=== PATIENT | male | born 1960 | race Asian ===

== ENCOUNTER 2018-11-04 16:46 | Emergency (ER) | payer MEDICAID ==
[~2018-11-04] VITALS: Ht 182.9 cm; Wt 90.7 kg
[2018-11-04 17:00] VITALS: BP 175/88
[2018-11-04 17:28] LABS: HEMATOCRIT 38.6 % (42.0-52.0); HEMOGLOBIN 12.8 G/DL (14.2-18.0); MEAN CORPUSCULAR VOLUME 96 FL (80-99); PLATELET COUNT 274 K/UL (150-450); RED BLOOD COUNT 4.01 M/UL (4.70-6.10); RED CELL DISTRIBUTION WIDTH 11.3 % (11.6-14.8); WHITE BLOOD COUNT 21.4 K/UL (4.8-10.8)
[2018-11-04 17:36] LABS: ANION GAP 11 mmol/L (5-15); BLOOD UREA NITROGEN 10 mg/dL (7-18); CARBON DIOXIDE 27 MMOL/L (21-32); CHLORIDE 93 MMOL/L (98-107); POTASSIUM 3.6 MMOL/L (3.5-5.1); SODIUM 131 MMOL/L (136-145)
[2018-11-04 17:40] LABS: ALANINE AMINOTRANSFERASE 20 U/L (12-78); ALBUMIN 2.6 G/DL (3.4-5.0); ALBUMIN/GLOBULIN RATIO 0.5 (1.0-2.7); ALKALINE PHOSPHATASE 98 U/L (46-116); ASPARTATE AMINO TRANSFERASE 12 U/L (15-37); BILIRUBIN,TOTAL 0.5 MG/DL (0.2-1.0)
--- NOTE | 2018-11-04 17:47 | Diagnostic Imaging Report ---
EXAM: XR Chest, 1 View CLINICAL HISTORY: COUGH TECHNIQUE: Frontal view of the chest. COMPARISON: No relevant prior studies available. FINDINGS: Lungs: Right lower lung and perihilar infiltrates/consolidation. Cannot exclude underlying pulmonary lesion, consider followup to ensure resolution. Pleural space: Unremarkable. No pneumothorax. Heart: Cardiomegaly. Mediastinum: Unremarkable. Bones/joints: Unremarkable. IMPRESSION: Right lower lung and perihilar infiltrates/consolidation. Cannot exclude underlying pulmonary lesion, consider followup to ensure resolution.
[2018-11-04] MEDS ORDERED: Azithromycin 500 MG in NS 275 ML IV SCH (18:00)
[2018-11-04] MEDS ORDERED: cefTRIAXone 1 GM in NS 55 ML IV SCH (18:00)
[2018-11-04 18:13] LABS: APPEARANCE,URINE CLEAR; BILIRUBIN, URINE NEGATIVE (NEGATIVE); GLUCOSE, URINE (UA) 4+ (NEGATIVE); KETONES,URINE NEGATIVE (NEGATIVE); LEUKOCYTE ESTERASE ,URINE NEGATIVE (NEGATIVE); NITRITE,URINE NEGATIVE (NEGATIVE); PH,URINE 7 (4.5-8.0); PROTEIN,URINE 3+ (NEGATIVE); UROBILINOGEN,URINE 1 MG/DL (0.0-1.0)
[2018-11-04 18:14] LABS: COLOR,URINE YELLOW
[2018-11-04] MEDS ORDERED: Acetaminophen 500mg (ES) tab ORAL ONE (18:30)
--- NOTE | 2018-11-04 18:38 | Emergency Room Report ---
History of Present Illness General Chief Complaint: General Complaint Source: Patient Present Illness HPI 58-year-old male presents ED for evaluation. Brought in by EMS from rehabilitation facility. patient complaining of headache, cough, fever for the last 4 days. Patient afebrile in triage. Complaining of sore throat and cough. Denies nausea or vomiting. Denies neck stiffness. Denies photophobia or blurry vision. Denies dysuria or hematuria. Did not receive flu shot this year. No other aggravating relieving factors. Denies any other associated symptoms Allergies: Coded Allergies: No Known Allergies (Unverified , 11/04/18) Patient History Past Medical History: none Past Surgical History: none Pertinent Family History: none Social History: Reports: alcohol use; Denies: smoking, drug use Immunizations: UTD Reviewed Nursing Documentation: PMH: Agreed; PSxH: Agreed Nursing Documentation-PMH Past Medical History: No Stated History Review of Systems All Other Systems: negative except mentioned in HPI Physical Exam Vital Signs Date Time Temp Pulse Resp B/P (MAP) Pulse Ox O2 Delivery O2 Flow Rate FiO2 11/04/18 16:39 102.9 104 18 175/100 98 Room Air 11/04/18 17:00 2.0 Sp02 EP Interpretation: reviewed, normal General Appearance: no apparent distress, alert, GCS 15, non-toxic Head: normocephalic, atraumatic Eyes: bilateral eye normal inspection, bilateral eye PERRL ENT: hearing grossly normal, no angioedema, normal voice, TMs + canals normal, pharyngeal erythema, tonsillar exudate Neck: full range of motion, supple, no meningismus, supple/symm/no masses Respiratory: chest non-tender, crackles, speaking full sentences Cardiovascular #1: regular rate, rhythm, no edema Cardiovascular #2: 2+ carotid (R), 2+ carotid (L), 2+ radial (R), 2+ radial (L) , 2+ dorsalis pedis (R), 2+ dorsalis pedis (L) Gastrointestinal: normal bowel sounds, non tender, soft, non-distended, no guarding, no rebound Rectal: deferred Genitourinary: normal inspection, no CVA tenderness Musculoskeletal: back normal, gait/station normal, normal range of motion, non- tender Neurologic: alert, oriented x3, responsive, motor strength/tone normal, sensory intact, speech normal Psychiatric: judgement/insight normal, memory normal, mood/affect normal, no suicidal/homicidal ideation Reflexes: 3+ bicep (R), 3+ bicep (L), 3+ tricep (R), 3+ tricep (L), 3+ knee (R) , 3+ knee (L) Skin: normal color, no rash, warm/dry, well hydrated Lymphatic: no adenopathy Medical Decision Making Diagnostic Impression: Primary Impression: Pneumonia Qualified Codes: J18.1 - Lobar pneumonia, unspecified organism Additional Impression: Pharyngitis Qualified Codes: J02.9 - Acute pharyngitis, unspecified ER Course Hospital Course 58 yo M presents to ED c/o fever, weakness, cough Differential diagnoses include: Pneumonia, flu, pharyngiis Clinical course Patient placed on stretcher. On radiation monitor. After initial history, physical exam reveals an elderly male in no acute distress. Bilateral TM unremarkable. There is significant pharyngeal erythema with exudate. No nuchal rigidity. Crackles on exam. I ordered labs, IV fluids, EKG, chest x-ray, blood cultures, UA. I ordered Motrin for fever Labs - marked leukocytosis noted, hemoglobin/hematocrit stable, electrolytes ok , lactate ok, flu swab negative CXR - R lobe infiltrate given IVFS, given tylenol, given antibiotics Case discussed with Dr. Acosta and he agreed to the patient to his service for further care and support I feel this is a highly complex case requiring extensive working including EKG/ Rhythm strip, Xray/CT/US, Blood/urine lab work, repeat exams while in ED, and administration of strong opiates/narcotics for pain control, admission to hospital or close patient follow up. Diagnosis - pneumonia, pharyngitis Patient admitted to floor in serious condition Labs Test 11/04/18 17:14 11/04/18 17:45 11/04/18 17:50 White Blood Count 21.4 K/UL (4.8-10.8) Red Blood Count 4.01 M/UL (4.70-6.10) Hemoglobin 12.8 G/DL (14.2-18.0) Hematocrit 38.6 % (42.0-52.0) Mean Corpuscular Volume 96 FL (80-99) Mean Corpuscular Hemoglobin 32.0 PG (27.0-31.0) Mean Corpuscular Hemoglobin Concent 33.2 G/DL (32.0-36.0) Red Cell Distribution Width 11.3 % (11.6-14.8) Platelet Count 274 K/UL (150-450) Mean Platelet Volume 6.9 FL (6.5-10.1) Neutrophils (%) (Auto) % (45.0-75.0) Lymphocytes (%) (Auto) % (20.0-45.0) Monocytes (%) (Auto) % (1.0-10.0) Eosinophils (%) (Auto) % (0.0-3.0) Basophils (%) (Auto) % (0.0-2.0) Differential Total Cells Counted 100 Neutrophils % (Manual) 86 % (45-75) Lymphocytes % (Manual) 8 % (20-45) Monocytes % (Manual) 2 % (1-10) Eosinophils % (Manual) 0 % (0-3) Basophils % (Manual) 0 % (0-2) Band Neutrophils 4 % (0-8) Platelet Estimate Adequate Platelet Morphology Normal Red Blood Cell Morphology Polychromasia 1+ Macrocytosis 1+ Sodium Level 131 MMOL/L (136-145) Potassium Level 3.6 MMOL/L (3.5-5.1) Chloride Level 93 MMOL/L (98-107) Carbon Dioxide Level 27 MMOL/L (21-32) Anion Gap 11 mmol/L (5-15) Blood Urea Nitrogen 10 mg/dL (7-18) Creatinine 1.0 MG/DL (0.55-1.30) Estimat Glomerular Filtration Rate > 60 mL/min (>60) Glucose Level 258 MG/DL (74-106) Calcium Level 9.0 MG/DL (8.5-10.1) Total Bilirubin 0.5 MG/DL (0.2-1.0) Aspartate Amino Transf (AST/SGOT) 12 U/L (15-37) Alanine Aminotransferase (ALT/SGPT) 20 U/L (12-78) Alkaline Phosphatase 98 U/L (46-116) Total Protein 7.6 G/DL (6.4-8.2) Albumin 2.6 G/DL (3.4-5.0) Globulin 5.0 g/dL Albumin/Globulin Ratio 0.5 (1.0-2.7) Serum Alcohol < 3 mg/dL Urine Color Yellow Urine Appearance Clear Urine pH 7 (4.5-8.0) Urine Specific [place] 1.010 (1.005-1.035) Urine Protein 3+ (NEGATIVE) Urine Glucose (UA) 4+ (NEGATIVE) Urine Ketones Negative (NEGATIVE) Urine Blood 2+ (NEGATIVE) Urine Nitrite Negative (NEGATIVE) Urine Bilirubin Negative (NEGATIVE) Urine Urobilinogen 1 MG/DL (0.0-1.0) Urine Leukocyte Esterase Negative (NEGATIVE) Urine RBC 0-2 /HPF (0 - 0) Urine WBC 0-2 /HPF (0 - 0) Urine Squamous Epithelial Cells None /LPF (NONE/OCC) Urine Bacteria None /HPF (NONE) Chest X-Ray Diagnostic Results Chest X-Ray Diagnostic Results : Chest X-Ray Ordered: Yes # of Views/Limited/Complete: 1 View Indication: Shortness of Breath EP Interpretation: Yes Interpretation: no effusion, no pneumothorax, other - R sided infiltrate Impression: Other - pneumonia Electronically Signed by: Electronically signed by Stanislaw Pulido MD Last Vital Signs Date Time Temp Pulse Resp B/P (MAP) Pulse Ox O2 Delivery O2 Flow Rate FiO2 11/04/18 17:25 103.0 11/04/18 17:00 98 37 Nasal Cannula 2.0 11/04/18 17:00 175/88 96 Status: improved Disposition: ADMITTED INPATIENT Condition: Serious Scripts No Active Prescriptions or Reported Meds Referrals: NOT APPLICABLE THIS PATIENT,RE (PCP) Stanislaw Pulido MD Nov 04, 2018 18:38
[2018-11-04 19:00] VITALS: BP 124/74
[2018-11-04] MEDS ORDERED: AMOXICILLIN500 MG ORAL (20:32)
[2018-11-04] MEDS ORDERED: IBUPROFEN600 MG ORAL (20:32)
[2018-11-04 20:44] VITALS: BP 127/72
== END 2018-11-04 20:44 | disposition left against medical advice (07) ==
LOC: EDBD 16:46 → EMR 17:33
DX: J18.9 Pneumonia, unspecified organism (principal); J02.9 Acute pharyngitis, unspecified
CPT/HCPCS: 36415; 71045; 80053; 80329; 81003; 83605; 85007; 85025; 86710; 87040; 96361; 96365; 96368; 99285; J0456; J0696; J7050

== ENCOUNTER 2018-11-07 20:01 | Inpatient (IN) | payer MEDICAID ==
[~2018-11-07] VITALS: Ht 167.6 cm; Wt 84.8 kg
[~2018-11-07 20:01] MED LIST: AMOXICILLIN500 MG ORAL; IBUPROFEN600 MG ORAL
[2018-11-07] MEDS ORDERED: Nitroglycerin Subl 0.4mg tab SL PRN (20:15)
[2018-11-07] MEDS ORDERED: Aspirin Baby 81mg ORAL ONE (20:15)
[2018-11-07] MEDS ORDERED: Nitroglycerin 2% oint pkt TOPIC ONE (20:15)
--- NOTE | 2018-11-07 20:55 | Emergency Room Report ---
History of Present Illness General Chief Complaint: Multiple Trauma/Fall Source: Patient Present Illness HPI This patient states that he feels short of breath. He has been feeling short of breath the past few days. He now feels like a pressure is on his chest. He also tripped and fell today and hit his head. He has a headache. He denies recent illness. He denies cough or congestion. He denies fever or chills. He does have chest pain. He denies any history of any medical problems. He has no other complaints. Allergies: Coded Allergies: No Known Allergies (Unverified , 11/04/18) Patient History Past Medical History: none Social History: Denies: smoking, alcohol use, drug use Reviewed Nursing Documentation: PMH: Agreed; PSxH: Agreed Nursing Documentation-PMH Past Medical History: No Stated History Review of Systems All Other Systems: negative except mentioned in HPI Physical Exam Vital Signs Date Time Temp Pulse Resp B/P (MAP) Pulse Ox O2 Delivery O2 Flow Rate FiO2 11/07/18 20:20 99.0 22 36 170/97 91 Nasal Cannula 4.0 11/07/18 20:39 50 Sp02 EP Interpretation: reviewed, abnormal General Appearance: no apparent distress, alert, GCS 15, moderate distress Head: normocephalic, atraumatic Eyes: bilateral eye normal inspection, bilateral eye PERRL ENT: hearing grossly normal, normal pharynx, no angioedema, normal voice Neck: full range of motion, supple/symm/no masses Respiratory: chest non-tender, no retraction, no accessory muscle use, rales, other - Tachypnea Cardiovascular #1: regular rate, rhythm, no edema Gastrointestinal: normal bowel sounds, non tender, soft, non-distended, no guarding, no rebound Rectal: deferred Musculoskeletal: back normal, gait/station normal, normal range of motion, non- tender Neurologic: alert, oriented x3, responsive, motor strength/tone normal, sensory intact, speech normal Psychiatric: judgement/insight normal, memory normal, mood/affect normal, no suicidal/homicidal ideation Skin: normal color, no rash, warm/dry, well hydrated Medical Decision Making Diagnostic Impression: Primary Impression: Pneumonia Additional Impressions: Sepsis Respiratory failure Diabetes Hyperglycemia ER Course This patient presents with multilobar pneumonia and sepsis. He also has a new diagnosis of diabetes with hyperglycemia. On arrival, he was dyspneic and tachypneic. He was placed on BiPAP and had significant improvement in his work of breathing. ABG is consistent with respiratory failure. Repeat ABG showed significant improvement with BiPAP. The patient also is very comfortable and without respiratory distress on BiPAP. I did not feel that, at this time, the patient needs to be intubated. He was given broad-spectrum antibiotics and IV fluids. He is also given insulin subcutaneous. He is admitted to the ICU step down for further evaluation and treatment. This patient is critically ill. This patient required complex medical decision- making, aggressive intervention, extensive laboratory workup and monitoring. Critical care time: 40 minutes. Laboratory Tests Test 11/07/18 20:16 11/07/18 20:45 11/07/18 21:00 11/07/18 21:25 Arterial Blood pH 7.481 (7.350-7.450) 7.482 (7.350-7.450) Arterial Blood Partial Pressure CO2 33.7 mmHg (35.0-45.0) L 32.9 mmHg (35.0-45.0) L Arterial Blood Partial Pressure O2 66.3 mmHg (75.0-100.0) L 97.5 mmHg (75.0-100.0) Arterial Blood HCO3 24.6 mmol/L (22.0-26.0) 24.1 mmol/L (22.0-26.0) Arterial Blood Oxygen Saturation 93.0 % (95-100) L 97.2 % (95-100) Arterial Blood Base Excess 1.6 (-2-2) 1.2 (-2-2) Rhett Test Positive Positive White Blood Count 18.9 K/UL (4.8-10.8) H Red Blood Count 4.00 M/UL (4.70-6.10) L Hemoglobin 12.7 G/DL (14.2-18.0) L Hematocrit 37.6 % (42.0-52.0) L Mean Corpuscular Volume 94 FL (80-99) Mean Corpuscular Hemoglobin 31.9 PG (27.0-31.0) H Mean Corpuscular Hemoglobin Concent 33.9 G/DL (32.0-36.0) Red Cell Distribution Width 11.8 % (11.6-14.8) Platelet Count 457 K/UL (150-450) H Mean Platelet Volume 5.9 FL (6.5-10.1) L Neutrophils (%) (Auto) % (45.0-75.0) Lymphocytes (%) (Auto) % (20.0-45.0) Monocytes (%) (Auto) % (1.0-10.0) Eosinophils (%) (Auto) % (0.0-3.0) Basophils (%) (Auto) % (0.0-2.0) Differential Total Cells Counted 100 Neutrophils % (Manual) 72 % (45-75) Lymphocytes % (Manual) 17 % (20-45) L Monocytes % (Manual) 8 % (1-10) Eosinophils % (Manual) 2 % (0-3) Basophils % (Manual) 1 % (0-2) Band Neutrophils 0 % (0-8) Platelet Estimate Increased H Platelet Morphology Normal Red Blood Cell Morphology Normal Prothrombin Time 10.6 SEC (9.30-11.50) Prothrombin Time INR 1.0 (0.9-1.1) PTT 31 SEC (23-33) Sodium Level 132 MMOL/L (136-145) L Potassium Level 3.8 MMOL/L (3.5-5.1) Chloride Level 96 MMOL/L (98-107) L Carbon Dioxide Level 26 MMOL/L (21-32) Anion Gap 10 mmol/L (5-15) Blood Urea Nitrogen 11 mg/dL (7-18) Creatinine 0.9 MG/DL (0.55-1.30) Estimate Glomerular Filtration Rate > 60 mL/min (>60) Glucose Level 357 MG/DL (74-106) H Calcium Level 8.5 MG/DL (8.5-10.1) Total Bilirubin 0.7 MG/DL (0.2-1.0) Aspartate Amino Transferase (AST) 47 U/L (15-37) H Alanine Aminotransferase (ALT) 64 U/L (12-78) Alkaline Phosphatase 146 U/L (46-116) H Total Creatine Kinase 44 U/L (26-308) Creatine Kinase MB 0.6 NG/ML (0.0-3.6) Creatine Kinase MB Relative Index 1.3 Troponin I 0.017 ng/mL (0.000-0.056) Pro-B-Type Natriuretic Peptide 190 pg/mL (0-125) H Total Protein 7.6 G/DL (6.4-8.2) Albumin 2.1 G/DL (3.4-5.0) L Globulin 5.5 g/dL Albumin/Globulin Ratio 0.4 (1.0-2.7) L Urine Color Pale yellow Urine Appearance Clear Urine pH 7 (4.5-8.0) Urine Specific [place] 1.005 (1.005-1.035) Urine Protein 2+ (NEGATIVE) H Urine Glucose (UA) 4+ (NEGATIVE) H Urine Ketones Negative (NEGATIVE) Urine Blood 1+ (NEGATIVE) H Urine Nitrite Negative (NEGATIVE) Urine Bilirubin Negative (NEGATIVE) Urine Urobilinogen 1 MG/DL (0.0-1.0) H Urine Leukocyte Esterase Negative (NEGATIVE) Urine RBC 0-2 /HPF (0 - 0) H Urine WBC 0-2 /HPF (0 - 0) Urine Squamous Epithelial Cells None /LPF (NONE/OCC) Urine Bacteria Few /HPF (NONE) EKG Diagnostic Results Rate: normal Rhythm: NSR ST Segments: no acute changes Rhythm Strip Diag. Results EP Interpretation: yes Rate: 70's Rhythm: NSR, no PVC's, no ectopy Chest X-Ray Diagnostic Results Chest X-Ray Diagnostic Results : Chest X-Ray Ordered: Yes # of Views/Limited/Complete: 1 View Indication: Shortness of Breath Interpretation: no pneumothorax, other - RML and RLL opacities Impression: Other - See above CT/MRI/US Diagnostic Results CT/MRI/US Diagnostic Results : Imaging Test Ordered: CT head Impression No acute findings. Specifically no intracranial bleed, mass effect or edema. See official report. Last Vital Signs Date Time Temp Pulse Resp B/P (MAP) Pulse Ox O2 Delivery O2 Flow Rate FiO2 11/07/18 20:51 149/88 11/07/18 20:41 88 38 Bi-pap 50 11/07/18 20:39 98 11/07/18 20:20 99.0 4.0 Disposition: ADMITTED INPATIENT Condition: Critical Maribeth Marc DO Nov 07, 2018 20:55
[2018-11-07 21:00] LABS: HEMATOCRIT 37.6 % (42.0-52.0); HEMOGLOBIN 12.7 G/DL (14.2-18.0); MEAN CORPUSCULAR VOLUME 94 FL (80-99); PLATELET COUNT 457 K/UL (150-450); RED CELL DISTRIBUTION WIDTH 11.8 % (11.6-14.8); WHITE BLOOD COUNT 18.9 K/UL (4.8-10.8)
[2018-11-07 21:11] LABS: ANION GAP 10 mmol/L (5-15); BLOOD UREA NITROGEN 11 mg/dL (7-18); CALCIUM 8.5 MG/DL (8.5-10.1); CARBON DIOXIDE 26 MMOL/L (21-32); CHLORIDE 96 MMOL/L (98-107); CREATININE 0.9 MG/DL (0.55-1.30); POTASSIUM 3.8 MMOL/L (3.5-5.1); SODIUM 132 MMOL/L (136-145)
[2018-11-07 21:24] LABS: ALANINE AMINOTRANSFERASE 64 U/L (12-78); ALBUMIN 2.1 G/DL (3.4-5.0); ALBUMIN/GLOBULIN RATIO 0.4 (1.0-2.7); ALKALINE PHOSPHATASE 146 U/L (46-116); ASPARTATE AMINO TRANSFERASE 47 U/L (15-37); BILIRUBIN,TOTAL 0.7 MG/DL (0.2-1.0); CKMB 0.6 NG/ML (0.0-3.6); CREATINE KINASE 44 U/L (26-308)
--- NOTE | 2018-11-07 21:25 | NUR ---
ED Nurse Note: PATIENT AMBULATED TO ED WITH C/O FALL TODAY AT 1400. PATIENTS STATES HE DOESNT REMEMBER WHAT HAPPENED. PATIENT PRESENTS PALE AND SOB; SPO2 85% ROOM AIR; 91% NC 4L. REPORTS CHEST PAIN 10/10. PT WAS SEEN BY FLORY, RESPIRATORY THERAPIST ON BEDSIDE. PT WAS PUT ON BIPAP, PT MEDICATED AND TOLERATED WELL. PT STATED THAT THE CHEST PAIN LESSEN AFTER THE NITROGLYCERIN SUBLINGUAL, ASA WAS GIVEN. PAIN WENT DOWN TO 2/10 FROM 10/10 VERBALIZED BY THE PT. BLOOD AND URINE WAS SENT TO THE LAB. WILL CONTINUE TO MONITOR.
[2018-11-07] MEDS ORDERED: cefTRIAXone 1 GM in NS 55 ML IVPB ONE (21:30)
[2018-11-07 21:34] VITALS: BP 149/88
[2018-11-07 21:44] LABS: APPEARANCE,URINE CLEAR; BILIRUBIN, URINE NEGATIVE (NEGATIVE); COLOR,URINE PALE YELLOW; GLUCOSE, URINE (UA) 4+ (NEGATIVE); KETONES,URINE NEGATIVE (NEGATIVE); LEUKOCYTE ESTERASE ,URINE NEGATIVE (NEGATIVE); NITRITE,URINE NEGATIVE (NEGATIVE); PH,URINE 7 (4.5-8.0); PROTEIN,URINE 2+ (NEGATIVE); UROBILINOGEN,URINE 1 MG/DL (0.0-1.0)
[2018-11-07] MEDS ORDERED: Insulin Human Regular 100units/ml 3ml SUBQ ONE (22:00)
--- NOTE | 2018-11-07 22:10 | NUR ---
ED Nurse Note: pt went to ct with tech
[2018-11-07] MEDS ORDERED: LORazepam Inj 2mg/ml 1ml IV PRN (22:15)
[2018-11-07] MEDS ORDERED: Albuterol/Ipratropium 3ml neb HHN PRN (22:15)
[2018-11-07] MEDS ORDERED: Morphine Sulfate 4mg/ml Inj (IV USE ONLY) IVP PRN (22:15)
[2018-11-07] MEDS ORDERED: Miralax 17gm pkt ORAL PRN (22:15)
[2018-11-07] MEDS ORDERED: Promethazine/Codeine 5ml UD ORAL PRN (22:15)
--- NOTE | 2018-11-07 23:00 | NUR ---
ED Nurse Note: pt was admitted to hospital, report givevn to neymar schrader
--- NOTE | 2018-11-07 23:20 | NUR ---
ED Nurse Note: pt was transfered 246 D accompanied by rn and respiratory therapist and connected to monitoring engineer. pt took all belongings with him and endorsed to neymar schrader
--- NOTE | 2018-11-07 23:50 | NUR ---
NURSE NOTES: Received report and pt from KRISTI Stephenson. Pt's transferred from ER to SDU ( ICU overflow) dxed PNA, resp distress. Pt's AOx4, English speaking, stated homeless, currently on Bipap 07/14, PEEP 12, FiO2 50%, O2 sat at 99%. Pt's in no acute distress, VS stable, following commands. Noted Right FA 18G peripheral line patent. Skin intact. Kept HOB elevated. Bed in low and locked position. Will continue to monitor.
[2018-11-07 23:57] VITALS: BP 141/88
[2018-11-08] VITALS (16 sets, daily range): BP systolic 127–149; BP diastolic 76–91
[2018-11-08] MEDS: Vancomycin 1 GM in D5W 275 ML IVPB SCH ×2 (00:42→14:10)
--- NOTE | 2018-11-08 02:00 | NUR ---
NURSE NOTES: Pt's resting in bed,with eyes closed, as sleep, still wearing Bipap. VS stable. Will continue to monitor.
--- NOTE | 2018-11-08 04:00 | NUR ---
NURSE NOTES: Pt's resting in bed, asleep, VS stable, in no acute distress. Will continue to monitor.
[2018-11-08 04:17] LABS: BASOPHILS % (AUTO) 1.5 % (0.0-2.0); EOSINOPHILS % (AUTO) 0.8 % (0.0-3.0); HEMATOCRIT 33.5 % (42.0-52.0); HEMOGLOBIN 11.4 G/DL (14.2-18.0); LYMPHOCYTES % (AUTO) 14.1 % (20.0-45.0); MEAN CORPUSCULAR VOLUME 95 FL (80-99); MONOCYTES % (AUTO) 9.1 % (1.0-10.0); NEUTROPHILS % (AUTO) 74.5 % (45.0-75.0); PLATELET COUNT 441 K/UL (150-450); RED BLOOD COUNT 3.52 M/UL (4.70-6.10); RED CELL DISTRIBUTION WIDTH 11.9 % (11.6-14.8); WHITE BLOOD COUNT 17.8 K/UL (4.8-10.8)
[2018-11-08 04:30] LABS: ALBUMIN 1.9 G/DL (3.4-5.0); ANION GAP 11 mmol/L (5-15); BLOOD UREA NITROGEN 11 mg/dL (7-18); CARBON DIOXIDE 24 MMOL/L (21-32); CHLORIDE 97 MMOL/L (98-107); CREATININE 0.8 MG/DL (0.55-1.30); PHOSPHORUS 3.7 MG/DL (2.5-4.9); POTASSIUM 3.5 MMOL/L (3.5-5.1); SODIUM 132 MMOL/L (136-145)
--- NOTE | 2018-11-08 06:00 | NUR ---
NURSE NOTES: Pt's resting bed, asleep, in no acute distress. VS stable. Will continue to monitor.
[2018-11-08] MEDS: NovoLOG Insulin Flexpen SUBQ SCH ×4 (06:43→21:24)
--- NOTE | 2018-11-08 07:21 | NUR ---
HAND-OFF: Report given to KRISTI Gotti.
--- NOTE | 2018-11-08 08:00 | NUR ---
NURSE NOTES: Received patient alert&oriented x4. Limited japanese, nepali speaking. hall monitor showing SR. Patient on 2 L nc saturating 100%. Lung soudns dimininshed bilaterally. Hypoactive bowel sounds on all 4 quadrants. R foearm 18. 1/2 NS at 50 cc/hr. Patient stable. VSS. No distress noted. Sitting in the bed watching television no s/s of distress, denies pain or discomfort. Will continue to monitor patient. Bed alarm on for safety.
[2018-11-08] MEDS ORDERED: Cefepime HCl 2 GM in D5W 110 ML IV SCH (09:00)
[2018-11-08] MEDS ORDERED: Heparin 5000 units/ml inj SUBQ SCH (09:00)
--- NOTE | 2018-11-08 09:39 | Consultation ---
Consult Note Consult Note asked to eval for low Na Chief Complaint: Multiple Trauma/Fall Source: Patient HPI This patient states that he feels short of breath. He has been feeling short of breath the past few days. He now feels like a pressure is on his chest. He also tripped and fell today and hit his head. He has a headache. He denies recent illness. He denies cough or congestion. He denies fever or chills. He does have chest pain. He denies any history of any medical problems. He has no other complaints. No Known Allergies (Unverified , 11/04/18) data reviewed examined . Assessment/Plan Pneumonia Low Na due to high BS Sepsis Respiratory failure Diabetes OOC with proteinuria [place] UOs uric acid TSH Lipid per orders Sedrick Cordova MD Nov 08, 2018 09:39
--- NOTE | 2018-11-08 09:45 | Diagnostic Imaging Report ---
Indication: Head trauma, fall, head pain Technique: Continuous helical CT scanning of the head was performed without intravenous contrast material. Axial and coronal 5 mm sections were generated. Radiation dose was minimized using automated exposure control Dose: Total Dose Length Product - DLP 1981.[address] Dose Index - CTDIvol(s) 70.38,70.38 mGy. Comparison: none Findings: The ventricular system is normal in size and configuration. There is no shift of midline structures. No abnormal extra-axial fluid collections are noted. There is no evidence of intracerebral bleeding. No other abnormal high or low density areas are noted within the brain. There is a tiny left high parietal scalp contusion. The visualized orbits are unremarkable. The sinuses are clear. The calvarium is intact. The mastoids are clear. The cruz-white differentiation is normal. Impression: Normal CT scan of the head without contrast material. The CT scanner at [facility] is accredited by the [employer] and the scans are performed using protocols designed to limit radiation exposure to as low as reasonably achievable to attain images of sufficient resolution adequate for diagnostic evaluation.
--- NOTE | 2018-11-08 09:46 | NUR ---
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 RESPIRATORY DISTRESS VS: BP 170/97, P 22, T 98.9, RR 36, SpO2 91 on 4.0L Bi-pap FiO2 50 WBC 18.9, RBC 4.00, Hgb 12.7, Hct 37.6, Na 132, Urine Protein 2+, Urine Blood 1+ HEAD CT Impression: Normal CT scan of the head without contrast material. IS:NITRO-BID TOPICAL ASPIRIN 162mg CEFTRIAXONE 55ml IVPB NOVOLIN R SUBQ ADMITTED TO ICU DC PLAN TO DETERMINED BY CARE NEEDED UPON DC
[2018-11-08] MEDS ORDERED: Promethazine/Codeine 5ml UD ORAL PRN ×2 (10:00→16:00)
--- NOTE | 2018-11-08 10:00 | NUR ---
NURSE NOTES: Patient self repositioned. No distress noted. VSS. Will continue plan of care.
--- NOTE | 2018-11-08 10:03 | Consultation ---
History of Present Illness General Date patient seen: Nov 08, 2018 Chief Complaint: Multiple Trauma/Fall Present Illness HPI 58 year old homeless male with hx of DM presented to ER with CC of short of breath for past few days. He now feels like a pressure is on his chest. He also tripped and fell today and hit his head. He denies fever or chills. His CXR showed bilateral infiltrate. He was started on BIPAP and admitted to [facility]. Allergies: Coded Allergies: No Known Allergies (Unverified , 11/04/18) Medication History Scheduled Amoxicillin* (Amoxil*), 500 MG ORAL THREE TIMES A DAY Scheduled PRN Ibuprofen* (Motrin*), 600 MG ORAL Q8H PRN for For Pain Patient History Healthcare decision maker Resuscitation status Full Code Advanced Directive on File Past Medical/Surgical History Past Medical/Surgical History: (1) Diabetes Review of Systems All Other Systems: negative except mentioned in HPI Physical Exam General Appearance: WD/WN Lines, tubes and drains: peripheral HEENT: normocephalic, atraumatic Neck: non-tender, normal alignment Respiratory/Chest: chest wall non-tender, lungs clear Breasts: no masses Cardiovascular/Chest: normal peripheral pulses Abdomen: normal bowel sounds Genitourinary/Rectal: normal genital exam Extremities: normal range of motion Last 24 Hour Vital Signs Date Time Temp Pulse Resp B/P (MAP) Pulse Ox O2 Delivery O2 Flow Rate FiO2 11/08/18 09:00 75 24 138/85 (102) 98 11/08/18 08:00 98.7 79 22 140/90 (107) 99 11/08/18 08:00 Bi-pap 11/08/18 08:00 50 11/08/18 07:00 71 24 142/82 (102) 99 11/08/18 06:00 71 24 145/88 (107) 99 11/08/18 05:27 69 23 99 Full Face 40 11/08/18 05:00 74 24 140/88 (105) 99 11/08/18 04:00 Bi-pap 11/08/18 04:00 98.9 78 24 134/88 (103) 99 11/08/18 04:00 74 11/08/18 03:30 72 37 100 Full Face 50 11/08/18 03:00 74 24 127/91 (103) 99 11/08/18 02:00 76 23 130/80 (97) 99 11/08/18 01:30 76 21 99 Full Face 50 11/08/18 01:00 81 30 133/78 (96) 99 11/08/18 00:35 50 11/08/18 00:00 Bi-pap 11/08/18 00:00 95 11/07/18 23:57 99.1 95 24 141/88 (105) 95 11/07/18 23:56 Bi-pap 11/07/18 23:30 80 26 100 Facial 50 11/07/18 22:20 99.1 87 14 149/84 100 Bi-pap 50 11/07/18 21:34 88 17 Bi-pap 4.0 50 11/07/18 21:34 99.0 88 17 149/88 98 Bi-pap 4.0 50 11/07/18 21:27 50 11/07/18 20:51 149/88 11/07/18 20:50 149/88 11/07/18 20:41 88 38 Bi-pap 50 11/07/18 20:39 88 38 98 Facial 50 11/07/18 20:20 99.0 22 36 170/97 91 Nasal Cannula 4.0 Intake and Output 11/07/18 11/08/18 19:00 07:00 Intake Total 625.0 ml Balance 625.0 ml Intake IV Total 625.0 ml Laboratory Tests Test 11/07/18 20:16 11/07/18 20:45 11/07/18 21:00 11/07/18 21:25 Arterial Blood pH 7.481 (7.350-7.450) 7.482 (7.350-7.450) Arterial Blood Partial Pressure CO2 33.7 mmHg (35.0-45.0) L 32.9 mmHg (35.0-45.0) L Arterial Blood Partial Pressure O2 66.3 mmHg (75.0-100.0) L 97.5 mmHg (75.0-100.0) Arterial Blood HCO3 24.6 mmol/L (22.0-26.0) 24.1 mmol/L (22.0-26.0) Arterial Blood Oxygen Saturation 93.0 % (95-100) L 97.2 % (95-100) Arterial Blood Base Excess 1.6 (-2-2) 1.2 (-2-2) Rhett Test Positive Positive White Blood Count 18.9 K/UL (4.8-10.8) H Red Blood Count 4.00 M/UL (4.70-6.10) L Hemoglobin 12.7 G/DL (14.2-18.0) L Hematocrit 37.6 % (42.0-52.0) L Mean Corpuscular Volume 94 FL (80-99) Mean Corpuscular Hemoglobin 31.9 PG (27.0-31.0) H Mean Corpuscular Hemoglobin Concent 33.9 G/DL (32.0-36.0) Red Cell Distribution Width 11.8 % (11.6-14.8) Platelet Count 457 K/UL (150-450) H Mean Platelet Volume 5.9 FL (6.5-10.1) L Neutrophils (%) (Auto) % (45.0-75.0) Lymphocytes (%) (Auto) % (20.0-45.0) Monocytes (%) (Auto) % (1.0-10.0) Eosinophils (%) (Auto) % (0.0-3.0) Basophils (%) (Auto) % (0.0-2.0) Differential Total Cells Counted 100 Neutrophils % (Manual) 72 % (45-75) Lymphocytes % (Manual) 17 % (20-45) L Monocytes % (Manual) 8 % (1-10) Eosinophils % (Manual) 2 % (0-3) Basophils % (Manual) 1 % (0-2) Band Neutrophils 0 % (0-8) Platelet Estimate Increased H Platelet Morphology Normal Red Blood Cell Morphology Normal Prothrombin Time 10.6 SEC (9.30-11.50) Prothromb Time International Ratio 1.0 (0.9-1.1) Activated Partial Thromboplast Time 31 SEC (23-33) Sodium Level 132 MMOL/L (136-145) L Potassium Level 3.8 MMOL/L (3.5-5.1) Chloride Level 96 MMOL/L (98-107) L Carbon Dioxide Level 26 MMOL/L (21-32) Anion Gap 10 mmol/L (5-15) Blood Urea Nitrogen 11 mg/dL (7-18) Creatinine 0.9 MG/DL (0.55-1.30) Estimat Glomerular Filtration Rate > 60 mL/min (>60) Glucose Level 357 MG/DL (74-106) H Calcium Level 8.5 MG/DL (8.5-10.1) Total Bilirubin 0.7 MG/DL (0.2-1.0) Aspartate Amino Transf (AST/SGOT) 47 U/L (15-37) H Alanine Aminotransferase (ALT/SGPT) 64 U/L (12-78) Alkaline Phosphatase 146 U/L (46-116) H Total Creatine Kinase 44 U/L (26-308) Creatine Kinase MB 0.6 NG/ML (0.0-3.6) Creatine Kinase MB Relative Index 1.3 Troponin I 0.017 ng/mL (0.000-0.056) Pro-B-Type Natriuretic Peptide 190 pg/mL (0-125) H Total Protein 7.6 G/DL (6.4-8.2) Albumin 2.1 G/DL (3.4-5.0) L Globulin 5.5 g/dL Albumin/Globulin Ratio 0.4 (1.0-2.7) L Urine Color Pale yellow Urine Appearance Clear Urine pH 7 (4.5-8.0) Urine Specific [place] 1.005 (1.005-1.035) Urine Protein 2+ (NEGATIVE) H Urine Glucose (UA) 4+ (NEGATIVE) H Urine Ketones Negative (NEGATIVE) Urine Blood 1+ (NEGATIVE) H Urine Nitrite Negative (NEGATIVE) Urine Bilirubin Negative (NEGATIVE) Urine Urobilinogen 1 MG/DL (0.0-1.0) H Urine Leukocyte Esterase Negative (NEGATIVE) Urine RBC 0-2 /HPF (0 - 0) H Urine WBC 0-2 /HPF (0 - 0) Urine Squamous Epithelial Cells None /LPF (NONE/OCC) Urine Bacteria Few /HPF (NONE) Test 11/08/18 03:30 White Blood Count 17.8 K/UL (4.8-10.8) H Red Blood Count 3.52 M/UL (4.70-6.10) L Hemoglobin 11.4 G/DL (14.2-18.0) L Hematocrit 33.5 % (42.0-52.0) L Mean Corpuscular Volume 95 FL (80-99) Mean Corpuscular Hemoglobin 32.3 PG (27.0-31.0) H Mean Corpuscular Hemoglobin Concent 33.9 G/DL (32.0-36.0) Red Cell Distribution Width 11.9 % (11.6-14.8) Platelet Count 441 K/UL (150-450) Mean Platelet Volume 6.0 FL (6.5-10.1) L Neutrophils (%) (Auto) 74.5 % (45.0-75.0) Lymphocytes (%) (Auto) 14.1 % (20.0-45.0) L Monocytes (%) (Auto) 9.1 % (1.0-10.0) Eosinophils (%) (Auto) 0.8 % (0.0-3.0) Basophils (%) (Auto) 1.5 % (0.0-2.0) Sodium Level 132 MMOL/L (136-145) L Potassium Level 3.5 MMOL/L (3.5-5.1) Chloride Level 97 MMOL/L (98-107) L Carbon Dioxide Level 24 MMOL/L (21-32) Anion Gap 11 mmol/L (5-15) Blood Urea Nitrogen 11 mg/dL (7-18) Creatinine 0.8 MG/DL (0.55-1.30) Estimat Glomerular Filtration Rate > 60 mL/min (>60) Glucose Level 269 MG/DL (74-106) H Calcium Level 8.0 MG/DL (8.5-10.1) L Phosphorus Level 3.7 MG/DL (2.5-4.9) Albumin 1.9 G/DL (3.4-5.0) L Height (Feet): 5 Height (Inches): 6.00 Weight (Pounds): 189 Medications Current Medications Medications (Trade) Dose Ordered Sig/Des Route PRN Reason Start Time Stop Time Status Last Admin Dose Admin Acetaminophen (Tylenol) 650 mg Q4H PRN ORAL FEVER 11/07/18 22:15 12/07/18 22:14 Albuterol/ Ipratropium (Albuterol/ Ipratropium) 3 ml Q4H PRN HHN Shortness of Breath 11/07/18 22:15 11/12/18 22:14 Cefepime HCl 2 gm/ Dextrose 110 ml @ 220 mls/hr EVERY 12 HOURS IV 11/08/18 09:00 11/15/18 08:59 11/08/18 09:29 Dextrose (Dextrose 50%) 25 ml Q30M PRN IV Hypoglycemia 11/07/18 22:15 12/07/18 22:14 Dextrose (Dextrose 50%) 50 ml Q30M PRN IV Hypoglycemia 11/07/18 22:15 12/07/18 22:14 Famotidine (Pepcid) 20 mg DAILY ORAL 11/09/18 09:00 12/09/18 08:59 Heparin Sodium (Porcine) (Heparin 5000 units/ml) 5,000 units EVERY 12 HOURS SUBQ 11/08/18 09:00 12/08/18 08:59 11/08/18 09:32 Insulin Aspart (NovoLOG) BEFORE MEALS AND HS SUBQ 11/08/18 06:30 12/08/18 06:29 11/08/18 06:43 Nitroglycerin (Ntg) 0.4 mg Q5M PRN SL Prn Chest Pain 11/07/18 20:15 11/07/18 20:51 Ondansetron HCl (Zofran) 4 mg Q6H PRN IVP Nausea & Vomiting 11/07/18 22:15 12/07/18 22:14 Polyethylene Glycol (Miralax) 17 gm DAILYPRN PRN ORAL Constipation 11/07/18 22:15 12/07/18 22:14 Promethazine HCl/ Codeine (Phenergan with Codeine) 5 ml Q4H PRN ORAL For Cough 11/08/18 10:00 12/08/18 09:59 Theophylline (Tremayne-Dur) 100 mg EVERY 12 HOURS ORAL 11/08/18 21:00 12/08/18 20:59 Vancomycin HCl (Vanco rx to dose) 1 ea DAILY PRN MISC Per rx protocol 11/08/18 07:30 12/08/18 07:29 Vancomycin HCl 1 gm/Dextrose 275 ml @ 183.3 mls/ hr Q12H IVPB 11/08/18 00:00 11/13/18 00:00 11/08/18 00:42 Assessment/Plan Problem List: (1) Acute respiratory failure ICD Codes: J96.00 - Acute respiratory failure, unspecified whether with hypoxia or hypercapnia SNOMED: 68470668 (2) Pneumonia ICD Codes: J18.9 - Pneumonia, unspecified organism SNOMED: 112360107 (3) Sepsis ICD Codes: A41.9 - Sepsis, unspecified organism SNOMED: 04137467 (4) Hyperglycemia ICD Codes: R73.9 - Hyperglycemia, unspecified SNOMED: 77775970 (5) Diabetes ICD Codes: E11.9 - Type 2 diabetes mellitus without complications SNOMED: 17030489 Assessment/Plan check sputum iv abx check cultures respiratory treatment sliding scale d/c iv fluids dvt prophylaxis. Yeimi Phelps MD Nov 08, 2018 10:03
[2018-11-08 10:08] LABS: CHOLESTEROL 124 MG/DL (< 200); HDL CHOLESTEROL 24 MG/DL (40-60); PHOSPHORUS 3.6 MG/DL (2.5-4.9); TRIGLYCERIDES 94 MG/DL (30-150)
[2018-11-08] MEDS ORDERED: Isovue-300 100ml vial INJ PRN (10:15)
--- NOTE | 2018-11-08 10:27 | Diagnostic Imaging Report ---
Indication: Shortness of breath Technique: One view of the chest Comparison: 11/04/2018 Findings: There is increased hazy infiltrate in the right suprahilar region and right lung base. There may be a small pleural effusion developing on the right. The heart remains enlarged. Left lung and pleural space remain clear. Impression: Increased right suprahilar and basilar consolidative changes, since prior study 11/04/2018 Suspect developing small right pleural effusion Cardiomegaly
--- NOTE | 2018-11-08 11:38 | NUR ---
Social Service Note SW met with patient to assess for homelessness. Patient is alert, oriented and verbally responsive mainly in [place] and can speak a little U[place]. Charge nurse provided [place] translation. Patient states he has been homeless for about 5 years. 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 Patient seen in ER on 11/04 and signed out AMA because he needed to go to work. Patient states work is not consistent which is why he became homeless. Patient states he stays in the [place] town area. Patient has a couple of friends he can stay with from time to time. Patient also states he utilizes the [place] [facility] as a place to shower and sleep. Patient states he applied for medi-rosie at the [facility] office on [address] but because he has lost his passport and visa his medi-roise is restricted. Patient states he has been to the [facility] and they are unable to help him. Patient states he [place] in the [place] [birth year], 1987. Patient states he doesn't have an emergency contact. Patient with cell phone at bedside. Patient states its currently not working and if it was he wouldn't list his friends. Patient with no family here in the [place]. Patient doesn't have a medical provider and has not sought out treatment in a clinic. Patient states recently he has had trouble breathing and tightness in his chest. Patient doesn't utilize homeless group home. Patient states he may return to a friends house upon discharge. Will monitor and assess placement options. Recommend PT bharti.
--- NOTE | 2018-11-08 12:00 | NUR ---
NURSE NOTES: Patient self repositioned. No distress noted. VSS. Will continue plan of care.
--- NOTE | 2018-11-08 13:35 | Consultation ---
History of Present Illness General Date patient seen: Nov 08, 2018 Chief Complaint: Multiple Trauma/Fall Present Illness HPI 58 y/o M with hx of Dm2 presents to ED on 11/07 with few days of SOB, chest pressure, a fall (tripped and fell and hit his head). Patient on respiratory distress upon admission and was placed on Bipap and admitted initially to [facility]. CXR showed bilateral infiltrates. Denied f/c, cough, congestion. Allergies: Coded Allergies: No Known Allergies (Unverified , 11/04/18) Medication History Scheduled Amoxicillin* (Amoxil*), 500 MG ORAL THREE TIMES A DAY Scheduled PRN Ibuprofen* (Motrin*), 600 MG ORAL Q8H PRN for For Pain Patient History Healthcare decision maker Resuscitation status Full Code Advanced Directive on File Patient History Narrative Pmhx: as above Shx: Denies: smoking, alcohol use, drug use Fhx non contributory Review of Systems All Other Systems: negative except mentioned in HPI Physical Exam Physical Exam Narrative General Appearance: WD/WN Lines, tubes and drains: peripheral HEENT: normocephalic, atraumatic Neck: non-tender, normal alignment Respiratory/Chest: chest wall non-tender, lungs clear Cardiovascular/Chest: normal peripheral pulses Abdomen: normal bowel sounds Extremities: normal range of motion Last 24 Hour Vital Signs Date Time Temp Pulse Resp B/P (MAP) Pulse Ox O2 Delivery O2 Flow Rate FiO2 11/08/18 10:00 77 24 133/84 (100) 98 11/08/18 09:00 75 24 138/85 (102) 98 11/08/18 08:00 98.7 79 22 140/90 (107) 99 11/08/18 08:00 Bi-pap 11/08/18 08:00 72 11/08/18 08:00 50 11/08/18 07:00 71 24 142/82 (102) 99 11/08/18 06:00 71 24 145/88 (107) 99 11/08/18 05:27 69 23 99 Full Face 40 11/08/18 05:00 74 24 140/88 (105) 99 11/08/18 04:00 Bi-pap 11/08/18 04:00 98.9 78 24 134/88 (103) 99 11/08/18 04:00 74 11/08/18 03:30 72 37 100 Full Face 50 11/08/18 03:00 74 24 127/91 (103) 99 11/08/18 02:00 76 23 130/80 (97) 99 11/08/18 01:30 76 21 99 Full Face 50 11/08/18 01:00 81 30 133/78 (96) 99 11/08/18 00:35 50 11/08/18 00:00 Bi-pap 11/08/18 00:00 95 11/07/18 23:57 99.1 95 24 141/88 (105) 95 11/07/18 23:56 Bi-pap 11/07/18 23:30 80 26 100 Facial 50 11/07/18 22:20 99.1 87 14 149/84 100 Bi-pap 50 11/07/18 21:34 88 17 Bi-pap 4.0 50 11/07/18 21:34 99.0 88 17 149/88 98 Bi-pap 4.0 50 11/07/18 21:27 50 11/07/18 20:51 149/88 11/07/18 20:50 149/88 11/07/18 20:41 88 38 Bi-pap 50 11/07/18 20:39 88 38 98 Facial 50 11/07/18 20:20 99.0 22 36 170/97 91 Nasal Cannula 4.0 Intake and Output 11/07/18 11/08/18 19:00 07:00 Intake Total 625.0 ml Balance 625.0 ml Intake IV Total 625.0 ml Laboratory Tests Test 11/07/18 20:16 11/07/18 20:45 11/07/18 21:00 11/07/18 21:25 Arterial Blood pH 7.481 (7.350-7.450) 7.482 (7.350-7.450) Arterial Blood Partial Pressure CO2 33.7 mmHg (35.0-45.0) L 32.9 mmHg (35.0-45.0) L Arterial Blood Partial Pressure O2 66.3 mmHg (75.0-100.0) L 97.5 mmHg (75.0-100.0) Arterial Blood HCO3 24.6 mmol/L (22.0-26.0) 24.1 mmol/L (22.0-26.0) Arterial Blood Oxygen Saturation 93.0 % (95-100) L 97.2 % (95-100) Arterial Blood Base Excess 1.6 (-2-2) 1.2 (-2-2) Rhett Test Positive Positive White Blood Count 18.9 K/UL (4.8-10.8) H Red Blood Count 4.00 M/UL (4.70-6.10) L Hemoglobin 12.7 G/DL (14.2-18.0) L Hematocrit 37.6 % (42.0-52.0) L Mean Corpuscular Volume 94 FL (80-99) Mean Corpuscular Hemoglobin 31.9 PG (27.0-31.0) H Mean Corpuscular Hemoglobin Concent 33.9 G/DL (32.0-36.0) Red Cell Distribution Width 11.8 % (11.6-14.8) Platelet Count 457 K/UL (150-450) H Mean Platelet Volume 5.9 FL (6.5-10.1) L Neutrophils (%) (Auto) % (45.0-75.0) Lymphocytes (%) (Auto) % (20.0-45.0) Monocytes (%) (Auto) % (1.0-10.0) Eosinophils (%) (Auto) % (0.0-3.0) Basophils (%) (Auto) % (0.0-2.0) Differential Total Cells Counted 100 Neutrophils % (Manual) 72 % (45-75) Lymphocytes % (Manual) 17 % (20-45) L Monocytes % (Manual) 8 % (1-10) Eosinophils % (Manual) 2 % (0-3) Basophils % (Manual) 1 % (0-2) Band Neutrophils 0 % (0-8) Platelet Estimate Increased H Platelet Morphology Normal Red Blood Cell Morphology Normal Prothrombin Time 10.6 SEC (9.30-11.50) Prothromb Time International Ratio 1.0 (0.9-1.1) Activated Partial Thromboplast Time 31 SEC (23-33) Sodium Level 132 MMOL/L (136-145) L Potassium Level 3.8 MMOL/L (3.5-5.1) Chloride Level 96 MMOL/L (98-107) L Carbon Dioxide Level 26 MMOL/L (21-32) Anion Gap 10 mmol/L (5-15) Blood Urea Nitrogen 11 mg/dL (7-18) Creatinine 0.9 MG/DL (0.55-1.30) Estimat Glomerular Filtration Rate > 60 mL/min (>60) Glucose Level 357 MG/DL (74-106) H Calcium Level 8.5 MG/DL (8.5-10.1) Total Bilirubin 0.7 MG/DL (0.2-1.0) Aspartate Amino Transf (AST/SGOT) 47 U/L (15-37) H Alanine Aminotransferase (ALT/SGPT) 64 U/L (12-78) Alkaline Phosphatase 146 U/L (46-116) H Total Creatine Kinase 44 U/L (26-308) Creatine Kinase MB 0.6 NG/ML (0.0-3.6) Creatine Kinase MB Relative Index 1.3 Troponin I 0.017 ng/mL (0.000-0.056) Pro-B-Type Natriuretic Peptide 190 pg/mL (0-125) H Total Protein 7.6 G/DL (6.4-8.2) Albumin 2.1 G/DL (3.4-5.0) L Globulin 5.5 g/dL Albumin/Globulin Ratio 0.4 (1.0-2.7) L Urine Color Pale yellow Urine Appearance Clear Urine pH 7 (4.5-8.0) Urine Specific [place] 1.005 (1.005-1.035) Urine Protein 2+ (NEGATIVE) H Urine Glucose (UA) 4+ (NEGATIVE) H Urine Ketones Negative (NEGATIVE) Urine Blood 1+ (NEGATIVE) H Urine Nitrite Negative (NEGATIVE) Urine Bilirubin Negative (NEGATIVE) Urine Urobilinogen 1 MG/DL (0.0-1.0) H Urine Leukocyte Esterase Negative (NEGATIVE) Urine RBC 0-2 /HPF (0 - 0) H Urine WBC 0-2 /HPF (0 - 0) Urine Squamous Epithelial Cells None /LPF (NONE/OCC) Urine Bacteria Few /HPF (NONE) Test 11/08/18 03:30 11/08/18 10:09 White Blood Count 17.8 K/UL (4.8-10.8) H Red Blood Count 3.52 M/UL (4.70-6.10) L Hemoglobin 11.4 G/DL (14.2-18.0) L Hematocrit 33.5 % (42.0-52.0) L Mean Corpuscular Volume 95 FL (80-99) Mean Corpuscular Hemoglobin 32.3 PG (27.0-31.0) H Mean Corpuscular Hemoglobin Concent 33.9 G/DL (32.0-36.0) Red Cell Distribution Width 11.9 % (11.6-14.8) Platelet Count 441 K/UL (150-450) Mean Platelet Volume 6.0 FL (6.5-10.1) L Neutrophils (%) (Auto) 74.5 % (45.0-75.0) Lymphocytes (%) (Auto) 14.1 % (20.0-45.0) L Monocytes (%) (Auto) 9.1 % (1.0-10.0) Eosinophils (%) (Auto) 0.8 % (0.0-3.0) Basophils (%) (Auto) 1.5 % (0.0-2.0) Sodium Level 132 MMOL/L (136-145) L Potassium Level 3.5 MMOL/L (3.5-5.1) Chloride Level 97 MMOL/L (98-107) L Carbon Dioxide Level 24 MMOL/L (21-32) Anion Gap 11 mmol/L (5-15) Blood Urea Nitrogen 11 mg/dL (7-18) Creatinine 0.8 MG/DL (0.55-1.30) Estimat Glomerular Filtration Rate > 60 mL/min (>60) Glucose Level 269 MG/DL (74-106) H Hemoglobin A1c 8.8 % (4.3-6.0) H Osmolality 284 mOsm/kg (297-317) L Uric Acid 2.2 MG/DL (2.6-7.2) L Calcium Level 8.0 MG/DL (8.5-10.1) L Phosphorus Level 3.6 MG/DL (2.5-4.9) Magnesium Level 1.7 MG/DL (1.8-2.4) L Albumin 1.9 G/DL (3.4-5.0) L Triglycerides Level 94 MG/DL (30-150) Cholesterol Level 124 MG/DL (< 200) LDL Cholesterol 83 mg/dL (<100) HDL Cholesterol 24 MG/DL (40-60) L Cholesterol/HDL Ratio 5.2 (3.3-4.4) H Thyroid Stimulating Hormone (TSH) 0.559 uiU/mL (0.358-3.740) Carcinoembryonic Antigen Pending Height (Feet): 5 Height (Inches): 6.00 Weight (Pounds): 189 Medications Current Medications Medications (Trade) Dose Ordered Sig/Des Route PRN Reason Start Time Stop Time Status Last Admin Dose Admin Acetaminophen (Tylenol) 650 mg Q4H PRN ORAL FEVER 11/07/18 22:15 12/07/18 22:14 Albuterol/ Ipratropium (Albuterol/ Ipratropium) 3 ml Q4H PRN HHN Shortness of Breath 11/07/18 22:15 11/12/18 22:14 Cefepime HCl 2 gm/ Dextrose 110 ml @ 220 mls/hr EVERY 12 HOURS IV 11/08/18 09:00 11/15/18 08:59 11/08/18 09:29 Dextrose (Dextrose 50%) 25 ml Q30M PRN IV Hypoglycemia 11/07/18 22:15 12/07/18 22:14 Dextrose (Dextrose 50%) 50 ml Q30M PRN IV Hypoglycemia 11/07/18 22:15 12/07/18 22:14 Famotidine (Pepcid) 20 mg DAILY ORAL 11/09/18 09:00 12/09/18 08:59 Heparin Sodium (Porcine) (Heparin 5000 units/ml) 5,000 units EVERY 12 HOURS SUBQ 11/08/18 09:00 12/08/18 08:59 11/08/18 09:32 Insulin Aspart (NovoLOG) BEFORE MEALS AND HS SUBQ 11/08/18 06:30 12/08/18 06:29 11/08/18 11:25 Iopamidol (Isovue-300 100ml) 100 ml NOW PRN INJ Radiology Procedure 11/08/18 10:15 11/10/18 10:03 Nitroglycerin (Ntg) 0.4 mg Q5M PRN SL Prn Chest Pain 11/07/18 20:15 11/07/18 20:51 Ondansetron HCl (Zofran) 4 mg Q6H PRN IVP Nausea & Vomiting 11/07/18 22:15 12/07/18 22:14 Polyethylene Glycol (Miralax) 17 gm DAILYPRN PRN ORAL Constipation 11/07/18 22:15 12/07/18 22:14 Promethazine HCl/ Codeine (Phenergan with Codeine) 5 ml Q4H PRN ORAL For Cough 11/08/18 10:00 12/08/18 09:59 Theophylline (Tremayne-Dur) 100 mg EVERY 12 HOURS ORAL 11/08/18 21:00 12/08/18 20:59 Vancomycin HCl (Vanco rx to dose) 1 ea DAILY PRN MISC Per rx protocol 11/08/18 07:30 12/08/18 07:29 Vancomycin HCl 1 gm/Dextrose 275 ml @ 183.3 mls/ hr Q12H IVPB 11/08/18 00:00 11/13/18 00:00 11/08/18 00:42 Assessment/Plan Assessment/Plan Abx: Cefepime 11/08- IV Vancomycin 11/08- Ceftriaxone x1 11/07 Assessment: Sepsis- 2ry to PNA -CXR: Increased right suprahilar and basilar consolidative changes, since prior study 11/04/2018. Suspect developing small right pleural effusion -11/04 influenza sc neg Afebrile Leukocytosis Acute respiratory failure, on bipap Dm2 Plan: -Continue empiric IV Vancomycin and Cefepime for PNA pending cutlures -11/07 SP Ceftriaxone x1 -f.u cx -Monitor CBC/CMP, temperatures -aspiration precautions -ICU care -legionella ag urine, sp cx, influenza sc Thank you for this consultation. Will continue to follow along with you. Alfreda Thomas M.D. Nov 08, 2018 13:35
--- NOTE | 2018-11-08 15:02 | NUR ---
TRANSFER TO FLOOR: Patient transferred to med surg, per hospital bed. Report given to Rhoda Malloy using SBAR. Belongings and medications given to RN. Family and or S/O informed of transfer.
[2018-11-08] MEDS ORDERED: Nitroglycerin Subl 0.4mg tab SL PRN (15:15)
--- NOTE | 2018-11-08 15:15 | NUR ---
NURSE NOTES: Received patient from [facility] from ICU. Patient is alert and oriented x4. English speaking. Orientation given about the unit, call light use and meal time, fall precaution and etc. Skin intact, IV intact, no s/s of infiltration. Influenza A&B and urine were not collected. RN will follow up. Patient noted with on and off cough and ambulatory. Call light within reach. Reminded patient to call nurses if needed. Bed alarm is on and side rails up. Rn checked the belongings with the patient, Rn from ICU. All belongings accounted for. Home meds sent to pharmacy. Will continue plan of care.
[2018-11-08] MEDS ORDERED: Miralax 17gm pkt ORAL PRN (16:00)
[2018-11-08] MEDS ORDERED: Albuterol/Ipratropium 3ml neb HHN PRN (16:00)
--- NOTE | 2018-11-08 16:13 | Diagnostic Imaging Report ---
Clinical Indication: Shortness of breath and chest pressure x2-3 days Technique: IV administration nonionic contrast. Spiral acquisition obtained through the chest. Multiplanar reconstructions generated. Total dose length product 872.25 mGycm. CTDIvol(s) 18.33 mGy. Dose reduction achieved using automated exposure control Comparison: none Findings: There is extensive consolidation of much of the right lower lobe. There is also a component of atelectasis. There is also consolidation of much of the anterior inferior right upper lobe. The right middle lobe is mostly clear. There is a moderate-sized right pleural effusion in the dependent portion of the right hemithorax. There is a loculated appearing collection in the anterior medial right pleural space anterior to the consolidated portion of the right upper lobe. This is bilobed, measures 7 cm transverse by 7.3 cm craniocaudad by 2 cm thick. This demonstrates some rim enhancement. There is a small amount of fluid also seen within the superior aspect of the right major fissure. There is questionably minimal pulmonary venous congestion. Minimal dependent atelectatic changes are seen in the posterior left lower lobe. The heart is enlarged. No pericardial effusion demonstrated. There is a prominent subcarinal node which demonstrates some central calcification. No other evidence of mediastinal or hilar mass or adenopathy demonstrated. The esophagus is unremarkable. Normal caliber thoracic aorta. Included thyroid is unremarkable. No axillary or chest wall mass or adenopathy. The included upper abdominal anatomy is unremarkable. Impression: Extensive infiltrate, likely pneumonia, involving much of the right lower lobe and portions of the anterior right upper lobe Moderate right pleural effusion Loculated appearing pleural fluid collection in the anterior medial right pleural space measuring 7 x 7.3 x 2 cm with rim enhancement. The possibility of empyema should be considered Cardiomegaly Questionable minimal pulmonary venous congestion The CT scanner at [facility] is accredited by the [employer] and the scans are performed using protocols designed to limit radiation exposure to as low as reasonably achievable to attain images of sufficient resolution adequate for diagnostic evaluation.
--- NOTE | 2018-11-08 17:00 | NUR ---
NURSE NOTES: RN collected urine and swab for influenza A&B and sent them to lab.
--- NOTE | 2018-11-08 18:08 | Cardiology Report ---
APPROVED REPORT EXAM: Two-dimensional and M-mode echocardiogram with Doppler and color Doppler. INDICATION LV FUNCTION M-Mode DIMENSIONS IVSd1.0 (0.7-1.1cm)Left Atrium (MM)3.1 (1.6-4.0cm) LVDd4.9 (3.5-5.6cm)Aortic Root4.4 (2.0-3.7cm) PWd1.0 (0.7-1.1cm)Aortic Cusp Exc.1.6 (1.5-2.0cm) IVSs1.4 cm LVDs3.3 (2.5-4.0cm) PWs1.1 cm Normal left ventricular chamber size, systolic function and wall motion. Left ventricular ejection fraction estimated to be 55-60 %. No evidence of left ventricular hypertrophy. No evidence of pericardial effusion. All other cardiac chamber sizes are within normal limits. Focal aortic valve sclerosis with normal cusp excursion. Thickened mitral valve leaflets with normal excursion. Mitral annulus and aortic root calcification. Normal pulmonic valve structure. Normal tricuspid valve structure. IVC at normal size with physiologic collapse. A color flow and spectral Doppler study was performed and revealed: No aortic regurgitation. Mild mitral regurgitation. Normal left ventricular diastolic function . Mild tricuspid regurgitation. Tricuspid systolic velocities suggests peak right ventricular systolic pressure of 51 mmHg,consistent with moderate pulmonary hypertension .
--- NOTE | 2018-11-08 18:25 | Cardiology Report ---
APPROVED REPORT EKG Measurement Heart [id number] Normal sinus rhythm Minimal voltage criteria for LVH, may be normal variant Borderline ECG
--- NOTE | 2018-11-08 19:05 | NUR ---
HAND-OFF: Report given to Karen.
--- NOTE | 2018-11-08 19:10 | NUR ---
NURSE NOTES: Received a report from KRISTI Wang. Sleeping comfortably. No respiratory distress noted. No c/o pain/discomfort. IV site is patent and intact. Bed alarm is on. Call light within reach. Will continue to monitor.
--- NOTE | 2018-11-08 19:29 | General Progress Note ---
Assessment/Plan Problem List: (1) Hyperglycemia ICD Codes: R73.9 - Hyperglycemia, unspecified SNOMED: 71546146 (2) Diabetes ICD Codes: E11.9 - Type 2 diabetes mellitus without complications SNOMED: 09851771 (3) Pneumonia ICD Codes: J18.9 - Pneumonia, unspecified organism SNOMED: 604189003 Assessment/Plan add Levemir 14 units qhs add Starlix 120 mg ac tid continue NISS ac / hs Subjective Allergies: Coded Allergies: No Known Allergies (Unverified , 11/04/18) All Systems: reviewed and negative except above Subjective events noted Item Value Date Time Bedside Blood Glucose 279 mg/dl H 11/08/18 1702 Bedside Blood Glucose 298 mg/dl H 11/08/18 1130 Bedside Blood Glucose 232 mg/dl H 11/08/18 0643 Bedside Blood Glucose 176 mg/dl H 11/07/18 2319 Bedside Blood Glucose 315 mg/dl H 11/07/18 2247 58 year old homeless male with hx of DM presented to ER with CC of short of breath for past few days. He now feels like a pressure is on his chest. He also tripped and fell today and hit his head. He denies fever or chills. His CXR showed bilateral infiltrate. He was started on BIPAP and admitted to [facility].and subsequently transferred to [facility] surg glucose values are elevated Objective Last 24 Hour Vital Signs Date Time Temp Pulse Resp B/P (MAP) Pulse Ox O2 Delivery O2 Flow Rate FiO2 11/08/18 16:00 98.6 78 21 138/76 (96) 98 11/08/18 14:00 81 23 142/81 (101) 98 11/08/18 13:00 79 29 131/80 (97) 96 11/08/18 12:00 Bi-pap 11/08/18 12:00 99.0 73 26 137/85 (102) 96 11/08/18 12:00 76 11/08/18 12:00 2.0 11/08/18 11:00 74 26 149/90 (109) 96 11/08/18 10:00 77 24 133/84 (100) 98 11/08/18 09:00 75 24 138/85 (102) 98 11/08/18 08:00 98.7 79 22 140/90 (107) 99 11/08/18 08:00 Bi-pap 11/08/18 08:00 72 11/08/18 08:00 50 11/08/18 07:00 71 24 142/82 (102) 99 11/08/18 06:00 71 24 145/88 (107) 99 11/08/18 05:27 69 23 99 Full Face 40 11/08/18 05:00 74 24 140/88 (105) 99 11/08/18 04:00 Bi-pap 11/08/18 04:00 98.9 78 24 134/88 (103) 99 11/08/18 04:00 74 11/08/18 03:30 72 37 100 Full Face 50 11/08/18 03:00 74 24 127/91 (103) 99 11/08/18 02:00 76 23 130/80 (97) 99 11/08/18 01:30 76 21 99 Full Face 50 11/08/18 01:00 81 30 133/78 (96) 99 11/08/18 00:35 50 11/08/18 00:00 Bi-pap 11/08/18 00:00 95 11/07/18 23:57 99.1 95 24 141/88 (105) 95 11/07/18 23:56 Bi-pap 11/07/18 23:30 80 26 100 Facial 50 11/07/18 22:20 99.1 87 14 149/84 100 Bi-pap 50 11/07/18 21:34 88 17 Bi-pap 4.0 50 11/07/18 21:34 99.0 88 17 149/88 98 Bi-pap 4.0 50 11/07/18 21:27 50 11/07/18 20:51 149/88 11/07/18 20:50 149/88 11/07/18 20:41 88 38 Bi-pap 50 11/07/18 20:39 88 38 98 Facial 50 11/07/18 20:20 99.0 22 36 170/97 91 Nasal Cannula 4.0 Intake and Output 11/07/18 11/08/18 19:00 07:00 Intake Total 625.0 ml Balance 625.0 ml Intake IV Total 625.0 ml Laboratory Tests 11/07/18 20:16: Arterial Blood pH 7.481H, Arterial Blood Partial Pressure CO2 33.7L, Arterial Blood Partial Pressure O2 66.3L, Arterial Blood HCO3 24.6, Arterial Blood Oxygen Saturation 93.0L, Arterial Blood Base Excess 1.6, Rhett Test Positive 11/07/18 20:45: White Blood Count 18.9H, Red Blood Count 4.00L, Hemoglobin 12.7L, Hematocrit 37.6L, Mean Corpuscular Volume 94, Mean Corpuscular Hemoglobin 31.9H, Mean Corpuscular Hemoglobin Concent 33.9, Red Cell Distribution Width 11.8, Platelet Count 457H, Mean Platelet Volume 5.9L, Neutrophils (%) (Auto) , Lymphocytes (%) (Auto) , Monocytes (%) (Auto) , Eosinophils (%) (Auto) , Basophils (%) (Auto) , Differential Total Cells Counted 100, Neutrophils % (Manual) 72, Lymphocytes % ( Manual) 17L, Monocytes % (Manual) 8, Eosinophils % (Manual) 2, Basophils % ( Manual) 1, Band Neutrophils 0, Platelet Estimate IncreasedH, Platelet Morphology Normal, Red Blood Cell Morphology Normal, Prothrombin Time 10.6, Prothromb Time International Ratio 1.0, Activated Partial Thromboplast Time 31, Sodium Level 132L, Potassium Level 3.8, Chloride Level 96L, Carbon Dioxide Level 26, Anion Gap 10, Blood Urea Nitrogen 11, Creatinine 0.9, Estimat Glomerular Filtration Rate > 60, Glucose Level 357H, Calcium Level 8.5, Total Bilirubin 0.7, Aspartate Amino Transf (AST/SGOT) 47H, Alanine Aminotransferase ( ALT/SGPT) 64, Alkaline Phosphatase 146H, Total Creatine Kinase 44, Creatine Kinase MB 0.6, Creatine Kinase MB Relative Index 1.3, Troponin I 0.017, Pro-B- Type Natriuretic Peptide 190H, Total Protein 7.6, Albumin 2.1L, Globulin 5.5, Albumin/Globulin Ratio 0.4L 11/07/18 21:00: Urine Color Pale yellow, Urine Appearance Clear, Urine pH 7, Urine Specific Moon 1.005, Urine Protein 2+H, Urine Glucose (UA) 4+H, Urine Ketones Negative , Urine Blood 1+H, Urine Nitrite Negative, Urine Bilirubin Negative, Urine Urobilinogen 1H, Urine Leukocyte Esterase Negative, Urine RBC 0-2H, Urine WBC 0- 2, Urine Squamous Epithelial Cells None, Urine Bacteria Few 11/07/18 21:25: Arterial Blood pH 7.482H, Arterial Blood Partial Pressure CO2 32.9L, Arterial Blood Partial Pressure O2 97.5, Arterial Blood HCO3 24.1, Arterial Blood Oxygen Saturation 97.2, Arterial Blood Base Excess 1.2, Rhett Test Positive 11/08/18 03:30: White Blood Count 17.8H, Red Blood Count 3.52L, Hemoglobin 11.4L, Hematocrit 33.5L, Mean Corpuscular Volume 95, Mean Corpuscular Hemoglobin 32.3H, Mean Corpuscular Hemoglobin Concent 33.9, Red Cell Distribution Width 11.9, Platelet Count 441, Mean Platelet Volume 6.0L, Neutrophils (%) (Auto) 74.5, Lymphocytes ( %) (Auto) 14.1L, Monocytes (%) (Auto) 9.1, Eosinophils (%) (Auto) 0.8, Basophils (%) (Auto) 1.5, Sodium Level 132L, Potassium Level 3.5, Chloride Level 97L, Carbon Dioxide Level 24, Anion Gap 11, Blood Urea Nitrogen 11, Creatinine 0.8, Estimat Glomerular Filtration Rate > 60, Glucose Level 269H, Hemoglobin A1c 8.8H, Osmolality 284L, Uric Acid 2.2L, Calcium Level 8.0L, Phosphorus Level 3.6, Magnesium Level 1.7L, Albumin 1.9L, Triglycerides Level 94 , Cholesterol Level 124, LDL Cholesterol 83, HDL Cholesterol 24L, Cholesterol/ HDL Ratio 5.2H, Thyroid Stimulating Hormone (TSH) 0.559 11/08/18 10:09: Carcinoembryonic Antigen [Pending] 11/08/18 16:45: Urine Osmolality 407L, Urine Random Sodium 84, Urine Legionella Antigen [Pending ] Height (Feet): 5 Height (Inches): 6.00 Weight (Pounds): 189 General Appearance: no apparent distress Neck: normal alignment Cardiovascular: normal rate Respiratory/Chest: lungs clear Abdomen: normal bowel sounds Objective Current Medications Medications (Trade) Dose Ordered Sig/Des Route PRN Reason Start Time Stop Time Status Last Admin Dose Admin Acetaminophen (Tylenol) 650 mg Q4H PRN ORAL FEVER 11/08/18 16:00 12/07/18 15:59 Albuterol/ Ipratropium (Albuterol/ Ipratropium) 3 ml Q4H PRN HHN Shortness of Breath 11/08/18 16:00 11/12/18 15:59 Cefepime HCl 2 gm/ Dextrose 110 ml @ 220 mls/hr EVERY 12 HOURS IV 11/08/18 21:00 11/15/18 08:59 Dextrose (Dextrose 50%) 25 ml Q30M PRN IV Hypoglycemia 11/08/18 15:15 12/07/18 22:14 Dextrose (Dextrose 50%) 50 ml Q30M PRN IV Hypoglycemia 11/08/18 15:15 12/07/18 22:14 Famotidine (Pepcid) 20 mg DAILY ORAL 11/09/18 09:00 12/09/18 08:59 Heparin Sodium (Porcine) (Heparin 5000 units/ml) 5,000 units EVERY 12 HOURS SUBQ 11/08/18 21:00 12/08/18 08:59 Insulin Aspart (NovoLOG) BEFORE MEALS AND HS SUBQ 11/08/18 16:30 12/08/18 06:29 11/08/18 17:02 Iopamidol (Isovue-300 100ml) 100 ml NOW PRN INJ Radiology Procedure 11/09/18 10:15 11/10/18 10:03 Nitroglycerin (Ntg) 0.4 mg Q5M PRN SL Prn Chest Pain 11/08/18 15:15 Ondansetron HCl (Zofran) 4 mg Q6H PRN IVP Nausea & Vomiting 11/08/18 16:15 12/07/18 22:14 Polyethylene Glycol (Miralax) 17 gm DAILYPRN PRN ORAL Constipation 11/08/18 16:00 12/07/18 15:59 Promethazine HCl/ Codeine (Phenergan with Codeine) 5 ml Q4H PRN ORAL For Cough 11/08/18 16:00 12/08/18 15:59 Theophylline (Tremayne-Dur) 100 mg EVERY 12 HOURS ORAL 11/08/18 21:00 12/08/18 20:59 Vancomycin HCl (Vanco rx to dose) 1 ea DAILY PRN MISC Per rx protocol 11/09/18 09:00 12/08/18 07:29 Vancomycin HCl 1 gm/Dextrose 275 ml @ 183.3 mls/ hr Q12H IVPB 11/09/18 00:00 11/13/18 00:00 Sonido Styles MD Nov 08, 2018 19:29
[2018-11-08] MEDS ORDERED: Theophylline ER 100mg ORAL SCH (21:00)
--- NOTE | 2018-11-08 21:00 | History and Physical Report ---
DATE OF ADMISSION: 11/07/2018 CONSULTANTS: 1. Yeimi Phelps M.D. 2. Jose Maria Hill M.D. 3. Sonido Styles M.D. CHIEF COMPLAINT: Respiratory failure, pneumonia, sepsis, and new onset diabetes. BRIEF HISTORY: This is a 58-year-old homeless man, who presented to [facility] last night with increased shortness of breath for a couple days, was found to have pneumonia, sepsis, possible new onset diabetes, admitted to ICU for further care. Currently, O2 NC, slight anxious in bed, slightly lethargic, no complaint. REVIEW OF SYSTEMS: No chest pain. Slight short of breath. No nausea, vomiting, or diarrhea. PAST MEDICAL HISTORY: Possible diabetes. PAST SURGICAL HISTORY: None. MEDICATIONS: Pepcid, Roscoe, Phenergan with Codeine, heparin, vancomycin, cefepime, and insulin. ALLERGIES: Denies. SOCIAL HISTORY: Positive smoke. Positive alcohol. No intravenous drug abuse. FAMILY HISTORY: Noncontributory. PHYSICAL EXAMINATION: GENERAL: Slightly anxious in bed, oriented x2, in no acute distress. VITAL SIGNS: Temperature is 99, pulse 81, respirations 23, and blood pressure 142/81. CARDIOVASCULAR: No murmurs. LUNGS: Poor air exchange. ABDOMEN: Bowel sounds distant. EXTREMITIES: No cyanosis, clubbing, or edema. NEUROLOGIC: The patient moves all extremities, slightly weak. LABORATORY AND DIAGNOSTIC DATA: Labs at this time show white count 17, hemoglobin and hematocrit is 11 and 33, and platelets 441,000. BMP shows sodium 132, chloride 97, and glucose 269. INR is 1.0 and PTT is 31. Urinalysis show 4+ glucose and 2+ protein. ASSESSMENT: 1. Respiratory failure. 2. Pneumonia. 3. Sepsis. 4. New onset diabetes. 5. Anemia. 6. Renal insufficiency. PLAN: 1. O2 and pulmonary treatment. 2. Antibiotics per Infectious Disease. 3. Blood pressure and blood sugar control. 4. Dietary followup. 5. PT/OT. 6. We will continue to follow this patient medically. Enmanuel Anderson D.O. DR: OLENA JOB#: [id number] CC:
[2018-11-08] MEDS: Cefepime HCl 2 GM in D5W 110 ML IV SCH (21:22)
[2018-11-08] MEDS: Heparin 5000 units/ml inj SUBQ SCH (21:23)
[2018-11-08] MEDS: Theophylline ER 100mg ORAL SCH (21:23)
[2018-11-08] MEDS: Levemir Flexpen SUBQ SCH (21:53)
[2018-11-09] VITALS: BP 131/78
[2018-11-09] MEDS ORDERED: Vancomycin 1 GM in D5W 275 ML IVPB SCH ×2
[2018-11-09 04:00] VITALS: BP 123/70
--- NOTE | 2018-11-09 04:02 | NUR ---
HAND-OFF: Report given to KRISTI Pack.
[2018-11-09] MEDS: NovoLOG Insulin Flexpen SUBQ SCH ×4 (06:47→20:47)
--- NOTE | 2018-11-09 07:03 | General Progress Note ---
Assessment/Plan Problem List: (1) Hyperglycemia ICD Codes: R73.9 - Hyperglycemia, unspecified SNOMED: 75948390 (2) Diabetes ICD Codes: E11.9 - Type 2 diabetes mellitus without complications SNOMED: 80825742 (3) Pneumonia ICD Codes: J18.9 - Pneumonia, unspecified organism SNOMED: 251834022 Assessment/Plan continue Levemir 14 units qhs continue Starlix 120 mg ac tid continue NISS ac / hs Subjective Allergies: Coded Allergies: No Known Allergies (Unverified , 11/04/18) All Systems: reviewed and negative except above Subjective events noted Item Value Date Time Bedside Blood Glucose 178 mg/dl H 11/09/18 0647 Bedside Blood Glucose 240 mg/dl H 11/08/18 2153 Bedside Blood Glucose 279 mg/dl H 11/08/18 1702 Bedside Blood Glucose 298 mg/dl H 11/08/18 1130 Bedside Blood Glucose 232 mg/dl H 11/08/18 0643 Bedside Blood Glucose 176 mg/dl H 11/07/18 2319 Objective Last 24 Hour Vital Signs Date Time Temp Pulse Resp B/P (MAP) Pulse Ox O2 Delivery O2 Flow Rate FiO2 11/09/18 05:43 131/78 11/09/18 05:30 76 24 98 Facial 40 11/09/18 04:00 98.9 65 18 123/70 (87) 96 11/09/18 02:20 65 22 98 Facial 40 11/09/18 01:30 68 21 98 Full Face 40 11/09/18 00:00 98.9 71 19 131/78 (95) 96 11/08/18 23:03 71 23 97 Facial 40 11/08/18 21:01 Nasal Cannula 2.0 11/08/18 20:00 100.6 86 19 129/77 (94) 93 11/08/18 19:58 Nasal Cannula 2.0 28 11/08/18 19:58 94 Nasal Cannula 2.0 28 11/08/18 16:00 98.6 78 21 138/76 (96) 98 11/08/18 14:00 81 23 142/81 (101) 98 11/08/18 13:00 79 29 131/80 (97) 96 11/08/18 12:00 Bi-pap 11/08/18 12:00 99.0 73 26 137/85 (102) 96 11/08/18 12:00 76 11/08/18 12:00 2.0 11/08/18 11:00 74 26 149/90 (109) 96 11/08/18 10:00 77 24 133/84 (100) 98 11/08/18 09:00 75 24 138/85 (102) 98 11/08/18 08:00 98.7 79 22 140/90 (107) 99 11/08/18 08:00 Bi-pap 11/08/18 08:00 72 11/08/18 08:00 50 Intake and Output 11/08/18 11/09/18 19:00 07:00 Intake Total 403.3 ml 385.0 ml Output Total 500 ml Balance -96.7 ml 385.0 ml Intake IV Total 403.3 ml 385.0 ml Output Urine Total 500 ml # Voids 3 Laboratory Tests 11/08/18 10:09: Carcinoembryonic Antigen [Pending] 11/08/18 16:45: Urine Osmolality 407L, Urine Random Sodium 84, Urine Legionella Antigen [Pending ] 11/09/18 05:16: White Blood Count [Pending], Red Blood Count [Pending], Hemoglobin [Pending], Hematocrit [Pending], Mean Corpuscular Volume [Pending], Mean Corpuscular Hemoglobin [Pending], Mean Corpuscular Hemoglobin Concent [Pending], Red Cell Distribution Width [Pending], Platelet Count [Pending], Mean Platelet Volume [ Pending], Neutrophils (%) (Auto) [Pending], Lymphocytes (%) (Auto) [Pending], Monocytes (%) (Auto) [Pending], Eosinophils (%) (Auto) [Pending], Basophils (%) (Auto) [Pending], Erythrocyte Sedimentation Rate [Pending], Sodium Level [ Pending], Potassium Level [Pending], Chloride Level [Pending], Carbon Dioxide Level [Pending], Blood Urea Nitrogen [Pending], Creatinine [Pending], Estimat Glomerular Filtration Rate [Pending], Glucose Level [Pending], Calcium Level [ Pending], Phosphorus Level [Pending], Magnesium Level [Pending], Total Bilirubin [Pending], Aspartate Amino Transf (AST/SGOT) [Pending], Alanine Aminotransferase (ALT/SGPT) [Pending], Alkaline Phosphatase [Pending], C- Reactive Protein, Quantitative [Pending], Total Protein [Pending], Albumin [ Pending], Globulin [Pending] Height (Feet): 5 Height (Inches): 6.00 Weight (Pounds): 184 General Appearance: no apparent distress Neck: normal alignment Cardiovascular: normal rate Respiratory/Chest: lungs clear Abdomen: normal bowel sounds Objective Current Medications Medications (Trade) Dose Ordered Sig/Des Route PRN Reason Start Time Stop Time Status Last Admin Dose Admin Acetaminophen (Tylenol) 650 mg Q4H PRN ORAL FEVER 11/08/18 16:00 12/07/18 15:59 Albuterol/ Ipratropium (Albuterol/ Ipratropium) 3 ml Q4H PRN HHN Shortness of Breath 11/08/18 16:00 11/12/18 15:59 Cefepime HCl 2 gm/ Dextrose 110 ml @ 220 mls/hr EVERY 12 HOURS IV 11/08/18 21:00 11/15/18 08:59 11/08/18 21:22 Dextrose (Dextrose 50%) 25 ml Q30M PRN IV Hypoglycemia 11/08/18 15:15 12/07/18 22:14 Dextrose (Dextrose 50%) 25 ml Q30M PRN IV Hypoglycemia 11/08/18 19:30 12/08/18 19:29 Dextrose (Dextrose 50%) 50 ml Q30M PRN IV Hypoglycemia 11/08/18 15:15 12/07/18 22:14 Dextrose (Dextrose 50%) 50 ml Q30M PRN IV Hypoglycemia 11/08/18 19:30 12/08/18 19:29 Famotidine (Pepcid) 20 mg DAILY ORAL 11/09/18 09:00 12/09/18 08:59 Heparin Sodium (Porcine) (Heparin 5000 units/ml) 5,000 units EVERY 12 HOURS SUBQ 11/08/18 21:00 12/08/18 08:59 11/08/18 21:23 Insulin Aspart (NovoLOG) BEFORE MEALS AND HS SUBQ 11/08/18 16:30 12/08/18 06:29 11/09/18 06:47 Insulin Detemir (Levemir) 14 units BEDTIME SUBQ 11/08/18 21:00 12/08/18 20:59 11/08/18 21:53 Iopamidol (Isovue-300 100ml) 100 ml NOW PRN INJ Radiology Procedure 11/09/18 10:15 11/10/18 10:03 Nateglinide (Starlix) 120 mg TIAC ORAL 11/09/18 06:30 12/09/18 06:29 11/09/18 05:42 Nitroglycerin (Ntg) 0.4 mg Q5M PRN SL Prn Chest Pain 11/08/18 15:15 11/09/18 05:43 Ondansetron HCl (Zofran) 4 mg Q6H PRN IVP Nausea & Vomiting 11/08/18 16:15 12/07/18 22:14 Polyethylene Glycol (Miralax) 17 gm DAILYPRN PRN ORAL Constipation 11/08/18 16:00 12/07/18 15:59 Promethazine HCl/ Codeine (Phenergan with Codeine) 5 ml Q4H PRN ORAL For Cough 11/08/18 16:00 12/08/18 15:59 Theophylline (Tremayne-Dur) 100 mg EVERY 12 HOURS ORAL 11/08/18 21:00 12/08/18 20:59 11/08/18 21:23 Vancomycin HCl (Vanco rx to dose) 1 ea DAILY PRN MISC Per rx protocol 11/09/18 09:00 12/08/18 07:29 Vancomycin HCl 1 gm/Dextrose 275 ml @ 183.3 mls/ hr Q12H IVPB 11/09/18 00:00 11/13/18 00:00 11/08/18 23:20 Sonido Styles MD Nov 09, 2018 07:03
[2018-11-09 07:18] LABS: BASOPHILS % (AUTO) 0.7 % (0.0-2.0); HEMATOCRIT 38.2 % (42.0-52.0); HEMOGLOBIN 12.7 G/DL (14.2-18.0); LYMPHOCYTES % (AUTO) 16.9 % (20.0-45.0); MEAN CORPUSCULAR VOLUME 94 FL (80-99); MONOCYTES % (AUTO) 10.3 % (1.0-10.0); NEUTROPHILS % (AUTO) 71.1 % (45.0-75.0); PLATELET COUNT 574 K/UL (150-450); RED BLOOD COUNT 4.05 M/UL (4.70-6.10); WHITE BLOOD COUNT 17.7 K/UL (4.8-10.8)
[2018-11-09 07:25] LABS: ALANINE AMINOTRANSFERASE 64 U/L (12-78); ALBUMIN 2.1 G/DL (3.4-5.0); ALBUMIN/GLOBULIN RATIO 0.4 (1.0-2.7); ALKALINE PHOSPHATASE 129 U/L (46-116); ANION GAP 9 mmol/L (5-15); ASPARTATE AMINO TRANSFERASE 34 U/L (15-37); BILIRUBIN,TOTAL 0.7 MG/DL (0.2-1.0); BLOOD UREA NITROGEN 8 mg/dL (7-18); CALCIUM 8.6 MG/DL (8.5-10.1); CARBON DIOXIDE 28 MMOL/L (21-32); CHLORIDE 97 MMOL/L (98-107); CREATININE 0.9 MG/DL (0.55-1.30); PHOSPHORUS 3.8 MG/DL (2.5-4.9); POTASSIUM 3.5 MMOL/L (3.5-5.1); SODIUM 134 MMOL/L (136-145)
--- NOTE | 2018-11-09 07:45 | NUR ---
NURSE NOTES: received report from KRISTI nix. patient in bed alert, verbally responsive. better breath s/p Bipap treatment. IV on RFA. intact. bed in the lowest position. call light within reach. will continue to monitor.
--- NOTE | 2018-11-09 07:45 | NUR ---
HAND-OFF: Report given to KRISTI Lynn.
[2018-11-09 08:00] VITALS: BP 126/79
[2018-11-09] MEDS: Cefepime HCl 2 GM in D5W 110 ML IV SCH ×2 (08:13→20:01)
[2018-11-09] MEDS: Theophylline ER 100mg ORAL SCH ×2 (08:14→20:43)
[2018-11-09] MEDS: Heparin 5000 units/ml inj SUBQ SCH ×2 (08:15→20:44)
--- NOTE | 2018-11-09 08:44 | NUR ---
NURSE NOTES: c/o pain on chest d/t constant coughing. notified dr. elena and received order of morphine 2mg iv q4hrs prn. order noted and carried out.
[2018-11-09] MEDS: Morphine Sulfate 2mg/ml Inj(IV/IM USE ONLY) IVP PRN ×2 (09:49→21:00)
--- NOTE | 2018-11-09 10:02 | Infectious Diseases Prog Note ---
Assessment/Plan Assessment/Plan Abx: Cefepime 11/08- IV Vancomycin 11/08- Ceftriaxone x1 11/07 Assessment: Sepsis- 2ry to PNA -CXR: Increased right suprahilar and basilar consolidative changes, since prior study 11/04/2018. Suspect developing small right pleural effusion -11/04 influenza sc neg Afebrile Leukocytosis Acute respiratory failure Initially on bipap but now on NC Dm2 Plan: -Continue empiric IV Vancomycin #2 and Cefepime #2 for PNA -11/07 SP Ceftriaxone x1 -f.u cx -Monitor CBC/CMP, temperatures -aspiration precautions -ICU care -legionella ag urine, sp cx, influenza sc Will continue to follow along with you. Subjective Allergies: Coded Allergies: No Known Allergies (Unverified , 11/04/18) Subjective On NC Afebrile Continued leukocytosis Objective Vital Signs Last 24 Hour Vital Signs Date Time Temp Pulse Resp B/P (MAP) Pulse Ox O2 Delivery O2 Flow Rate FiO2 11/09/18 08:00 98.3 74 19 126/79 (95) 95 11/09/18 07:43 Nasal Cannula 3.0 32 11/09/18 07:43 81 20 95 11/09/18 07:43 95 Nasal Cannula 3.0 28 11/09/18 05:43 131/78 11/09/18 05:30 76 24 98 Facial 40 11/09/18 04:00 98.9 65 18 123/70 (87) 96 11/09/18 02:20 65 22 98 Facial 40 11/09/18 01:30 68 21 98 Full Face 40 11/09/18 00:00 98.9 71 19 131/78 (95) 96 11/08/18 23:03 71 23 97 Facial 40 11/08/18 21:01 Nasal Cannula 2.0 11/08/18 20:00 100.6 86 19 129/77 (94) 93 11/08/18 19:58 Nasal Cannula 2.0 28 11/08/18 19:58 94 Nasal Cannula 2.0 28 11/08/18 16:00 98.6 78 21 138/76 (96) 98 11/08/18 14:00 81 23 142/81 (101) 98 11/08/18 13:00 79 29 131/80 (97) 96 11/08/18 12:00 Bi-pap 11/08/18 12:00 99.0 73 26 137/85 (102) 96 11/08/18 12:00 76 11/08/18 12:00 2.0 11/08/18 11:00 74 26 149/90 (109) 96 Height (Feet): 5 Height (Inches): 6.00 Weight (Pounds): 184 Objective General Appearance: NAD on NC HEENT: normocephalic, atraumatic, MMM, EOMI Respiratory/Chest: chest wall non-tender, lungs clear Cardiovascular/Chest: normal peripheral pulses Abdomen: normal bowel sounds, soft Microbiology Date/Time Source Procedure Growth Status 11/08/18 16:45 Nasopharynx Influenza Types A,B Antigen (DEBBIE) - Final Complete 11/08/18 14:00 Sputum Gram Stain Pending Resulted 11/08/18 14:00 Sputum Sputum Culture - Preliminary NORMAL UPPER RESPIRATORY JULIEN PRESENT Resulted 11/08/18 21:30 Rectum Received Laboratory Tests Test 11/08/18 10:09 11/08/18 16:45 11/09/18 05:16 Carcinoembryonic Antigen 5.0 ng/mL (0.0-4.7) H Urine Osmolality 407 mOsm/kg (429-449) L Urine Random Sodium 84 mmol/L (20-110) Urine Legionella Antigen Pending White Blood Count 17.7 K/UL (4.8-10.8) H Red Blood Count 4.05 M/UL (4.70-6.10) L Hemoglobin 12.7 G/DL (14.2-18.0) L Hematocrit 38.2 % (42.0-52.0) L Mean Corpuscular Volume 94 FL (80-99) Mean Corpuscular Hemoglobin 31.3 PG (27.0-31.0) H Mean Corpuscular Hemoglobin Concent 33.2 G/DL (32.0-36.0) Red Cell Distribution Width 12.0 % (11.6-14.8) Platelet Count 574 K/UL (150-450) H Mean Platelet Volume 5.7 FL (6.5-10.1) L Neutrophils (%) (Auto) 71.1 % (45.0-75.0) Lymphocytes (%) (Auto) 16.9 % (20.0-45.0) L Monocytes (%) (Auto) 10.3 % (1.0-10.0) H Eosinophils (%) (Auto) 1.0 % (0.0-3.0) Basophils (%) (Auto) 0.7 % (0.0-2.0) Erythrocyte Sedimentation Rate 48 MM/HR (0-20) H Sodium Level 134 MMOL/L (136-145) L Potassium Level 3.5 MMOL/L (3.5-5.1) Chloride Level 97 MMOL/L (98-107) L Carbon Dioxide Level 28 MMOL/L (21-32) Anion Gap 9 mmol/L (5-15) Blood Urea Nitrogen 8 mg/dL (7-18) Creatinine 0.9 MG/DL (0.55-1.30) Estimat Glomerular Filtration Rate > 60 mL/min (>60) Glucose Level 129 MG/DL (74-106) #H Calcium Level 8.6 MG/DL (8.5-10.1) Phosphorus Level 3.8 MG/DL (2.5-4.9) Magnesium Level 2.0 MG/DL (1.8-2.4) Total Bilirubin 0.7 MG/DL (0.2-1.0) Aspartate Amino Transf (AST/SGOT) 34 U/L (15-37) Alanine Aminotransferase (ALT/SGPT) 64 U/L (12-78) Alkaline Phosphatase 129 U/L (46-116) H C-Reactive Protein, Quantitative 22.5 mg/dL (0.00-0.90) H Total Protein 7.6 G/DL (6.4-8.2) Albumin 2.1 G/DL (3.4-5.0) L Globulin 5.5 g/dL Albumin/Globulin Ratio 0.4 (1.0-2.7) L Current Medications Medications (Trade) Dose Ordered Sig/Des Route PRN Reason Start Time Stop Time Status Last Admin Dose Admin Acetaminophen (Tylenol) 650 mg Q4H PRN ORAL FEVER 11/08/18 16:00 12/07/18 15:59 Albuterol/ Ipratropium (Albuterol/ Ipratropium) 3 ml Q4H PRN HHN Shortness of Breath 11/08/18 16:00 11/12/18 15:59 Cefepime HCl 2 gm/ Dextrose 110 ml @ 220 mls/hr EVERY 12 HOURS IV 11/08/18 21:00 11/15/18 08:59 11/09/18 08:13 Dextrose (Dextrose 50%) 25 ml Q30M PRN IV Hypoglycemia 11/08/18 19:30 12/08/18 19:29 Dextrose (Dextrose 50%) 50 ml Q30M PRN IV Hypoglycemia 11/08/18 19:30 12/08/18 19:29 Famotidine (Pepcid) 20 mg DAILY ORAL 11/09/18 09:00 12/09/18 08:59 11/09/18 08:14 Heparin Sodium (Porcine) (Heparin 5000 units/ml) 5,000 units EVERY 12 HOURS SUBQ 11/08/18 21:00 12/08/18 08:59 11/09/18 08:15 Insulin Aspart (NovoLOG) BEFORE MEALS AND HS SUBQ 11/08/18 16:30 12/08/18 06:29 11/09/18 06:47 Insulin Detemir (Levemir) 14 units BEDTIME SUBQ 11/08/18 21:00 12/08/18 20:59 11/08/18 21:53 Iopamidol (Isovue-300 100ml) 100 ml NOW PRN INJ Radiology Procedure 11/09/18 10:15 11/10/18 10:03 Morphine Sulfate (Morphine Sulfate) 2 mg Q4H PRN IVP For Pain 11/09/18 08:45 11/16/18 08:44 11/09/18 09:49 Nateglinide (Starlix) 120 mg TIAC ORAL 11/09/18 06:30 12/09/18 06:29 11/09/18 05:42 Nitroglycerin (Ntg) 0.4 mg Q5M PRN SL Prn Chest Pain 11/08/18 15:15 11/09/18 05:43 Ondansetron HCl (Zofran) 4 mg Q6H PRN IVP Nausea & Vomiting 11/08/18 16:15 12/07/18 22:14 Polyethylene Glycol (Miralax) 17 gm DAILYPRN PRN ORAL Constipation 11/08/18 16:00 12/07/18 15:59 Promethazine HCl/ Codeine (Phenergan with Codeine) 5 ml Q4H PRN ORAL For Cough 11/08/18 16:00 12/08/18 15:59 Theophylline ([place]-Dur) 100 mg EVERY 12 HOURS ORAL 11/08/18 21:00 12/08/18 20:59 11/09/18 08:14 Vancomycin HCl (Vanco rx to dose) 1 ea DAILY PRN MISC Per rx protocol 11/09/18 09:00 12/08/18 07:29 Vancomycin HCl 1 gm/Dextrose 275 ml @ 183.3 mls/ hr Q12H IVPB 11/09/18 00:00 11/13/18 00:00 11/08/18 23:20 Hamilton Del Cid MD Nov 09, 2018 10:02
[2018-11-09] MEDS ORDERED: Isovue-300 100ml vial INJ PRN (10:15)
--- NOTE | 2018-11-09 10:35 | NUR ---
RD ASSESSMENT & RECOMMENDATIONS SEE CARE ACTIVITY FOR COMPLETE ASSESSMENT DAILY ESTIMATED NEEDS: Needs based on Pulmonary, DM 75kg adj 25-30 kcals/kg 5336-1909 total kcals 1-1.5 g protein/kg 75-113 g total protein 25-30 mL/kg 6142-2162 total fluid mLs NUTRITION DIAGNOSIS: Altered nutrition related lab values r/t new DM dx as evidenced by A1C 8.8, elev BG on adm (357), Uglu 4+. CURRENT DIET: CCHO MED PO DIET RECOMMENDATIONS: CCHO MED / SOFT EASY CHEW ADDITIONAL RECOMMENDATIONS: 1) Obtain a standing scale 2) Rec B-complex daily for max glucose metabolism 3) Provided diet edu re DM diet
--- NOTE | 2018-11-09 11:28 | NUR ---
P.T Note: P.T evaluation completed and tx initiated. Please refer to P.T evaluation for current functional status.
[2018-11-09 12:00] VITALS: BP 129/81
[2018-11-09] MEDS: Vancomycin 1.5gm Premix IVPB SCH ×2 (12:11→21:00)
--- NOTE | 2018-11-09 12:46 | Pulmonology Progress Note ---
Assessment/Plan Problems: (1) Acute respiratory failure (2) Pneumonia (3) Sepsis (4) Hyperglycemia (5) Diabetes Assessment/Plan thoracentesis Dr. Nino called for thoracic sliding scale iv abx Subjective ROS Limited/Unobtainable: No Constitutional: Reports: no symptoms HEENT: Repors: no symptoms Allergies: Coded Allergies: No Known Allergies (Unverified , 11/04/18) Objective Last 24 Hour Vital Signs Date Time Temp Pulse Resp B/P (MAP) Pulse Ox O2 Delivery O2 Flow Rate FiO2 11/09/18 12:00 97.8 63 21 129/81 (97) 95 11/09/18 09:00 Nasal Cannula 2.0 11/09/18 08:00 98.3 74 19 126/79 (95) 95 11/09/18 07:43 Nasal Cannula 3.0 32 11/09/18 07:43 81 20 95 11/09/18 07:43 95 Nasal Cannula 3.0 28 11/09/18 05:43 131/78 11/09/18 05:30 76 24 98 Facial 40 11/09/18 04:00 98.9 65 18 123/70 (87) 96 11/09/18 02:20 65 22 98 Facial 40 11/09/18 01:30 68 21 98 Full Face 40 11/09/18 00:00 98.9 71 19 131/78 (95) 96 11/08/18 23:03 71 23 97 Facial 40 11/08/18 21:01 Nasal Cannula 2.0 11/08/18 20:00 100.6 86 19 129/77 (94) 93 11/08/18 19:58 Nasal Cannula 2.0 28 11/08/18 19:58 94 Nasal Cannula 2.0 28 11/08/18 16:00 98.6 78 21 138/76 (96) 98 11/08/18 14:00 81 23 142/81 (101) 98 11/08/18 13:00 79 29 131/80 (97) 96 Intake and Output 11/08/18 11/09/18 19:00 07:00 Intake Total 403.3 ml 385.0 ml Output Total 500 ml Balance -96.7 ml 385.0 ml IV Total 403.3 ml 385.0 ml Output Urine Total 500 ml # Voids 3 General Appearance: WD/WN HEENT: normocephalic Respiratory/Chest: chest wall non-tender, normal breath sounds Cardiovascular: normal peripheral pulses, regularly irregular Abdomen: no organomegaly Genitourinary: normal external genitalia Microbiology Date/Time Source Procedure Growth Status 11/08/18 16:45 Nasopharynx Influenza Types A,B Antigen (DEBBIE) - Final Complete 11/08/18 14:00 Sputum Gram Stain Pending Resulted 11/08/18 14:00 Sputum Sputum Culture - Preliminary NORMAL UPPER RESPIRATORY JULIEN PRESENT Resulted 11/08/18 21:30 Rectum Received Laboratory Tests 11/08/18 16:45: Urine Osmolality 407L, Urine Random Sodium 84, Urine Legionella Antigen [Pending ] 11/09/18 05:16: White Blood Count 17.7H, Red Blood Count 4.05L, Hemoglobin 12.7L, Hematocrit 38.2L, Mean Corpuscular Volume 94, Mean Corpuscular Hemoglobin 31.3H, Mean Corpuscular Hemoglobin Concent 33.2, Red Cell Distribution Width 12.0, Platelet Count 574H, Mean Platelet Volume 5.7L, Neutrophils (%) (Auto) 71.1, Lymphocytes (%) (Auto) 16.9L, Monocytes (%) (Auto) 10.3H, Eosinophils (%) (Auto) 1.0, Basophils (%) (Auto) 0.7, Erythrocyte Sedimentation Rate 48H, Sodium Level 134L , Potassium Level 3.5, Chloride Level 97L, Carbon Dioxide Level 28, Anion Gap 9 , Blood Urea Nitrogen 8, Creatinine 0.9, Estimat Glomerular Filtration Rate > 60 , Glucose Level 129#H, Calcium Level 8.6, Phosphorus Level 3.8, Magnesium Level 2.0, Total Bilirubin 0.7, Aspartate Amino Transf (AST/SGOT) 34, Alanine Aminotransferase (ALT/SGPT) 64, Alkaline Phosphatase 129H, C-Reactive Protein, Quantitative 22.5H, Total Protein 7.6, Albumin 2.1L, Globulin 5.5, Albumin/ Globulin Ratio 0.4L 11/09/18 10:55: Vancomycin Level Trough 4.0L Current Medications Medications (Trade) Dose Ordered Sig/Des Route PRN Reason Start Time Stop Time Status Last Admin Dose Admin Acetaminophen (Tylenol) 650 mg Q4H PRN ORAL FEVER 11/08/18 16:00 12/07/18 15:59 Albuterol/ Ipratropium (Albuterol/ Ipratropium) 3 ml Q4H PRN HHN Shortness of Breath 11/08/18 16:00 11/12/18 15:59 Cefepime HCl 2 gm/ Dextrose 110 ml @ 220 mls/hr EVERY 12 HOURS IV 11/08/18 21:00 11/15/18 08:59 11/09/18 08:13 Dextrose (Dextrose 50%) 25 ml Q30M PRN IV Hypoglycemia 11/08/18 19:30 12/08/18 19:29 Dextrose (Dextrose 50%) 50 ml Q30M PRN IV Hypoglycemia 11/08/18 19:30 12/08/18 19:29 Famotidine (Pepcid) 20 mg DAILY ORAL 11/09/18 09:00 12/09/18 08:59 11/09/18 08:14 Heparin Sodium (Porcine) (Heparin 5000 units/ml) 5,000 units EVERY 12 HOURS SUBQ 11/08/18 21:00 12/08/18 08:59 11/09/18 08:15 Insulin Aspart (NovoLOG) BEFORE MEALS AND HS SUBQ 11/08/18 16:30 12/08/18 06:29 11/09/18 11:58 Insulin Detemir (Levemir) 14 units BEDTIME SUBQ 11/08/18 21:00 12/08/18 20:59 11/08/18 21:53 Iopamidol (Isovue-300 100ml) 100 ml NOW PRN INJ Radiology Procedure 11/09/18 10:15 11/10/18 10:03 Morphine Sulfate (Morphine Sulfate) 2 mg Q4H PRN IVP For Pain 11/09/18 08:45 11/16/18 08:44 11/09/18 09:49 Nateglinide (Starlix) 120 mg TIAC ORAL 11/09/18 06:30 12/09/18 06:29 11/09/18 11:56 Nitroglycerin (Ntg) 0.4 mg Q5M PRN SL Prn Chest Pain 11/08/18 15:15 11/09/18 05:43 Ondansetron HCl (Zofran) 4 mg Q6H PRN IVP Nausea & Vomiting 11/08/18 16:15 12/07/18 22:14 Polyethylene Glycol (Miralax) 17 gm DAILYPRN PRN ORAL Constipation 11/08/18 16:00 12/07/18 15:59 Promethazine HCl/ Codeine (Phenergan with Codeine) 5 ml Q4H PRN ORAL For Cough 11/08/18 16:00 12/08/18 15:59 Theophylline (T[place]ay[place]-Dur) 100 mg EVERY 12 HOURS ORAL 11/08/18 21:00 12/08/18 20:59 11/09/18 08:14 Vancomycin HCl (Vanco rx to dose) 1 ea DAILY PRN MISC Per rx protocol 11/09/18 09:00 12/08/18 07:29 Vancomycin HCl/ Dextrose 275 ml @ 137.5 mls/ hr Q8H IVPB 11/09/18 13:00 11/14/18 12:59 11/09/18 12:11 Yeimi Phelps MD Nov 09, 2018 12:46
--- NOTE | 2018-11-09 14:21 | NUR ---
[employer] SI: PNA,RESP DISTRESS T. 97.8 HR 63 RR 21 B/P 129/81 2L NC O2 SAT @ 98% WBC 17.7 ESR 48 ALK PHOS 129 CEA 5.0 IS: VANCO IV CEFEPIME IV HEPARIN SUBC PEPCID MED/SURG STATUS
--- NOTE | 2018-11-09 14:36 | Nephrology Progress Note ---
Assessment/Plan Problem List: (1) Hyponatremia Assessment: SIADH (2) Acute respiratory failure (3) Hyperglycemia (4) Pneumonia (5) Diabetes Assessment Pneumonia Low Na due to high BS Sepsis Respiratory failure Diabetes OOC with proteinuria Anemia Plan Abbey UOs uric acid indicates SIADH IV lasix monitor lytes TSH Lipid per orders Objective Objective Last 24 Hour Vital Signs Date Time Temp Pulse Resp B/P (MAP) Pulse Ox O2 Delivery O2 Flow Rate FiO2 11/09/18 12:00 97.8 63 21 129/81 (97) 95 11/09/18 09:00 Nasal Cannula 2.0 11/09/18 08:00 98.3 74 19 126/79 (95) 95 11/09/18 07:43 Nasal Cannula 3.0 32 11/09/18 07:43 81 20 95 11/09/18 07:43 95 Nasal Cannula 3.0 28 11/09/18 05:43 131/78 11/09/18 05:30 76 24 98 Facial 40 11/09/18 04:00 98.9 65 18 123/70 (87) 96 11/09/18 02:20 65 22 98 Facial 40 11/09/18 01:30 68 21 98 Full Face 40 11/09/18 00:00 98.9 71 19 131/78 (95) 96 11/08/18 23:03 71 23 97 Facial 40 11/08/18 21:01 Nasal Cannula 2.0 11/08/18 20:00 100.6 86 19 129/77 (94) 93 11/08/18 19:58 Nasal Cannula 2.0 28 11/08/18 19:58 94 Nasal Cannula 2.0 28 11/08/18 16:00 98.6 78 21 138/76 (96) 98 Intake and Output 11/08/18 11/09/18 19:00 07:00 Intake Total 403.3 ml 385.0 ml Output Total 500 ml Balance -96.7 ml 385.0 ml IV Total 403.3 ml 385.0 ml Output Urine Total 500 ml # Voids 3 Laboratory Tests 11/08/18 16:45: Urine Osmolality 407L, Urine Random Sodium 84, Urine Legionella Antigen [Pending ] 11/09/18 05:16: White Blood Count 17.7H, Red Blood Count 4.05L, Hemoglobin 12.7L, Hematocrit 38.2L, Mean Corpuscular Volume 94, Mean Corpuscular Hemoglobin 31.3H, Mean Corpuscular Hemoglobin Concent 33.2, Red Cell Distribution Width 12.0, Platelet Count 574H, Mean Platelet Volume 5.7L, Neutrophils (%) (Auto) 71.1, Lymphocytes (%) (Auto) 16.9L, Monocytes (%) (Auto) 10.3H, Eosinophils (%) (Auto) 1.0, Basophils (%) (Auto) 0.7, Erythrocyte Sedimentation Rate 48H, Sodium Level 134L , Potassium Level 3.5, Chloride Level 97L, Carbon Dioxide Level 28, Anion Gap 9 , Blood Urea Nitrogen 8, Creatinine 0.9, Estimat Glomerular Filtration Rate > 60 , Glucose Level 129#H, Calcium Level 8.6, Phosphorus Level 3.8, Magnesium Level 2.0, Total Bilirubin 0.7, Aspartate Amino Transf (AST/SGOT) 34, Alanine Aminotransferase (ALT/SGPT) 64, Alkaline Phosphatase 129H, C-Reactive Protein, Quantitative 22.5H, Total Protein 7.6, Albumin 2.1L, Globulin 5.5, Albumin/ Globulin Ratio 0.4L 11/09/18 10:55: Vancomycin Level Trough 4.0L 11/09/18 14:10: Prothrombin Time [Pending], Prothromb Time International Ratio [Pending], Activated Partial Thromboplast Time [Pending] Height (Feet): 5 Height (Inches): 6.00 Weight (Pounds): 184 Sedrick Cordova MD Nov 09, 2018 14:36
--- NOTE | 2018-11-09 14:58 | Pre-Procedure Note/Attestation ---
Pre-Procedure Note/Attestation Complete Prior to Procedure Planned Procedure: right Procedure Narrative: Thoracentesis Indications for Procedure Pre-Operative Diagnosis: Pleural effusion Attestation I attest that I discussed the nature of the procedure; its benefits; risks and complications; and alternatives (and the risks and benefits of such alternatives ), prior to the procedure, with the patient (or the patient's legal printing sales representative). I attest that, if there was a reasonable possibility of needing a blood transfusion, the patient (or the patient's legal printing sales representative) was given the [facility] standardized written summary, pursuant to the Octaviano [place] Blood Safety Act ([place] Health and Safety Code # 1645, as amended). I attest that I re-evaluated the patient just prior to the surgery and that there has been no change in the patient's H&P, except as documented below: D/W pt.@[id number] Abebe Rosario MD Nov 09, 2018 14:58
--- NOTE | 2018-11-09 15:22 | General Progress Note ---
Assessment/Plan Problem List: (1) Sepsis ICD Codes: A41.9 - Sepsis, unspecified organism SNOMED: 85050122 (2) Respiratory failure ICD Codes: J96.90 - Respiratory failure, unspecified, unspecified whether with hypoxia or hypercapnia SNOMED: 104384269 (3) Diabetes ICD Codes: E11.9 - Type 2 diabetes mellitus without complications SNOMED: 99633116 (4) Pneumonia ICD Codes: J18.9 - Pneumonia, unspecified organism SNOMED: 886349833 (5) Hyponatremia ICD Codes: E87.1 - Hypo-osmolality and hyponatremia SNOMED: 70445860 Status: unchanged Assessment/Plan o2 pulm tx abx neph f/u cbc bmp am Subjective Constitutional: Reports: weakness Allergies: Coded Allergies: No Known Allergies (Unverified , 11/04/18) All Systems: reviewed and negative except above Subjective calm awaiting thorocentesis Objective Last 24 Hour Vital Signs Date Time Temp Pulse Resp B/P (MAP) Pulse Ox O2 Delivery O2 Flow Rate FiO2 11/09/18 12:00 97.8 63 21 129/81 (97) 95 11/09/18 09:00 Nasal Cannula 2.0 11/09/18 08:00 98.3 74 19 126/79 (95) 95 11/09/18 07:43 Nasal Cannula 3.0 32 11/09/18 07:43 81 20 95 11/09/18 07:43 95 Nasal Cannula 3.0 28 11/09/18 05:43 131/78 11/09/18 05:30 76 24 98 Facial 40 11/09/18 04:00 98.9 65 18 123/70 (87) 96 11/09/18 02:20 65 22 98 Facial 40 11/09/18 01:30 68 21 98 Full Face 40 11/09/18 00:00 98.9 71 19 131/78 (95) 96 11/08/18 23:03 71 23 97 Facial 40 11/08/18 21:01 Nasal Cannula 2.0 11/08/18 20:00 100.6 86 19 129/77 (94) 93 11/08/18 19:58 Nasal Cannula 2.0 28 11/08/18 19:58 94 Nasal Cannula 2.0 28 11/08/18 16:00 98.6 78 21 138/76 (96) 98 Intake and Output 11/08/18 11/09/18 19:00 07:00 Intake Total 403.3 ml 385.0 ml Output Total 500 ml Balance -96.7 ml 385.0 ml IV Total 403.3 ml 385.0 ml Output Urine Total 500 ml # Voids 3 Laboratory Tests 11/08/18 16:45: Urine Osmolality 407L, Urine Random Sodium 84, Urine Legionella Antigen [Pending ] 11/09/18 05:16: White Blood Count 17.7H, Red Blood Count 4.05L, Hemoglobin 12.7L, Hematocrit 38.2L, Mean Corpuscular Volume 94, Mean Corpuscular Hemoglobin 31.3H, Mean Corpuscular Hemoglobin Concent 33.2, Red Cell Distribution Width 12.0, Platelet Count 574H, Mean Platelet Volume 5.7L, Neutrophils (%) (Auto) 71.1, Lymphocytes (%) (Auto) 16.9L, Monocytes (%) (Auto) 10.3H, Eosinophils (%) (Auto) 1.0, Basophils (%) (Auto) 0.7, Erythrocyte Sedimentation Rate 48H, Sodium Level 134L , Potassium Level 3.5, Chloride Level 97L, Carbon Dioxide Level 28, Anion Gap 9 , Blood Urea Nitrogen 8, Creatinine 0.9, Estimat Glomerular Filtration Rate > 60 , Glucose Level 129#H, Calcium Level 8.6, Phosphorus Level 3.8, Magnesium Level 2.0, Total Bilirubin 0.7, Aspartate Amino Transf (AST/SGOT) 34, Alanine Aminotransferase (ALT/SGPT) 64, Alkaline Phosphatase 129H, C-Reactive Protein, Quantitative 22.5H, Total Protein 7.6, Albumin 2.1L, Globulin 5.5, Albumin/ Globulin Ratio 0.4L 11/09/18 10:55: Vancomycin Level Trough 4.0L 11/09/18 14:10: Prothrombin Time 10.7, Prothromb Time International Ratio 1.0, Activated Partial Thromboplast Time 30 Height (Feet): 5 Height (Inches): 6.00 Weight (Pounds): 184 General Appearance: lethargic EENT: normal ENT inspection Neck: normal alignment Cardiovascular: normal peripheral pulses, normal rate, regular rhythm Respiratory/Chest: chest wall non-tender, decreased breath sounds Abdomen: normal bowel sounds, non tender, soft Extremities: normal inspection Edema: no edema noted Arm (L), no edema noted Arm (R), no edema noted Leg (L), no edema noted Leg (R), no edema noted Pedal (L), no edema noted Pedal (R), no edema noted Generalized Neurologic: motor weakness Skin: normal pigmentation, warm/dry Enmanuel Anderson DO Nov 09, 2018 15:22
--- NOTE | 2018-11-09 15:44 | Brief Operative Note ---
Immediate Post Operative Note Operative Note Pre-op Diagnosis: Pleural effusion Procedure: R thoracentesis Post-op Diagnosis: same as pre-op Surgeon: Kaelyn Rosario Anesthesia: local Specimen: yes - cloudy dark yellow fluid; specimen sent to lab Complications: none Fluids: none Implant(s) used?: No Abebe Rosario MD Nov 09, 2018 15:44
[2018-11-09 16:00] VITALS: BP 142/83
[2018-11-09] MEDS ORDERED: Albumin Human 5% 250ml IV SCH (16:00)
--- NOTE | 2018-11-09 16:04 | Diagnostic Imaging Report ---
Indications: Pleural effusion Technique: Ultrasound used to localize optimal puncture site. Sterile prepping and draping right chest. Local anesthesia with 1% lidocaine. Under real-time ultrasound guidance, puncture pleural space using thoracentesis needle. Stylet removed. Catheter placed to vacuum bottle suction. Total 650 milliliters of cloudy dark yellow fluid aspirated. Patient tolerated procedure well, without immediate complication. Findings: Followup sonography demonstrates complete resolution of pleural fluid. Impression: Successful ultrasound-guided thoracentesis, yielding 650 milliliters of cloudy dark yellow fluid
--- NOTE | 2018-11-09 16:21 | Diagnostic Imaging Report ---
Indication: Post thoracentesis Technique: One view of the chest Comparison: November 07, 2018 Findings: No evidence of residual pleural fluid. No gross pneumothorax. There is increased right upper lobe infiltrate. There is slightly increased right lower lobe infiltrate. Left lung and pleural space remain grossly clear. The heart remains borderline enlarged Impression: No evidence of residual pleural fluid or pneumothorax, status post right thoracentesis Worsening right upper lobe and slightly worsening right infrahilar infiltrates
--- NOTE | 2018-11-09 19:23 | NUR ---
HAND-OFF: Report given to KRISTI Berry.
--- NOTE | 2018-11-09 19:57 | NUR ---
NURSE NOTES: Received report from KRISTI Lynn. Patient A&Ox4, on nasal cannula 2L/min. IV intact, patent, and saline locked. Bed in lowest position with call light in reach. Will continue to monitor.
[2018-11-09 20:00] VITALS: BP 141/88
[2018-11-09] MEDS: Levemir Flexpen SUBQ SCH (20:48)
[2018-11-10] VITALS: BP 143/95
[2018-11-10 04:00] VITALS: BP 138/85
[2018-11-10] MEDS: Vancomycin 1.5gm Premix IVPB SCH ×3 (06:04→21:17)
[2018-11-10] MEDS: NovoLOG Insulin Flexpen SUBQ SCH ×4 (06:11→21:17)
--- NOTE | 2018-11-10 07:00 | NUR ---
HAND-OFF: Report given to KRISTI Lynn.
--- NOTE | 2018-11-10 07:33 | NUR ---
NURSE NOTES: received report from KRISTI Berry. patient in bed. alert, verbally responsive. no respiratory distress noted. no c/o pain at this time. IV on [id number] intact. bed in the lowest position . call light within reach. will continue to monitor
[2018-11-10 07:39] LABS: BASOPHILS % (AUTO) 0.4 % (0.0-2.0); HEMATOCRIT 35.9 % (42.0-52.0); LYMPHOCYTES % (AUTO) 15.7 % (20.0-45.0); MEAN CORPUSCULAR VOLUME 96 FL (80-99); MONOCYTES % (AUTO) 8.5 % (1.0-10.0); NEUTROPHILS % (AUTO) 73.5 % (45.0-75.0); PLATELET COUNT 559 K/UL (150-450); RED BLOOD COUNT 3.74 M/UL (4.70-6.10); RED CELL DISTRIBUTION WIDTH 11.7 % (11.6-14.8); WHITE BLOOD COUNT 14.2 K/UL (4.8-10.8)
[2018-11-10 08:00] VITALS: BP 126/78
[2018-11-10 08:08] LABS: ALANINE AMINOTRANSFERASE 60 U/L (12-78); ALBUMIN 2.3 G/DL (3.4-5.0); ALBUMIN/GLOBULIN RATIO 0.4 (1.0-2.7); ALKALINE PHOSPHATASE 136 U/L (46-116); ANION GAP 11 mmol/L (5-15); ASPARTATE AMINO TRANSFERASE 29 U/L (15-37); BILIRUBIN,TOTAL 0.4 MG/DL (0.2-1.0); BLOOD UREA NITROGEN 14 mg/dL (7-18); CALCIUM 8.5 MG/DL (8.5-10.1); CARBON DIOXIDE 25 MMOL/L (21-32); CHLORIDE 97 MMOL/L (98-107); FERRITIN 577 NG/ML (8-388); PHOSPHORUS 3.9 MG/DL (2.5-4.9); POTASSIUM 3.8 MMOL/L (3.5-5.1); SODIUM 133 MMOL/L (136-145)
[2018-11-10 08:39] LABS: % IRON SATURATION 24 % (15-50); IRON 37 ug/dL (50-175); TOTAL IRON BINDING CAPACITY 152 ug/dL (250-450)
[2018-11-10] MEDS: Cefepime HCl 2 GM in D5W 110 ML IV SCH ×2 (08:51→20:40)
[2018-11-10] MEDS: Theophylline ER 100mg ORAL SCH ×2 (08:51→21:14)
[2018-11-10] MEDS: Heparin 5000 units/ml inj SUBQ SCH ×2 (08:52→21:15)
--- NOTE | 2018-11-10 10:44 | Infectious Diseases Prog Note ---
Assessment/Plan Assessment/Plan Abx: Cefepime 11/08- IV Vancomycin 11/08- Ceftriaxone x1 11/07 Assessment: Sepsis- 2ry to PNA - Empyema? -CXR: Increased right suprahilar and basilar consolidative changes, since prior study 11/04/2018. Suspect developing small right pleural effusion -11/04 influenza sc neg 11/09/18 - S/P Thora Cx pend Afebrile Leukocytosis Acute respiratory failure Initially on bipap but now on NC Dm2 Plan: -Continue empiric IV Vancomycin #3 and Cefepime #3 for PNA -11/07 SP Ceftriaxone x1 -f.u cx -Monitor CBC/CMP, temperatures -aspiration precautions -ICU care -legionella ag urine, sp cx, influenza sc Will continue to follow along with you. Subjective Allergies: Coded Allergies: No Known Allergies (Unverified , 11/04/18) Subjective S/p Thoracentesis 11/09/18 Afebrile Continued leukocytosis but improved Objective Vital Signs Last 24 Hour Vital Signs Date Time Temp Pulse Resp B/P (MAP) Pulse Ox O2 Delivery O2 Flow Rate FiO2 11/10/18 09:00 Nasal Cannula 2.0 11/10/18 08:09 95 Nasal Cannula 3.0 32 11/10/18 08:09 Nasal Cannula 3.0 32 11/10/18 08:00 97.9 70 18 126/78 (94) 95 11/10/18 05:30 72 18 97 Facial 40 11/10/18 04:00 98.2 76 22 138/85 (102) 95 11/10/18 03:00 75 27 97 Facial 40 11/10/18 00:52 76 20 98 Facial 40 11/10/18 00:00 99.0 66 20 143/95 (111) 95 11/09/18 23:12 70 10 97 Facial 40 11/09/18 21:00 Nasal Cannula 2.0 11/09/18 20:30 Nasal Cannula 2.0 28 11/09/18 20:30 94 Nasal Cannula 2.0 28 11/09/18 20:00 99.7 71 24 141/88 (105) 95 11/09/18 16:00 97.3 69 20 142/83 (102) 96 11/09/18 12:00 97.8 63 21 129/81 (97) 95 Height (Feet): 5 Height (Inches): 6.00 Weight (Pounds): 184 Objective Gen: NAD on NC HEENT: normocephalic, atraumatic, MMM, EOMI Respiratory/Chest: chest wall non-tender, lungs clear Cardiovascular/Chest: normal peripheral pulses Abdomen: normal bowel sounds, soft Microbiology Date/Time Source Procedure Growth Status 11/08/18 16:36 Blood Blood Culture - Preliminary NO GROWTH AFTER 24 HOURS Resulted 11/08/18 16:30 Blood Blood Culture - Preliminary NO GROWTH AFTER 24 HOURS Resulted 11/08/18 16:45 Nasopharynx Influenza Types A,B Antigen (DEBBIE) - Final Complete 11/08/18 14:00 Sputum Gram Stain - Final Complete 11/08/18 14:00 Sputum Sputum Culture - Final NORMAL UPPER RESPIRATORY JULIEN PRESENT Complete 11/08/18 21:30 Rectum Received Laboratory Tests Test 11/09/18 10:55 11/09/18 14:10 11/09/18 14:45 11/10/18 04:58 Vancomycin Level Trough 4.0 ug/mL (5.0-12.0) L Prothrombin Time 10.7 SEC (9.30-11.50) Prothromb Time International Ratio 1.0 (0.9-1.1) Activated Partial Thromboplast Time 30 SEC (23-33) Body Fluid Glucose Pending Body Fluid Total Protein Pending White Blood Count 14.2 K/UL (4.8-10.8) H Red Blood Count 3.74 M/UL (4.70-6.10) L Hemoglobin 12.0 G/DL (14.2-18.0) L Hematocrit 35.9 % (42.0-52.0) L Mean Corpuscular Volume 96 FL (80-99) Mean Corpuscular Hemoglobin 32.1 PG (27.0-31.0) H Mean Corpuscular Hemoglobin Concent 33.5 G/DL (32.0-36.0) Red Cell Distribution Width 11.7 % (11.6-14.8) Platelet Count 559 K/UL (150-450) H Mean Platelet Volume 5.8 FL (6.5-10.1) L Neutrophils (%) (Auto) 73.5 % (45.0-75.0) Lymphocytes (%) (Auto) 15.7 % (20.0-45.0) L Monocytes (%) (Auto) 8.5 % (1.0-10.0) Eosinophils (%) (Auto) 2.0 % (0.0-3.0) Basophils (%) (Auto) 0.4 % (0.0-2.0) Sodium Level 133 MMOL/L (136-145) L Potassium Level 3.8 MMOL/L (3.5-5.1) Chloride Level 97 MMOL/L (98-107) L Carbon Dioxide Level 25 MMOL/L (21-32) Anion Gap 11 mmol/L (5-15) Blood Urea Nitrogen 14 mg/dL (7-18) Creatinine 1.0 MG/DL (0.55-1.30) Estimat Glomerular Filtration Rate > 60 mL/min (>60) Glucose Level 254 MG/DL (74-106) #H Uric Acid 3.4 MG/DL (2.6-7.2) Calcium Level 8.5 MG/DL (8.5-10.1) Phosphorus Level 3.9 MG/DL (2.5-4.9) Magnesium Level 1.9 MG/DL (1.8-2.4) Iron Level 37 ug/dL (50-175) L Total Iron Binding Capacity 152 ug/dL (250-450) L Percent Iron Saturation 24 % (15-50) Unsaturated Iron Binding 115 ug/dL (112-346) Ferritin 577 NG/ML (8-388) H Total Bilirubin 0.4 MG/DL (0.2-1.0) Aspartate Amino Transf (AST/SGOT) 29 U/L (15-37) Alanine Aminotransferase (ALT/SGPT) 60 U/L (12-78) Alkaline Phosphatase 136 U/L (46-116) H Total Protein 7.6 G/DL (6.4-8.2) Albumin 2.3 G/DL (3.4-5.0) L Globulin 5.3 g/dL Albumin/Globulin Ratio 0.4 (1.0-2.7) L Vitamin B12 Level 576 PG/ML (193-986) Folate 5.2 NG/ML (8.6-58.9) L Current Medications Medications (Trade) Dose Ordered Sig/Des Route PRN Reason Start Time Stop Time Status Last Admin Dose Admin Acetaminophen (Tylenol) 650 mg Q4H PRN ORAL FEVER 11/08/18 16:00 12/07/18 15:59 Albuterol/ Ipratropium (Albuterol/ Ipratropium) 3 ml Q4H PRN HHN Shortness of Breath 11/08/18 16:00 11/12/18 15:59 Cefepime HCl 2 gm/ Dextrose 110 ml @ 220 mls/hr EVERY 12 HOURS IV 11/08/18 21:00 11/15/18 08:59 11/10/18 08:51 Dextrose (Dextrose 50%) 25 ml Q30M PRN IV Hypoglycemia 11/08/18 19:30 12/08/18 19:29 Dextrose (Dextrose 50%) 50 ml Q30M PRN IV Hypoglycemia 11/08/18 19:30 12/08/18 19:29 Famotidine (Pepcid) 20 mg BID ORAL 11/09/18 18:00 12/09/18 08:59 11/10/18 08:51 Furosemide (Lasix) 10 mg EVERY 8 HOURS IV 11/09/18 22:00 12/09/18 21:59 11/10/18 06:01 Heparin Sodium (Porcine) (Heparin 5000 units/ml) 5,000 units EVERY 12 HOURS SUBQ 11/08/18 21:00 12/08/18 08:59 11/10/18 08:52 Insulin Aspart (NovoLOG) BEFORE MEALS AND HS SUBQ 11/08/18 16:30 12/08/18 06:29 11/10/18 06:11 Insulin Detemir (Levemir) 14 units BEDTIME SUBQ 11/08/18 21:00 12/08/18 20:59 11/09/18 20:48 Morphine Sulfate (Morphine Sulfate) 2 mg Q4H PRN IVP For Pain 11/09/18 08:45 11/16/18 08:44 11/09/18 21:00 Nateglinide (Starlix) 120 mg TIAC ORAL 11/09/18 06:30 12/09/18 06:29 11/10/18 06:13 Nitroglycerin (Ntg) 0.4 mg Q5M PRN SL Prn Chest Pain 11/08/18 15:15 11/09/18 05:43 Ondansetron HCl (Zofran) 4 mg Q6H PRN IVP Nausea & Vomiting 11/08/18 16:15 12/07/18 22:14 Polyethylene Glycol (Miralax) 17 gm DAILYPRN PRN ORAL Constipation 11/08/18 16:00 12/07/18 15:59 Potassium Chloride (K-Dur) 40 meq TWICE A DAY ORAL 11/09/18 14:30 12/09/18 14:29 11/10/18 08:51 Promethazine HCl/ Codeine (Phenergan with Codeine) 5 ml Q4H PRN ORAL For Cough 11/08/18 16:00 12/08/18 15:59 11/10/18 03:34 Theophylline ([place]-Dur) 100 mg EVERY 12 HOURS ORAL 11/08/18 21:00 12/08/18 20:59 11/10/18 08:51 Vancomycin HCl (Vanco rx to dose) 1 ea DAILY PRN MISC Per rx protocol 11/09/18 09:00 12/08/18 07:29 Vancomycin HCl/ Dextrose 275 ml @ 137.5 mls/ hr Q8H IVPB 11/09/18 13:00 11/14/18 12:59 11/10/18 06:04 Hamilton Del Cid MD Nov 10, 2018 10:44
[2018-11-10 12:00] VITALS: BP 138/74
--- NOTE | 2018-11-10 12:51 | General Progress Note ---
Assessment/Plan Problem List: (1) Sepsis ICD Codes: A41.9 - Sepsis, unspecified organism SNOMED: 55495421 (2) Respiratory failure ICD Codes: J96.90 - Respiratory failure, unspecified, unspecified whether with hypoxia or hypercapnia SNOMED: 507715283 (3) Diabetes ICD Codes: E11.9 - Type 2 diabetes mellitus without complications SNOMED: 03626302 (4) Pneumonia ICD Codes: J18.9 - Pneumonia, unspecified organism SNOMED: 728812375 (5) Hyponatremia ICD Codes: E87.1 - Hypo-osmolality and hyponatremia SNOMED: 67164148 Status: unchanged Assessment/Plan o2 pulm tx abx neph f/u vasc sx f/u cbc bmp am Subjective Constitutional: Reports: weakness Allergies: Coded Allergies: No Known Allergies (Unverified , 11/04/18) All Systems: reviewed and negative except above Subjective o2nc calm Objective Last 24 Hour Vital Signs Date Time Temp Pulse Resp B/P (MAP) Pulse Ox O2 Delivery O2 Flow Rate FiO2 11/10/18 12:00 98.8 68 20 138/74 (95) 95 11/10/18 09:00 Nasal Cannula 2.0 11/10/18 08:09 95 Nasal Cannula 3.0 32 11/10/18 08:09 Nasal Cannula 3.0 32 11/10/18 08:00 97.9 70 18 126/78 (94) 95 11/10/18 05:30 72 18 97 Facial 40 11/10/18 04:00 98.2 76 22 138/85 (102) 95 11/10/18 03:00 75 27 97 Facial 40 11/10/18 00:52 76 20 98 Facial 40 11/10/18 00:00 99.0 66 20 143/95 (111) 95 11/09/18 23:12 70 10 97 Facial 40 11/09/18 21:00 Nasal Cannula 2.0 11/09/18 20:30 Nasal Cannula 2.0 28 11/09/18 20:30 94 Nasal Cannula 2.0 28 11/09/18 20:00 99.7 71 24 141/88 (105) 95 11/09/18 16:00 97.3 69 20 142/83 (102) 96 Intake and Output 11/09/18 11/10/18 19:00 07:00 Intake Total 79532.0 ml Output Total 750 ml Balance 21056.0 ml Intake Oral 480 ml IV Total 51804.0 ml Output Urine Total 750 ml Laboratory Tests 11/09/18 14:10: Prothrombin Time 10.7, Prothromb Time International Ratio 1.0, Activated Partial Thromboplast Time 30 11/09/18 14:45: Body Fluid Glucose 212, Body Fluid Total Protein 4.3 11/10/18 04:58: White Blood Count 14.2H, Red Blood Count 3.74L, Hemoglobin 12.0L, Hematocrit 35.9L, Mean Corpuscular Volume 96, Mean Corpuscular Hemoglobin 32.1H, Mean Corpuscular Hemoglobin Concent 33.5, Red Cell Distribution Width 11.7, Platelet Count 559H, Mean Platelet Volume 5.8L, Neutrophils (%) (Auto) 73.5, Lymphocytes (%) (Auto) 15.7L, Monocytes (%) (Auto) 8.5, Eosinophils (%) (Auto) 2.0, Basophils (%) (Auto) 0.4, Sodium Level 133L, Potassium Level 3.8, Chloride Level 97L, Carbon Dioxide Level 25, Anion Gap 11, Blood Urea Nitrogen 14, Creatinine 1.0, Estimat Glomerular Filtration Rate > 60, Glucose Level 254#H, Uric Acid 3.4, Calcium Level 8.5, Phosphorus Level 3.9, Magnesium Level 1.9, Iron Level 37L, Total Iron Binding Capacity 152L, Percent Iron Saturation 24, Unsaturated Iron Binding 115, Ferritin 577H, Total Bilirubin 0.4, Aspartate Amino Transf (AST/SGOT) 29, Alanine Aminotransferase (ALT/SGPT) 60, Alkaline Phosphatase 136H, Total Protein 7.6, Albumin 2.3L, Globulin 5.3, Albumin/ Globulin Ratio 0.4L, Vitamin B12 Level 576, Folate 5.2L 11/10/18 12:00: Vancomycin Level Trough [Pending] Height (Feet): 5 Height (Inches): 6.00 Weight (Pounds): 184 General Appearance: lethargic EENT: normal ENT inspection Neck: normal alignment Cardiovascular: normal peripheral pulses, normal rate, regular rhythm Respiratory/Chest: chest wall non-tender, decreased breath sounds Abdomen: normal bowel sounds, non tender, soft Extremities: normal inspection Edema: no edema noted Arm (L), no edema noted Arm (R), no edema noted Leg (L), no edema noted Leg (R), no edema noted Pedal (L), no edema noted Pedal (R), no edema noted Generalized Neurologic: responsive, motor weakness Skin: normal pigmentation, warm/dry Enmanuel Adnerson DO Nov 10, 2018 12:51
--- NOTE | 2018-11-10 14:05 | Pulmonology Progress Note ---
Assessment/Plan Problems: (1) Acute respiratory failure (2) Pneumonia (3) Sepsis (4) Hyperglycemia (5) Diabetes Assessment/Plan thoracentesis DONE, [address] Nino called for thoracic, scheduled for Wednesday sliding scale iv abx c/u cultures Subjective ROS Limited/Unobtainable: No Constitutional: Reports: no symptoms HEENT: Repors: no symptoms Allergies: Coded Allergies: No Known Allergies (Unverified , 11/04/18) Objective Last 24 Hour Vital Signs Date Time Temp Pulse Resp B/P (MAP) Pulse Ox O2 Delivery O2 Flow Rate FiO2 11/10/18 12:00 98.8 68 20 138/74 (95) 95 11/10/18 09:00 Nasal Cannula 2.0 11/10/18 08:09 95 Nasal Cannula 3.0 32 11/10/18 08:09 Nasal Cannula 3.0 32 11/10/18 08:00 97.9 70 18 126/78 (94) 95 11/10/18 05:30 72 18 97 Facial 40 11/10/18 04:00 98.2 76 22 138/85 (102) 95 11/10/18 03:00 75 27 97 Facial 40 11/10/18 00:52 76 20 98 Facial 40 11/10/18 00:00 99.0 66 20 143/95 (111) 95 11/09/18 23:12 70 10 97 Facial 40 11/09/18 21:00 Nasal Cannula 2.0 11/09/18 20:30 Nasal Cannula 2.0 28 11/09/18 20:30 94 Nasal Cannula 2.0 28 11/09/18 20:00 99.7 71 24 141/88 (105) 95 11/09/18 16:00 97.3 69 20 142/83 (102) 96 Intake and Output 11/09/18 11/10/18 19:00 07:00 Intake Total 97529.0 ml Output Total 750 ml Balance 36562.0 ml Intake Oral 480 ml IV Total 27077.0 ml Output Urine Total 750 ml General Appearance: WD/WN HEENT: normocephalic, atraumatic Respiratory/Chest: chest wall non-tender, lungs clear Cardiovascular: normal peripheral pulses, regularly irregular Abdomen: soft, non tender Genitourinary: normal external genitalia Skin: no lesions Microbiology Date/Time Source Procedure Growth Status 11/08/18 16:36 Blood Blood Culture - Preliminary NO GROWTH AFTER 24 HOURS Resulted 11/08/18 16:30 Blood Blood Culture - Preliminary NO GROWTH AFTER 24 HOURS Resulted 11/08/18 21:30 Nasal Nares MRSA Culture - Final Staphylococcus Aureus - Mrsa Complete 11/08/18 16:45 Nasopharynx Influenza Types A,B Antigen (DEBBIE) - Final Complete 11/08/18 14:00 Sputum Gram Stain - Final Complete 11/08/18 14:00 Sputum Sputum Culture - Final NORMAL UPPER RESPIRATORY JULIEN PRESENT Complete 11/08/18 21:30 Rectum Received Laboratory Tests 11/09/18 14:10: Prothrombin Time 10.7, Prothromb Time International Ratio 1.0, Activated Partial Thromboplast Time 30 11/09/18 14:45: Body Fluid Glucose 212, Body Fluid Total Protein 4.3 11/10/18 04:58: White Blood Count 14.2H, Red Blood Count 3.74L, Hemoglobin 12.0L, Hematocrit 35.9L, Mean Corpuscular Volume 96, Mean Corpuscular Hemoglobin 32.1H, Mean Corpuscular Hemoglobin Concent 33.5, Red Cell Distribution Width 11.7, Platelet Count 559H, Mean Platelet Volume 5.8L, Neutrophils (%) (Auto) 73.5, Lymphocytes (%) (Auto) 15.7L, Monocytes (%) (Auto) 8.5, Eosinophils (%) (Auto) 2.0, Basophils (%) (Auto) 0.4, Sodium Level 133L, Potassium Level 3.8, Chloride Level 97L, Carbon Dioxide Level 25, Anion Gap 11, Blood Urea Nitrogen 14, Creatinine 1.0, Estimat Glomerular Filtration Rate > 60, Glucose Level 254#H, Uric Acid 3.4, Calcium Level 8.5, Phosphorus Level 3.9, Magnesium Level 1.9, Iron Level 37L, Total Iron Binding Capacity 152L, Percent Iron Saturation 24, Unsaturated Iron Binding 115, Ferritin 577H, Total Bilirubin 0.4, Aspartate Amino Transf (AST/SGOT) 29, Alanine Aminotransferase (ALT/SGPT) 60, Alkaline Phosphatase 136H, Total Protein 7.6, Albumin 2.3L, Globulin 5.3, Albumin/ Globulin Ratio 0.4L, Vitamin B12 Level 576, Folate 5.2L 11/10/18 12:00: Vancomycin Level Trough 15.1H Current Medications Medications (Trade) Dose Ordered Sig/Des Route PRN Reason Start Time Stop Time Status Last Admin Dose Admin Acetaminophen (Tylenol) 650 mg Q4H PRN ORAL FEVER 11/08/18 16:00 12/07/18 15:59 Albuterol/ Ipratropium (Albuterol/ Ipratropium) 3 ml Q4H PRN HHN Shortness of Breath 11/08/18 16:00 11/12/18 15:59 Cefepime HCl 2 gm/ Dextrose 110 ml @ 220 mls/hr EVERY 12 HOURS IV 11/08/18 21:00 11/15/18 08:59 11/10/18 08:51 Dextrose (Dextrose 50%) 25 ml Q30M PRN IV Hypoglycemia 11/08/18 19:30 12/08/18 19:29 Dextrose (Dextrose 50%) 50 ml Q30M PRN IV Hypoglycemia 11/08/18 19:30 12/08/18 19:29 Famotidine (Pepcid) 20 mg BID ORAL 11/09/18 18:00 12/09/18 08:59 11/10/18 08:51 Furosemide (Lasix) 10 mg EVERY 8 HOURS IV 11/09/18 22:00 12/09/18 21:59 11/10/18 06:01 Heparin Sodium (Porcine) (Heparin 5000 units/ml) 5,000 units EVERY 12 HOURS SUBQ 11/08/18 21:00 12/08/18 08:59 11/10/18 08:52 Insulin Aspart (NovoLOG) BEFORE MEALS AND HS SUBQ 11/08/18 16:30 12/08/18 06:29 11/10/18 11:48 Insulin Detemir (Levemir) 14 units BEDTIME SUBQ 11/08/18 21:00 12/08/18 20:59 11/09/18 20:48 Morphine Sulfate (Morphine Sulfate) 2 mg Q4H PRN IVP For Pain 11/09/18 08:45 11/16/18 08:44 11/09/18 21:00 Nateglinide (Starlix) 120 mg TIAC ORAL 11/09/18 06:30 12/09/18 06:29 11/10/18 11:48 Nitroglycerin (Ntg) 0.4 mg Q5M PRN SL Prn Chest Pain 11/08/18 15:15 11/09/18 05:43 Ondansetron HCl (Zofran) 4 mg Q6H PRN IVP Nausea & Vomiting 11/08/18 16:15 12/07/18 22:14 Polyethylene Glycol (Miralax) 17 gm DAILYPRN PRN ORAL Constipation 11/08/18 16:00 12/07/18 15:59 Potassium Chloride (K-Dur) 40 meq TWICE A DAY ORAL 11/09/18 14:30 12/09/18 14:29 11/10/18 08:51 Promethazine HCl/ Codeine (Phenergan with Codeine) 5 ml Q4H PRN ORAL For Cough 11/08/18 16:00 12/08/18 15:59 11/10/18 03:34 Theophylline ([place]-Dur) 100 mg EVERY 12 HOURS ORAL 11/08/18 21:00 12/08/18 20:59 11/10/18 08:51 Vancomycin HCl (Vanco rx to dose) 1 ea DAILY PRN MISC Per rx protocol 11/09/18 09:00 12/08/18 07:29 Vancomycin HCl/ Dextrose 275 ml @ 137.5 mls/ hr Q8H IVPB 11/09/18 13:00 11/14/18 12:59 11/10/18 06:04 Yeimi Phelps MD Nov 10, 2018 14:05
[2018-11-10] MEDS ORDERED: Albuterol/Ipratropium 3ml neb HHN PRN (14:15)
--- NOTE | 2018-11-10 14:24 | NUR ---
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 RESPIRATORY DISTRESS VS: BP138/74, P 68, T 97.9, RR 22, SpO2 95 on 3.0L O2 NC WBC 14.2, RBC 3.74, Hgb 12.0, Hct 35.9, Na 133 IS:LASIX 10mg IV PEPCID 20mg K-DUR 40meq VANCOMYCIN/D5 275ml IVPB STARLIX 120mg CEFEPIME 110ml IV HEPARIN SUBQ NOVOLOG SUBQ PROMETHAZINE HCI/ CODEINE 5ml MED/SURG STATUS
[2018-11-10] MEDS ORDERED: NS 500ML ONE (14:56)
[2018-11-10] MEDS ORDERED: Tubing IV Secondary IV ONE (14:56)
--- NOTE | 2018-11-10 15:37 | Nephrology Progress Note ---
Assessment/Plan Problem List: (1) Hyponatremia Assessment: SIADH (2) Acute respiratory failure (3) Hyperglycemia (4) Pneumonia (5) Diabetes Assessment Pneumonia Low Na due to high BS Sepsis Respiratory failure Diabetes OOC with proteinuria Anemia Plan Abbey UOs uric acid indicates SIADH IV lasix monitor lytes TSH Lipid per orders Subjective ROS Limited/Unobtainable: No Constitutional: Reports: malaise Objective Objective Last 24 Hour Vital Signs Date Time Temp Pulse Resp B/P (MAP) Pulse Ox O2 Delivery O2 Flow Rate FiO2 11/10/18 12:00 98.8 68 20 138/74 (95) 95 11/10/18 09:00 Nasal Cannula 2.0 11/10/18 08:09 95 Nasal Cannula 3.0 32 11/10/18 08:09 Nasal Cannula 3.0 32 11/10/18 08:00 97.9 70 18 126/78 (94) 95 11/10/18 05:30 72 18 97 Facial 40 11/10/18 04:00 98.2 76 22 138/85 (102) 95 11/10/18 03:00 75 27 97 Facial 40 11/10/18 00:52 76 20 98 Facial 40 11/10/18 00:00 99.0 66 20 143/95 (111) 95 11/09/18 23:12 70 10 97 Facial 40 11/09/18 21:00 Nasal Cannula 2.0 11/09/18 20:30 Nasal Cannula 2.0 28 11/09/18 20:30 94 Nasal Cannula 2.0 28 11/09/18 20:00 99.7 71 24 141/88 (105) 95 11/09/18 16:00 97.3 69 20 142/83 (102) 96 Intake and Output 11/09/18 11/10/18 19:00 07:00 Intake Total 65693.0 ml Output Total 750 ml Balance 90096.0 ml Intake Oral 480 ml IV Total 26467.0 ml Output Urine Total 750 ml Laboratory Tests 11/10/18 04:58: White Blood Count 14.2H, Red Blood Count 3.74L, Hemoglobin 12.0L, Hematocrit 35.9L, Mean Corpuscular Volume 96, Mean Corpuscular Hemoglobin 32.1H, Mean Corpuscular Hemoglobin Concent 33.5, Red Cell Distribution Width 11.7, Platelet Count 559H, Mean Platelet Volume 5.8L, Neutrophils (%) (Auto) 73.5, Lymphocytes (%) (Auto) 15.7L, Monocytes (%) (Auto) 8.5, Eosinophils (%) (Auto) 2.0, Basophils (%) (Auto) 0.4, Sodium Level 133L, Potassium Level 3.8, Chloride Level 97L, Carbon Dioxide Level 25, Anion Gap 11, Blood Urea Nitrogen 14, Creatinine 1.0, Estimat Glomerular Filtration Rate > 60, Glucose Level 254#H, Uric Acid 3.4, Calcium Level 8.5, Phosphorus Level 3.9, Magnesium Level 1.9, Iron Level 37L, Total Iron Binding Capacity 152L, Percent Iron Saturation 24, Unsaturated Iron Binding 115, Ferritin 577H, Total Bilirubin 0.4, Aspartate Amino Transf (AST/SGOT) 29, Alanine Aminotransferase (ALT/SGPT) 60, Alkaline Phosphatase 136H, Total Protein 7.6, Albumin 2.3L, Globulin 5.3, Albumin/ Globulin Ratio 0.4L, Vitamin B12 Level 576, Folate 5.2L 11/10/18 12:00: Carcinoembryonic Antigen [Pending], Vancomycin Level Trough 15.1H 11/10/18 14:18: Body Fluid Source Pleural, Body Fluid Volume 24 ml, Body Fluid Appearance Yellow /hazy, Body Fluid RBC 3288, Body Fluid Total Nucleated Cells 1182, Body Fluid Comment See comments Height (Feet): 5 Height (Inches): 6.00 Weight (Pounds): 184 General Appearance: no apparent distress Cardiovascular: normal rate Respiratory/Chest: decreased breath sounds Abdomen: soft Sedrick Cordova MD Nov 10, 2018 15:37
[2018-11-10 16:00] VITALS: BP 127/79
[2018-11-10] MEDS: Promethazine/Codeine 5ml UD ORAL PRN (16:35)
--- NOTE | 2018-11-10 17:15 | Consultation ---
DATE OF CONSULTATION: 11/10/2018 SURGEON: Andrea Nino M.D., specialty in Thoracic Surgery. REFERRING PHYSICIAN: Yeimi Phelps M.D. HISTORY OF PRESENT ILLNESS: The patient is a 58-year-old [place] male, homeless, who was brought to the [facility] with shortness of breath. Workup including a chest CT scan demonstrated a right-sided pneumonia, including a loculated pleural effusion suspicious for an empyema. Thoracic surgeon was then consulted for further evaluation. PAST MEDICAL HISTORY: Was notable for a new onset of diabetes. PAST SURGICAL HISTORY: None. MEDICATIONS: Reviewed. ALLERGIES: The patient has no known drug allergies. FAMILY AND SOCIAL HISTORY: The patient is homeless who stopped smoking roughly two weeks prior to presentation. The rest of the family and social history is noncontributory. PHYSICAL EXAMINATION: VITAL SIGNS: He is afebrile. Vitals are within normal limits. CARDIAC: Regular rate and rhythm. No gallops or murmur. RESPIRATORY: Clear to auscultation on the left with decreased crackles on the right. ABDOMEN: Soft, nondistended, and nontender with normoactive bowel sounds. EXTREMITIES: Showed no evidence of cyanosis, clubbing, or edema. LABORATORY DATA: Laboratory study performed on 11/10/2018 showed WBC of 14.2, hemoglobin of 12, hematocrit of 36, and a platelet count of 559,000. Sodium is 133, potassium 3.8, chloride 97, bicarb is 25, BUN is 14, creatinine is 1.0, and glucose is 254. PT is 10, PTT is 30, and INR is 1.0. Chest CT scan performed on 11/08/2018 demonstrated a right-sided pneumonia associated with a loculated pleural effusion with a rim enhancement suspicious for empyema. ASSESSMENT AND PLAN: This is a 58-year-old male, homeless, who presented with a right-sided pneumonia associated with loculated pleural effusion. The patient was evaluated at bedside. After reviewing his clinical database, I recommend that he undergoes a right video-assisted thoracoscopic surgery for washout and decortication. I want to thank you for referring this patient to my attention. If any questions in regards to this patient's clinical care, please do not hesitate to contact me. Ayon M.D. DR: WILEY JOB#: [id number] CC: SHUN
--- NOTE | 2018-11-10 18:57 | General Progress Note ---
Assessment/Plan Problem List: (1) Hyperglycemia ICD Codes: R73.9 - Hyperglycemia, unspecified SNOMED: 83006052 (2) Diabetes ICD Codes: E11.9 - Type 2 diabetes mellitus without complications SNOMED: 24914253 (3) Pneumonia ICD Codes: J18.9 - Pneumonia, unspecified organism SNOMED: 617460512 Assessment/Plan increase Levemir to 18 units qhs continue Starlix 120 mg ac tid continue NISS ac / hs Subjective ROS Limited/Unobtainable: Yes Allergies: Coded Allergies: No Known Allergies (Unverified , 11/04/18) Subjective events noted Item Value Date Time Bedside Blood Glucose 223 mg/dl H 11/10/18 1636 Bedside Blood Glucose 210 mg/dl H 11/10/18 1148 Bedside Blood Glucose 285 mg/dl H 11/10/18 0623 Bedside Blood Glucose 151 mg/dl H 11/09/18 2048 Objective Last 24 Hour Vital Signs Date Time Temp Pulse Resp B/P (MAP) Pulse Ox O2 Delivery O2 Flow Rate FiO2 11/10/18 17:47 84 18 98 Nasal Cannula 3.0 32 11/10/18 16:00 98.1 66 20 127/79 (95) 94 11/10/18 12:00 98.8 68 20 138/74 (95) 95 11/10/18 09:00 Nasal Cannula 2.0 11/10/18 08:09 95 Nasal Cannula 3.0 32 11/10/18 08:09 Nasal Cannula 3.0 32 11/10/18 08:00 97.9 70 18 126/78 (94) 95 11/10/18 05:30 72 18 97 Facial 40 11/10/18 04:00 98.2 76 22 138/85 (102) 95 11/10/18 03:00 75 27 97 Facial 40 11/10/18 00:52 76 20 98 Facial 40 11/10/18 00:00 99.0 66 20 143/95 (111) 95 11/09/18 23:12 70 10 97 Facial 40 11/09/18 21:00 Nasal Cannula 2.0 11/09/18 20:30 Nasal Cannula 2.0 28 11/09/18 20:30 94 Nasal Cannula 2.0 28 11/09/18 20:00 99.7 71 24 141/88 (105) 95 Intake and Output 11/09/18 11/10/18 19:00 07:00 Intake Total 65900.0 ml Output Total 750 ml Balance 20541.0 ml Intake Oral 480 ml IV Total 84465.0 ml Output Urine Total 750 ml Laboratory Tests 11/10/18 04:58: White Blood Count 14.2H, Red Blood Count 3.74L, Hemoglobin 12.0L, Hematocrit 35.9L, Mean Corpuscular Volume 96, Mean Corpuscular Hemoglobin 32.1H, Mean Corpuscular Hemoglobin Concent 33.5, Red Cell Distribution Width 11.7, Platelet Count 559H, Mean Platelet Volume 5.8L, Neutrophils (%) (Auto) 73.5, Lymphocytes (%) (Auto) 15.7L, Monocytes (%) (Auto) 8.5, Eosinophils (%) (Auto) 2.0, Basophils (%) (Auto) 0.4, Sodium Level 133L, Potassium Level 3.8, Chloride Level 97L, Carbon Dioxide Level 25, Anion Gap 11, Blood Urea Nitrogen 14, Creatinine 1.0, Estimat Glomerular Filtration Rate > 60, Glucose Level 254#H, Uric Acid 3.4, Calcium Level 8.5, Phosphorus Level 3.9, Magnesium Level 1.9, Iron Level 37L, Total Iron Binding Capacity 152L, Percent Iron Saturation 24, Unsaturated Iron Binding 115, Ferritin 577H, Total Bilirubin 0.4, Aspartate Amino Transf (AST/SGOT) 29, Alanine Aminotransferase (ALT/SGPT) 60, Alkaline Phosphatase 136H, Total Protein 7.6, Albumin 2.3L, Globulin 5.3, Albumin/ Globulin Ratio 0.4L, Vitamin B12 Level 576, Folate 5.2L 11/10/18 12:00: Carcinoembryonic Antigen [Pending], Vancomycin Level Trough 15.1H 11/10/18 14:18: Body Fluid Source Pleural, Body Fluid Volume 24 ml, Body Fluid Appearance Yellow /hazy, Body Fluid RBC 3288, Body Fluid Total Nucleated Cells 1182, Body Fluid Comment See comments Height (Feet): 5 Height (Inches): 6.00 Weight (Pounds): 184 General Appearance: no apparent distress Neck: normal alignment Cardiovascular: normal rate Respiratory/Chest: lungs clear Abdomen: normal bowel sounds Edema: no edema noted Arm (L), no edema noted Arm (R), no edema noted Leg (L), no edema noted Leg (R), no edema noted Pedal (L), no edema noted Pedal (R), no edema noted Generalized Objective Current Medications Medications (Trade) Dose Ordered Sig/Des Route PRN Reason Start Time Stop Time Status Last Admin Dose Admin Acetaminophen (Tylenol) 650 mg Q4H PRN ORAL FEVER 11/08/18 16:00 12/07/18 15:59 Albuterol/ Ipratropium (Albuterol/ Ipratropium) 3 ml Q4H PRN HHN Shortness of Breath 11/10/18 14:15 11/15/18 14:14 11/10/18 17:46 Cefepime HCl 2 gm/ Dextrose 110 ml @ 220 mls/hr EVERY 12 HOURS IV 11/08/18 21:00 11/15/18 08:59 11/10/18 08:51 Dextrose (Dextrose 50%) 25 ml Q30M PRN IV Hypoglycemia 11/08/18 19:30 12/08/18 19:29 Dextrose (Dextrose 50%) 50 ml Q30M PRN IV Hypoglycemia 11/08/18 19:30 12/08/18 19:29 Famotidine (Pepcid) 20 mg BID ORAL 11/09/18 18:00 12/09/18 08:59 11/10/18 17:57 Heparin Sodium (Porcine) (Heparin 5000 units/ml) 5,000 units EVERY 12 HOURS SUBQ 11/08/18 21:00 12/08/18 08:59 11/10/18 08:52 Insulin Aspart (NovoLOG) BEFORE MEALS AND HS SUBQ 11/08/18 16:30 12/08/18 06:29 11/10/18 16:36 Insulin Detemir (Levemir) 14 units BEDTIME SUBQ 11/08/18 21:00 12/08/18 20:59 11/09/18 20:48 Morphine Sulfate (Morphine Sulfate) 2 mg Q4H PRN IVP For Pain 11/09/18 08:45 11/16/18 08:44 11/09/18 21:00 Nateglinide (Starlix) 120 mg TIAC ORAL 11/09/18 06:30 12/09/18 06:29 11/10/18 16:35 Nitroglycerin (Ntg) 0.4 mg Q5M PRN SL Prn Chest Pain 11/08/18 15:15 11/09/18 05:43 Ondansetron HCl (Zofran) 4 mg Q6H PRN IVP Nausea & Vomiting 11/08/18 16:15 12/07/18 22:14 Polyethylene Glycol (Miralax) 17 gm DAILYPRN PRN ORAL Constipation 11/08/18 16:00 12/07/18 15:59 Potassium Chloride (K-Dur) 40 meq TWICE A DAY ORAL 11/09/18 14:30 12/09/18 14:29 11/10/18 17:57 Promethazine HCl/ Codeine (Phenergan with Codeine) 5 ml Q4H PRN ORAL For Cough 11/10/18 14:15 12/10/18 14:14 11/10/18 16:35 Theophylline (Tremayne-Dur) 100 mg EVERY 12 HOURS ORAL 11/10/18 21:00 12/10/18 20:59 Vancomycin HCl (Vanco rx to dose) 1 ea DAILY PRN MISC Per rx protocol 11/09/18 09:00 12/08/18 07:29 Vancomycin HCl/ Dextrose 275 ml @ 137.5 mls/ hr Q8H IVPB 11/09/18 13:00 11/14/18 12:59 11/10/18 14:50 Sonido Styles MD Nov 10, 2018 18:57
--- NOTE | 2018-11-10 19:37 | NUR ---
HAND-OFF: Report given to KRISTI Demarco.
--- NOTE | 2018-11-10 19:38 | NUR ---
NURSE NOTES: Received patient in no apparent distress. A&OX4. NC 2L on. Lithuanian speaking. IV site patent and intact. Bed in lowest position. Call light within reach. Will continue to monitor.
[2018-11-10 20:00] VITALS: BP 116/63
[2018-11-10] MEDS ORDERED: Levemir Flexpen SUBQ SCH (21:00)
[2018-11-11] VITALS: BP 135/82
[2018-11-11 04:00] VITALS: BP 124/82
[2018-11-11] MEDS: Vancomycin 1.5gm Premix IVPB SCH ×3 (05:00→22:11)
[2018-11-11] MEDS: Morphine Sulfate 2mg/ml Inj(IV/IM USE ONLY) IVP PRN (05:10)
[2018-11-11 06:28] LABS: BASOPHILS % (AUTO) 0.8 % (0.0-2.0); EOSINOPHILS % (AUTO) 2.8 % (0.0-3.0); HEMATOCRIT 38.4 % (42.0-52.0); HEMOGLOBIN 12.6 G/DL (14.2-18.0); LYMPHOCYTES % (AUTO) 16.9 % (20.0-45.0); MEAN CORPUSCULAR VOLUME 97 FL (80-99); MONOCYTES % (AUTO) 7.3 % (1.0-10.0); NEUTROPHILS % (AUTO) 72.1 % (45.0-75.0); PLATELET COUNT 612 K/UL (150-450); RED BLOOD COUNT 3.97 M/UL (4.70-6.10); RED CELL DISTRIBUTION WIDTH 11.9 % (11.6-14.8); WHITE BLOOD COUNT 13.3 K/UL (4.8-10.8)
[2018-11-11] MEDS: NovoLOG Insulin Flexpen SUBQ SCH ×4 (06:31→22:13)
[2018-11-11 06:47] LABS: ANION GAP 7 mmol/L (5-15); BLOOD UREA NITROGEN 17 mg/dL (7-18); CALCIUM 8.7 MG/DL (8.5-10.1); CARBON DIOXIDE 27 MMOL/L (21-32); CHLORIDE 97 MMOL/L (98-107); POTASSIUM 4.5 MMOL/L (3.5-5.1); SODIUM 131 MMOL/L (136-145)
--- NOTE | 2018-11-11 06:54 | General Progress Note ---
Assessment/Plan Problem List: (1) Hyperglycemia ICD Codes: R73.9 - Hyperglycemia, unspecified SNOMED: 66968389 (2) Diabetes ICD Codes: E11.9 - Type 2 diabetes mellitus without complications SNOMED: 54437899 (3) Pneumonia ICD Codes: J18.9 - Pneumonia, unspecified organism SNOMED: 213650576 Assessment/Plan increase Levemir to 24 units qhs continue Starlix 120 mg ac tid continue NISS ac / hs Subjective ROS Limited/Unobtainable: Yes Allergies: Coded Allergies: No Known Allergies (Unverified , 11/04/18) Subjective events noted Item Value Date Time Bedside Blood Glucose 267 mg/dl H 11/11/18 0631 Bedside Blood Glucose 202 mg/dl H 11/10/18 2117 Bedside Blood Glucose 223 mg/dl H 11/10/18 1636 Bedside Blood Glucose 210 mg/dl H 11/10/18 1148 Bedside Blood Glucose 285 mg/dl H 11/10/18 0623 Objective Last 24 Hour Vital Signs Date Time Temp Pulse Resp B/P (MAP) Pulse Ox O2 Delivery O2 Flow Rate FiO2 11/11/18 05:28 61 18 97 Full Face 40 11/11/18 04:00 97.5 62 18 124/82 (96) 96 11/11/18 03:34 77 26 97 Full Face 40 11/11/18 01:31 60 19 99 Full Face 40 11/11/18 00:00 98.1 65 17 135/82 (99) 97 11/10/18 23:49 88 20 98 Full Face 40 11/10/18 21:00 Nasal Cannula 2.0 11/10/18 20:31 Nasal Cannula 3.0 32 11/10/18 20:31 98 Nasal Cannula 3.0 32 11/10/18 20:00 99.4 65 18 116/63 (80) 96 11/10/18 17:47 84 18 98 Nasal Cannula 3.0 32 11/10/18 16:00 98.1 66 20 127/79 (95) 94 11/10/18 12:00 98.8 68 20 138/74 (95) 95 11/10/18 09:00 Nasal Cannula 2.0 11/10/18 08:09 95 Nasal Cannula 3.0 32 11/10/18 08:09 Nasal Cannula 3.0 32 11/10/18 08:00 97.9 70 18 126/78 (94) 95 Intake and Output 11/10/18 11/11/18 18:59 06:59 Intake Total 1485.0 ml 522.5 ml Output Total 1700 ml Balance 1485.0 ml -1177.5 ml Intake Oral 990 ml IV Total 495.0 ml 522.5 ml Output Urine Total 1700 ml # Voids 5 Laboratory Tests 11/10/18 12:00: Carcinoembryonic Antigen [Pending], Vancomycin Level Trough 15.1H 11/10/18 14:18: Body Fluid Source Pleural, Body Fluid Volume 24 ml, Body Fluid Appearance Yellow /hazy, Body Fluid RBC 3288, Body Fluid Total Nucleated Cells 1182, Body Fluid Comment See comments 11/11/18 05:20: White Blood Count 13.3H, Red Blood Count 3.97L, Hemoglobin 12.6L, Hematocrit 38.4L, Mean Corpuscular Volume 97, Mean Corpuscular Hemoglobin 31.6H, Mean Corpuscular Hemoglobin Concent 32.7, Red Cell Distribution Width 11.9, Platelet Count 612H, Mean Platelet Volume 5.6L, Neutrophils (%) (Auto) 72.1, Lymphocytes (%) (Auto) 16.9L, Monocytes (%) (Auto) 7.3, Eosinophils (%) (Auto) 2.8, Basophils (%) (Auto) 0.8, Sodium Level 131L, Potassium Level 4.5, Chloride Level 97L, Carbon Dioxide Level 27, Anion Gap 7, Blood Urea Nitrogen 17, Creatinine 1.0, Estimat Glomerular Filtration Rate > 60, Glucose Level 286H, Calcium Level 8.7 Height (Feet): 5 Height (Inches): 6.00 Weight (Pounds): 184 General Appearance: no apparent distress Neck: normal alignment Cardiovascular: normal rate Respiratory/Chest: lungs clear Abdomen: normal bowel sounds Objective Current Medications Medications (Trade) Dose Ordered Sig/Des Route PRN Reason Start Time Stop Time Status Last Admin Dose Admin Acetaminophen (Tylenol) 650 mg Q4H PRN ORAL FEVER 11/08/18 16:00 12/07/18 15:59 Albuterol/ Ipratropium (Albuterol/ Ipratropium) 3 ml Q4H PRN HHN Shortness of Breath 11/10/18 14:15 11/15/18 14:14 11/10/18 17:46 Cefepime HCl 2 gm/ Dextrose 110 ml @ 220 mls/hr EVERY 12 HOURS IV 11/08/18 21:00 11/15/18 08:59 11/10/18 20:40 Dextrose (Dextrose 50%) 25 ml Q30M PRN IV Hypoglycemia 11/08/18 19:30 12/08/18 19:29 Dextrose (Dextrose 50%) 50 ml Q30M PRN IV Hypoglycemia 11/08/18 19:30 12/08/18 19:29 Famotidine (Pepcid) 20 mg BID ORAL 11/09/18 18:00 12/09/18 08:59 11/10/18 17:57 Heparin Sodium (Porcine) (Heparin 5000 units/ml) 5,000 units EVERY 12 HOURS SUBQ 11/08/18 21:00 12/08/18 08:59 11/10/18 21:15 Insulin Aspart (NovoLOG) BEFORE MEALS AND HS SUBQ 11/08/18 16:30 12/08/18 06:29 11/11/18 06:31 Insulin Detemir (Levemir) 18 units BEDTIME SUBQ 11/10/18 21:00 12/08/18 20:59 11/10/18 21:16 Morphine Sulfate (Morphine Sulfate) 2 mg Q4H PRN IVP For Pain 11/09/18 08:45 11/16/18 08:44 11/11/18 05:10 Nateglinide (Starlix) 120 mg TIAC ORAL 11/09/18 06:30 12/09/18 06:29 11/11/18 06:29 Nitroglycerin (Ntg) 0.4 mg Q5M PRN SL Prn Chest Pain 11/08/18 15:15 11/09/18 05:43 Ondansetron HCl (Zofran) 4 mg Q6H PRN IVP Nausea & Vomiting 11/08/18 16:15 12/07/18 22:14 Polyethylene Glycol (Miralax) 17 gm DAILYPRN PRN ORAL Constipation 11/08/18 16:00 12/07/18 15:59 Potassium Chloride (K-Dur) 40 meq TWICE A DAY ORAL 11/09/18 14:30 12/09/18 14:29 11/10/18 17:57 Promethazine HCl/ Codeine (Phenergan with Codeine) 5 ml Q4H PRN ORAL For Cough 11/10/18 14:15 12/10/18 14:14 11/10/18 16:35 Theophylline (Tremayne-Dur) 100 mg EVERY 12 HOURS ORAL 11/10/18 21:00 12/10/18 20:59 11/10/18 21:14 Vancomycin HCl (Vanco rx to dose) 1 ea DAILY PRN MISC Per rx protocol 11/09/18 09:00 12/08/18 07:29 Vancomycin HCl/ Dextrose 275 ml @ 137.5 mls/ hr Q8H IVPB 11/09/18 13:00 11/14/18 12:59 11/11/18 05:00 Sonido Styles MD Nov 11, 2018 06:54
--- NOTE | 2018-11-11 07:30 | NUR ---
HAND-OFF: Report given to Kat Malloy RN.
--- NOTE | 2018-11-11 07:47 | Infectious Diseases Prog Note ---
Assessment/Plan Assessment/Plan Abx: Cefepime 11/08- IV Vancomycin 11/08- Ceftriaxone x1 11/07 Assessment: Sepsis- 2ry to PNA - Empyema? -CXR: Increased right suprahilar and basilar consolidative changes, since prior study 11/04/2018. 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 Subjective Allergies: Coded Allergies: No Known Allergies (Unverified , 11/04/18) Subjective On Mask O2 Afebrile Continued leukocytosis but improved Objective Vital Signs Last 24 Hour Vital Signs Date Time Temp Pulse Resp B/P (MAP) Pulse Ox O2 Delivery O2 Flow Rate FiO2 11/11/18 05:28 61 18 97 Full Face 40 11/11/18 04:00 97.5 62 18 124/82 (96) 96 11/11/18 03:34 77 26 97 Full Face 40 11/11/18 01:31 60 19 99 Full Face 40 11/11/18 00:00 98.1 65 17 135/82 (99) 97 11/10/18 23:49 88 20 98 Full Face 40 11/10/18 21:00 Nasal Cannula 2.0 11/10/18 20:31 Nasal Cannula 3.0 32 11/10/18 20:31 98 Nasal Cannula 3.0 32 11/10/18 20:00 99.4 65 18 116/63 (80) 96 11/10/18 17:47 84 18 98 Nasal Cannula 3.0 32 11/10/18 16:00 98.1 66 20 127/79 (95) 94 11/10/18 12:00 98.8 68 20 138/74 (95) 95 11/10/18 09:00 Nasal Cannula 2.0 11/10/18 08:09 95 Nasal Cannula 3.0 32 11/10/18 08:09 Nasal Cannula 3.0 32 11/10/18 08:00 97.9 70 18 126/78 (94) 95 Height (Feet): 5 Height (Inches): 6.00 Weight (Pounds): 184 Objective Gen: NAD on NC HEENT: NCAT MMM, EOMI Respiratory/Chest: chest wall non-tender, lungs clear Cardiovascular/Chest: normal peripheral pulses Abdomen: normal bowel sounds, soft Microbiology Date/Time Source Procedure Growth Status 11/08/18 16:36 Blood Blood Culture - Preliminary NO GROWTH AFTER 48 HOURS Resulted 11/08/18 16:30 Blood Blood Culture - Preliminary NO GROWTH AFTER 48 HOURS Resulted 11/08/18 21:30 Nasal Nares MRSA Culture - Final Staphylococcus Aureus - Mrsa Complete 11/08/18 16:45 Nasopharynx Influenza Types A,B Antigen (DEBBIE) - Final Complete 11/08/18 14:00 Sputum Gram Stain - Final Complete 11/08/18 14:00 Sputum Sputum Culture - Final NORMAL UPPER RESPIRATORY JULIEN PRESENT Complete 11/08/18 21:30 Rectum Received Laboratory Tests Test 11/10/18 12:00 11/10/18 14:18 11/11/18 05:20 Carcinoembryonic Antigen Pending Vancomycin Level Trough 15.1 ug/mL (5.0-12.0) H Body Fluid Source Pleural Body Fluid Volume 24 ml mL Body Fluid Appearance Yellow/hazy (Clear) Body Fluid RBC 3288 /CUMM Body Fluid Total Nucleated Cells 1182 /CUMM Body Fluid Comment See comments White Blood Count 13.3 K/UL (4.8-10.8) H Red Blood Count 3.97 M/UL (4.70-6.10) L Hemoglobin 12.6 G/DL (14.2-18.0) L Hematocrit 38.4 % (42.0-52.0) L Mean Corpuscular Volume 97 FL (80-99) Mean Corpuscular Hemoglobin 31.6 PG (27.0-31.0) H Mean Corpuscular Hemoglobin Concent 32.7 G/DL (32.0-36.0) Red Cell Distribution Width 11.9 % (11.6-14.8) Platelet Count 612 K/UL (150-450) H Mean Platelet Volume 5.6 FL (6.5-10.1) L Neutrophils (%) (Auto) 72.1 % (45.0-75.0) Lymphocytes (%) (Auto) 16.9 % (20.0-45.0) L Monocytes (%) (Auto) 7.3 % (1.0-10.0) Eosinophils (%) (Auto) 2.8 % (0.0-3.0) Basophils (%) (Auto) 0.8 % (0.0-2.0) Sodium Level 131 MMOL/L (136-145) L Potassium Level 4.5 MMOL/L (3.5-5.1) Chloride Level 97 MMOL/L (98-107) L Carbon Dioxide Level 27 MMOL/L (21-32) Anion Gap 7 mmol/L (5-15) Blood Urea Nitrogen 17 mg/dL (7-18) Creatinine 1.0 MG/DL (0.55-1.30) Estimat Glomerular Filtration Rate > 60 mL/min (>60) Glucose Level 286 MG/DL (74-106) H Calcium Level 8.7 MG/DL (8.5-10.1) Current Medications Medications (Trade) Dose Ordered Sig/Des Route PRN Reason Start Time Stop Time Status Last Admin Dose Admin Acetaminophen (Tylenol) 650 mg Q4H PRN ORAL FEVER 11/08/18 16:00 12/07/18 15:59 Albuterol/ Ipratropium (Albuterol/ Ipratropium) 3 ml Q4H PRN HHN Shortness of Breath 11/10/18 14:15 11/15/18 14:14 11/10/18 17:46 Cefepime HCl 2 gm/ Dextrose 110 ml @ 220 mls/hr EVERY 12 HOURS IV 11/08/18 21:00 11/15/18 08:59 11/10/18 20:40 Dextrose (Dextrose 50%) 25 ml Q30M PRN IV Hypoglycemia 11/08/18 19:30 12/08/18 19:29 Dextrose (Dextrose 50%) 50 ml Q30M PRN IV Hypoglycemia 11/08/18 19:30 12/08/18 19:29 Famotidine (Pepcid) 20 mg BID ORAL 11/09/18 18:00 12/09/18 08:59 11/10/18 17:57 Heparin Sodium (Porcine) (Heparin 5000 units/ml) 5,000 units EVERY 12 HOURS SUBQ 11/08/18 21:00 12/08/18 08:59 11/10/18 21:15 Insulin Aspart (NovoLOG) BEFORE MEALS AND HS SUBQ 11/08/18 16:30 12/08/18 06:29 11/11/18 06:31 Insulin Detemir (Levemir) 24 units BEDTIME SUBQ 11/11/18 21:00 12/08/18 20:59 Morphine Sulfate (Morphine Sulfate) 2 mg Q4H PRN IVP For Pain 11/09/18 08:45 11/16/18 08:44 11/11/18 05:10 Nateglinide (Starlix) 120 mg TIAC ORAL 11/09/18 06:30 12/09/18 06:29 11/11/18 06:29 Nitroglycerin (Ntg) 0.4 mg Q5M PRN SL Prn Chest Pain 11/08/18 15:15 11/09/18 05:43 Ondansetron HCl (Zofran) 4 mg Q6H PRN IVP Nausea & Vomiting 11/08/18 16:15 12/07/18 22:14 Polyethylene Glycol (Miralax) 17 gm DAILYPRN PRN ORAL Constipation 11/08/18 16:00 12/07/18 15:59 Promethazine HCl/ Codeine (Phenergan with Codeine) 5 ml Q4H PRN ORAL For Cough 11/10/18 14:15 12/10/18 14:14 11/10/18 16:35 Theophylline (Tremayne-Dur) 100 mg EVERY 12 HOURS ORAL 11/10/18 21:00 12/10/18 20:59 11/10/18 21:14 Vancomycin HCl (Vanco rx to dose) 1 ea DAILY PRN MISC Per rx protocol 11/09/18 09:00 12/08/18 07:29 Vancomycin HCl/ Dextrose 275 ml @ 137.5 mls/ hr Q8H IVPB 11/09/18 13:00 11/14/18 12:59 11/11/18 05:00 Hamilton Del Cid MD Nov 11, 2018 07:47
[2018-11-11 08:00] VITALS: BP 106/71
--- NOTE | 2018-11-11 08:05 | NUR ---
RESPIRATORY NOTE: took pt off bipap at 0655. no redness or skin breakdown seen. pt is in no apparent resp distress at this time of chest physiotherapy. post percussion, pt has a productive cough with small amounts of secretion coughed up spontaneously. for bipap, it is plugged into the redoutlet. will cont to monitor.
[2018-11-11] MEDS: Theophylline ER 100mg ORAL SCH ×2 (08:11→22:11)
[2018-11-11] MEDS: Cefepime HCl 2 GM in D5W 110 ML IV SCH ×2 (08:11→21:22)
[2018-11-11] MEDS: Heparin 5000 units/ml inj SUBQ SCH ×2 (08:17→22:12)
--- NOTE | 2018-11-11 09:42 | NUR ---
NURSE NOTES: pt in bed with no sob nor in any form of distress noted. all due meds given as ordered. denies current paint at this time. Breathing regular and unlabored. will continue to monitor
[2018-11-11 11:24] VITALS: BP 147/79
--- NOTE | 2018-11-11 12:04 | General Progress Note ---
Assessment/Plan Problem List: (1) Sepsis ICD Codes: A41.9 - Sepsis, unspecified organism SNOMED: 04694844 (2) Respiratory failure ICD Codes: J96.90 - Respiratory failure, unspecified, unspecified whether with hypoxia or hypercapnia SNOMED: 245440784 (3) Diabetes ICD Codes: E11.9 - Type 2 diabetes mellitus without complications SNOMED: 51739974 (4) Pneumonia ICD Codes: J18.9 - Pneumonia, unspecified organism SNOMED: 260160829 (5) Hyponatremia ICD Codes: E87.1 - Hypo-osmolality and hyponatremia SNOMED: 90594250 Status: unchanged Assessment/Plan o2 pulm tx abx neph f/u vasc sx f/u cbc bmp am Subjective Constitutional: Reports: weakness Respiratory: Reports: shortness of breath Allergies: Coded Allergies: No Known Allergies (Unverified , 11/04/18) All Systems: reviewed and negative except above Subjective o2nc calm Objective Last 24 Hour Vital Signs Date Time Temp Pulse Resp B/P (MAP) Pulse Ox O2 Delivery O2 Flow Rate FiO2 11/11/18 11:24 98.0 74 18 147/79 (101) 97 11/11/18 08:52 Nasal Cannula 2.0 11/11/18 08:01 Nasal Cannula 4.0 36 11/11/18 08:01 93 Nasal Cannula 4.0 36 11/11/18 08:00 97.6 73 18 106/71 (83) 99 11/11/18 05:28 61 18 97 Full Face 40 11/11/18 04:00 97.5 62 18 124/82 (96) 96 11/11/18 03:34 77 26 97 Full Face 40 11/11/18 01:31 60 19 99 Full Face 40 11/11/18 00:00 98.1 65 17 135/82 (99) 97 11/10/18 23:49 88 20 98 Full Face 40 11/10/18 21:00 Nasal Cannula 2.0 11/10/18 20:31 Nasal Cannula 3.0 32 11/10/18 20:31 98 Nasal Cannula 3.0 32 11/10/18 20:00 99.4 65 18 116/63 (80) 96 11/10/18 17:47 84 18 98 Nasal Cannula 3.0 32 11/10/18 16:00 98.1 66 20 127/79 (95) 94 Intake and Output 11/10/18 11/11/18 18:59 06:59 Intake Total 1485.0 ml 522.5 ml Output Total 1700 ml Balance 1485.0 ml -1177.5 ml Intake Oral 990 ml IV Total 495.0 ml 522.5 ml Output Urine Total 1700 ml # Voids 5 Laboratory Tests 11/10/18 14:18: Body Fluid Source Pleural, Body Fluid Volume 24 ml, Body Fluid Appearance Yellow /hazy, Body Fluid RBC 3288, Body Fluid Total Nucleated Cells 1182, Body Fluid Comment See comments 11/11/18 05:20: White Blood Count 13.3H, Red Blood Count 3.97L, Hemoglobin 12.6L, Hematocrit 38.4L, Mean Corpuscular Volume 97, Mean Corpuscular Hemoglobin 31.6H, Mean Corpuscular Hemoglobin Concent 32.7, Red Cell Distribution Width 11.9, Platelet Count 612H, Mean Platelet Volume 5.6L, Neutrophils (%) (Auto) 72.1, Lymphocytes (%) (Auto) 16.9L, Monocytes (%) (Auto) 7.3, Eosinophils (%) (Auto) 2.8, Basophils (%) (Auto) 0.8, Sodium Level 131L, Potassium Level 4.5, Chloride Level 97L, Carbon Dioxide Level 27, Anion Gap 7, Blood Urea Nitrogen 17, Creatinine 1.0, Estimat Glomerular Filtration Rate > 60, Glucose Level 286H, Calcium Level 8.7 Height (Feet): 5 Height (Inches): 6.00 Weight (Pounds): 184 General Appearance: lethargic EENT: normal ENT inspection Neck: normal alignment Cardiovascular: normal peripheral pulses, normal rate, regular rhythm Respiratory/Chest: chest wall non-tender, decreased breath sounds Abdomen: normal bowel sounds, non tender, soft Extremities: normal inspection Edema: no edema noted Arm (L), no edema noted Arm (R), no edema noted Leg (L), no edema noted Leg (R), no edema noted Pedal (L), no edema noted Pedal (R), no edema noted Generalized Neurologic: responsive, motor weakness Skin: normal pigmentation, warm/dry Enmanuel Anderson DO Nov 11, 2018 12:04
--- NOTE | 2018-11-11 14:56 | NUR ---
[employer] SI: PNA . RESPIRATORY DISTRESS VS: BP147/79, P 62, T 97.5, RR 18, SpO2 93 on 4.0L O2 NC WBC 13.3, RBC 3.97, Hgb 12.6, Hct 38.4, Na 131 IS: PEPCID 20mg ANANYA-DUR 100mg VANCOMYCIN/D5 275ml IVPB STARLIX 120mg CEFEPIME 110ml IV HEPARIN SUBQ NOVOLOG SUBQ MED/SURG STATUS
--- NOTE | 2018-11-11 15:24 | Pulmonology Progress Note ---
Assessment/Plan Problems: (1) Acute respiratory failure (2) Pneumonia (3) Sepsis (4) Hyperglycemia (5) Diabetes Assessment/Plan thoracentesis DONE, [address] Nino called for thoracic, scheduled for Wednesday sliding scale iv abx c/u cultures Subjective ROS Limited/Unobtainable: No Constitutional: Reports: no symptoms HEENT: Repors: no symptoms Allergies: Coded Allergies: No Known Allergies (Unverified , 11/04/18) Objective Last 24 Hour Vital Signs Date Time Temp Pulse Resp B/P (MAP) Pulse Ox O2 Delivery O2 Flow Rate FiO2 11/11/18 11:24 98.0 74 18 147/79 (101) 97 11/11/18 08:52 Nasal Cannula 2.0 11/11/18 08:01 Nasal Cannula 4.0 36 11/11/18 08:01 93 Nasal Cannula 4.0 36 11/11/18 08:00 97.6 73 18 106/71 (83) 99 11/11/18 05:28 61 18 97 Full Face 40 11/11/18 04:00 97.5 62 18 124/82 (96) 96 11/11/18 03:34 77 26 97 Full Face 40 11/11/18 01:31 60 19 99 Full Face 40 11/11/18 00:00 98.1 65 17 135/82 (99) 97 11/10/18 23:49 88 20 98 Full Face 40 11/10/18 21:00 Nasal Cannula 2.0 11/10/18 20:31 Nasal Cannula 3.0 32 11/10/18 20:31 98 Nasal Cannula 3.0 32 11/10/18 20:00 99.4 65 18 116/63 (80) 96 11/10/18 17:47 84 18 98 Nasal Cannula 3.0 32 11/10/18 16:00 98.1 66 20 127/79 (95) 94 Intake and Output 11/10/18 11/11/18 19:00 07:00 Intake Total 1485.0 ml 660.0 ml Output Total 1700 ml Balance 1485.0 ml -1040.0 ml Intake Oral 990 ml IV Total 495.0 ml 660.0 ml Output Urine Total 1700 ml # Voids 5 General Appearance: WD/WN HEENT: normocephalic, anicteric Respiratory/Chest: chest wall non-tender, lungs clear Cardiovascular: normal peripheral pulses, normal rate Abdomen: soft, non tender, no organomegaly, no scars Extremities: no clubbing Skin: no rash Microbiology Date/Time Source Procedure Growth Status 11/08/18 16:36 Blood Blood Culture - Preliminary NO GROWTH AFTER 48 HOURS Resulted 11/08/18 16:30 Blood Blood Culture - Preliminary NO GROWTH AFTER 48 HOURS Resulted 11/10/18 14:18 Ascities Fluid Gram Stain - Final Resulted 11/10/18 14:18 Ascities Fluid Body Fluid Culture - Preliminary NO GROWTH AFTER 24 HOURS Resulted 11/10/18 16:35 Sputum Gram Stain - Final Resulted 11/10/18 16:35 Sputum Sputum Culture Pending Resulted 11/08/18 21:30 Nasal Nares MRSA Culture - Final Staphylococcus Aureus - Mrsa Complete 11/08/18 16:45 Nasopharynx Influenza Types A,B Antigen (DEBBIE) - Final Complete 11/09/18 21:38 Rectum - Final NO CARBAPENEM-RESISTANT ENTEROBACTERI... Complete 11/08/18 21:30 Rectum VRE Culture - Final NO VANCOMYCIN RESISTANT ENTEROCOCCUS ... Complete Laboratory Tests 11/11/18 05:20: White Blood Count 13.3H, Red Blood Count 3.97L, Hemoglobin 12.6L, Hematocrit 38.4L, Mean Corpuscular Volume 97, Mean Corpuscular Hemoglobin 31.6H, Mean Corpuscular Hemoglobin Concent 32.7, Red Cell Distribution Width 11.9, Platelet Count 612H, Mean Platelet Volume 5.6L, Neutrophils (%) (Auto) 72.1, Lymphocytes (%) (Auto) 16.9L, Monocytes (%) (Auto) 7.3, Eosinophils (%) (Auto) 2.8, Basophils (%) (Auto) 0.8, Sodium Level 131L, Potassium Level 4.5, Chloride Level 97L, Carbon Dioxide Level 27, Anion Gap 7, Blood Urea Nitrogen 17, Creatinine 1.0, Estimat Glomerular Filtration Rate > 60, Glucose Level 286H, Calcium Level 8.7 Current Medications Medications (Trade) Dose Ordered Sig/Des Route PRN Reason Start Time Stop Time Status Last Admin Dose Admin Acetaminophen (Tylenol) 650 mg Q4H PRN ORAL FEVER 11/08/18 16:00 12/07/18 15:59 Albuterol/ Ipratropium (Albuterol/ Ipratropium) 3 ml Q4H PRN HHN Shortness of Breath 11/10/18 14:15 11/15/18 14:14 11/10/18 17:46 Cefepime HCl 2 gm/ Dextrose 110 ml @ 220 mls/hr EVERY 12 HOURS IV 11/08/18 21:00 11/15/18 08:59 11/11/18 08:11 Dextrose (Dextrose 50%) 25 ml Q30M PRN IV Hypoglycemia 11/08/18 19:30 12/08/18 19:29 Dextrose (Dextrose 50%) 50 ml Q30M PRN IV Hypoglycemia 11/08/18 19:30 12/08/18 19:29 Famotidine (Pepcid) 20 mg BID ORAL 11/09/18 18:00 12/09/18 08:59 11/11/18 08:11 Heparin Sodium (Porcine) (Heparin 5000 units/ml) 5,000 units EVERY 12 HOURS SUBQ 11/08/18 21:00 12/08/18 08:59 11/11/18 08:17 Insulin Aspart (NovoLOG) BEFORE MEALS AND HS SUBQ 11/08/18 16:30 12/08/18 06:29 11/11/18 11:13 Insulin Detemir (Levemir) 24 units BEDTIME SUBQ 11/11/18 21:00 12/08/18 20:59 Morphine Sulfate (Morphine Sulfate) 2 mg Q4H PRN IVP For Pain 11/09/18 08:45 11/16/18 08:44 11/11/18 05:10 Nateglinide (Starlix) 120 mg TIAC ORAL 11/09/18 06:30 12/09/18 06:29 11/11/18 11:11 Nitroglycerin (Ntg) 0.4 mg Q5M PRN SL Prn Chest Pain 11/08/18 15:15 11/09/18 05:43 Ondansetron HCl (Zofran) 4 mg Q6H PRN IVP Nausea & Vomiting 11/08/18 16:15 12/07/18 22:14 Polyethylene Glycol (Miralax) 17 gm DAILYPRN PRN ORAL Constipation 11/08/18 16:00 12/07/18 15:59 Promethazine HCl/ Codeine (Phenergan with Codeine) 5 ml Q4H PRN ORAL For Cough 11/10/18 14:15 12/10/18 14:14 11/10/18 16:35 Theophylline (Tremay[place]-Dur) 100 mg EVERY 12 HOURS ORAL 11/10/18 21:00 12/10/18 20:59 11/11/18 08:11 Vancomycin HCl (Vanco rx to dose) 1 ea DAILY PRN MISC Per rx protocol 11/09/18 09:00 12/08/18 07:29 Vancomycin HCl/ Dextrose 275 ml @ 137.5 mls/ hr Q8H IVPB 11/09/18 13:00 11/14/18 12:59 11/11/18 12:03 Yeimi Phelps MD Nov 11, 2018 15:24
[2018-11-11 16:00] VITALS: BP 138/82
--- NOTE | 2018-11-11 16:58 | Nephrology Progress Note ---
Assessment/Plan Problem List: (1) Hyponatremia Assessment: SIADH (2) Acute respiratory failure (3) Hyperglycemia (4) Pneumonia (5) Diabetes Assessment Pneumonia Low Na due to high BS Sepsis Respiratory failure Diabetes OOC with proteinuria Anemia Plan Abbey UOs uric acid indicates SIADH fluid restriction monitor lytes TSH Lipid per orders Subjective ROS Limited/Unobtainable: No Objective Objective Last 24 Hour Vital Signs Date Time Temp Pulse Resp B/P (MAP) Pulse Ox O2 Delivery O2 Flow Rate FiO2 11/11/18 11:24 98.0 74 18 147/79 (101) 97 11/11/18 08:52 Nasal Cannula 2.0 11/11/18 08:01 Nasal Cannula 4.0 36 11/11/18 08:01 93 Nasal Cannula 4.0 36 11/11/18 08:00 97.6 73 18 106/71 (83) 99 11/11/18 05:28 61 18 97 Full Face 40 11/11/18 04:00 97.5 62 18 124/82 (96) 96 11/11/18 03:34 77 26 97 Full Face 40 11/11/18 01:31 60 19 99 Full Face 40 11/11/18 00:00 98.1 65 17 135/82 (99) 97 11/10/18 23:49 88 20 98 Full Face 40 11/10/18 21:00 Nasal Cannula 2.0 11/10/18 20:31 Nasal Cannula 3.0 32 11/10/18 20:31 98 Nasal Cannula 3.0 32 11/10/18 20:00 99.4 65 18 116/63 (80) 96 11/10/18 17:47 84 18 98 Nasal Cannula 3.0 32 Intake and Output 11/10/18 11/11/18 19:00 07:00 Intake Total 1485.0 ml 660.0 ml Output Total 1700 ml Balance 1485.0 ml -1040.0 ml Intake Oral 990 ml IV Total 495.0 ml 660.0 ml Output Urine Total 1700 ml # Voids 5 Laboratory Tests 11/11/18 05:20: White Blood Count 13.3H, Red Blood Count 3.97L, Hemoglobin 12.6L, Hematocrit 38.4L, Mean Corpuscular Volume 97, Mean Corpuscular Hemoglobin 31.6H, Mean Corpuscular Hemoglobin Concent 32.7, Red Cell Distribution Width 11.9, Platelet Count 612H, Mean Platelet Volume 5.6L, Neutrophils (%) (Auto) 72.1, Lymphocytes (%) (Auto) 16.9L, Monocytes (%) (Auto) 7.3, Eosinophils (%) (Auto) 2.8, Basophils (%) (Auto) 0.8, Sodium Level 131L, Potassium Level 4.5, Chloride Level 97L, Carbon Dioxide Level 27, Anion Gap 7, Blood Urea Nitrogen 17, Creatinine 1.0, Estimat Glomerular Filtration Rate > 60, Glucose Level 286H, Calcium Level 8.7 11/11/18 05:30: HIV (1&2) Antibody Rapid Negative Height (Feet): 5 Height (Inches): 6.00 Weight (Pounds): 184 General Appearance: no apparent distress Respiratory/Chest: decreased breath sounds Abdomen: soft Sedrick Cordova MD Nov 11, 2018 16:58
--- NOTE | 2018-11-11 19:13 | NUR ---
HAND-OFF: Report given to KRISTI Demarco.
--- NOTE | 2018-11-11 19:30 | NUR ---
NURSE NOTES: Received patient in no apparent distress. A&OX4. NC 2L on. Bengali speaking. IV site patent and intact. Remind fluid restriction 800cc/24hr, patient understood. Bed in lowest position. Call light within reach. Will continue to monitor.
[2018-11-11 20:00] VITALS: BP 155/80
[2018-11-11] MEDS: Promethazine/Codeine 5ml UD ORAL PRN (22:11)
[2018-11-11] MEDS: Levemir Flexpen SUBQ SCH (22:15)
[2018-11-12] VITALS: BP 122/74
[2018-11-12 04:00] VITALS: BP 113/79
[2018-11-12] MEDS: Vancomycin 1.5gm Premix IVPB SCH (04:28)
[2018-11-12] MEDS: NovoLOG Insulin Flexpen SUBQ SCH ×4 (06:22→21:43)
[2018-11-12 06:59] LABS: ALANINE AMINOTRANSFERASE 75 U/L (12-78); ALBUMIN 2.5 G/DL (3.4-5.0); ALBUMIN/GLOBULIN RATIO 0.4 (1.0-2.7); ALKALINE PHOSPHATASE 117 U/L (46-116); ANION GAP 7 mmol/L (5-15); ASPARTATE AMINO TRANSFERASE 40 U/L (15-37); BILIRUBIN,DIRECT 0.1 MG/DL (0.0-0.3); BILIRUBIN,TOTAL 0.5 MG/DL (0.2-1.0); BLOOD UREA NITROGEN 14 mg/dL (7-18); CALCIUM 9.7 MG/DL (8.5-10.1); CARBON DIOXIDE 28 MMOL/L (21-32); CHLORIDE 97 MMOL/L (98-107); PHOSPHORUS 4.8 MG/DL (2.5-4.9); POTASSIUM 4.8 MMOL/L (3.5-5.1); SODIUM 132 MMOL/L (136-145)
[2018-11-12 07:01] LABS: BASOPHILS % (AUTO) 0.8 % (0.0-2.0); EOSINOPHILS % (AUTO) 2.3 % (0.0-3.0); MEAN CORPUSCULAR VOLUME 96 FL (80-99); PLATELET COUNT 676 K/UL (150-450); RED BLOOD COUNT 4.17 M/UL (4.70-6.10); RED CELL DISTRIBUTION WIDTH 11.7 % (11.6-14.8); WHITE BLOOD COUNT 13.5 K/UL (4.8-10.8)
--- NOTE | 2018-11-12 07:19 | NUR ---
NURSE NOTES: received report from Dav.RN. patient in bed. alert, verbally responsive. no respiratory distress with NC 2l. no c/o pain at this time. IV on RH 22g intact. bed in the lowest position. call light within reach. will continue to monitor,
--- NOTE | 2018-11-12 07:19 | NUR ---
HAND-OFF: Report given to Harpreet BERRY.
[2018-11-12 08:00] VITALS: BP 94/61
--- NOTE | 2018-11-12 08:19 | General Progress Note ---
Assessment/Plan Problem List: (1) Hyperglycemia ICD Codes: R73.9 - Hyperglycemia, unspecified SNOMED: 09188878 (2) Diabetes ICD Codes: E11.9 - Type 2 diabetes mellitus without complications SNOMED: 84288772 (3) Pneumonia ICD Codes: J18.9 - Pneumonia, unspecified organism SNOMED: 267837396 Assessment/Plan continue Levemir 24 units qhs continue Starlix 120 mg ac tid continue NISS ac / hs Subjective ROS Limited/Unobtainable: Yes Allergies: Coded Allergies: No Known Allergies (Unverified , 11/04/18) Subjective events noted fasting glucose improved Item Value Date Time Bedside Blood Glucose 150 mg/dl H 11/12/18 0630 Bedside Blood Glucose 200 mg/dl H 11/11/18 2215 Bedside Blood Glucose 280 mg/dl H 11/11/18 1628 Bedside Blood Glucose 185 mg/dl H 11/11/18 1113 Bedside Blood Glucose 267 mg/dl H 11/11/18 0631 Objective Last 24 Hour Vital Signs Date Time Temp Pulse Resp B/P (MAP) Pulse Ox O2 Delivery O2 Flow Rate FiO2 11/12/18 08:00 98.4 63 20 94/61 (72) 94 11/12/18 07:21 Nasal Cannula 4.0 36 11/12/18 07:21 93 Nasal Cannula 4.0 36 11/12/18 05:30 64 19 98 Full Face 40 11/12/18 04:00 98.7 63 19 113/79 (90) 97 11/12/18 02:41 65 19 97 Full Face 40 11/12/18 01:01 67 24 95 11/12/18 00:00 97.6 59 18 122/74 (90) 98 11/11/18 23:35 67 29 98 Full Face 40 11/11/18 21:00 Nasal Cannula 2.0 11/11/18 20:00 98.1 63 16 155/80 (105) 96 11/11/18 19:54 Nasal Cannula 4.0 36 11/11/18 19:54 96 Nasal Cannula 4.0 36 11/11/18 16:00 98.4 67 18 138/82 (100) 97 11/11/18 11:24 98.0 74 18 147/79 (101) 97 11/11/18 08:52 Nasal Cannula 2.0 Intake and Output 11/11/18 11/12/18 19:00 07:00 Intake Total 1585.0 ml 660.0 ml Output Total 1200 ml 1600 ml Balance 385.0 ml -940.0 ml Intake Oral 1200 ml IV Total 385.0 ml 660.0 ml Output Urine Total 1200 ml 1600 ml Laboratory Tests 11/12/18 06:00: White Blood Count 13.5H, Red Blood Count 4.17L, Hemoglobin 13.0L, Hematocrit 40.0L, Mean Corpuscular Volume 96, Mean Corpuscular Hemoglobin 31.2H, Mean Corpuscular Hemoglobin Concent 32.6, Red Cell Distribution Width 11.7, Platelet Count 676H, Mean Platelet Volume 5.3L, Neutrophils (%) (Auto) 70.0, Lymphocytes (%) (Auto) 19.0L, Monocytes (%) (Auto) 8.0, Eosinophils (%) (Auto) 2.3, Basophils (%) (Auto) 0.8, Sodium Level 132L, Potassium Level 4.8, Chloride Level 97L, Carbon Dioxide Level 28, Anion Gap 7, Blood Urea Nitrogen 14, Creatinine 1.0, Estimat Glomerular Filtration Rate > 60, Glucose Level 154#H, Osmolality 289L, Uric Acid 4.0, Calcium Level 9.7, Phosphorus Level 4.8, Magnesium Level 2.1, Total Bilirubin 0.5, Direct Bilirubin 0.1, Aspartate Amino Transf (AST/SGOT) 40H, Alanine Aminotransferase (ALT/SGPT) 75, Alkaline Phosphatase 117H, Total Protein 8.6H, Albumin 2.5L, Globulin 6.1, Albumin/ Globulin Ratio 0.4L Height (Feet): 5 Height (Inches): 6.00 Weight (Pounds): 184 General Appearance: no apparent distress Neck: normal alignment Cardiovascular: normal rate Respiratory/Chest: lungs clear Abdomen: normal bowel sounds Objective Current Medications Medications (Trade) Dose Ordered Sig/Des Route PRN Reason Start Time Stop Time Status Last Admin Dose Admin Acetaminophen (Tylenol) 650 mg Q4H PRN ORAL FEVER 11/08/18 16:00 12/07/18 15:59 Albuterol/ Ipratropium (Albuterol/ Ipratropium) 3 ml Q4H PRN HHN Shortness of Breath 11/10/18 14:15 11/15/18 14:14 11/10/18 17:46 Cefepime HCl 2 gm/ Dextrose 110 ml @ 220 mls/hr EVERY 12 HOURS IV 11/08/18 21:00 11/15/18 08:59 11/11/18 21:22 Dextrose (Dextrose 50%) 25 ml Q30M PRN IV Hypoglycemia 11/08/18 19:30 12/08/18 19:29 Dextrose (Dextrose 50%) 50 ml Q30M PRN IV Hypoglycemia 11/08/18 19:30 12/08/18 19:29 Famotidine (Pepcid) 20 mg BID ORAL 11/09/18 18:00 12/09/18 08:59 11/11/18 17:05 Heparin Sodium (Porcine) (Heparin 5000 units/ml) 5,000 units EVERY 12 HOURS SUBQ 11/08/18 21:00 12/08/18 08:59 11/11/18 22:12 Insulin Aspart (NovoLOG) BEFORE MEALS AND HS SUBQ 11/08/18 16:30 12/08/18 06:29 11/12/18 06:22 Insulin Detemir (Levemir) 24 units BEDTIME SUBQ 11/11/18 21:00 12/08/18 20:59 11/11/18 22:15 Morphine Sulfate (Morphine Sulfate) 2 mg Q4H PRN IVP For Pain 11/09/18 08:45 11/16/18 08:44 11/11/18 05:10 Nateglinide (Starlix) 120 mg TIAC ORAL 11/09/18 06:30 12/09/18 06:29 11/12/18 06:20 Nitroglycerin (Ntg) 0.4 mg Q5M PRN SL Prn Chest Pain 11/08/18 15:15 11/09/18 05:43 Ondansetron HCl (Zofran) 4 mg Q6H PRN IVP Nausea & Vomiting 11/08/18 16:15 12/07/18 22:14 Polyethylene Glycol (Miralax) 17 gm DAILYPRN PRN ORAL Constipation 11/08/18 16:00 12/07/18 15:59 Promethazine HCl/ Codeine (Phenergan with Codeine) 5 ml Q4H PRN ORAL For Cough 11/10/18 14:15 12/10/18 14:14 11/11/18 22:11 Theophylline (Tremayne-Dur) 100 mg EVERY 12 HOURS ORAL 11/10/18 21:00 12/10/18 20:59 11/11/18 22:11 Vancomycin HCl (Vanco rx to dose) 1 ea DAILY PRN MISC Per rx protocol 11/09/18 09:00 12/08/18 07:29 Vancomycin HCl/ Dextrose 275 ml @ 137.5 mls/ hr Q8H IVPB 11/09/18 13:00 11/14/18 12:59 11/12/18 04:28 Sonido Styles MD Nov 12, 2018 08:19
--- NOTE | 2018-11-12 08:24 | General Progress Note ---
Assessment/Plan Problem List: (1) Sepsis ICD Codes: A41.9 - Sepsis, unspecified organism SNOMED: 38831260 (2) Respiratory failure ICD Codes: J96.90 - Respiratory failure, unspecified, unspecified whether with hypoxia or hypercapnia SNOMED: 939399432 (3) Diabetes ICD Codes: E11.9 - Type 2 diabetes mellitus without complications SNOMED: 46826396 (4) Pneumonia ICD Codes: J18.9 - Pneumonia, unspecified organism SNOMED: 624282516 (5) Hyponatremia ICD Codes: E87.1 - Hypo-osmolality and hyponatremia SNOMED: 54142945 Status: unchanged Assessment/Plan o2 pulm tx abx neph f/u vasc sx f/u cbc bmp am Subjective Constitutional: Reports: weakness Allergies: Coded Allergies: No Known Allergies (Unverified , 11/04/18) All Systems: reviewed and negative except above Subjective sleepy calm Objective Last 24 Hour Vital Signs Date Time Temp Pulse Resp B/P (MAP) Pulse Ox O2 Delivery O2 Flow Rate FiO2 11/12/18 08:00 98.4 63 20 94/61 (72) 94 11/12/18 07:21 Nasal Cannula 4.0 36 11/12/18 07:21 93 Nasal Cannula 4.0 36 11/12/18 05:30 64 19 98 Full Face 40 11/12/18 04:00 98.7 63 19 113/79 (90) 97 11/12/18 02:41 65 19 97 Full Face 40 11/12/18 01:01 67 24 95 11/12/18 00:00 97.6 59 18 122/74 (90) 98 11/11/18 23:35 67 29 98 Full Face 40 11/11/18 21:00 Nasal Cannula 2.0 11/11/18 20:00 98.1 63 16 155/80 (105) 96 11/11/18 19:54 Nasal Cannula 4.0 36 11/11/18 19:54 96 Nasal Cannula 4.0 36 11/11/18 16:00 98.4 67 18 138/82 (100) 97 11/11/18 11:24 98.0 74 18 147/79 (101) 97 11/11/18 08:52 Nasal Cannula 2.0 Intake and Output 11/11/18 11/12/18 19:00 07:00 Intake Total 1585.0 ml 660.0 ml Output Total 1200 ml 1600 ml Balance 385.0 ml -940.0 ml Intake Oral 1200 ml IV Total 385.0 ml 660.0 ml Output Urine Total 1200 ml 1600 ml Laboratory Tests 11/12/18 06:00: White Blood Count 13.5H, Red Blood Count 4.17L, Hemoglobin 13.0L, Hematocrit 40.0L, Mean Corpuscular Volume 96, Mean Corpuscular Hemoglobin 31.2H, Mean Corpuscular Hemoglobin Concent 32.6, Red Cell Distribution Width 11.7, Platelet Count 676H, Mean Platelet Volume 5.3L, Neutrophils (%) (Auto) 70.0, Lymphocytes (%) (Auto) 19.0L, Monocytes (%) (Auto) 8.0, Eosinophils (%) (Auto) 2.3, Basophils (%) (Auto) 0.8, Sodium Level 132L, Potassium Level 4.8, Chloride Level 97L, Carbon Dioxide Level 28, Anion Gap 7, Blood Urea Nitrogen 14, Creatinine 1.0, Estimat Glomerular Filtration Rate > 60, Glucose Level 154#H, Osmolality 289L, Uric Acid 4.0, Calcium Level 9.7, Phosphorus Level 4.8, Magnesium Level 2.1, Total Bilirubin 0.5, Direct Bilirubin 0.1, Aspartate Amino Transf (AST/SGOT) 40H, Alanine Aminotransferase (ALT/SGPT) 75, Alkaline Phosphatase 117H, Total Protein 8.6H, Albumin 2.5L, Globulin 6.1, Albumin/ Globulin Ratio 0.4L Height (Feet): 5 Height (Inches): 6.00 Weight (Pounds): 184 General Appearance: lethargic EENT: normal ENT inspection Neck: normal alignment Cardiovascular: normal peripheral pulses, normal rate, regular rhythm Respiratory/Chest: chest wall non-tender, decreased breath sounds Abdomen: normal bowel sounds, non tender, soft Extremities: normal inspection Edema: no edema noted Arm (L), no edema noted Arm (R), no edema noted Leg (L), no edema noted Leg (R), no edema noted Pedal (L), no edema noted Pedal (R), no edema noted Generalized Neurologic: motor weakness Skin: normal pigmentation, warm/dry Enmanuel Anderson DO Nov 12, 2018 08:24
[2018-11-12] MEDS: Cefepime HCl 2 GM in D5W 110 ML IV SCH ×2 (08:35→21:41)
[2018-11-12] MEDS: Theophylline ER 100mg ORAL SCH ×2 (08:35→21:40)
[2018-11-12] MEDS: Heparin 5000 units/ml inj SUBQ SCH ×2 (08:36→21:41)
--- NOTE | 2018-11-12 10:25 | Anethesia Preoperative Eval ---
Anesthesia Pre-op PMH/ROS General Date of Evaluation: Nov 12, 2018 Time of Evaluation: 10:24 Anesthesiologist: Anika ASA Score: ASA 3 Mallampati Score Class I : Soft palate, uvula, fauces, pillars visible Class II: Soft palate, uvula, fauces visible Class III: Soft palate, base of uvula visible Class IV: Only hard plate visible Mallampati Classification: Class II Surgeon: Trung Diagnosis: R pleural effusion Surgical Procedure: R VATS poss. thoracotomy Anesthesia History: none Family History: no anesthesia problems Allergies: Coded Allergies: No Known Allergies (Unverified , 11/04/18) Medications: see eMAR Patient NPO?: Yes NPO Date: Nov 13, 2018 Past Medical History Cardiovascular: Reports: HTN; Denies: CAD, PA, valve dz, arrhythmia, other Pulmonary: Reports: other Gastrointestinal/Genitourinary: Reports: GERD; Denies: CRI, ESRD, other Neurologic/Psychiatric: Reports: depression/anxiety; Denies: dementia, CVA, TIA, other Endocrine: Reports: DM - recently diagnosed; Denies: hypothyroidism, steroids, other HEENT: Denies: cataract (L), cataract (R), glaucoma, DIOMEDE (L), DIOMEDE (R), other Hematology/Immune: Reports: anemia - mild; Denies: DVT, bleeding disorder, other Musculoskeletal/Integumentary: Denies: OA, RA, DJD, DDD, edema, other PMH Narrative: as above PSxH Narrative: see H&P Anesthesia Pre-op Phys. Exam Physician Exam Last Vital Signs Date Time Temp Pulse Resp B/P (MAP) Pulse Ox O2 Delivery O2 Flow Rate FiO2 11/12/18 09:00 Nasal Cannula 2.0 11/12/18 08:00 98.4 63 20 94/61 (72) 94 11/12/18 07:21 36 Constitutional: NAD Neurologic: CN 2-12 intact Cardiovascular: RRR Respiratory: other Gastrointestinal: S/NT/ND Airway Exam Mallampati Score: Class II MO: limited Neck: stiff ROM: limited Teeth: missing Dentures: no upper, no lower Anesthesia Pre-op A/P Labs Hematology Test 11/12/18 06:00 White Blood Count 13.5 K/UL (4.8-10.8) H Red Blood Count 4.17 M/UL (4.70-6.10) L Hemoglobin 13.0 G/DL (14.2-18.0) L Hematocrit 40.0 % (42.0-52.0) L Mean Corpuscular Volume 96 FL (80-99) Mean Corpuscular Hemoglobin 31.2 PG (27.0-31.0) H Mean Corpuscular Hemoglobin Concent 32.6 G/DL (32.0-36.0) Red Cell Distribution Width 11.7 % (11.6-14.8) Platelet Count 676 K/UL (150-450) H Mean Platelet Volume 5.3 FL (6.5-10.1) L Neutrophils (%) (Auto) 70.0 % (45.0-75.0) Lymphocytes (%) (Auto) 19.0 % (20.0-45.0) L Monocytes (%) (Auto) 8.0 % (1.0-10.0) Eosinophils (%) (Auto) 2.3 % (0.0-3.0) Basophils (%) (Auto) 0.8 % (0.0-2.0) Chemistry Test 11/12/18 06:00 Sodium Level 132 MMOL/L (136-145) L Potassium Level 4.8 MMOL/L (3.5-5.1) Chloride Level 97 MMOL/L (98-107) L Carbon Dioxide Level 28 MMOL/L (21-32) Anion Gap 7 mmol/L (5-15) Blood Urea Nitrogen 14 mg/dL (7-18) Creatinine 1.0 MG/DL (0.55-1.30) Estimat Glomerular Filtration Rate > 60 mL/min (>60) Glucose Level 154 MG/DL (74-106) #H Osmolality 289 mOsm/kg (297-317) L Uric Acid 4.0 MG/DL (2.6-7.2) Calcium Level 9.7 MG/DL (8.5-10.1) Phosphorus Level 4.8 MG/DL (2.5-4.9) Magnesium Level 2.1 MG/DL (1.8-2.4) Total Bilirubin 0.5 MG/DL (0.2-1.0) Direct Bilirubin 0.1 MG/DL (0.0-0.3) Aspartate Amino Transf (AST/SGOT) 40 U/L (15-37) H Alanine Aminotransferase (ALT/SGPT) 75 U/L (12-78) Alkaline Phosphatase 117 U/L (46-116) H Total Protein 8.6 G/DL (6.4-8.2) H Albumin 2.5 G/DL (3.4-5.0) L Globulin 6.1 g/dL Albumin/Globulin Ratio 0.4 (1.0-2.7) L Studies Pre-op Studies: CXR - EF 55-60% Risk Assessment & Plan Assessment: ASA 3 Plan: GA with double lumen tube and lung isolation, postoperative ICU monitoring with possible respiratory support. A-line placement, possible intraoperative blood transfusion. Anmol Donaldson MD Nov 12, 2018 10:25
--- NOTE | 2018-11-12 10:35 | NUR ---
PT NOTE: Pt refused to participate in PT session. Pt educated on the importance of performing therapeutic exercises to improve muscular endurance and ease of performing functional ADLs. Pt continued to refuse. Notified nurse of pt status. Will attempt PT at a later time. Nurse call light left within easy reach.
--- NOTE | 2018-11-12 11:18 | Pulmonology Progress Note ---
Assessment/Plan Problems: (1) Empyema pleura (2) Acute respiratory failure (3) Pneumonia (4) Sepsis (5) Hyperglycemia (6) Diabetes Assessment/Plan thoracentesis DONE, [address] Nino called for thoracic, scheduled for Wednesday sliding scale iv abx c/u cultures thoracoscopy on Wednesday Subjective ROS Limited/Unobtainable: No Constitutional: Reports: no symptoms HEENT: Repors: no symptoms Allergies: Coded Allergies: No Known Allergies (Unverified , 11/04/18) Objective Last 24 Hour Vital Signs Date Time Temp Pulse Resp B/P (MAP) Pulse Ox O2 Delivery O2 Flow Rate FiO2 11/12/18 09:00 Nasal Cannula 2.0 11/12/18 08:00 98.4 63 20 94/61 (72) 94 11/12/18 07:21 Nasal Cannula 4.0 36 11/12/18 07:21 93 Nasal Cannula 4.0 36 11/12/18 05:30 64 19 98 Full Face 40 11/12/18 04:00 98.7 63 19 113/79 (90) 97 11/12/18 02:41 65 19 97 Full Face 40 11/12/18 01:01 67 24 95 11/12/18 00:00 97.6 59 18 122/74 (90) 98 11/11/18 23:35 67 29 98 Full Face 40 11/11/18 21:00 Nasal Cannula 2.0 11/11/18 20:00 98.1 63 16 155/80 (105) 96 11/11/18 19:54 Nasal Cannula 4.0 36 11/11/18 19:54 96 Nasal Cannula 4.0 36 11/11/18 16:00 98.4 67 18 138/82 (100) 97 11/11/18 11:24 98.0 74 18 147/79 (101) 97 Intake and Output 11/11/18 11/12/18 18:59 06:59 Intake Total 1722.5 ml 660.0 ml Output Total 1200 ml 1600 ml Balance 522.5 ml -940.0 ml Intake Oral 1200 ml IV Total 522.5 ml 660.0 ml Output Urine Total 1200 ml 1600 ml Objective General Appearance: WD/WN Lines, tubes and drains: peripheral HEENT: normocephalic, anicteric Neck: non-tender, normal alignment Respiratory/Chest: chest wall non-tender, lungs clear Breasts: no masses Cardiovascular/Chest: normal peripheral pulses Abdomen: normal bowel sounds Genitourinary/Rectal: normal genital Microbiology Date/Time Source Procedure Growth Status 11/10/18 14:18 Ascities Fluid Gram Stain - Final Resulted 11/10/18 14:18 Ascities Fluid Body Fluid Culture - Preliminary NO GROWTH AFTER 48 HOURS Resulted 11/10/18 16:35 Sputum Gram Stain - Final Resulted 11/10/18 16:35 Sputum Culture - Preliminary Usual Upper Respiratory Dominga Resulted 11/09/18 21:38 Rectum - Final NO CARBAPENEM-RESISTANT ENTEROBACTERI... Complete Laboratory Tests 11/12/18 06:00: White Blood Count 13.5H, Red Blood Count 4.17L, Hemoglobin 13.0L, Hematocrit 40.0L, Mean Corpuscular Volume 96, Mean Corpuscular Hemoglobin 31.2H, Mean Corpuscular Hemoglobin Concent 32.6, Red Cell Distribution Width 11.7, Platelet Count 676H, Mean Platelet Volume 5.3L, Neutrophils (%) (Auto) 70.0, Lymphocytes (%) (Auto) 19.0L, Monocytes (%) (Auto) 8.0, Eosinophils (%) (Auto) 2.3, Basophils (%) (Auto) 0.8, Sodium Level 132L, Potassium Level 4.8, Chloride Level 97L, Carbon Dioxide Level 28, Anion Gap 7, Blood Urea Nitrogen 14, Creatinine 1.0, Estimat Glomerular Filtration Rate > 60, Glucose Level 154#H, Osmolality 289L, Uric Acid 4.0, Calcium Level 9.7, Phosphorus Level 4.8, Magnesium Level 2.1, Total Bilirubin 0.5, Direct Bilirubin 0.1, Aspartate Amino Transf (AST/SGOT) 40H, Alanine Aminotransferase (ALT/SGPT) 75, Alkaline Phosphatase 117H, Total Protein 8.6H, Albumin 2.5L, Globulin 6.1, Albumin/ Globulin Ratio 0.4L Current Medications Medications (Trade) Dose Ordered Sig/Des Route PRN Reason Start Time Stop Time Status Last Admin Dose Admin Acetaminophen (Tylenol) 650 mg Q4H PRN ORAL FEVER 11/08/18 16:00 12/07/18 15:59 Albuterol/ Ipratropium (Albuterol/ Ipratropium) 3 ml Q4H PRN HHN Shortness of Breath 11/10/18 14:15 11/15/18 14:14 11/10/18 17:46 Cefepime HCl 2 gm/ Dextrose 110 ml @ 220 mls/hr EVERY 12 HOURS IV 11/08/18 21:00 11/15/18 08:59 11/12/18 08:35 Dextrose (Dextrose 50%) 25 ml Q30M PRN IV Hypoglycemia 11/08/18 19:30 12/08/18 19:29 Dextrose (Dextrose 50%) 50 ml Q30M PRN IV Hypoglycemia 11/08/18 19:30 12/08/18 19:29 Famotidine (Pepcid) 20 mg BID ORAL 11/09/18 18:00 12/09/18 08:59 11/12/18 08:35 Heparin Sodium (Porcine) (Heparin 5000 units/ml) 5,000 units EVERY 12 HOURS SUBQ 11/08/18 21:00 12/08/18 08:59 11/12/18 08:36 Insulin Aspart (NovoLOG) BEFORE MEALS AND HS SUBQ 11/08/18 16:30 12/08/18 06:29 11/12/18 06:22 Insulin Detemir (Levemir) 24 units BEDTIME SUBQ 11/11/18 21:00 12/08/18 20:59 11/11/18 22:15 Morphine Sulfate (Morphine Sulfate) 2 mg Q4H PRN IVP For Pain 11/09/18 08:45 11/16/18 08:44 11/11/18 05:10 Nateglinide (Starlix) 120 mg TIAC ORAL 11/09/18 06:30 12/09/18 06:29 11/12/18 06:20 Nitroglycerin (Ntg) 0.4 mg Q5M PRN SL Prn Chest Pain 11/08/18 15:15 11/09/18 05:43 Ondansetron HCl (Zofran) 4 mg Q6H PRN IVP Nausea & Vomiting 11/08/18 16:15 12/07/18 22:14 Polyethylene Glycol (Miralax) 17 gm DAILYPRN PRN ORAL Constipation 11/08/18 16:00 12/07/18 15:59 Promethazine HCl/ Codeine (Phenergan with Codeine) 5 ml Q4H PRN ORAL For Cough 11/10/18 14:15 12/10/18 14:14 11/11/18 22:11 Theophylline (Tremayne-Dur) 100 mg EVERY 12 HOURS ORAL 11/10/18 21:00 12/10/18 20:59 11/12/18 08:35 Vancomycin HCl (Vanco rx to dose) 1 ea DAILY PRN MISC Per rx protocol 11/09/18 09:00 12/08/18 07:29 Vancomycin HCl/ Dextrose 275 ml @ 137.5 mls/ hr Q8H IVPB 11/09/18 13:00 11/14/18 12:59 11/12/18 04:28 Yeimi Phelps MD Nov 12, 2018 11:18
[2018-11-12] MEDS: Promethazine/Codeine 5ml UD ORAL PRN ×2 (11:35→18:07)
[2018-11-12 12:00] VITALS: BP 107/74
--- NOTE | 2018-11-12 12:44 | Nephrology Progress Note ---
Assessment/Plan Problem List: (1) Hyponatremia Assessment: SIADH (2) Acute respiratory failure (3) Hyperglycemia (4) Pneumonia (5) Diabetes Assessment Pneumonia Low Na due to high BS Sepsis Respiratory failure Diabetes OOC with proteinuria Anemia Plan Abbey UOs uric acid indicates SIADH fluid restriction monitor lytes TSH Lipid per orders Subjective ROS Limited/Unobtainable: No Objective Objective Last 24 Hour Vital Signs Date Time Temp Pulse Resp B/P (MAP) Pulse Ox O2 Delivery O2 Flow Rate FiO2 11/12/18 12:00 97.2 78 18 107/74 (85) 98 11/12/18 09:00 Nasal Cannula 2.0 11/12/18 08:00 98.4 63 20 94/61 (72) 94 11/12/18 07:21 Nasal Cannula 4.0 36 11/12/18 07:21 93 Nasal Cannula 4.0 36 11/12/18 05:30 64 19 98 Full Face 40 11/12/18 04:00 98.7 63 19 113/79 (90) 97 11/12/18 02:41 65 19 97 Full Face 40 11/12/18 01:01 67 24 95 11/12/18 00:00 97.6 59 18 122/74 (90) 98 11/11/18 23:35 67 29 98 Full Face 40 11/11/18 21:00 Nasal Cannula 2.0 11/11/18 20:00 98.1 63 16 155/80 (105) 96 11/11/18 19:54 Nasal Cannula 4.0 36 11/11/18 19:54 96 Nasal Cannula 4.0 36 11/11/18 16:00 98.4 67 18 138/82 (100) 97 Intake and Output 11/11/18 11/12/18 18:59 06:59 Intake Total 1722.5 ml 660.0 ml Output Total 1200 ml 1600 ml Balance 522.5 ml -940.0 ml Intake Oral 1200 ml IV Total 522.5 ml 660.0 ml Output Urine Total 1200 ml 1600 ml Laboratory Tests 11/12/18 06:00: White Blood Count 13.5H, Red Blood Count 4.17L, Hemoglobin 13.0L, Hematocrit 40.0L, Mean Corpuscular Volume 96, Mean Corpuscular Hemoglobin 31.2H, Mean Corpuscular Hemoglobin Concent 32.6, Red Cell Distribution Width 11.7, Platelet Count 676H, Mean Platelet Volume 5.3L, Neutrophils (%) (Auto) 70.0, Lymphocytes (%) (Auto) 19.0L, Monocytes (%) (Auto) 8.0, Eosinophils (%) (Auto) 2.3, Basophils (%) (Auto) 0.8, Sodium Level 132L, Potassium Level 4.8, Chloride Level 97L, Carbon Dioxide Level 28, Anion Gap 7, Blood Urea Nitrogen 14, Creatinine 1.0, Estimat Glomerular Filtration Rate > 60, Glucose Level 154#H, Osmolality 289L, Uric Acid 4.0, Calcium Level 9.7, Phosphorus Level 4.8, Magnesium Level 2.1, Total Bilirubin 0.5, Direct Bilirubin 0.1, Aspartate Amino Transf (AST/SGOT) 40H, Alanine Aminotransferase (ALT/SGPT) 75, Alkaline Phosphatase 117H, Total Protein 8.6H, Albumin 2.5L, Globulin 6.1, Albumin/ Globulin Ratio 0.4L 11/12/18 11:50: Vancomycin Level Trough 23.2H Height (Feet): 5 Height (Inches): 6.00 Weight (Pounds): 184 General Appearance: no apparent distress Respiratory/Chest: decreased breath sounds Objective no change Sedrick Cordova MD Nov 12, 2018 12:44
--- NOTE | 2018-11-12 13:38 | NUR ---
CASE MANAGEMENT: REVIEW 11/12/2018 SI:SEPSIS. ACUTE. RESPIRATORY FAILURE. T 97.2 HR 78 RR 18 B/P 107/74SATS 98% ON 2L/NC WBC 13.5 NA 132 CL 97 G;U 154 AST 40 ALP 117 IS: CEFEPIME IV Q12H ANANYA DUR PO Q12H LEVEMIR SUBQ QHS PEPCID PO BID NOVOLOG SUBQ AC/HS STARLIX PO TIAC MED/SURG STATUS PLAN OF CARE: FLUID RESTRICTION CHEST PERCUSSION
--- NOTE | 2018-11-12 14:42 | Infectious Diseases Prog Note ---
Assessment/Plan Assessment/Plan Abx: Cefepime 11/08- IV Vancomycin 11/08- Ceftriaxone x1 11/07 Assessment: Sepsis- 2ry to PNA - Empyema? -CXR: Increased right suprahilar and basilar consolidative changes, since prior study 11/04/2018. Suspect developing small right pleural effusion -11/04 influenza sc neg 11/09/18 - S/P Thora - 1000 WBCs Path - Mo malignant cell seen Cx NTD Fever, improving Leukocytosis, improving Acute respiratory failure Initially on bipap but now on NC Dm2 Plan: -Continue empiric IV Vancomycin #5 and Cefepime #5 for PNA -11/07 SP Ceftriaxone x1 -f.u cx -Monitor CBC/CMP, temperatures -aspiration precautions -ICU care -legionella ag urine, sp cx, influenza sc Will continue to follow along with you. Subjective Allergies: Coded Allergies: No Known Allergies (Unverified , 11/04/18) Subjective afebrile >72hrs leukocytosis improved Objective Vital Signs Last 24 Hour Vital Signs Date Time Temp Pulse Resp B/P (MAP) Pulse Ox O2 Delivery O2 Flow Rate FiO2 11/12/18 12:00 97.2 78 18 107/74 (85) 98 11/12/18 09:00 Nasal Cannula 2.0 11/12/18 08:00 98.4 63 20 94/61 (72) 94 11/12/18 07:21 Nasal Cannula 4.0 36 11/12/18 07:21 93 Nasal Cannula 4.0 36 11/12/18 05:30 64 19 98 Full Face 40 11/12/18 04:00 98.7 63 19 113/79 (90) 97 11/12/18 02:41 65 19 97 Full Face 40 11/12/18 01:01 67 24 95 11/12/18 00:00 97.6 59 18 122/74 (90) 98 11/11/18 23:35 67 29 98 Full Face 40 11/11/18 21:00 Nasal Cannula 2.0 11/11/18 20:00 98.1 63 16 155/80 (105) 96 11/11/18 19:54 Nasal Cannula 4.0 36 11/11/18 19:54 96 Nasal Cannula 4.0 36 11/11/18 16:00 98.4 67 18 138/82 (100) 97 Height (Feet): 5 Height (Inches): 6.00 Weight (Pounds): 184 Objective Gen: NAD on NC HEENT: NCAT MMM, EOMI Respiratory/Chest: chest wall non-tender, lungs clear Cardiovascular/Chest: normal peripheral pulses Abdomen: normal bowel sounds, soft Microbiology Date/Time Source Procedure Growth Status 11/10/18 14:18 Ascities Fluid Gram Stain - Final Resulted 11/10/18 14:18 Ascities Fluid Body Fluid Culture - Preliminary NO GROWTH AFTER 48 HOURS Resulted 11/10/18 16:35 Sputum Gram Stain - Final Resulted 11/10/18 16:35 Sputum Culture - Preliminary Usual Upper Respiratory Dominga Resulted 11/09/18 21:38 Rectum - Final NO CARBAPENEM-RESISTANT ENTEROBACTERI... Complete Laboratory Tests Test 11/12/18 06:00 11/12/18 11:50 White Blood Count 13.5 K/UL (4.8-10.8) H Red Blood Count 4.17 M/UL (4.70-6.10) L Hemoglobin 13.0 G/DL (14.2-18.0) L Hematocrit 40.0 % (42.0-52.0) L Mean Corpuscular Volume 96 FL (80-99) Mean Corpuscular Hemoglobin 31.2 PG (27.0-31.0) H Mean Corpuscular Hemoglobin Concent 32.6 G/DL (32.0-36.0) Red Cell Distribution Width 11.7 % (11.6-14.8) Platelet Count 676 K/UL (150-450) H Mean Platelet Volume 5.3 FL (6.5-10.1) L Neutrophils (%) (Auto) 70.0 % (45.0-75.0) Lymphocytes (%) (Auto) 19.0 % (20.0-45.0) L Monocytes (%) (Auto) 8.0 % (1.0-10.0) Eosinophils (%) (Auto) 2.3 % (0.0-3.0) Basophils (%) (Auto) 0.8 % (0.0-2.0) Sodium Level 132 MMOL/L (136-145) L Potassium Level 4.8 MMOL/L (3.5-5.1) Chloride Level 97 MMOL/L (98-107) L Carbon Dioxide Level 28 MMOL/L (21-32) Anion Gap 7 mmol/L (5-15) Blood Urea Nitrogen 14 mg/dL (7-18) Creatinine 1.0 MG/DL (0.55-1.30) Estimat Glomerular Filtration Rate > 60 mL/min (>60) Glucose Level 154 MG/DL (74-106) #H Osmolality 289 mOsm/kg (297-317) L Uric Acid 4.0 MG/DL (2.6-7.2) Calcium Level 9.7 MG/DL (8.5-10.1) Phosphorus Level 4.8 MG/DL (2.5-4.9) Magnesium Level 2.1 MG/DL (1.8-2.4) Total Bilirubin 0.5 MG/DL (0.2-1.0) Direct Bilirubin 0.1 MG/DL (0.0-0.3) Aspartate Amino Transf (AST/SGOT) 40 U/L (15-37) H Alanine Aminotransferase (ALT/SGPT) 75 U/L (12-78) Alkaline Phosphatase 117 U/L (46-116) H Total Protein 8.6 G/DL (6.4-8.2) H Albumin 2.5 G/DL (3.4-5.0) L Globulin 6.1 g/dL Albumin/Globulin Ratio 0.4 (1.0-2.7) L Vancomycin Level Trough 23.2 ug/mL (5.0-12.0) H Current Medications Medications (Trade) Dose Ordered Sig/Des Route PRN Reason Start Time Stop Time Status Last Admin Dose Admin Acetaminophen (Tylenol) 650 mg Q4H PRN ORAL FEVER 11/08/18 16:00 12/07/18 15:59 Albuterol/ Ipratropium (Albuterol/ Ipratropium) 3 ml Q4H PRN HHN Shortness of Breath 11/10/18 14:15 11/15/18 14:14 11/10/18 17:46 Cefepime HCl 2 gm/ Dextrose 110 ml @ 220 mls/hr EVERY 12 HOURS IV 11/08/18 21:00 11/15/18 08:59 11/12/18 08:35 Dextrose (Dextrose 50%) 25 ml Q30M PRN IV Hypoglycemia 11/08/18 19:30 12/08/18 19:29 Dextrose (Dextrose 50%) 50 ml Q30M PRN IV Hypoglycemia 11/08/18 19:30 12/08/18 19:29 Famotidine (Pepcid) 20 mg BID ORAL 11/09/18 18:00 12/09/18 08:59 11/12/18 08:35 Heparin Sodium (Porcine) (Heparin 5000 units/ml) 5,000 units EVERY 12 HOURS SUBQ 11/08/18 21:00 12/08/18 08:59 11/12/18 08:36 Insulin Aspart (NovoLOG) BEFORE MEALS AND HS SUBQ 11/08/18 16:30 12/08/18 06:29 11/12/18 11:36 Insulin Detemir (Levemir) 24 units BEDTIME SUBQ 11/11/18 21:00 12/08/18 20:59 11/11/18 22:15 Morphine Sulfate (Morphine Sulfate) 2 mg Q4H PRN IVP For Pain 11/09/18 08:45 11/16/18 08:44 11/11/18 05:10 Nateglinide (Starlix) 120 mg TIAC ORAL 11/09/18 06:30 12/09/18 06:29 11/12/18 11:35 Nitroglycerin (Ntg) 0.4 mg Q5M PRN SL Prn Chest Pain 11/08/18 15:15 11/09/18 05:43 Ondansetron HCl (Zofran) 4 mg Q6H PRN IVP Nausea & Vomiting 11/08/18 16:15 12/07/18 22:14 Polyethylene Glycol (Miralax) 17 gm DAILYPRN PRN ORAL Constipation 11/08/18 16:00 12/07/18 15:59 Promethazine HCl/ Codeine (Phenergan with Codeine) 5 ml Q4H PRN ORAL For Cough 11/10/18 14:15 12/10/18 14:14 11/12/18 11:35 Theophylline (Tremayne-Dur) 100 mg EVERY 12 HOURS ORAL 11/10/18 21:00 12/10/18 20:59 11/12/18 08:35 Vancomycin HCl (Vanco rx to dose) 1 ea DAILY PRN MISC Per rx protocol 11/09/18 09:00 12/08/18 07:29 Vancomycin HCl 1 gm/Dextrose 275 ml @ 183.708 mls/hr Q8H IVPB 11/12/18 15:00 11/17/18 14:59 Alfreda Thomas M.D. Nov 12, 2018 14:42
[2018-11-12] MEDS: Vancomycin 1gm/D5W 275ml IVPB SCH ×4 (15:21→23:04)
[2018-11-12 16:00] VITALS: BP 107/66
--- NOTE | 2018-11-12 19:15 | NUR ---
NURSE NOTES: Received a report from KRISTI Lynn. Pt is in stable condition. AAOX4. Able to make needs known. IV site is patent and intact. Bed in lowest position. Bed alarm is on. Call light within reach. Will continue to monitor.
--- NOTE | 2018-11-12 19:24 | NUR ---
HAND-OFF: Report given to KRISTI Jones.
[2018-11-12 20:00] VITALS: BP 130/82
[2018-11-12] MEDS: Levemir Flexpen SUBQ SCH (21:42)
[2018-11-13] VITALS: BP 125/76
[2018-11-13 04:00] VITALS: BP 109/62
[2018-11-13] MEDS: Vancomycin 1gm/D5W 275ml IVPB SCH ×6 (06:13→22:53)
[2018-11-13] MEDS: NovoLOG Insulin Flexpen SUBQ SCH ×4 (06:14→21:11)
--- NOTE | 2018-11-13 07:20 | NUR ---
HAND-OFF: Report given to KRISTI Bird.
--- NOTE | 2018-11-13 07:23 | General Progress Note ---
Assessment/Plan Problem List: (1) Hyperglycemia ICD Codes: R73.9 - Hyperglycemia, unspecified SNOMED: 93754145 (2) Diabetes ICD Codes: E11.9 - Type 2 diabetes mellitus without complications SNOMED: 69259280 (3) Pneumonia ICD Codes: J18.9 - Pneumonia, unspecified organism SNOMED: 537950569 Assessment/Plan continue Levemir 24 units qhs continue Starlix 120 mg ac tid continue NISS ac / hs Subjective ROS Limited/Unobtainable: Yes Allergies: Coded Allergies: No Known Allergies (Unverified , 11/04/18) Subjective events noted Item Value Date Time Bedside Blood Glucose 152 mg/dl H 11/13/18 0614 Bedside Blood Glucose 209 mg/dl H 11/12/18 2143 Bedside Blood Glucose 183 mg/dl H 11/12/18 1641 Bedside Blood Glucose 223 mg/dl H 11/12/18 1136 Objective Last 24 Hour Vital Signs Date Time Temp Pulse Resp B/P (MAP) Pulse Ox O2 Delivery O2 Flow Rate FiO2 11/13/18 04:00 98.0 61 18 109/62 (78) 93 11/13/18 02:07 68 18 Bi-pap 4.0 50 11/13/18 00:00 98.3 65 18 125/76 (92) 93 11/12/18 22:35 73 18 96 11/12/18 21:00 Nasal Cannula 2.0 11/12/18 20:23 Nasal Cannula 4.0 36 11/12/18 20:23 96 Nasal Cannula 4.0 36 11/12/18 20:00 98.7 72 18 130/82 (98) 94 11/12/18 16:00 98.2 67 20 107/66 (80) 93 11/12/18 12:00 97.2 78 18 107/74 (85) 98 11/12/18 09:00 Nasal Cannula 2.0 11/12/18 08:00 98.4 63 20 94/61 (72) 94 Intake and Output 11/12/18 11/13/18 19:00 07:00 Intake Total 1547.416 ml 385.000 ml Output Total 800 ml 1000 ml Balance 747.416 ml -615.000 ml Intake Oral 960 ml IV Total 587.416 ml 385.000 ml Output Urine Total 800 ml 1000 ml Laboratory Tests 11/12/18 11:50: Vancomycin Level Trough 23.2H 11/13/18 06:45: White Blood Count [Pending], Red Blood Count [Pending], Hemoglobin [Pending], Hematocrit [Pending], Mean Corpuscular Volume [Pending], Mean Corpuscular Hemoglobin [Pending], Mean Corpuscular Hemoglobin Concent [Pending], Red Cell Distribution Width [Pending], Platelet Count [Pending], Mean Platelet Volume [ Pending], Neutrophils (%) (Auto) [Pending], Lymphocytes (%) (Auto) [Pending], Monocytes (%) (Auto) [Pending], Eosinophils (%) (Auto) [Pending], Basophils (%) (Auto) [Pending], Sodium Level [Pending], Potassium Level [Pending], Chloride Level [Pending], Carbon Dioxide Level [Pending], Blood Urea Nitrogen [Pending], Creatinine [Pending], Estimat Glomerular Filtration Rate [Pending], Glucose Level [Pending], Calcium Level [Pending] Height (Feet): 5 Height (Inches): 6.00 Weight (Pounds): 184 General Appearance: no apparent distress Neck: normal alignment Cardiovascular: normal rate Respiratory/Chest: lungs clear Abdomen: normal bowel sounds Edema: no edema noted Arm (L), no edema noted Arm (R), no edema noted Leg (L), no edema noted Leg (R), no edema noted Pedal (L), no edema noted Pedal (R), no edema noted Generalized Objective Current Medications Medications (Trade) Dose Ordered Sig/Des Route PRN Reason Start Time Stop Time Status Last Admin Dose Admin Acetaminophen (Tylenol) 650 mg Q4H PRN ORAL FEVER 11/08/18 16:00 12/07/18 15:59 Albuterol/ Ipratropium (Albuterol/ Ipratropium) 3 ml Q4H PRN HHN Shortness of Breath 11/10/18 14:15 11/15/18 14:14 11/10/18 17:46 Cefepime HCl 2 gm/ Dextrose 110 ml @ 220 mls/hr EVERY 12 HOURS IV 11/08/18 21:00 11/15/18 08:59 11/12/18 21:41 Dextrose (Dextrose 50%) 25 ml Q30M PRN IV Hypoglycemia 11/08/18 19:30 12/08/18 19:29 Dextrose (Dextrose 50%) 50 ml Q30M PRN IV Hypoglycemia 11/08/18 19:30 12/08/18 19:29 Famotidine (Pepcid) 20 mg BID ORAL 11/09/18 18:00 12/09/18 08:59 11/12/18 17:14 Heparin Sodium (Porcine) (Heparin 5000 units/ml) 5,000 units EVERY 12 HOURS SUBQ 11/08/18 21:00 12/08/18 08:59 11/12/18 21:41 Insulin Aspart (NovoLOG) BEFORE MEALS AND HS SUBQ 11/08/18 16:30 12/08/18 06:29 11/13/18 06:14 Insulin Detemir (Levemir) 24 units BEDTIME SUBQ 11/11/18 21:00 12/08/18 20:59 11/12/18 21:42 Morphine Sulfate (Morphine Sulfate) 2 mg Q4H PRN IVP For Pain 11/09/18 08:45 11/16/18 08:44 11/11/18 05:10 Nateglinide (Starlix) 120 mg TIAC ORAL 11/09/18 06:30 12/09/18 06:29 11/13/18 06:12 Nitroglycerin (Ntg) 0.4 mg Q5M PRN SL Prn Chest Pain 11/08/18 15:15 11/09/18 05:43 Ondansetron HCl (Zofran) 4 mg Q6H PRN IVP Nausea & Vomiting 11/08/18 16:15 12/07/18 22:14 Polyethylene Glycol (Miralax) 17 gm DAILYPRN PRN ORAL Constipation 11/08/18 16:00 12/07/18 15:59 Promethazine HCl/ Codeine (Phenergan with Codeine) 5 ml Q4H PRN ORAL For Cough 11/10/18 14:15 12/10/18 14:14 11/12/18 18:07 Theophylline (Tremayne-Dur) 100 mg EVERY 12 HOURS ORAL 11/10/18 21:00 12/10/18 20:59 11/12/18 21:40 Vancomycin HCl (Vanco rx to dose) 1 ea DAILY PRN MISC Per rx protocol 11/09/18 09:00 12/08/18 07:29 Vancomycin HCl 1 gm/Dextrose 275 ml @ 183.708 mls/hr Q8H IVPB 11/12/18 15:00 11/17/18 14:59 11/13/18 06:13 Sonido Styles MD Nov 13, 2018 07:23
[2018-11-13 07:29] LABS: ANION GAP 8 mmol/L (5-15); BLOOD UREA NITROGEN 15 mg/dL (7-18); CALCIUM 9.5 MG/DL (8.5-10.1); CARBON DIOXIDE 28 MMOL/L (21-32); CHLORIDE 96 MMOL/L (98-107); POTASSIUM 4.7 MMOL/L (3.5-5.1); SODIUM 132 MMOL/L (136-145)
[2018-11-13 07:32] LABS: BASOPHILS % (AUTO) 1.4 % (0.0-2.0); EOSINOPHILS % (AUTO) 2.5 % (0.0-3.0); HEMATOCRIT 40.3 % (42.0-52.0); HEMOGLOBIN 13.4 G/DL (14.2-18.0); LYMPHOCYTES % (AUTO) 21.4 % (20.0-45.0); MEAN CORPUSCULAR VOLUME 97 FL (80-99); MONOCYTES % (AUTO) 7.2 % (1.0-10.0); NEUTROPHILS % (AUTO) 67.6 % (45.0-75.0); PLATELET COUNT 633 K/UL (150-450); RED BLOOD COUNT 4.17 M/UL (4.70-6.10); RED CELL DISTRIBUTION WIDTH 12.2 % (11.6-14.8); WHITE BLOOD COUNT 10.4 K/UL (4.8-10.8)
[2018-11-13 08:00] VITALS: BP 102/56
--- NOTE | 2018-11-13 08:00 | NUR ---
NURSE NOTES: received patient in bed, asleep, in NAD. On NC 2L/min, no respiratory distress noted. Left hand IV access saline locked. Bed in the lowest position possible, call light within easy reach, siderails up x3. Will continue to monitor pt and follow up with the plan of care.
--- NOTE | 2018-11-13 08:31 | General Progress Note ---
Assessment/Plan Problem List: (1) Sepsis ICD Codes: A41.9 - Sepsis, unspecified organism SNOMED: 25397140 (2) Respiratory failure ICD Codes: J96.90 - Respiratory failure, unspecified, unspecified whether with hypoxia or hypercapnia SNOMED: 455493195 (3) Diabetes ICD Codes: E11.9 - Type 2 diabetes mellitus without complications SNOMED: 72146704 (4) Pneumonia ICD Codes: J18.9 - Pneumonia, unspecified organism SNOMED: 215305412 (5) Hyponatremia ICD Codes: E87.1 - Hypo-osmolality and hyponatremia SNOMED: 20424146 Status: unchanged Assessment/Plan o2 pulm tx abx neph f/u vasc sx f/u cbc bmp am Subjective Constitutional: Reports: weakness Allergies: Coded Allergies: No Known Allergies (Unverified , 11/04/18) All Systems: reviewed and negative except above Subjective sleepy calm Objective Last 24 Hour Vital Signs Date Time Temp Pulse Resp B/P (MAP) Pulse Ox O2 Delivery O2 Flow Rate FiO2 11/13/18 07:42 Room Air 21 11/13/18 07:42 94 Nasal Cannula 21 11/13/18 04:00 98.0 61 18 109/62 (78) 93 11/13/18 02:07 68 18 Bi-pap 4.0 50 11/13/18 00:00 98.3 65 18 125/76 (92) 93 11/12/18 22:35 73 18 96 11/12/18 21:00 Nasal Cannula 2.0 11/12/18 20:23 Nasal Cannula 4.0 36 11/12/18 20:23 96 Nasal Cannula 4.0 36 11/12/18 20:00 98.7 72 18 130/82 (98) 94 11/12/18 16:00 98.2 67 20 107/66 (80) 93 11/12/18 12:00 97.2 78 18 107/74 (85) 98 11/12/18 09:00 Nasal Cannula 2.0 Intake and Output 11/12/18 11/13/18 19:00 07:00 Intake Total 1547.416 ml 785.000 ml Output Total 800 ml 1000 ml Balance 747.416 ml -215.000 ml Intake Oral 960 ml 400 ml IV Total 587.416 ml 385.000 ml Output Urine Total 800 ml 1000 ml Laboratory Tests 11/12/18 11:50: Vancomycin Level Trough 23.2H 11/13/18 06:45: White Blood Count 10.4, Red Blood Count 4.17L, Hemoglobin 13.4L, Hematocrit 40.3L, Mean Corpuscular Volume 97, Mean Corpuscular Hemoglobin 32.1H, Mean Corpuscular Hemoglobin Concent 33.2, Red Cell Distribution Width 12.2, Platelet Count 633H, Mean Platelet Volume 5.1L, Neutrophils (%) (Auto) 67.6, Lymphocytes (%) (Auto) 21.4, Monocytes (%) (Auto) 7.2, Eosinophils (%) (Auto) 2.5, Basophils (%) (Auto) 1.4, Sodium Level 132L, Potassium Level 4.7, Chloride Level 96L, Carbon Dioxide Level 28, Anion Gap 8, Blood Urea Nitrogen 15, Creatinine 1.0, Estimat Glomerular Filtration Rate > 60, Glucose Level 172H, Calcium Level 9.5 Height (Feet): 5 Height (Inches): 6.00 Weight (Pounds): 184 General Appearance: lethargic EENT: normal ENT inspection Neck: normal alignment Cardiovascular: normal peripheral pulses, normal rate, regular rhythm Respiratory/Chest: chest wall non-tender, decreased breath sounds Abdomen: normal bowel sounds, non tender, soft Extremities: normal inspection Edema: no edema noted Arm (L), no edema noted Arm (R), no edema noted Leg (L), no edema noted Leg (R), no edema noted Pedal (L), no edema noted Pedal (R), no edema noted Generalized Neurologic: responsive, motor weakness Skin: normal pigmentation, warm/dry Enmanuel Anderson DO Nov 13, 2018 08:31
[2018-11-13] MEDS: Theophylline ER 100mg ORAL SCH ×2 (09:08→21:08)
[2018-11-13] MEDS: Cefepime HCl 2 GM in D5W 110 ML IV SCH ×2 (09:08→21:08)
[2018-11-13] MEDS: Heparin 5000 units/ml inj SUBQ SCH ×2 (09:09→21:09)
[2018-11-13 12:00] VITALS: BP 102/65
--- NOTE | 2018-11-13 12:46 | Pulmonology Progress Note ---
Assessment/Plan Problems: (1) Empyema pleura (2) Acute respiratory failure (3) Pneumonia (4) Sepsis (5) Hyperglycemia (6) Diabetes Assessment/Plan thoracentesis DONE, 600 cc removed wbc wnl sliding scale iv abx c/u cultures thoracoscopy on Wednesday Subjective ROS Limited/Unobtainable: No Constitutional: Reports: no symptoms HEENT: Repors: no symptoms Allergies: Coded Allergies: No Known Allergies (Unverified , 11/04/18) Objective Last 24 Hour Vital Signs Date Time Temp Pulse Resp B/P (MAP) Pulse Ox O2 Delivery O2 Flow Rate FiO2 11/13/18 12:00 98.1 71 17 102/65 (77) 97 11/13/18 09:00 Nasal Cannula 2.0 11/13/18 08:00 98.4 62 20 102/56 (71) 96 11/13/18 07:42 Room Air 21 11/13/18 07:42 94 Nasal Cannula 21 11/13/18 04:00 98.0 61 18 109/62 (78) 93 11/13/18 02:07 68 18 Bi-pap 4.0 50 11/13/18 00:00 98.3 65 18 125/76 (92) 93 11/12/18 22:35 73 18 96 11/12/18 21:00 Nasal Cannula 2.0 11/12/18 20:23 Nasal Cannula 4.0 36 11/12/18 20:23 96 Nasal Cannula 4.0 36 11/12/18 20:00 98.7 72 18 130/82 (98) 94 11/12/18 16:00 98.2 67 20 107/66 (80) 93 Intake and Output 11/12/18 11/13/18 19:00 07:00 Intake Total 1547.416 ml 785.000 ml Output Total 800 ml 1000 ml Balance 747.416 ml -215.000 ml Intake Oral 960 ml 400 ml IV Total 587.416 ml 385.000 ml Output Urine Total 800 ml 1000 ml Objective General Appearance: WD/WN Lines, tubes and drains: peripheral HEENT: normocephalic, anicteric Neck: non-tender, normal alignment Respiratory/Chest: chest wall non-tender, lungs clear Breasts: no masses Cardiovascular/Chest: normal peripheral pulses Abdomen: normal bowel sounds Genitourinary/Rectal: normal genital Microbiology Date/Time Source Procedure Growth Status 11/10/18 14:18 Ascities Fluid Gram Stain - Final Resulted 11/10/18 14:18 Ascities Fluid Body Fluid Culture - Preliminary NO GROWTH AFTER 72 HOURS Resulted 11/10/18 16:35 Sputum Gram Stain - Final Complete 11/10/18 16:35 Sputum Culture - Final Usual Upper Respiratory Dominga Complete Laboratory Tests 11/13/18 06:45: White Blood Count 10.4, Red Blood Count 4.17L, Hemoglobin 13.4L, Hematocrit 40.3L, Mean Corpuscular Volume 97, Mean Corpuscular Hemoglobin 32.1H, Mean Corpuscular Hemoglobin Concent 33.2, Red Cell Distribution Width 12.2, Platelet Count 633H, Mean Platelet Volume 5.1L, Neutrophils (%) (Auto) 67.6, Lymphocytes (%) (Auto) 21.4, Monocytes (%) (Auto) 7.2, Eosinophils (%) (Auto) 2.5, Basophils (%) (Auto) 1.4, Sodium Level 132L, Potassium Level 4.7, Chloride Level 96L, Carbon Dioxide Level 28, Anion Gap 8, Blood Urea Nitrogen 15, Creatinine 1.0, Estimat Glomerular Filtration Rate > 60, Glucose Level 172H, Calcium Level 9.5 Current Medications Medications (Trade) Dose Ordered Sig/Des Route PRN Reason Start Time Stop Time Status Last Admin Dose Admin Acetaminophen (Tylenol) 650 mg Q4H PRN ORAL FEVER 11/08/18 16:00 12/07/18 15:59 Albuterol/ Ipratropium (Albuterol/ Ipratropium) 3 ml Q4H PRN HHN Shortness of Breath 11/10/18 14:15 11/15/18 14:14 11/10/18 17:46 Cefepime HCl 2 gm/ Dextrose 110 ml @ 220 mls/hr EVERY 12 HOURS IV 11/08/18 21:00 11/15/18 08:59 11/13/18 09:08 Dextrose (Dextrose 50%) 25 ml Q30M PRN IV Hypoglycemia 11/08/18 19:30 12/08/18 19:29 Dextrose (Dextrose 50%) 50 ml Q30M PRN IV Hypoglycemia 11/08/18 19:30 12/08/18 19:29 Famotidine (Pepcid) 20 mg BID ORAL 11/09/18 18:00 12/09/18 08:59 11/13/18 09:08 Heparin Sodium (Porcine) (Heparin 5000 units/ml) 5,000 units EVERY 12 HOURS SUBQ 11/08/18 21:00 12/08/18 08:59 11/13/18 09:09 Insulin Aspart (NovoLOG) BEFORE MEALS AND HS SUBQ 11/08/18 16:30 12/08/18 06:29 11/13/18 06:14 Insulin Detemir (Levemir) 24 units BEDTIME SUBQ 11/11/18 21:00 12/08/18 20:59 11/12/18 21:42 Morphine Sulfate (Morphine Sulfate) 2 mg Q4H PRN IVP For Pain 11/09/18 08:45 11/16/18 08:44 11/11/18 05:10 Nateglinide (Starlix) 120 mg TIAC ORAL 11/09/18 06:30 12/09/18 06:29 11/13/18 06:12 Nitroglycerin (Ntg) 0.4 mg Q5M PRN SL Prn Chest Pain 11/08/18 15:15 11/09/18 05:43 Ondansetron HCl (Zofran) 4 mg Q6H PRN IVP Nausea & Vomiting 11/08/18 16:15 12/07/18 22:14 Polyethylene Glycol (Miralax) 17 gm DAILYPRN PRN ORAL Constipation 11/08/18 16:00 12/07/18 15:59 Promethazine HCl/ Codeine (Phenergan with Codeine) 5 ml Q4H PRN ORAL For Cough 11/10/18 14:15 12/10/18 14:14 11/12/18 18:07 Theophylline ([place]-Dur) 100 mg EVERY 12 HOURS ORAL 11/10/18 21:00 12/10/18 20:59 11/13/18 09:08 Vancomycin HCl (Vanco rx to dose) 1 ea DAILY PRN MISC Per rx protocol 11/09/18 09:00 12/08/18 07:29 Vancomycin HCl 1 gm/Dextrose 275 ml @ 183.708 mls/hr Q8H IVPB 11/12/18 15:00 11/17/18 14:59 11/13/18 06:13 Yeimi Phelps MD Nov 13, 2018 12:46
--- NOTE | 2018-11-13 14:10 | NUR ---
CASE MANAGEMENT: REVIEW SI: EMPYEMA PLEURA . ACUTE RESP FAILURE . PNA . HYPONATREMIA T 98.1 HR 71 RR 20 BP 102/56 SAT 94% NC/2L NA 132 GLUCOSE 172 IS: VANCO IV Q8HR LEVEMIR SQ QHS ALBUTEROL PRN Q4HR CEFEPIME IV Q12HR FLUID RESTRICTION MED/SURG STATUS DCP: PATIENT REPORTS HOMELESSNESS PLAN: BRONCHOSCOPY
--- NOTE | 2018-11-13 14:32 | Nephrology Progress Note ---
Assessment/Plan Problem List: (1) Hyponatremia Assessment: SIADH (2) Acute respiratory failure (3) Hyperglycemia (4) Pneumonia (5) Diabetes Assessment Pneumonia Low Na due to high BS Sepsis Respiratory failure Diabetes OOC with proteinuria Anemia Plan [place] UOs uric acid indicates SIADH fluid restriction monitor lytes TSH Lipid per orders Subjective ROS Limited/Unobtainable: No Objective Objective Last 24 Hour Vital Signs Date Time Temp Pulse Resp B/P (MAP) Pulse Ox O2 Delivery O2 Flow Rate FiO2 11/13/18 12:00 98.1 71 17 102/65 (77) 97 11/13/18 09:00 Nasal Cannula 2.0 11/13/18 08:00 98.4 62 20 102/56 (71) 96 11/13/18 07:42 Room Air 21 11/13/18 07:42 94 Nasal Cannula 21 11/13/18 04:00 98.0 61 18 109/62 (78) 93 11/13/18 02:07 68 18 Bi-pap 4.0 50 11/13/18 00:00 98.3 65 18 125/76 (92) 93 11/12/18 22:35 73 18 96 11/12/18 21:00 Nasal Cannula 2.0 11/12/18 20:23 Nasal Cannula 4.0 36 11/12/18 20:23 96 Nasal Cannula 4.0 36 11/12/18 20:00 98.7 72 18 130/82 (98) 94 11/12/18 16:00 98.2 67 20 107/66 (80) 93 Intake and Output 11/12/18 11/13/18 18:59 06:59 Intake Total 1547.416 ml 785.000 ml Output Total 800 ml 1000 ml Balance 747.416 ml -215.000 ml Intake Oral 960 ml 400 ml IV Total 587.416 ml 385.000 ml Output Urine Total 800 ml 1000 ml Laboratory Tests 11/13/18 06:45: White Blood Count 10.4, Red Blood Count 4.17L, Hemoglobin 13.4L, Hematocrit 40.3L, Mean Corpuscular Volume 97, Mean Corpuscular Hemoglobin 32.1H, Mean Corpuscular Hemoglobin Concent 33.2, Red Cell Distribution Width 12.2, Platelet Count 633H, Mean Platelet Volume 5.1L, Neutrophils (%) (Auto) 67.6, Lymphocytes (%) (Auto) 21.4, Monocytes (%) (Auto) 7.2, Eosinophils (%) (Auto) 2.5, Basophils (%) (Auto) 1.4, Sodium Level 132L, Potassium Level 4.7, Chloride Level 96L, Carbon Dioxide Level 28, Anion Gap 8, Blood Urea Nitrogen 15, Creatinine 1.0, Estimat Glomerular Filtration Rate > 60, Glucose Level 172H, Calcium Level 9.5 Height (Feet): 5 Height (Inches): 6.00 Weight (Pounds): 184 General Appearance: no apparent distress Respiratory/Chest: decreased breath sounds Abdomen: soft Objective no change Sedrick Cordova MD Nov 13, 2018 14:32
[2018-11-13 16:00] VITALS: BP 115/75
--- NOTE | 2018-11-13 19:20 | NUR ---
HAND-OFF: Report given to KRISTI Dinero.
[2018-11-13 20:00] VITALS: BP 113/70
[2018-11-13] MEDS: Levemir Flexpen SUBQ SCH (21:10)
--- NOTE | 2018-11-13 22:48 | NUR ---
NURSE NOTES: Karen BERRY spoke with the [facility] pharmacist, she said "it's ok to give the current dose of Vancomycin."
[2018-11-14] VITALS (20 sets, daily range): BP systolic 82–144; BP diastolic 52–91
[2018-11-14] MEDS: NovoLOG Insulin Flexpen SUBQ SCH ×4 (06:13→20:57)
[2018-11-14] MEDS: Vancomycin 1gm/D5W 275ml IVPB SCH ×2 (06:18)
--- NOTE | 2018-11-14 06:40 | General Progress Note ---
Assessment/Plan Problem List: (1) Hyperglycemia ICD Codes: R73.9 - Hyperglycemia, unspecified SNOMED: 93376466 (2) Diabetes ICD Codes: E11.9 - Type 2 diabetes mellitus without complications SNOMED: 26443785 (3) Pneumonia ICD Codes: J18.9 - Pneumonia, unspecified organism SNOMED: 368456543 Assessment/Plan continue Levemir 24 units qhs continue Starlix 120 mg ac tid continue NISS ac / hs Subjective ROS Limited/Unobtainable: Yes Allergies: Coded Allergies: No Known Allergies (Unverified , 11/04/18) Subjective events noted Item Value Date Time Bedside Blood Glucose 103 mg/dl 11/14/18 0613 Bedside Blood Glucose 115 mg/dl 11/13/18 2111 Bedside Blood Glucose 224 mg/dl H 11/13/18 1726 Bedside Blood Glucose 127 mg/dl H 11/13/18 1348 Bedside Blood Glucose 152 mg/dl H 11/13/18 0614 Objective Last 24 Hour Vital Signs Date Time Temp Pulse Resp B/P (MAP) Pulse Ox O2 Delivery O2 Flow Rate FiO2 11/14/18 04:00 97.1 56 18 110/71 (84) 100 11/14/18 00:00 97.8 59 18 117/75 (89) 97 11/13/18 23:26 62 20 97 Full Face 40 11/13/18 21:00 Nasal Cannula 2.0 11/13/18 20:00 98.7 61 18 113/70 (84) 98 11/13/18 20:00 97 Nasal Cannula 2.0 28 11/13/18 20:00 Nasal Cannula 2.0 28 11/13/18 16:00 99.0 67 19 115/75 (88) 93 11/13/18 12:00 98.1 71 17 102/65 (77) 97 11/13/18 09:00 Nasal Cannula 2.0 11/13/18 08:00 98.4 62 20 102/56 (71) 96 11/13/18 07:42 Room Air 21 11/13/18 07:42 94 Nasal Cannula 21 Intake and Output 11/13/18 11/14/18 19:00 07:00 Intake Total 1140.000 ml 385.000 ml Output Total 1650 ml 1450 ml Balance -510.000 ml -1065.000 ml Intake Oral 480 ml IV Total 660.000 ml 385.000 ml Output Urine Total 1650 ml 1450 ml Laboratory Tests 11/13/18 06:45: White Blood Count 10.4, Red Blood Count 4.17L, Hemoglobin 13.4L, Hematocrit 40.3L, Mean Corpuscular Volume 97, Mean Corpuscular Hemoglobin 32.1H, Mean Corpuscular Hemoglobin Concent 33.2, Red Cell Distribution Width 12.2, Platelet Count 633H, Mean Platelet Volume 5.1L, Neutrophils (%) (Auto) 67.6, Lymphocytes (%) (Auto) 21.4, Monocytes (%) (Auto) 7.2, Eosinophils (%) (Auto) 2.5, Basophils (%) (Auto) 1.4, Sodium Level 132L, Potassium Level 4.7, Chloride Level 96L, Carbon Dioxide Level 28, Anion Gap 8, Blood Urea Nitrogen 15, Creatinine 1.0, Estimat Glomerular Filtration Rate > 60, Glucose Level 172H, Calcium Level 9.5 11/13/18 21:50: Vancomycin Level Trough 17.2H Height (Feet): 5 Height (Inches): 6.00 Weight (Pounds): 184 General Appearance: no apparent distress Neck: normal alignment Cardiovascular: normal rate Respiratory/Chest: lungs clear Abdomen: normal bowel sounds Objective Current Medications Medications (Trade) Dose Ordered Sig/Des Route PRN Reason Start Time Stop Time Status Last Admin Dose Admin Acetaminophen (Tylenol) 650 mg Q4H PRN ORAL FEVER 11/08/18 16:00 12/07/18 15:59 Albuterol/ Ipratropium (Albuterol/ Ipratropium) 3 ml Q4H PRN HHN Shortness of Breath 11/10/18 14:15 11/15/18 14:14 11/10/18 17:46 Cefepime HCl 2 gm/ Dextrose 110 ml @ 220 mls/hr EVERY 12 HOURS IV 11/08/18 21:00 11/15/18 08:59 11/13/18 21:08 Dextrose (Dextrose 50%) 25 ml Q30M PRN IV Hypoglycemia 11/08/18 19:30 12/08/18 19:29 Dextrose (Dextrose 50%) 50 ml Q30M PRN IV Hypoglycemia 11/08/18 19:30 12/08/18 19:29 Famotidine (Pepcid) 20 mg BID ORAL 11/09/18 18:00 12/09/18 08:59 11/13/18 17:24 Heparin Sodium (Porcine) (Heparin 5000 units/ml) 5,000 units EVERY 12 HOURS SUBQ 11/08/18 21:00 12/08/18 08:59 11/13/18 21:09 Insulin Aspart (NovoLOG) BEFORE MEALS AND HS SUBQ 11/08/18 16:30 12/08/18 06:29 11/13/18 21:11 Insulin Detemir (Levemir) 24 units BEDTIME SUBQ 11/11/18 21:00 12/08/18 20:59 11/13/18 21:10 Morphine Sulfate (Morphine Sulfate) 2 mg Q4H PRN IVP For Pain 11/09/18 08:45 11/16/18 08:44 11/11/18 05:10 Nateglinide (Starlix) 120 mg TIAC ORAL 11/09/18 06:30 12/09/18 06:29 11/13/18 16:24 Nitroglycerin (Ntg) 0.4 mg Q5M PRN SL Prn Chest Pain 11/08/18 15:15 11/09/18 05:43 Ondansetron HCl (Zofran) 4 mg Q6H PRN IVP Nausea & Vomiting 11/08/18 16:15 12/07/18 22:14 Polyethylene Glycol (Miralax) 17 gm DAILYPRN PRN ORAL Constipation 11/08/18 16:00 12/07/18 15:59 Promethazine HCl/ Codeine (Phenergan with Codeine) 5 ml Q4H PRN ORAL For Cough 11/10/18 14:15 12/10/18 14:14 11/12/18 18:07 Theophylline (Tremayne-Dur) 100 mg EVERY 12 HOURS ORAL 11/10/18 21:00 12/10/18 20:59 11/13/18 21:08 Vancomycin HCl (Vanco rx to dose) 1 ea DAILY PRN MISC Per rx protocol 11/09/18 09:00 12/08/18 07:29 Vancomycin HCl 1 gm/Dextrose 275 ml @ 183.708 mls/hr Q8H IVPB 11/12/18 15:00 11/17/18 14:59 11/14/18 06:18 Sonido Styles MD Nov 14, 2018 06:40
[2018-11-14 06:59] LABS: ANION GAP 8 mmol/L (5-15); BLOOD UREA NITROGEN 16 mg/dL (7-18); CALCIUM 9.6 MG/DL (8.5-10.1); CARBON DIOXIDE 29 MMOL/L (21-32); CHLORIDE 98 MMOL/L (98-107); CREATININE 1.1 MG/DL (0.55-1.30); POTASSIUM 4.6 MMOL/L (3.5-5.1); SODIUM 135 MMOL/L (136-145)
[2018-11-14] MEDS ORDERED: EPINEPHrine 1mg/1ml Amp ONE (07:00)
--- NOTE | 2018-11-14 07:00 | NUR ---
HAND-OFF: Report given to KRISTI Benson.
[2018-11-14] MEDS ORDERED: Lidocaine 1% 10mg/ml/EPI 0.01mg/ml 50ml INJ ONE (07:01)
[2018-11-14] MEDS ORDERED: Bupivacaine 0.25% Inj 30ml INJ ONE (07:01)
[2018-11-14 07:08] LABS: EOSINOPHILS % (AUTO) 2.3 % (0.0-3.0); HEMATOCRIT 40.9 % (42.0-52.0); HEMOGLOBIN 13.4 G/DL (14.2-18.0); LYMPHOCYTES % (AUTO) 24.7 % (20.0-45.0); MEAN CORPUSCULAR VOLUME 96 FL (80-99); NEUTROPHILS % (AUTO) 61.9 % (45.0-75.0); PLATELET COUNT 645 K/UL (150-450); RED BLOOD COUNT 4.25 M/UL (4.70-6.10); RED CELL DISTRIBUTION WIDTH 11.8 % (11.6-14.8); WHITE BLOOD COUNT 9.8 K/UL (4.8-10.8)
[2018-11-14] MEDS ORDERED: Sodium Chloride 10ml vial INJ ONE (07:15)
[2018-11-14] MEDS ORDERED: Dexamethasone 4mg/ml vial ONE (07:15)
[2018-11-14] MEDS ORDERED: Propofol 200mg/20ml IV ONE (07:15)
[2018-11-14] MEDS ORDERED: Lidocaine 1% MPF 10mg/ml 5ml ONE ×2 (07:15→07:34)
[2018-11-14] MEDS ORDERED: Sterile Talc Powder 4gm spray IPLEURAL ONE (07:15)
[2018-11-14] MEDS ORDERED: fentaNYL 100 mcg/2 mL IV ONE ×2 (07:17→10:57)
[2018-11-14] MEDS ORDERED: Midazolam 2mg/2ml Inj ONE (07:17)
--- NOTE | 2018-11-14 07:20 | NUR ---
NURSE NOTES: pt went to sx picked up by transporter with stable condition. IV site intact and patent.
[2018-11-14] MEDS ORDERED: LR 1000ml 1,000 ML IVLG SCH (07:28)
--- NOTE | 2018-11-14 07:29 | Immediate Post-Op Evaluation ---
Immediate Post-Op Evalulation Immediate Post-Op Evalulation Procedure: R VATS Date of Evaluation: Nov 14, 2018 Time of Evaluation: 11:18 IV Fluids: 1500 LR Blood Products: 0 Estimated Blood Loss: 200 Urinary Output: 250 Blood Pressure Systolic: 128 Blood Pressure Diastolic: 75 Pulse Rate: 63 Respiratory Rate: 16 O2 Sat by Pulse Oximetry: 98 Temperature (Fahrenheit): 97 Pain Score (1-10): 2 Nausea: No Vomiting: No Complications 0 Patient Status: awake, reacts, patent, none Hydration Status: adequate Dru Grams Ancef IV Given Within 1 Hr of Incision: Yes Time Given: 08:26 Hernesto Rosario MD Nov 14, 2018 07:29
[2018-11-14] MEDS ORDERED: oxyCODONE HCL/Acetaminophen 5/325mg ORAL PRN (07:30)
[2018-11-14] MEDS ORDERED: fentaNYL 100 mcg/2 mL IV PRN (07:30)
[2018-11-14] MEDS ORDERED: DiphenhydrAMINE 50mg/ml Inj IVP PRN ×2 (07:30→13:30)
[2018-11-14] MEDS ORDERED: Hydromorphone 0.5mg/0.5ml inj IVP PRN (07:30)
[2018-11-14] MEDS ORDERED: Atropine Sulfate 0.4mg/ml inj IVP PRN ×2 (07:30→13:30)
[2018-11-14] MEDS ORDERED: Labetalol 5mg/ml 20ml vial IV PRN (07:30)
[2018-11-14] MEDS ORDERED: Midazolam 2mg/2ml Inj IVP PRN (07:30)
[2018-11-14] MEDS ORDERED: HYDROcodone/Acetamin 7.5/325 tab ORAL PRN (07:30)
[2018-11-14] MEDS ORDERED: HYDROcodone/Acetamin 5/325 tab ORAL PRN ×3 (07:30→14:30)
[2018-11-14] MEDS ORDERED: Meperidine 50mg/ml Inj(FOR RIGORS ONLY) IVP PRN ×2 (07:30→13:30)
[2018-11-14] MEDS ORDERED: Labetalol 5mg/ml 20ml vial IV ONE (08:00)
[2018-11-14] MEDS ORDERED: LR 1000ml ONE (08:00)
[2018-11-14] MEDS ORDERED: Sterile Water Irrig 1000ml IRRIG ONE (08:00)
[2018-11-14] MEDS ORDERED: NS Irrig 1000ml ONE (08:00)
[2018-11-14] MEDS ORDERED: Neostigmine 1mg/ml 10ml Inj ONE (08:00)
[2018-11-14] MEDS ORDERED: NS Irrig 4000ml IRRIG ONE (08:01)
--- NOTE | 2018-11-14 08:09 | Pre-Procedure Note/Attestation ---
Pre-Procedure Note/Attestation Complete Prior to Procedure Planned Procedure: right Procedure Narrative: Bronchoscopy, right video-assisted thoracoscopic surgery, exploratory. Possible thoractomy Indications for Procedure Pre-Operative Diagnosis: Right empyema Attestation I attest that I discussed the nature of the procedure; its benefits; risks and complications; and alternatives (and the risks and benefits of such alternatives ), prior to the procedure, with the patient (or the patient's legal automotive sales representative). I attest that, if there was a reasonable possibility of needing a blood transfusion, the patient (or the patient's legal automotive sales representative) was given the [place] Department of Health Services standardized written summary, pursuant to the [place] Blood Safety Act ([place] Health and Safety Code # 1645, as amended). I attest that I re-evaluated the patient just prior to the surgery and that there has been no change in the patient's H&P, except as documented below: Andrea Nino MD Nov 14, 2018 08:09
[2018-11-14] MEDS ORDERED: Bacitracin 50000 Units Vial ONE (08:56)
[2018-11-14] MEDS ORDERED: NeoSporin Gu Irrig 1ml Amp IRRIG ONE (08:56)
--- NOTE | 2018-11-14 08:57 | Infectious Diseases Prog Note ---
Assessment/Plan Assessment/Plan Abx: Cefepime 11/08- IV Vancomycin 11/08- Ceftriaxone x1 11/07 Assessment: Sepsis- 2ry to PNA -CXR: Increased right suprahilar and basilar consolidative changes, since prior study 11/04/2018. Suspect developing small right pleural effusion -11/04 influenza sc neg 11/09/18 - S/P Thora - 1000 WBCs Path - Mo malignant cell seen Cx - NEG Fever- resolved Leukocytosis- resolved Acute respiratory failure Initially on bipap but now on NC Dm2 Plan: -Continue empiric Cefepime #7/ for PNA Could switch to levofloxacin on D/C to complete a 10 day course - S/P Vancomycin #7 -11/07 SP Ceftriaxone x1 -f.u cx -Monitor CBC/CMP, temperatures -aspiration precautions Will continue to follow along with you. Subjective Allergies: Coded Allergies: No Known Allergies (Unverified , 11/04/18) Subjective On 2LNC Afebrile Leukocytosis resolved Objective Vital Signs Last 24 Hour Vital Signs Date Time Temp Pulse Resp B/P (MAP) Pulse Ox O2 Delivery O2 Flow Rate FiO2 11/14/18 08:32 Nasal Cannula 2.0 11/14/18 04:00 97.1 56 18 110/71 (84) 100 11/14/18 00:00 97.8 59 18 117/75 (89) 97 11/13/18 23:26 62 20 97 Full Face 40 11/13/18 21:00 Nasal Cannula 2.0 11/13/18 20:00 98.7 61 18 113/70 (84) 98 11/13/18 20:00 97 Nasal Cannula 2.0 28 11/13/18 20:00 Nasal Cannula 2.0 28 11/13/18 16:00 99.0 67 19 115/75 (88) 93 11/13/18 12:00 98.1 71 17 102/65 (77) 97 11/13/18 09:00 Nasal Cannula 2.0 Height (Feet): 5 Height (Inches): 6.00 Weight (Pounds): 184 Objective Gen: NAD on NC 2L HEENT: NCAT MMM, EOMI Respiratory/Chest: CTAB, No W Cardiovascular, RRR, normal peripheral pulses Abdomen: normal bowel sounds, soft Laboratory Tests Test 11/13/18 21:50 11/14/18 05:05 Vancomycin Level Trough 17.2 ug/mL (5.0-12.0) H White Blood Count 9.8 K/UL (4.8-10.8) Red Blood Count 4.25 M/UL (4.70-6.10) L Hemoglobin 13.4 G/DL (14.2-18.0) L Hematocrit 40.9 % (42.0-52.0) L Mean Corpuscular Volume 96 FL (80-99) Mean Corpuscular Hemoglobin 31.4 PG (27.0-31.0) H Mean Corpuscular Hemoglobin Concent 32.6 G/DL (32.0-36.0) Red Cell Distribution Width 11.8 % (11.6-14.8) Platelet Count 645 K/UL (150-450) H Mean Platelet Volume 5.3 FL (6.5-10.1) L Neutrophils (%) (Auto) 61.9 % (45.0-75.0) Lymphocytes (%) (Auto) 24.7 % (20.0-45.0) Monocytes (%) (Auto) 10.0 % (1.0-10.0) Eosinophils (%) (Auto) 2.3 % (0.0-3.0) Basophils (%) (Auto) 1.0 % (0.0-2.0) Sodium Level 135 MMOL/L (136-145) L Potassium Level 4.6 MMOL/L (3.5-5.1) Chloride Level 98 MMOL/L (98-107) Carbon Dioxide Level 29 MMOL/L (21-32) Anion Gap 8 mmol/L (5-15) Blood Urea Nitrogen 16 mg/dL (7-18) Creatinine 1.1 MG/DL (0.55-1.30) Estimat Glomerular Filtration Rate > 60 mL/min (>60) Glucose Level 104 MG/DL (74-106) Calcium Level 9.6 MG/DL (8.5-10.1) Current Medications Medications (Trade) Dose Ordered Sig/Des Route PRN Reason Start Time Stop Time Status Last Admin Dose Admin Acetaminophen (Tylenol) 650 mg Q4H PRN ORAL FEVER 11/08/18 16:00 12/07/18 15:59 Acetaminophen/ Hydrocodone Bitart ([place] 5/325) 1 tab Q1H PRN ORAL Mild Pain (Pain Scale 1-3) 11/14/18 07:30 11/14/18 15:00 Acetaminophen/ Hydrocodone Bitart ([place] 7.5/325) 1 tab Q1H PRN ORAL Moderate Pain (Pain Scale 4-6) 11/14/18 07:30 11/14/18 15:00 Al Hydroxide/Mg Hydroxide (Mylanta) 15 ml Q1H PRN ORAL gi upset 11/14/18 07:30 11/14/18 15:00 Albuterol/ Ipratropium (Albuterol/ Ipratropium) 3 ml Q4H PRN HHN Shortness of Breath 11/10/18 14:15 11/15/18 14:14 11/10/18 17:46 Atropine Sulfate (Atropine 0.4mg/ ml) 0.5 mg Q5M PRN IVP HR<40 BPM 11/14/18 07:30 11/14/18 15:00 Cefepime HCl 2 gm/ Dextrose 110 ml @ 220 mls/hr EVERY 12 HOURS IV 11/08/18 21:00 11/15/18 08:59 11/13/18 21:08 Dextrose (Dextrose 50%) 25 ml Q30M PRN IV Hypoglycemia 11/08/18 19:30 12/08/18 19:29 Dextrose (Dextrose 50%) 50 ml Q30M PRN IV Hypoglycemia 11/08/18 19:30 12/08/18 19:29 Diphenhydramine HCl (Benadryl) 25 mg Q15M PRN IVP Itching 11/14/18 07:30 11/14/18 15:00 Famotidine (Pepcid) 20 mg BID ORAL 11/09/18 18:00 12/09/18 08:59 11/13/18 17:24 Fentanyl Citrate (Sublimaze 100 mcg/2 mL) 25 mcg Q10M PRN IV Moderate Pain (Pain Scale 4-6) 11/14/18 07:30 11/14/18 15:00 Heparin Sodium (Porcine) (Heparin 5000 units/ml) 5,000 units EVERY 12 HOURS SUBQ 11/08/18 21:00 12/08/18 08:59 11/13/18 21:09 Hydralazine HCl (Apresoline) 5 mg Q30M PRN IV SBP>160 / DBP>90 11/14/18 07:30 11/14/18 15:00 Hydromorphone HCl (Dilaudid) 0.5 mg Q15M PRN IVP Severe Pain (Pain Scale 7-10) 11/14/18 07:30 11/14/18 15:00 Insulin Aspart (NovoLOG) BEFORE MEALS AND HS SUBQ 11/08/18 16:30 12/08/18 06:29 11/13/18 21:11 Insulin Detemir (Levemir) 24 units BEDTIME SUBQ 11/11/18 21:00 12/08/18 20:59 11/13/18 21:10 Labetalol HCl (Normodyne) 5 mg Q10M PRN IV SBP>160 / DBP>90 11/14/18 07:30 11/14/18 15:00 Lactated Ringer's 1,000 ml @ 10 mls/hr Q24H IVLG 11/14/18 07:28 11/14/18 09:27 Meperidine HCl (Demerol) 25 mg Q5M PRN IVP Shivering.May repeat x 1 11/14/18 07:30 11/14/18 15:00 Midazolam HCl (Versed 2mg/2ml vial) 1 mg Q15M PRN IVP For Anxiety 11/14/18 07:30 11/14/18 15:00 Morphine Sulfate (Morphine Sulfate) 2 mg Q4H PRN IVP For Pain 11/09/18 08:45 11/16/18 08:44 11/11/18 05:10 Nateglinide (Starlix) 120 mg TIAC ORAL 11/09/18 06:30 12/09/18 06:29 11/13/18 16:24 Nitroglycerin (Ntg) 0.4 mg Q5M PRN SL Prn Chest Pain 11/08/18 15:15 11/09/18 05:43 Ondansetron HCl (Zofran) 4 mg Q1H PRN IVP Nausea & Vomiting 11/14/18 07:30 11/14/18 15:00 Ondansetron HCl (Zofran) 4 mg Q6H PRN IVP Nausea & Vomiting 11/08/18 16:15 12/07/18 22:14 Oxycodone/ Acetaminophen (Percocet 5-325) 1 tab Q1H PRN ORAL Severe Pain (Pain Scale 7-10) 11/14/18 07:30 11/14/18 15:00 Polyethylene Glycol (Miralax) 17 gm DAILYPRN PRN ORAL Constipation 11/08/18 16:00 12/07/18 15:59 Promethazine HCl/ Codeine (Phenergan with Codeine) 5 ml Q4H PRN ORAL For Cough 11/10/18 14:15 12/10/18 14:14 11/12/18 18:07 Theophylline ([place]-Dur) 100 mg EVERY 12 HOURS ORAL 11/10/18 21:00 12/10/18 20:59 11/13/18 21:08 Vancomycin HCl (Vanco rx to dose) 1 ea DAILY PRN MISC Per rx protocol 11/09/18 09:00 12/08/18 07:29 Vancomycin HCl 1 gm/Dextrose 275 ml @ 183.708 mls/hr Q8H IVPB 11/12/18 15:00 11/17/18 14:59 11/14/18 06:18 Hamiltno Del Cid MD Nov 14, 2018 08:57
[2018-11-14] MEDS: Theophylline ER 100mg ORAL SCH ×2 (09:00→20:48)
[2018-11-14] MEDS: Heparin 5000 units/ml inj SUBQ SCH (09:00)
[2018-11-14] MEDS: Cefepime HCl 2 GM in D5W 110 ML IV SCH (09:00)
[2018-11-14] MEDS ORDERED: Glycopyrrolate 0.2mg/ml 1ml Vial ONE (10:36)
--- NOTE | 2018-11-14 11:01 | Brief Operative Note ---
Immediate Post Operative Note Operative Note Pre-op Diagnosis: Right empyema Procedure: Bronchoscopy, right video-assisted thoracoscopic surgery, drainage of chestwall abscess, decortication, lower lobe wedge, mechanical pleurodesis & nerve block Post-op Diagnosis: same as pre-op Surgeon: Trung Anesthesiologist: Abraham Anesthesia: general Specimen: yes Complications: none Condition: stable Fluids: 1500 cc Estimated Blood Loss: minimal Drains: other Implant(s) used?: No Andrea Nino MD Nov 14, 2018 11:01
[2018-11-14] MEDS ORDERED: Acetaminophen (Non formulary) 100 ML IV ONE (11:15)
--- NOTE | 2018-11-14 11:56 | Nephrology Progress Note ---
Assessment/Plan Problem List: (1) Hyponatremia Assessment: SIADH (2) Acute respiratory failure (3) Hyperglycemia (4) Pneumonia (5) Diabetes Assessment Pneumonia Low Na due to high BS Sepsis Respiratory failure Diabetes OOC with proteinuria Anemia Plan due thoracic surg today [place] UOs uric acid indicates SIADH fluid restriction monitor lytes TSH Lipid per orders Subjective ROS Limited/Unobtainable: No Constitutional: Reports: malaise Objective Objective Last 24 Hour Vital Signs Date Time Temp Pulse Resp B/P (MAP) Pulse Ox O2 Delivery O2 Flow Rate FiO2 11/14/18 11:41 97.9 11/14/18 11:30 71 20 144/91 96 Simple Mask 8 11/14/18 11:17 71 20 144/91 96 Simple Mask 8 11/14/18 11:12 71 20 144/91 96 Simple Mask 8 11/14/18 11:07 97.0 63 20 128/75 96 Simple Mask 8 11/14/18 11:05 63 16 98 11/14/18 08:32 Nasal Cannula 2.0 11/14/18 04:00 97.1 56 18 110/71 (84) 100 11/14/18 00:00 97.8 59 18 117/75 (89) 97 11/13/18 23:26 62 20 97 Full Face 40 11/13/18 21:00 Nasal Cannula 2.0 11/13/18 20:00 98.7 61 18 113/70 (84) 98 11/13/18 20:00 97 Nasal Cannula 2.0 28 11/13/18 20:00 Nasal Cannula 2.0 28 11/13/18 16:00 99.0 67 19 115/75 (88) 93 11/13/18 12:00 98.1 71 17 102/65 (77) 97 Intake and Output 11/13/18 11/14/18 19:00 07:00 Intake Total 1140.000 ml 385.000 ml Output Total 1650 ml 1450 ml Balance -510.000 ml -1065.000 ml Intake Oral 480 ml IV Total 660.000 ml 385.000 ml Output Urine Total 1650 ml 1450 ml Laboratory Tests 11/13/18 21:50: Vancomycin Level Trough 17.2H 11/14/18 05:05: White Blood Count 9.8, Red Blood Count 4.25L, Hemoglobin 13.4L, Hematocrit 40.9L , Mean Corpuscular Volume 96, Mean Corpuscular Hemoglobin 31.4H, Mean Corpuscular Hemoglobin Concent 32.6, Red Cell Distribution Width 11.8, Platelet Count 645H, Mean Platelet Volume 5.3L, Neutrophils (%) (Auto) 61.9, Lymphocytes (%) (Auto) 24.7, Monocytes (%) (Auto) 10.0, Eosinophils (%) (Auto) 2.3, Basophils (%) (Auto) 1.0, Sodium Level 135L, Potassium Level 4.6, Chloride Level 98, Carbon Dioxide Level 29, Anion Gap 8, Blood Urea Nitrogen 16, Creatinine 1.1, Estimat Glomerular Filtration Rate > 60, Glucose Level 104, Calcium Level 9.6 Height (Feet): 5 Height (Inches): 6.00 Weight (Pounds): 184 General Appearance: no apparent distress Objective no change Sedrick Cordova MD Nov 14, 2018 11:56
[2018-11-14 12:00] LABS: HEMATOCRIT 37.8 % (42.0-52.0); HEMOGLOBIN 12.3 G/DL (14.2-18.0); MEAN CORPUSCULAR VOLUME 97 FL (80-99); PLATELET COUNT 669 K/UL (150-450); RED BLOOD COUNT 3.91 M/UL (4.70-6.10)
[2018-11-14 12:05] LABS: WHITE BLOOD COUNT 31.9 K/UL (4.8-10.8)
--- NOTE | 2018-11-14 12:15 | Diagnostic Imaging Report ---
Indication: Status post right chest surgery Technique: One view of the chest Comparison: 11/09/2018 Findings: Interim placement of a right chest tube. No pneumothorax. There is subcutaneous emphysema in the right chest wall. Right midlung consolidation has increased. Left lung and pleural space remain largely clear. Impression: Postoperative changes of the right chest, as described. Right chest tube in place. No pneumothorax. Right chest wall subcutaneous emphysema Increasing right midlung infiltrate
--- NOTE | 2018-11-14 12:47 | General Progress Note ---
Assessment/Plan Problem List: (1) Sepsis ICD Codes: A41.9 - Sepsis, unspecified organism SNOMED: 03064212 (2) Respiratory failure ICD Codes: J96.90 - Respiratory failure, unspecified, unspecified whether with hypoxia or hypercapnia SNOMED: 998762496 (3) Diabetes ICD Codes: E11.9 - Type 2 diabetes mellitus without complications SNOMED: 23505535 (4) Pneumonia ICD Codes: J18.9 - Pneumonia, unspecified organism SNOMED: 890400134 (5) Hyponatremia ICD Codes: E87.1 - Hypo-osmolality and hyponatremia SNOMED: 77693263 Status: unchanged Assessment/Plan o2 pulm tx abx neph f/u vasc sx f/u cbc bmp am Subjective Constitutional: Reports: weakness Allergies: Coded Allergies: No Known Allergies (Unverified , 11/04/18) All Systems: reviewed and negative except above Subjective awaiting thorascopy calm Objective Last 24 Hour Vital Signs Date Time Temp Pulse Resp B/P (MAP) Pulse Ox O2 Delivery O2 Flow Rate FiO2 11/14/18 12:25 66 15 110/69 97 Simple Mask 8 11/14/18 12:10 64 15 110/68 97 Simple Mask 8 11/14/18 11:55 65 24 99/64 97 Simple Mask 8 11/14/18 11:41 97.9 11/14/18 11:40 66 21 107/69 96 Simple Mask 8 11/14/18 11:30 71 20 144/91 96 Simple Mask 8 11/14/18 11:17 71 20 144/91 96 Simple Mask 8 11/14/18 11:12 71 20 144/91 96 Simple Mask 8 11/14/18 11:07 97.0 63 20 128/75 96 Simple Mask 8 11/14/18 11:05 63 16 98 11/14/18 08:32 Nasal Cannula 2.0 11/14/18 04:00 97.1 56 18 110/71 (84) 100 11/14/18 00:00 97.8 59 18 117/75 (89) 97 11/13/18 23:26 62 20 97 Full Face 40 11/13/18 21:00 Nasal Cannula 2.0 11/13/18 20:00 98.7 61 18 113/70 (84) 98 11/13/18 20:00 97 Nasal Cannula 2.0 28 11/13/18 20:00 Nasal Cannula 2.0 28 11/13/18 16:00 99.0 67 19 115/75 (88) 93 Intake and Output 11/13/18 11/14/18 19:00 07:00 Intake Total 1140.000 ml 385.000 ml Output Total 1650 ml 1450 ml Balance -510.000 ml -1065.000 ml Intake Oral 480 ml IV Total 660.000 ml 385.000 ml Output Urine Total 1650 ml 1450 ml Laboratory Tests 11/13/18 21:50: Vancomycin Level Trough 17.2H 11/14/18 05:05: White Blood Count 9.8, Red Blood Count 4.25L, Hemoglobin 13.4L, Hematocrit 40.9L , Mean Corpuscular Volume 96, Mean Corpuscular Hemoglobin 31.4H, Mean Corpuscular Hemoglobin Concent 32.6, Red Cell Distribution Width 11.8, Platelet Count 645H, Mean Platelet Volume 5.3L, Neutrophils (%) (Auto) 61.9, Lymphocytes (%) (Auto) 24.7, Monocytes (%) (Auto) 10.0, Eosinophils (%) (Auto) 2.3, Basophils (%) (Auto) 1.0, Sodium Level 135L, Potassium Level 4.6, Chloride Level 98, Carbon Dioxide Level 29, Anion Gap 8, Blood Urea Nitrogen 16, Creatinine 1.1, Estimat Glomerular Filtration Rate > 60, Glucose Level 104, Calcium Level 9.6 11/14/18 11:35: White Blood Count 31.9#*H, Red Blood Count 3.91L, Hemoglobin 12.3L, Hematocrit 37.8L, Mean Corpuscular Volume 97, Mean Corpuscular Hemoglobin 31.4H, Mean Corpuscular Hemoglobin Concent 32.5, Red Cell Distribution Width 12.0, Platelet Count 669H, Mean Platelet Volume 5.1L, Neutrophils (%) (Auto) , Lymphocytes (%) (Auto) , Monocytes (%) (Auto) , Eosinophils (%) (Auto) , Basophils (%) (Auto) , Sodium Level [Pending], Potassium Level [Pending], Chloride Level [Pending], Carbon Dioxide Level [Pending], Blood Urea Nitrogen [Pending], Creatinine [ Pending], Estimat Glomerular Filtration Rate [Pending], Glucose Level [Pending] , Calcium Level [Pending], Neutrophils % (Manual) [Pending], Lymphocytes % ( Manual) [Pending], Platelet Estimate [Pending], Platelet Morphology [Pending], Ionized Calcium (Measured) 0.97L, Phosphorus Level [Pending], Magnesium Level [ Pending] Height (Feet): 5 Height (Inches): 6.00 Weight (Pounds): 184 General Appearance: lethargic EENT: normal ENT inspection Neck: normal alignment Cardiovascular: regular rhythm Respiratory/Chest: chest wall non-tender, decreased breath sounds Abdomen: normal bowel sounds, non tender, soft Extremities: normal inspection Edema: no edema noted Arm (L), no edema noted Arm (R), no edema noted Leg (L), no edema noted Leg (R), no edema noted Pedal (L), no edema noted Pedal (R), no edema noted Generalized Neurologic: responsive, motor weakness Skin: normal pigmentation, warm/dry Enmanuel Anderson DO Nov 14, 2018 12:47
[2018-11-14 13:00] LABS: ANION GAP 12 mmol/L (5-15); BLOOD UREA NITROGEN 20 mg/dL (7-18); CALCIUM 8.8 MG/DL (8.5-10.1); CARBON DIOXIDE 24 MMOL/L (21-32); CHLORIDE 96 MMOL/L (98-107); CREATININE 1.1 MG/DL (0.55-1.30); PHOSPHORUS 5.1 MG/DL (2.5-4.9); POTASSIUM 5.3 MMOL/L (3.5-5.1); SODIUM 131 MMOL/L (136-145)
[2018-11-14] MEDS ORDERED: HYDROcodone/Acetamin 10/325 tab ORAL PRN ×2 (13:30→14:00)
[2018-11-14] MEDS ORDERED: Morphine Sulfate 2mg/ml Inj(IV/IM USE ONLY) IVP PRN ×2 (13:30→14:30)
--- NOTE | 2018-11-14 13:39 | NUR ---
HAND-OFF: Report given to KRISTI Richards pt transferred to ICU directly from OR. Addendum: 11/14/18 at 1408 by KATHERINE SANCHEZ RN All belongings checked and signed, given to KRISTI Richards
[2018-11-14] MEDS ORDERED: Nitroglycerin Subl 0.4mg tab SL PRN (13:45)
--- NOTE | 2018-11-14 13:57 | NUR ---
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 ACUTE RESP FAILURE . PNA . HYPONATREMIA VS: BP 99/64, P 65, T 97.9, RR 24, SpO2 97 on S.MASK 8.0L O2 WBC 31.9, RBC 3.91, Hgb 12.3, Hct 37.8, Na 131, K 5.3, BUN 20, Glucose 251 CXR Impression: Postoperative changes of the right chest, as described. Right chest tube in place. No pneumothorax. Right chest wall subcutaneous emphysema IS:HEPARIN SUBQ CEFEPIME 110ml IV LEVEMIR SUBQ ANANYA-DUR 100mg PEPCID 20mg NOVOLOG SUBQ STARLIX 120mG ICU STATUS
[2018-11-14] MEDS ORDERED: Miralax 17gm pkt ORAL PRN (14:00)
--- NOTE | 2018-11-14 14:00 | NUR ---
NURSE NOTES: Report received from Marycruz RN. Pt alert and oriented x4, able to make needs known. Pt connected to surveillance system monitor, SR. Pt on 2 L O2, oxygen saturation is 94%. Chest tube connected to pleur evac draining sanguineous fluid. Chest tube dressing clean, dry and intact. Crepitus noted in right chest. LFA 20 G IV flushed and connected D5 1/2 NS + 20 K at 75 cc/hr. Safety measures in place with bed locked in lowest position, side rails x 3 up and bed alarm on. Will continue to monitor and continue plan of care.
--- NOTE | 2018-11-14 14:13 | NUR ---
NURSE NOTES: @mg of morphine given for sharp stabing pain on the Left upper mid chest region, intensity is 10/10 with patient moaning and grasping site with light hand. BP is 103/60 with HR at 76 in sinus rhythm, saturating at 96% with RR of 22-25. left Forearm 20g is patent with blood return, will reassess pain in 30min.
[2018-11-14] MEDS ORDERED: Promethazine/Codeine 5ml UD ORAL PRN (14:15)
[2018-11-14] MEDS ORDERED: Albuterol/Ipratropium 3ml neb HHN PRN (14:15)
[2018-11-14] MEDS ORDERED: D5 1/2NS w/KCl 20mEq 1,000 ML IV SCH (14:30)
[2018-11-14] MEDS: D5 1/2NS w/KCl 20mEq 1,000 ML IV SCH (14:37)
--- NOTE | 2018-11-14 15:09 | NUR ---
RD ASSESSMENT & RECOMMENDATIONS SEE CARE ACTIVITY FOR COMPLETE ASSESSMENT DAILY ESTIMATED NEEDS: Needs based on Pulmonary, DM 75kg adj 25-30 kcals/kg 5736-0594 total kcals 1-1.5 g protein/kg 75-113 g total protein Fluid per MD 800ml/day NUTRITION DIAGNOSIS: Altered nutrition related lab values r/t new DM dx as evidenced by A1C 8.8, elev BG on adm (357), Uglu 4+. CURRENT DIET: was CCHO MED / Puree prior to NPO status PO DIET RECOMMENDATIONS: CCHO MED / SOFT EASY CHEW/ or as tolerated ADDITIONAL RECOMMENDATIONS: 1) Obtain a standing scale 2) Rec B-complex daily for max glucose metabolism 3) Provided diet edu re DM diet 4) Monitor elev K and phos; need for dietary restriction
[2018-11-14] MEDS: Ketorolac 30mg Inj IV PRN (15:47)
--- NOTE | 2018-11-14 16:06 | NUR ---
NURSE NOTES: Pt complained of severe pain even after receiving morphine. Spoke to Dr Nino and got order for breakthrough toradol IV. Will continue to monitor.
[2018-11-14] MEDS: Docusate 100mg cap ORAL SCH (17:38)
--- NOTE | 2018-11-14 17:40 | NUR ---
NURSE NOTES: Pt eating dinner. No acute distress. Will continue to monitor.
[2018-11-14] MEDS ORDERED: Docusate 100mg cap ORAL SCH (18:00)
--- NOTE | 2018-11-14 19:06 | NUR ---
HAND-OFF: Report given to Enmanuel BERRY.
--- NOTE | 2018-11-14 19:30 | NUR ---
NURSE NOTES: Recvd.quiet in Bed AAO,S/P VATS (R) CT to [place] at 20cm suction drains serosanguinous output.Resp.unlabored.P.Ox-97-98% on 2l/NC inh.Enc.use of inc.mercedez.Cooperative.IV inf.(L) FA site clear.F/Cath patent,diuresis well.See I/O.Denies post-op pain nor discomfort.
[2018-11-14] MEDS ORDERED: Cefepime HCl 2 GM in D5W 110 ML IV SCH (21:00)
[2018-11-14] MEDS ORDERED: Levemir Flexpen SUBQ SCH (21:00)
--- NOTE | 2018-11-14 22:30 | NUR ---
NURSE NOTES: Self repositioned to comfort.HS care rendered.Due meds admin.CT patency maintained.[id number] covered.Cont.to enc.use of inc.mercedez.
[2018-11-15] VITALS (23 sets, daily range): BP systolic 109–148; BP diastolic 62–86
--- NOTE | 2018-11-15 00:10 | NUR ---
NURSE NOTES: See V/S.Scope rhythm same.Denies CP.CT.mngt.ex.Placed back on BIPAP per requested.Cont.Plan of care.
--- NOTE | 2018-11-15 02:00 | NUR ---
NURSE NOTES: Asleep.Maintain on BIPAP,Sat.96-99%.IV Thera.remain in progress.No Distress.
--- NOTE | 2018-11-15 03:15 | Operative Note - Dictated ---
DATE OF OPERATION: 11/14/2018 SURGEON: Andrea Nino M.D., speciality in Thoracic Surgery. PREOPERATIVE DIAGNOSIS: Right empyema. POSTOPERATIVE DIAGNOSIS: Right empyema. PROCEDURE PERFORMED: 1. Flexible bronchoscopy. 2. Right video-assisted thoracoscopic surgery. 3. Intrapleural pneumolysis. 4. Drainage of chest wall abscess. 5. Decortication. 6. Right lower lobe wedge resection. 7. Mechanical pleurodesis. 8. Intercostal nerve block. ANESTHESIA: Double-lumen general anesthesia INDICATION: The patient is a 58-year-old male who was admitted to [facility] with shortness of breath. Radiographic imaging studies suggested an empyema and Thoracic Surgery was then consulted for surgical intervention. The risks and benefits of the proposed operation were explained to the patient in detail including, but not limited to bleeding, infection, air leaks, the need for blood transfusion, anesthetic complication, and of less than 1%. In addition, alternative versus no treatment options were also discussed. The patient fully understands the rationale behind the proposed operation with all questions answered to his satisfaction. DESCRIPTION OF PROCEDURE: After obtaining informed consent, the patient was brought to the operating room, placed in supine position, and surgical time-out was performed. After induction of general anesthesia, an indwelling Lainez, arterial line, and SUSY hose stockings were placed. A flexible bronchoscope was introduced through the single endotracheal tube. The trachea and macey were inspected. The macey was midline and sharp. The right tracheobronchial tree down to the subsegmental level was grossly normal and no endobronchial lesions were seen. Similarly, the left mainstem bronchus was intubated and no obvious endobronchial lesions were visualized at the subsegmental level. A minimal amount of mucopurulent secretion was lavaged and suctioned clear. The bronchoscope was pulled back and removed. The patient tolerated the procedure well with oxygen saturation greater than 96% throughout the procedure. Next, the patient was then placed in a left lateral decubitus position and prepped and draped in the usual sterile fashion. The patient also received preoperative intravenous antibiotics. A 2 cm incision was made at the fifth intercostal space. The dissection was then carried down into the subcutaneous tissue. Entry into the right hemithorax was uneventful. A counter incision was made at the third intercostal space anterior to the midaxillary line. This allowed the introduction of a grasper into the right hemithorax. Passing of Yankeur sucker into the right hemithorax yielded 20 mL of pleural effusion and this was submitted for microbiologic analysis. After placement of a Thoracoport as well as a video camera into the right chest, we then proceeded to examine the intrathoracic cavity. There was noted to be some adhesions tethering the lung to the surrounding chest wall and these were taken down using a combination of sharp and blunt electrocauterization. Pleural exudates were also harvested and submitted to microbiology. During the takedown of the lung from the anterior chest wall, we have entered abscess cavity. Multiple culture swabs were taken and submitted off the field. This abscess cavity was thoroughly drained and suctioned clear. We then proceeded to perform a decortication in the anterior lateral position of the right upper lobe and then carried posteriorly. This was similarly performed in the middle as well as the right lower lobe. During the mobilization of the right lower lobe from the chest wall, there was noted to be a small parenchymal air leak. This area of air leak was closed with a serial firing of Endostapler and submitted off the field as a right lower lobe wedge resection. A mechanical pleurodesis was then performed in order to reduce the incidence of postoperative air leak. At the end of the operation, intercostal nerve block with 0.25% Marcaine was performed from the 2nd to the 8th intercostal space in the usual fashion. A 28-B[place] chest tube inserted into the right hemithorax and directly at the apex. The chest tube was anchored at the skin level using 0 Ethibond sutures x2 and then connected to a suction Pleur-evac. The lung was allowed to inflate under direct visualization and video camera was then removed. The wound was then reapproximated with 2 layers of 3-0 Vicryl suture and the skin was then reapproximated with 4-0 Monocryl suture. Steri-Strips and dry dressing was applied. The patient tolerated the procedure well without any complications. Needle and sponges were correct at the end of the operation and he was then extubated and transported to the recovery room in a satisfactory condition. EBL: Minimal. COMPLICATIONS: None. SPECIMENS SUBMITTED: 1. Right pleural effusion for microbiologic analysis. 2. Right pleural exudate for microbiologic analysis. 3. Chest wall abscess, culture swabbed for microbiologic analysis. 4. Right lower lobe wedge resection to pathology. Ayon M.D. DR: WILEY JOB#: [id number] CC: SHUN
[2018-11-15] MEDS: D5 1/2NS w/KCl 20mEq 1,000 ML IV SCH (03:50)
--- NOTE | 2018-11-15 04:10 | NUR ---
NURSE NOTES: Repositioned self to comfort.Denies post-op pain.Blood drawn for cbc/bmp/mg etc.spec.to lab.CT to pleurvac suction patency maintained.No Resp.Distress.Cont.Plan of care.
[2018-11-15 05:27] LABS: EOSINOPHILS % (AUTO) 0.2 % (0.0-3.0); HEMATOCRIT 34.2 % (42.0-52.0); HEMOGLOBIN 11.2 G/DL (14.2-18.0); LYMPHOCYTES % (AUTO) 10.9 % (20.0-45.0); MEAN CORPUSCULAR VOLUME 97 FL (80-99); PLATELET COUNT 599 K/UL (150-450); RED BLOOD COUNT 3.54 M/UL (4.70-6.10)
[2018-11-15 05:47] LABS: ANION GAP 8 mmol/L (5-15); BLOOD UREA NITROGEN 24 mg/dL (7-18); CALCIUM 8.3 MG/DL (8.5-10.1); CARBON DIOXIDE 26 MMOL/L (21-32); CHLORIDE 99 MMOL/L (98-107); CREATININE 1.1 MG/DL (0.55-1.30); PHOSPHORUS 2.6 MG/DL (2.5-4.9); POTASSIUM 4.6 MMOL/L (3.5-5.1); SODIUM 133 MMOL/L (136-145)
[2018-11-15] MEDS: NovoLOG Insulin Flexpen SUBQ SCH ×4 (06:02→21:12)
--- NOTE | 2018-11-15 06:25 | General Progress Note ---
Assessment/Plan Problem List: (1) Hyperglycemia ICD Codes: R73.9 - Hyperglycemia, unspecified SNOMED: 98947076 (2) Diabetes ICD Codes: E11.9 - Type 2 diabetes mellitus without complications SNOMED: 39362958 (3) Pneumonia ICD Codes: J18.9 - Pneumonia, unspecified organism SNOMED: 254449533 Assessment/Plan change Levemir to 20 units bid continue Starlix 120 mg ac tid continue NISS ac / hs Subjective ROS Limited/Unobtainable: Yes Allergies: Coded Allergies: No Known Allergies (Unverified , 11/04/18) Subjective events noted transferred to ICU glucose values are elevated Item Value Date Time Bedside Blood Glucose 312 mg/dl H 11/15/18 0602 Bedside Blood Glucose 372 mg/dl H 11/14/18 2100 Bedside Blood Glucose 324 mg/dl H 11/14/18 1642 Bedside Blood Glucose 103 mg/dl 11/14/18 0613 Objective Last 24 Hour Vital Signs Date Time Temp Pulse Resp B/P (MAP) Pulse Ox O2 Delivery O2 Flow Rate FiO2 11/15/18 05:25 80 24 99 Full Face 40 11/15/18 03:29 81 24 99 Full Face 40 11/15/18 03:00 84 25 137/67 (90) 99 11/15/18 02:00 83 18 134/75 (94) 96 11/15/18 01:00 79 19 122/68 (86) 99 11/15/18 00:33 81 18 97 Full Face 40 11/15/18 00:00 98.3 85 24 109/63 (78) 97 11/14/18 23:00 90 29 114/52 (72) 96 11/14/18 22:00 87 25 91/61 (71) 97 11/14/18 21:00 Nasal Cannula 2.0 11/14/18 21:00 100 22 129/72 (91) 96 11/14/18 20:09 Nasal Cannula 3.0 32 11/14/18 20:09 98 Nasal Cannula 3.0 32 11/14/18 20:00 97.8 79 26 97/58 (71) 98 11/14/18 19:00 80 21 98/60 (73) 97 11/14/18 18:00 90 26 82/58 (66) 99 11/14/18 17:00 82 23 105/67 (80) 98 11/14/18 16:00 87 21 117/86 (96) 97 11/14/18 16:00 85 11/14/18 15:00 98.1 80 107/65 (79) 11/14/18 14:34 76 14 100/66 (77) 96 11/14/18 12:25 66 15 110/69 97 Simple Mask 8 11/14/18 12:10 64 15 110/68 97 Simple Mask 8 11/14/18 11:55 65 24 99/64 97 Simple Mask 8 11/14/18 11:41 97.9 11/14/18 11:40 66 21 107/69 96 Simple Mask 8 11/14/18 11:30 71 20 144/91 96 Simple Mask 8 11/14/18 11:17 71 20 144/91 96 Simple Mask 8 11/14/18 11:12 71 20 144/91 96 Simple Mask 8 11/14/18 11:07 97.0 63 20 128/75 96 Simple Mask 8 11/14/18 11:05 63 16 98 11/14/18 08:32 Nasal Cannula 2.0 11/14/18 07:58 Nasal Cannula 3.0 32 11/14/18 07:58 97 Nasal Cannula 3.0 32 Intake and Output 11/14/18 11/15/18 19:00 07:00 Intake Total 2578 ml 1490 ml Output Total 1140 ml 590 ml Balance 1438 ml 900 ml Intake Oral 780 ml IV Total 2578 ml 710 ml Output Urine Total 900 ml 590 ml Chest Tube Drainage Total 40 ml Estimated Blood Loss 200 ml Laboratory Tests 11/14/18 11:35: White Blood Count 31.9#*H, Red Blood Count 3.91L, Hemoglobin 12.3L, Hematocrit 37.8L, Mean Corpuscular Volume 97, Mean Corpuscular Hemoglobin 31.4H, Mean Corpuscular Hemoglobin Concent 32.5, Red Cell Distribution Width 12.0, Platelet Count 669H, Mean Platelet Volume 5.1L, Neutrophils (%) (Auto) , Lymphocytes (%) (Auto) , Monocytes (%) (Auto) , Eosinophils (%) (Auto) , Basophils (%) (Auto) , Differential Total Cells Counted 100, Neutrophils % (Manual) 92H, Lymphocytes % (Manual) 1L, Monocytes % (Manual) 0L, Eosinophils % (Manual) 0, Basophils % ( Manual) 1, Band Neutrophils 6, Platelet Estimate IncreasedH, Platelet Morphology Normal, Sodium Level 131L, Potassium Level 5.3H, Chloride Level 96L, Carbon Dioxide Level 24, Anion Gap 12, Blood Urea Nitrogen 20H, Creatinine 1.1, Estimat Glomerular Filtration Rate > 60, Glucose Level 251#H, Calcium Level 8.8 , Ionized Calcium (Measured) 0.97L, Phosphorus Level 5.1H, Magnesium Level 1.9 11/15/18 04:35: White Blood Count 17.0H, Red Blood Count 3.54L, Hemoglobin 11.2L, Hematocrit 34.2L, Mean Corpuscular Volume 97, Mean Corpuscular Hemoglobin 31.6H, Mean Corpuscular Hemoglobin Concent 32.7, Red Cell Distribution Width 12.0, Platelet Count 599H, Mean Platelet Volume 5.2L, Neutrophils (%) (Auto) 79.0H, Lymphocytes (%) (Auto) 10.9L, Monocytes (%) (Auto) 9.0, Eosinophils (%) (Auto) 0.2, Basophils (%) (Auto) 1.0, Sodium Level 133L, Potassium Level 4.6, Chloride Level 99, Carbon Dioxide Level 26, Anion Gap 8, Blood Urea Nitrogen 24H, Creatinine 1.1, Estimat Glomerular Filtration Rate > 60, Glucose Level 352#H, Calcium Level 8.3L, Ionized Calcium (Measured) 1.01L, Phosphorus Level 2.6, Magnesium Level 1.9 Height (Feet): 5 Height (Inches): 6.00 Weight (Pounds): 184 General Appearance: lethargic Neck: normal alignment Cardiovascular: normal rate Respiratory/Chest: decreased breath sounds Abdomen: normal bowel sounds Objective Current Medications Medications (Trade) Dose Ordered Sig/Des Route PRN Reason Start Time Stop Time Status Last Admin Dose Admin Acetaminophen (Tylenol) 650 mg Q4H PRN ORAL T>100.5 11/14/18 14:00 12/07/18 13:59 Acetaminophen/ Hydrocodone Bitart ([place] 10/325) 1 tab Q4H PRN ORAL Moderate Pain (Pain Scale 4-6) 11/14/18 14:00 11/21/18 13:59 Acetaminophen/ Hydrocodone Bitart ([place] 5/325) 1 tab Q4H PRN ORAL Mild Pain (Pain Scale 1-3) 11/14/18 14:30 11/21/18 14:29 Albuterol/ Ipratropium (Albuterol/ Ipratropium) 3 ml Q4H PRN HHN Shortness of Breath 11/14/18 14:15 11/15/18 14:14 Cefepime HCl 2 gm/ Dextrose 110 ml @ 220 mls/hr EVERY 12 HOURS IV 11/14/18 21:00 11/15/18 08:59 11/14/18 20:48 Dextrose (Dextrose 50%) 25 ml Q30M PRN IV Hypoglycemia 11/14/18 14:00 12/08/18 19:29 Dextrose (Dextrose 50%) 50 ml Q30M PRN IV Hypoglycemia 11/14/18 14:00 12/08/18 19:29 Dextrose/ Electrolytes 1,000 ml @ 75 mls/hr [id number] IV 11/14/18 14:30 12/14/18 14:29 11/15/18 03:50 Docusate Sodium (Colace) 100 mg TWICE A DAY ORAL 11/14/18 18:00 12/14/18 17:59 11/14/18 17:38 Famotidine (Pepcid) 20 mg BID ORAL 11/14/18 18:00 12/09/18 08:59 11/14/18 17:39 Heparin Sodium (Porcine) (Heparin 5000 units/ml) 5,000 units EVERY 12 HOURS SUBQ 11/15/18 09:00 12/15/18 08:59 Insulin Aspart (NovoLOG) BEFORE MEALS AND HS SUBQ 11/14/18 16:30 12/08/18 06:29 11/15/18 06:02 Insulin Detemir (Levemir) 24 units BEDTIME SUBQ 11/14/18 21:00 12/08/18 20:59 11/14/18 20:57 Ketorolac Tromethamine (Toradol 30mg) 15 mg Q6H PRN IV Breakthrough Pain 11/14/18 15:30 11/19/18 15:29 11/14/18 15:47 Morphine Sulfate (Morphine Sulfate) 3 mg Q4H PRN IVP Severe Pain (Pain Scale 7-10) 11/14/18 16:30 11/21/18 16:29 Nateglinide (Starlix) 120 mg TIAC ORAL 11/14/18 16:30 12/09/18 06:29 11/15/18 06:00 Nitroglycerin (Ntg) 0.4 mg Q5MIN X 3 DOSES PRN SL Prn Chest Pain 11/14/18 13:45 12/14/18 13:44 Ondansetron HCl (Zofran) 4 mg Q6H PRN IVP Nausea & Vomiting 11/14/18 14:00 12/14/18 13:59 Polyethylene Glycol (Miralax) 17 gm DAILYPRN PRN ORAL Constipation 11/14/18 14:00 12/07/18 13:59 Promethazine HCl/ Codeine (Phenergan with Codeine) 5 ml Q4H PRN ORAL For Cough 11/14/18 14:15 12/10/18 14:14 Theophylline ([place]-Dur) 100 mg EVERY 12 HOURS ORAL 11/14/18 21:00 12/10/18 20:59 11/14/18 20:48 Sonido Styles MD Nov 15, 2018 06:24
--- NOTE | 2018-11-15 07:22 | NUR ---
HAND-OFF: Report given to LATHA ANTUNEZ RN.
--- NOTE | 2018-11-15 07:30 | NUR ---
NURSE NOTES: Received the patient from KRISTI Singer. Patient is awake, alert and orientedx4, resting in bed. On 2L O2 via NC. No acute distress noted. SR noted on the monitor. S/p VATS. Right chest tube to pleur-evac at 20cm, serosanguineous drainage noted. Dressing intact, clean and dry. No pain at this time. Incentive spirometer at bedside. encouraged patient to use IS. Left forearm 20G intact, running D51/2NS with 20meq KCl at 75ml/hr. Lainez cath intact and patent, draining clear yellow urine by gravity. SCDs on bilateral lower extremities. Bed in lowest position, locked, side rails upx3. bed alarm on. Will continue to monitor.
--- NOTE | 2018-11-15 08:15 | NUR ---
NURSE NOTES: Received a call from Dr. Nino. updated on pt's condition. New orders received and carried out.
--- NOTE | 2018-11-15 08:26 | NUR ---
RADIOLOGY DEPT., CHEST X-RAY DONE.-P.DYE
--- NOTE | 2018-11-15 08:50 | 48 Hour Post Anesthesia Eval ---
Post Anesthesia Evaluation Procedure: R VATS Date of Evaluation: Nov 15, 2018 Airway: patent Nausea: No Vomiting: No Pain Intensity: 0 Hydration Status: adequate Cardiopulmonary Status: at baseline Mental Status/LOC: patient returned to baseline Post-Anesthesia Complications: 0 Follow-up care needed: N/A - further care as per primary team Joann Medina MD Nov 15, 2018 08:49
--- NOTE | 2018-11-15 08:51 | Infectious Diseases Prog Note ---
Assessment/Plan Assessment/Plan Abx: Cefepime 11/08- IV Vancomycin 11/08- Ceftriaxone x1 11/07 Assessment: Sepsis- 2ry to PNA -CXR: Increased right suprahilar and basilar consolidative changes, since prior study 11/04/2018. Suspect developing small right pleural effusion -11/04 influenza sc neg 11/09/18 - S/P Thora - 1000 WBCs Path - Mo malignant cell seen Cx - NEG Fever- resolved Leukocytosis- resolved Acute respiratory failure Initially on bipap but now on NC Dm2 Plan: -Continue empiric Cefepime for PNA and abscess -11/13/18 S/P Vancomycin #7 -11/07 SP Ceftriaxone x1 -f.u lung abscess Cx -Monitor CBC/CMP, temperatures -aspiration precautions Will continue to follow along with you. Subjective Allergies: Coded Allergies: No Known Allergies (Unverified , 11/04/18) Subjective On 2LNC in ICU after Drainage of right chest wall abscess and Decortication . Afebrile Leukocytosis decreasing again Objective Vital Signs Last 24 Hour Vital Signs Date Time Temp Pulse Resp B/P (MAP) Pulse Ox O2 Delivery O2 Flow Rate FiO2 11/15/18 08:00 98.9 87 23 118/62 (80) 95 11/15/18 07:51 Nasal Cannula 2.0 28 11/15/18 07:51 95 Nasal Cannula 2.0 28 11/15/18 07:00 81 31 138/70 (92) 99 11/15/18 06:00 79 23 121/70 (87) 98 11/15/18 05:25 80 24 99 Full Face 40 11/15/18 05:00 78 16 118/68 (85) 99 11/15/18 04:00 80 11/15/18 04:00 97.8 80 32 116/70 (85) 99 11/15/18 03:29 81 24 99 Full Face 40 11/15/18 03:00 84 25 137/67 (90) 99 11/15/18 02:00 83 18 134/75 (94) 96 11/15/18 01:00 79 19 122/68 (86) 99 11/15/18 00:33 81 18 97 Full Face 40 11/15/18 00:00 85 11/15/18 00:00 98.3 85 24 109/63 (78) 97 11/14/18 23:00 90 29 114/52 (72) 96 11/14/18 22:00 87 25 91/61 (71) 97 11/14/18 21:00 Nasal Cannula 2.0 11/14/18 21:00 100 22 129/72 (91) 96 11/14/18 20:09 Nasal Cannula 3.0 32 11/14/18 20:09 98 Nasal Cannula 3.0 32 11/14/18 20:00 97.8 79 26 97/58 (71) 98 11/14/18 19:00 80 21 98/60 (73) 97 11/14/18 18:00 90 26 82/58 (66) 99 11/14/18 17:00 82 23 105/67 (80) 98 11/14/18 16:00 87 21 117/86 (96) 97 11/14/18 16:00 85 11/14/18 15:00 98.1 80 107/65 (79) 11/14/18 14:34 76 14 100/66 (77) 96 11/14/18 12:25 66 15 110/69 97 Simple Mask 8 11/14/18 12:10 64 15 110/68 97 Simple Mask 8 11/14/18 11:55 65 24 99/64 97 Simple Mask 8 11/14/18 11:41 97.9 11/14/18 11:40 66 21 107/69 96 Simple Mask 8 11/14/18 11:30 71 20 144/91 96 Simple Mask 8 11/14/18 11:17 71 20 144/91 96 Simple Mask 8 11/14/18 11:12 71 20 144/91 96 Simple Mask 8 11/14/18 11:07 97.0 63 20 128/75 96 Simple Mask 8 11/14/18 11:05 63 16 98 Height (Feet): 5 Height (Inches): 6.00 Weight (Pounds): 187 Objective Gen: NAD on NC 2L HEENT: NCAT MMM, EOMI Respiratory/Chest: CTAB, No W Cardiovascular, RRR, normal peripheral pulses Abdomen: normal bowel sounds, soft Laboratory Tests Test 11/14/18 11:35 11/15/18 04:35 White Blood Count 31.9 K/UL (4.8-10.8) #*H 17.0 K/UL (4.8-10.8) H Red Blood Count 3.91 M/UL (4.70-6.10) L 3.54 M/UL (4.70-6.10) L Hemoglobin 12.3 G/DL (14.2-18.0) L 11.2 G/DL (14.2-18.0) L Hematocrit 37.8 % (42.0-52.0) L 34.2 % (42.0-52.0) L Mean Corpuscular Volume 97 FL (80-99) 97 FL (80-99) Mean Corpuscular Hemoglobin 31.4 PG (27.0-31.0) H 31.6 PG (27.0-31.0) H Mean Corpuscular Hemoglobin Concent 32.5 G/DL (32.0-36.0) 32.7 G/DL (32.0-36.0) Red Cell Distribution Width 12.0 % (11.6-14.8) 12.0 % (11.6-14.8) Platelet Count 669 K/UL (150-450) H 599 K/UL (150-450) H Mean Platelet Volume 5.1 FL (6.5-10.1) L 5.2 FL (6.5-10.1) L Neutrophils (%) (Auto) % (45.0-75.0) 79.0 % (45.0-75.0) H Lymphocytes (%) (Auto) % (20.0-45.0) 10.9 % (20.0-45.0) L Monocytes (%) (Auto) % (1.0-10.0) 9.0 % (1.0-10.0) Eosinophils (%) (Auto) % (0.0-3.0) 0.2 % (0.0-3.0) Basophils (%) (Auto) % (0.0-2.0) 1.0 % (0.0-2.0) Differential Total Cells Counted 100 Neutrophils % (Manual) 92 % (45-75) H Lymphocytes % (Manual) 1 % (20-45) L Monocytes % (Manual) 0 % (1-10) L Eosinophils % (Manual) 0 % (0-3) Basophils % (Manual) 1 % (0-2) Band Neutrophils 6 % (0-8) Platelet Estimate Increased H Platelet Morphology Normal Sodium Level 131 MMOL/L (136-145) L 133 MMOL/L (136-145) L Potassium Level 5.3 MMOL/L (3.5-5.1) H 4.6 MMOL/L (3.5-5.1) Chloride Level 96 MMOL/L (98-107) L 99 MMOL/L (98-107) Carbon Dioxide Level 24 MMOL/L (21-32) 26 MMOL/L (21-32) Anion Gap 12 mmol/L (5-15) 8 mmol/L (5-15) Blood Urea Nitrogen 20 mg/dL (7-18) H 24 mg/dL (7-18) H Creatinine 1.1 MG/DL (0.55-1.30) 1.1 MG/DL (0.55-1.30) Estimat Glomerular Filtration Rate > 60 mL/min (>60) > 60 mL/min (>60) Glucose Level 251 MG/DL (74-106) #H 352 MG/DL (74-106) #H Calcium Level 8.8 MG/DL (8.5-10.1) 8.3 MG/DL (8.5-10.1) L Ionized Calcium (Measured) 0.97 mmol/L (1.10-1.35) L 1.01 mmol/L (1.10-1.35) L Phosphorus Level 5.1 MG/DL (2.5-4.9) H 2.6 MG/DL (2.5-4.9) Magnesium Level 1.9 MG/DL (1.8-2.4) 1.9 MG/DL (1.8-2.4) Current Medications Medications (Trade) Dose Ordered Sig/Des Route PRN Reason Start Time Stop Time Status Last Admin Dose Admin Acetaminophen (Tylenol) 650 mg Q4H PRN ORAL T>100.5 11/14/18 14:00 12/07/18 13:59 Acetaminophen/ Hydrocodone Bitart ([place] 10/325) 1 tab Q4H PRN ORAL Moderate Pain (Pain Scale 4-6) 11/14/18 14:00 11/21/18 13:59 Acetaminophen/ Hydrocodone Bitart ([place] 5/325) 1 tab Q4H PRN ORAL Mild Pain (Pain Scale 1-3) 11/14/18 14:30 11/21/18 14:29 Albuterol/ Ipratropium (Albuterol/ Ipratropium) 3 ml Q4H PRN HHN Shortness of Breath 11/14/18 14:15 11/15/18 14:14 Cefepime HCl 2 gm/ Dextrose 110 ml @ 220 mls/hr EVERY 12 HOURS IV 11/14/18 21:00 11/15/18 08:59 11/14/18 20:48 Dextrose (Dextrose 50%) 25 ml Q30M PRN IV Hypoglycemia 11/14/18 14:00 12/08/18 19:29 Dextrose (Dextrose 50%) 50 ml Q30M PRN IV Hypoglycemia 11/14/18 14:00 12/08/18 19:29 Docusate Sodium (Colace) 100 mg TWICE A DAY ORAL 11/14/18 18:00 12/14/18 17:59 11/14/18 17:38 Famotidine (Pepcid) 20 mg BID ORAL 11/14/18 18:00 12/09/18 08:59 11/14/18 17:39 Heparin Sodium (Porcine) (Heparin 5000 units/ml) 5,000 units EVERY 12 HOURS SUBQ 11/15/18 09:00 12/15/18 08:59 Insulin Aspart (NovoLOG) BEFORE MEALS AND HS SUBQ 11/14/18 16:30 12/08/18 06:29 11/15/18 06:02 Insulin Detemir (Levemir) 20 units BID SUBQ 11/15/18 09:00 12/08/18 20:59 Ketorolac Tromethamine (Toradol 30mg) 15 mg Q6H PRN IV Breakthrough Pain 11/14/18 15:30 11/19/18 15:29 11/14/18 15:47 Morphine Sulfate (Morphine Sulfate) 3 mg Q4H PRN IVP Severe Pain (Pain Scale 7-10) 11/14/18 16:30 11/21/18 16:29 Nateglinide (Starlix) 120 mg TIAC ORAL 11/14/18 16:30 12/09/18 06:29 11/15/18 06:00 Nitroglycerin (Ntg) 0.4 mg Q5MIN X 3 DOSES PRN SL Prn Chest Pain 11/14/18 13:45 12/14/18 13:44 Ondansetron HCl (Zofran) 4 mg Q6H PRN IVP Nausea & Vomiting 11/14/18 14:00 12/14/18 13:59 Polyethylene Glycol (Miralax) 17 gm DAILYPRN PRN ORAL Constipation 11/14/18 14:00 12/07/18 13:59 Promethazine HCl/ Codeine (Phenergan with Codeine) 5 ml Q4H PRN ORAL For Cough 11/14/18 14:15 12/10/18 14:14 Theophylline ([place]-Dur) 100 mg EVERY 12 HOURS ORAL 11/14/18 21:00 12/10/18 20:59 11/14/18 20:48 Hamilton Del Cid MD Nov 15, 2018 08:51
[2018-11-15] MEDS ORDERED: Levemir Flexpen SUBQ SCH (09:00)
[2018-11-15] MEDS ORDERED: Heparin 5000 units/ml inj SUBQ SCH (09:00)
[2018-11-15] MEDS: Docusate 100mg cap ORAL SCH ×2 (09:11→17:17)
[2018-11-15] MEDS: Theophylline ER 100mg ORAL SCH ×2 (09:11→21:07)
[2018-11-15] MEDS: Heparin 5000 units/ml inj SUBQ SCH ×2 (09:12→21:09)
--- NOTE | 2018-11-15 09:33 | Pulmonolgy Critical Care Note ---
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 - Objective Last 24 Hour Vital Signs Date Time Temp Pulse Resp B/P (MAP) Pulse Ox O2 Delivery O2 Flow Rate FiO2 11/15/18 08:00 98.9 87 23 118/62 (80) 95 11/15/18 07:51 Nasal Cannula 2.0 28 11/15/18 07:51 95 Nasal Cannula 2.0 28 11/15/18 07:00 81 31 138/70 (92) 99 11/15/18 06:00 79 23 121/70 (87) 98 11/15/18 05:25 80 24 99 Full Face 40 11/15/18 05:00 78 16 118/68 (85) 99 11/15/18 04:00 80 11/15/18 04:00 97.8 80 32 116/70 (85) 99 11/15/18 03:29 81 24 99 Full Face 40 11/15/18 03:00 84 25 137/67 (90) 99 11/15/18 02:00 83 18 134/75 (94) 96 11/15/18 01:00 79 19 122/68 (86) 99 11/15/18 00:33 81 18 97 Full Face 40 11/15/18 00:00 85 11/15/18 00:00 98.3 85 24 109/63 (78) 97 11/14/18 23:00 90 29 114/52 (72) 96 11/14/18 22:00 87 25 91/61 (71) 97 11/14/18 21:00 Nasal Cannula 2.0 11/14/18 21:00 100 22 129/72 (91) 96 11/14/18 20:09 Nasal Cannula 3.0 32 11/14/18 20:09 98 Nasal Cannula 3.0 32 11/14/18 20:00 97.8 79 26 97/58 (71) 98 11/14/18 19:00 80 21 98/60 (73) 97 11/14/18 18:00 90 26 82/58 (66) 99 11/14/18 17:00 82 23 105/67 (80) 98 11/14/18 16:00 87 21 117/86 (96) 97 11/14/18 16:00 85 11/14/18 15:00 98.1 80 107/65 (79) 11/14/18 14:34 76 14 100/66 (77) 96 11/14/18 12:25 66 15 110/69 97 Simple Mask 8 11/14/18 12:10 64 15 110/68 97 Simple Mask 8 11/14/18 11:55 65 24 99/64 97 Simple Mask 8 11/14/18 11:41 97.9 11/14/18 11:40 66 21 107/69 96 Simple Mask 8 11/14/18 11:30 71 20 144/91 96 Simple Mask 8 11/14/18 11:17 71 20 144/91 96 Simple Mask 8 11/14/18 11:12 71 20 144/91 96 Simple Mask 8 11/14/18 11:07 97.0 63 20 128/75 96 Simple Mask 8 11/14/18 11:05 63 16 98 Status: awake Condition: improving Neck: full ROM Lungs: rales Heart: HR/BP stable, edema Abdomen: soft, non-tender Extremities: no C/C/E Decubiti: location Accucheck: 312 Critical Care - Subjective ROS Limited/Unobtainable: Yes Interval Events: tolerated thoracoscopy very well yesterday. on chest tube in place Condition: critical EKG Rhythm: Sinus Rhythm FI02: 28 Vent Support Breath Rate: 36 Vent Support Mode: CPAP Vent Tidal Volume: 787 Sputum Amount: None I&O: Intake and Output 11/14/18 11/15/18 19:00 07:00 Intake Total 2578 ml 1820 ml Output Total 1140 ml 870 ml Balance 1438 ml 950 ml Intake Oral 810 ml IV Total 2578 ml 1010 ml Output Urine Total 900 ml 870 ml Chest Tube Drainage Total 40 ml Estimated Blood Loss 200 ml CXR: chest tube in place Labs: Laboratory Tests Test 11/14/18 11:35 11/15/18 04:35 White Blood Count 31.9 K/UL (4.8-10.8) #*H 17.0 K/UL (4.8-10.8) H Red Blood Count 3.91 M/UL (4.70-6.10) L 3.54 M/UL (4.70-6.10) L Hemoglobin 12.3 G/DL (14.2-18.0) L 11.2 G/DL (14.2-18.0) L Hematocrit 37.8 % (42.0-52.0) L 34.2 % (42.0-52.0) L Mean Corpuscular Volume 97 FL (80-99) 97 FL (80-99) Mean Corpuscular Hemoglobin 31.4 PG (27.0-31.0) H 31.6 PG (27.0-31.0) H Mean Corpuscular Hemoglobin Concent 32.5 G/DL (32.0-36.0) 32.7 G/DL (32.0-36.0) Red Cell Distribution Width 12.0 % (11.6-14.8) 12.0 % (11.6-14.8) Platelet Count 669 K/UL (150-450) H 599 K/UL (150-450) H Mean Platelet Volume 5.1 FL (6.5-10.1) L 5.2 FL (6.5-10.1) L Neutrophils (%) (Auto) % (45.0-75.0) 79.0 % (45.0-75.0) H Lymphocytes (%) (Auto) % (20.0-45.0) 10.9 % (20.0-45.0) L Monocytes (%) (Auto) % (1.0-10.0) 9.0 % (1.0-10.0) Eosinophils (%) (Auto) % (0.0-3.0) 0.2 % (0.0-3.0) Basophils (%) (Auto) % (0.0-2.0) 1.0 % (0.0-2.0) Differential Total Cells Counted 100 Neutrophils % (Manual) 92 % (45-75) H Lymphocytes % (Manual) 1 % (20-45) L Monocytes % (Manual) 0 % (1-10) L Eosinophils % (Manual) 0 % (0-3) Basophils % (Manual) 1 % (0-2) Band Neutrophils 6 % (0-8) Platelet Estimate Increased H Platelet Morphology Normal Sodium Level 131 MMOL/L (136-145) L 133 MMOL/L (136-145) L Potassium Level 5.3 MMOL/L (3.5-5.1) H 4.6 MMOL/L (3.5-5.1) Chloride Level 96 MMOL/L (98-107) L 99 MMOL/L (98-107) Carbon Dioxide Level 24 MMOL/L (21-32) 26 MMOL/L (21-32) Anion Gap 12 mmol/L (5-15) 8 mmol/L (5-15) Blood Urea Nitrogen 20 mg/dL (7-18) H 24 mg/dL (7-18) H Creatinine 1.1 MG/DL (0.55-1.30) 1.1 MG/DL (0.55-1.30) Estimat Glomerular Filtration Rate > 60 mL/min (>60) > 60 mL/min (>60) Glucose Level 251 MG/DL (74-106) #H 352 MG/DL (74-106) #H Calcium Level 8.8 MG/DL (8.5-10.1) 8.3 MG/DL (8.5-10.1) L Ionized Calcium (Measured) 0.97 mmol/L (1.10-1.35) L 1.01 mmol/L (1.10-1.35) L Phosphorus Level 5.1 MG/DL (2.5-4.9) H 2.6 MG/DL (2.5-4.9) Magnesium Level 1.9 MG/DL (1.8-2.4) 1.9 MG/DL (1.8-2.4) Yeimi Phelps MD Nov 15, 2018 09:33
--- NOTE | 2018-11-15 10:03 | NUR ---
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 ACUTE RESP FAILURE . PNA . HYPONATREMIA VS: BP138/81, P 81, T 98.9, RR 31, SpO2 95 on 2.0L O2 NC WBC 17.0, RBC 3.54, Hgb 11.2, Hct 34.2, Na 133, Glucose 352 IS:HEPARIN SUBQ ANANYA-DUR 100mg PEPCID 20mg NOVOLOG SUBQ STARLIX 120mg NORCO 5/325 1tab ICU STATUS
[2018-11-15] MEDS: Ketorolac 30mg Inj IV PRN (10:19)
[2018-11-15] MEDS: Cefepime HCl 2 GM in D5W 110 ML IV SCH ×2 (10:20→21:08)
--- NOTE | 2018-11-15 10:20 | NUR ---
NURSE NOTES: Patient still c/o right side chest pain 8/10, not relieved with norco. Toradol given for breakthrough pain.
[2018-11-15] MEDS: Levemir Flexpen SUBQ SCH ×2 (10:22→21:11)
--- NOTE | 2018-11-15 11:30 | NUR ---
NURSE NOTES: Patient sleeping in bed comfortably. No acute distress noted. VSS.
--- NOTE | 2018-11-15 11:30 | NUR ---
NURSE NOTES: Received the patient from KIRSTI Singer. Patient is awake, alert and orientedx4, resting in bed. On 2L O2 via NC. No acute distress noted. SR noted on the monitor. S/p VATS. Right chest tube to pleur-evac at 20cm, serosanguineous drainage noted. Dressing intact, clean and dry. No pain at this time. Incentive spirometer at bedside. encouraged patient to use IS. Left forearm 20G intact, running D51/2NS with 20meq KCl at 75ml/hr. Lainez cath intact and patent, draining clear yellow urine by gravity. SCDs on bilateral lower extremities. Bed in lowest position, locked, side rails upx3. bed alarm on. Will continue to monitor. Addendum: 11/15/18 at 1136 by SATYA GUTIÉRREZ RN Incorrect time.
--- NOTE | 2018-11-15 11:54 | Nephrology Progress Note ---
Assessment/Plan Problem List: (1) Hyponatremia Assessment: SIADH (2) Acute respiratory failure (3) Hyperglycemia (4) Pneumonia (5) Diabetes Assessment Pneumonia Low Na due to high BS Sepsis Respiratory failure Diabetes OOC with proteinuria Anemia Plan Chest tube care right side DC ha to tele [facility] uric acid indicates SIADH fluid restriction monitor lytes TSH Lipid per orders Subjective ROS Limited/Unobtainable: No Interval Events/Complaints in ICU Objective Objective Last 24 Hour Vital Signs Date Time Temp Pulse Resp B/P (MAP) Pulse Ox O2 Delivery O2 Flow Rate FiO2 11/15/18 11:00 74 18 114/76 (89) 98 11/15/18 10:00 81 16 138/81 (100) 96 11/15/18 09:00 Nasal Cannula 2.0 11/15/18 09:00 86 22 128/74 (92) 97 11/15/18 08:00 87 11/15/18 08:00 98.9 87 23 118/62 (80) 95 11/15/18 07:51 Nasal Cannula 2.0 28 11/15/18 07:51 95 Nasal Cannula 2.0 28 11/15/18 07:00 81 31 138/70 (92) 99 11/15/18 06:00 79 23 121/70 (87) 98 11/15/18 05:25 80 24 99 Full Face 40 11/15/18 05:00 78 16 118/68 (85) 99 11/15/18 04:00 80 11/15/18 04:00 97.8 80 32 116/70 (85) 99 11/15/18 03:29 81 24 99 Full Face 40 11/15/18 03:00 84 25 137/67 (90) 99 11/15/18 02:00 83 18 134/75 (94) 96 11/15/18 01:00 79 19 122/68 (86) 99 11/15/18 00:33 81 18 97 Full Face 40 11/15/18 00:00 85 11/15/18 00:00 98.3 85 24 109/63 (78) 97 11/14/18 23:00 90 29 114/52 (72) 96 11/14/18 22:00 87 25 91/61 (71) 97 11/14/18 21:00 Nasal Cannula 2.0 11/14/18 21:00 100 22 129/72 (91) 96 11/14/18 20:09 Nasal Cannula 3.0 32 11/14/18 20:09 98 Nasal Cannula 3.0 32 11/14/18 20:00 97.8 79 26 97/58 (71) 98 11/14/18 19:00 80 21 98/60 (73) 97 11/14/18 18:00 90 26 82/58 (66) 99 11/14/18 17:00 82 23 105/67 (80) 98 11/14/18 16:00 87 21 117/86 (96) 97 11/14/18 16:00 85 11/14/18 15:00 98.1 80 107/65 (79) 11/14/18 14:34 76 14 100/66 (77) 96 11/14/18 12:25 66 15 110/69 97 Simple Mask 8 11/14/18 12:10 64 15 110/68 97 Simple Mask 8 11/14/18 11:55 65 24 99/64 97 Simple Mask 8 Intake and Output 11/14/18 11/15/18 19:00 07:00 Intake Total 2578 ml 1820 ml Output Total 1140 ml 870 ml Balance 1438 ml 950 ml Intake Oral 810 ml IV Total 2578 ml 1010 ml Output Urine Total 900 ml 870 ml Chest Tube Drainage Total 40 ml Estimated Blood Loss 200 ml Laboratory Tests 11/15/18 04:35: White Blood Count 17.0H, Red Blood Count 3.54L, Hemoglobin 11.2L, Hematocrit 34.2L, Mean Corpuscular Volume 97, Mean Corpuscular Hemoglobin 31.6H, Mean Corpuscular Hemoglobin Concent 32.7, Red Cell Distribution Width 12.0, Platelet Count 599H, Mean Platelet Volume 5.2L, Neutrophils (%) (Auto) 79.0H, Lymphocytes (%) (Auto) 10.9L, Monocytes (%) (Auto) 9.0, Eosinophils (%) (Auto) 0.2, Basophils (%) (Auto) 1.0, Sodium Level 133L, Potassium Level 4.6, Chloride Level 99, Carbon Dioxide Level 26, Anion Gap 8, Blood Urea Nitrogen 24H, Creatinine 1.1, Estimat Glomerular Filtration Rate > 60, Glucose Level 352#H, Calcium Level 8.3L, Ionized Calcium (Measured) 1.01L, Phosphorus Level 2.6, Magnesium Level 1.9 Height (Feet): 5 Height (Inches): 6.00 Weight (Pounds): 187 General Appearance: no apparent distress Respiratory/Chest: other - right chest tube Abdomen: distended Genitourinary/Rectal: other - ha Objective no other change Sedrick Cordova MD Nov 15, 2018 11:54
--- NOTE | 2018-11-15 12:45 | NUR ---
NURSE NOTES: patient awake, eating lunch in bed. No acute distress noted.
--- NOTE | 2018-11-15 13:05 | Diagnostic Imaging Report ---
Indication: Shortness of breath, chest tube placement Technique: One view of the chest Comparison: 11/14/2018 Findings: Right chest tube remains in place. No definite pneumothorax demonstrated. There is interim considerable improvement of previously demonstrated right midlung infiltrate, although ill-defined interstitial and airspace disease persists. There is slight obscuration of the right lateral hemidiaphragm, could indicate a small amount of pleural fluid developing. Right chest wall subcutaneous emphysema has improved. Impression: Improved but persistent right lung infiltrate. Further follow-up radiographs recommended Improved right chest wall subcutaneous emphysema Possible developing small right pleural effusion Other stable findings as described
[2018-11-15] MEDS: Morphine Sulfate 4mg/ml Inj (IV USE ONLY) IVP PRN ×2 (13:10→19:59)
--- NOTE | 2018-11-15 13:29 | NUR ---
NURSE NOTES: Removed ha cath. Patient tolerated well.
--- NOTE | 2018-11-15 13:57 | General Progress Note ---
Assessment/Plan Problem List: (1) Sepsis ICD Codes: A41.9 - Sepsis, unspecified organism SNOMED: 51649463 (2) Respiratory failure ICD Codes: J96.90 - Respiratory failure, unspecified, unspecified whether with hypoxia or hypercapnia SNOMED: 211750334 (3) Diabetes ICD Codes: E11.9 - Type 2 diabetes mellitus without complications SNOMED: 61811365 (4) Pneumonia ICD Codes: J18.9 - Pneumonia, unspecified organism SNOMED: 154872788 (5) Hyponatremia ICD Codes: E87.1 - Hypo-osmolality and hyponatremia SNOMED: 70822316 Status: unchanged Assessment/Plan o2 pulm tx abx neph f/u vasc sx f/u cbc bmp am Subjective Constitutional: Reports: weakness Allergies: Coded Allergies: No Known Allergies (Unverified , 11/04/18) All Systems: reviewed and negative except above Subjective o2nc w r chest tube Objective Last 24 Hour Vital Signs Date Time Temp Pulse Resp B/P (MAP) Pulse Ox O2 Delivery O2 Flow Rate FiO2 11/15/18 13:00 78 18 116/78 (91) 95 11/15/18 12:00 72 11/15/18 12:00 98.8 70 16 114/72 (86) 98 11/15/18 11:00 74 18 114/76 (89) 98 11/15/18 10:00 81 16 138/81 (100) 96 11/15/18 09:00 Nasal Cannula 2.0 11/15/18 09:00 86 22 128/74 (92) 97 11/15/18 08:00 87 11/15/18 08:00 98.9 87 23 118/62 (80) 95 11/15/18 07:51 Nasal Cannula 2.0 28 11/15/18 07:51 95 Nasal Cannula 2.0 28 11/15/18 07:00 81 31 138/70 (92) 99 11/15/18 06:00 79 23 121/70 (87) 98 11/15/18 05:25 80 24 99 Full Face 40 11/15/18 05:00 78 16 118/68 (85) 99 11/15/18 04:00 80 11/15/18 04:00 97.8 80 32 116/70 (85) 99 11/15/18 03:29 81 24 99 Full Face 40 11/15/18 03:00 84 25 137/67 (90) 99 11/15/18 02:00 83 18 134/75 (94) 96 11/15/18 01:00 79 19 122/68 (86) 99 11/15/18 00:33 81 18 97 Full Face 40 11/15/18 00:00 85 11/15/18 00:00 98.3 85 24 109/63 (78) 97 11/14/18 23:00 90 29 114/52 (72) 96 11/14/18 22:00 87 25 91/61 (71) 97 11/14/18 21:00 Nasal Cannula 2.0 11/14/18 21:00 100 22 129/72 (91) 96 11/14/18 20:09 Nasal Cannula 3.0 32 11/14/18 20:09 98 Nasal Cannula 3.0 32 11/14/18 20:00 97.8 79 26 97/58 (71) 98 11/14/18 19:00 80 21 98/60 (73) 97 11/14/18 18:00 90 26 82/58 (66) 99 11/14/18 17:00 82 23 105/67 (80) 98 11/14/18 16:00 87 21 117/86 (96) 97 11/14/18 16:00 85 11/14/18 15:00 98.1 80 107/65 (79) 11/14/18 14:34 76 14 100/66 (77) 96 Intake and Output 11/14/18 11/15/18 19:00 07:00 Intake Total 2578 ml 1820 ml Output Total 1140 ml 870 ml Balance 1438 ml 950 ml Intake Oral 810 ml IV Total 2578 ml 1010 ml Output Urine Total 900 ml 870 ml Chest Tube Drainage Total 40 ml Estimated Blood Loss 200 ml Laboratory Tests 11/15/18 04:35: White Blood Count 17.0H, Red Blood Count 3.54L, Hemoglobin 11.2L, Hematocrit 34.2L, Mean Corpuscular Volume 97, Mean Corpuscular Hemoglobin 31.6H, Mean Corpuscular Hemoglobin Concent 32.7, Red Cell Distribution Width 12.0, Platelet Count 599H, Mean Platelet Volume 5.2L, Neutrophils (%) (Auto) 79.0H, Lymphocytes (%) (Auto) 10.9L, Monocytes (%) (Auto) 9.0, Eosinophils (%) (Auto) 0.2, Basophils (%) (Auto) 1.0, Sodium Level 133L, Potassium Level 4.6, Chloride Level 99, Carbon Dioxide Level 26, Anion Gap 8, Blood Urea Nitrogen 24H, Creatinine 1.1, Estimat Glomerular Filtration Rate > 60, Glucose Level 352#H, Calcium Level 8.3L, Ionized Calcium (Measured) 1.01L, Phosphorus Level 2.6, Magnesium Level 1.9 Height (Feet): 5 Height (Inches): 6.00 Weight (Pounds): 187 General Appearance: lethargic EENT: normal ENT inspection Neck: normal alignment Cardiovascular: normal peripheral pulses, normal rate, regular rhythm Respiratory/Chest: chest wall non-tender, decreased breath sounds Abdomen: normal bowel sounds, non tender, soft Extremities: normal inspection Edema: no edema noted Arm (L), no edema noted Arm (R), no edema noted Leg (L), no edema noted Leg (R), no edema noted Pedal (L), no edema noted Pedal (R), no edema noted Generalized Neurologic: responsive, motor weakness Skin: normal pigmentation, warm/dry Objective right chest tube Enmanuel Anderson DO Nov 15, 2018 13:57
--- NOTE | 2018-11-15 15:22 | NUR ---
NURSE NOTES: Patient watching TV in bed. No c/o pain at this time. VSS. Patient on room air, O2 sat 96%.
--- NOTE | 2018-11-15 17:30 | NUR ---
NURSE NOTES: patient noted with painful cough. prn med given.
--- NOTE | 2018-11-15 18:15 | NUR ---
NURSE NOTES: Patient has not voided. Bladder scan shows 275ml. patient denies pain. will continue to monitor.
--- NOTE | 2018-11-15 18:40 | NUR ---
NURSE NOTES: patient voided, 200ml martin urine.
--- NOTE | 2018-11-15 19:15 | NUR ---
HAND-OFF: Report given to KRISTI Gabriel.
--- NOTE | 2018-11-15 20:00 | NUR ---
NURSE NOTES: pt awake and alert c/o pain surg wound site medecated with ms 3mg as order with relief chest reposition and suction
--- NOTE | 2018-11-15 22:00 | NUR ---
HAND-OFF: Report given to moi schrader using sbar.
[2018-11-15] MEDS ORDERED: Nitroglycerin Subl 0.4mg tab SL PRN (22:15)
[2018-11-15] MEDS ORDERED: Promethazine/Codeine 5ml UD ORAL PRN (22:15)
--- NOTE | 2018-11-15 22:20 | NUR ---
NURSE NOTES: Received patient from KRISTI Holland via Hospital bed from ICU. Patient is awake showing no signs of acute distress. VS stable. Respiration even and non labored on 2L O2. No SOB. Chest tube patent, intact and draining well. AOx4. Bed in lowest position, bed alarm armed, and wheels locked. Call light within reach. Oriented to room and unit. All needs attended and met. Will continue plan of care.
[2018-11-15] MEDS ORDERED: HYDROcodone/Acetamin 5/325 tab ORAL PRN (22:30)
[2018-11-16] VITALS: BP 127/82
[2018-11-16 04:00] VITALS: BP 112/68
[2018-11-16] MEDS: NovoLOG Insulin Flexpen SUBQ SCH ×4 (06:20→22:37)
--- NOTE | 2018-11-16 06:34 | General Progress Note ---
Assessment/Plan Problem List: (1) Hyperglycemia ICD Codes: R73.9 - Hyperglycemia, unspecified SNOMED: 53491468 (2) Diabetes ICD Codes: E11.9 - Type 2 diabetes mellitus without complications SNOMED: 15693803 (3) Pneumonia ICD Codes: J18.9 - Pneumonia, unspecified organism SNOMED: 575497789 Assessment/Plan change Levemir to 16 units bid continue Starlix 120 mg ac tid continue NISS ac / hs Subjective ROS Limited/Unobtainable: Yes Allergies: Coded Allergies: No Known Allergies (Unverified , 11/04/18) Subjective events noted transferred out of ICU glucose values improved Item Value Date Time Bedside Blood Glucose 118 mg/dl 11/16/18 0630 Bedside Blood Glucose 231 mg/dl H 11/15/18 2112 Bedside Blood Glucose 193 mg/dl H 11/15/18 1719 Bedside Blood Glucose 215 mg/dl H 11/15/18 1204 Bedside Blood Glucose 278 mg/dl H 11/15/18 1022 Bedside Blood Glucose 312 mg/dl H 11/15/18 0630 Objective Last 24 Hour Vital Signs Date Time Temp Pulse Resp B/P (MAP) Pulse Ox O2 Delivery O2 Flow Rate FiO2 11/16/18 04:00 2.0 50 11/16/18 04:00 97.7 71 18 112/68 (83) 94 11/16/18 04:00 76 11/16/18 00:00 99.5 79 18 127/82 (97) 96 11/16/18 00:00 78 11/15/18 23:41 2.0 50 11/15/18 23:07 82 28 98 Full Face 40 11/15/18 22:00 98.5 85 22 135/70 (91) 95 11/15/18 21:00 98.5 85 22 127/63 (84) 95 11/15/18 21:00 Nasal Cannula 2.0 11/15/18 20:07 Nasal Cannula 2.0 28 11/15/18 20:07 94 Nasal Cannula 2.0 28 11/15/18 20:00 75 11/15/18 20:00 98.5 85 22 148/79 (102) 95 11/15/18 19:00 89 22 148/79 (102) 95 11/15/18 18:00 86 29 143/86 (105) 95 11/15/18 17:00 78 32 135/83 (100) 94 11/15/18 16:00 98.6 73 28 135/76 (95) 95 11/15/18 16:00 74 11/15/18 15:00 76 29 125/72 (89) 95 11/15/18 14:00 68 21 113/69 (84) 97 11/15/18 13:00 78 18 116/78 (91) 95 11/15/18 12:00 72 11/15/18 12:00 98.8 70 16 114/72 (86) 98 11/15/18 11:00 74 18 114/76 (89) 98 11/15/18 10:00 81 16 138/81 (100) 96 11/15/18 09:00 Nasal Cannula 2.0 11/15/18 09:00 86 22 128/74 (92) 97 11/15/18 08:00 87 11/15/18 08:00 98.9 87 23 118/62 (80) 95 11/15/18 07:51 Nasal Cannula 2.0 28 11/15/18 07:51 95 Nasal Cannula 2.0 28 11/15/18 07:00 81 31 138/70 (92) 99 Intake and Output 11/15/18 11/16/18 19:00 07:00 Intake Total 585 ml 200 ml Output Total 962 ml 590 ml Balance -377 ml -390 ml Intake Oral 400 ml 200 ml IV Total 185 ml Output Urine Total 905 ml 590 ml Chest Tube Drainage Total 57 ml # Voids 1 3 Height (Feet): 5 Height (Inches): 6.00 Weight (Pounds): 184 General Appearance: no apparent distress Neck: normal alignment Cardiovascular: normal rate Respiratory/Chest: lungs clear Abdomen: normal bowel sounds Pelvis: normal external exam Objective Current Medications Medications (Trade) Dose Ordered Sig/Des Route PRN Reason Start Time Stop Time Status Last Admin Dose Admin Acetaminophen (Tylenol) 650 mg Q4H PRN ORAL T>100.5 11/16/18 02:00 12/07/18 13:59 Acetaminophen/ Hydrocodone Bitart ([place] 10/325) 1 tab Q4H PRN ORAL Moderate Pain (Pain Scale 4-6) 11/16/18 02:00 11/21/18 13:59 Acetaminophen/ Hydrocodone Bitart ([place] 5/325) 1 tab Q4H PRN ORAL Mild Pain (Pain Scale 1-3) 11/15/18 22:30 11/21/18 14:29 Cefepime HCl 2 gm/ Dextrose 110 ml @ 220 mls/hr EVERY 12 HOURS IV 11/16/18 09:00 11/22/18 09:59 Dextrose (Dextrose 50%) 25 ml Q30M PRN IV Hypoglycemia 11/15/18 22:30 12/08/18 19:29 Dextrose (Dextrose 50%) 50 ml Q30M PRN IV Hypoglycemia 11/15/18 22:30 12/08/18 19:29 Docusate Sodium (Colace) 100 mg TWICE A DAY ORAL 11/16/18 09:00 12/14/18 17:59 Famotidine (Pepcid) 20 mg BID ORAL 11/16/18 09:00 12/09/18 08:59 Heparin Sodium (Porcine) (Heparin 5000 units/ml) 5,000 units EVERY 12 HOURS SUBQ 11/16/18 09:00 12/15/18 08:59 Insulin Aspart (NovoLOG) BEFORE MEALS AND HS SUBQ 11/16/18 06:30 12/08/18 06:29 Insulin Detemir (Levemir) 20 units Q12HR SUBQ 11/16/18 09:00 12/15/18 08:59 Morphine Sulfate (Morphine Sulfate) 3 mg Q4H PRN IVP Severe Pain (Pain Scale 7-10) 11/16/18 00:30 11/21/18 16:29 Nateglinide (Starlix) 120 mg TIAC ORAL 11/16/18 06:30 12/09/18 06:29 11/16/18 06:18 Nitroglycerin (Ntg) 0.4 mg Q5MIN X 3 DOSES PRN SL Prn Chest Pain 11/15/18 22:15 12/14/18 13:44 Ondansetron HCl (Zofran) 4 mg Q6H PRN IVP Nausea & Vomiting 11/16/18 02:00 12/14/18 13:59 Polyethylene Glycol (Miralax) 17 gm DAILYPRN PRN ORAL Constipation 11/16/18 14:00 12/07/18 13:59 Promethazine HCl/ Codeine (Phenergan with Codeine) 5 ml Q4H PRN ORAL For Cough 11/15/18 22:15 12/10/18 14:14 Theophylline ([place]-Dur) 100 mg EVERY 12 HOURS ORAL 11/16/18 09:00 12/10/18 20:59 Sonido Styles MD Nov 16, 2018 06:34
[2018-11-16] MEDS: Morphine Sulfate 4mg/ml Inj (IV USE ONLY) IVP PRN (06:37)
[2018-11-16 07:27] LABS: HEMATOCRIT 35.9 % (42.0-52.0); HEMOGLOBIN 11.9 G/DL (14.2-18.0); MEAN CORPUSCULAR VOLUME 96 FL (80-99); PLATELET COUNT 570 K/UL (150-450); RED BLOOD COUNT 3.74 M/UL (4.70-6.10); RED CELL DISTRIBUTION WIDTH 12.1 % (11.6-14.8); WHITE BLOOD COUNT 19.7 K/UL (4.8-10.8)
[2018-11-16 07:45] LABS: ALANINE AMINOTRANSFERASE 33 U/L (12-78); ALBUMIN 2.5 G/DL (3.4-5.0); ALBUMIN/GLOBULIN RATIO 0.5 (1.0-2.7); ALKALINE PHOSPHATASE 86 U/L (46-116); ANION GAP 9 mmol/L (5-15); ASPARTATE AMINO TRANSFERASE 22 U/L (15-37); BILIRUBIN,TOTAL 0.8 MG/DL (0.2-1.0); BLOOD UREA NITROGEN 15 mg/dL (7-18); CALCIUM 8.5 MG/DL (8.5-10.1); CARBON DIOXIDE 27 MMOL/L (21-32); CHLORIDE 96 MMOL/L (98-107); CREATININE 0.9 MG/DL (0.55-1.30); POTASSIUM 4.7 MMOL/L (3.5-5.1); SODIUM 132 MMOL/L (136-145)
--- NOTE | 2018-11-16 07:45 | NUR ---
NURSE NOTES: Received report from Edu BERRY. Pt AOX3 and able to make needs known. Noted Chest tube in R chest with 20mmHg continuous suction with bright red colored drainage. No c/o pain at this time. No signs of distress noted. IV LFA 20G intact and patent with TKO. Pt on SCDs. Bed in lowest position locked. O2 2LPM via NC noted. Will continue to plan of care.
--- NOTE | 2018-11-16 07:45 | NUR ---
HAND-OFF: Report given to KRISTI Bradley. Addendum: 11/16/18 at 1916 by MAICOL MONTES RN Chest tube drain - 32cc out. No SOB noted.
[2018-11-16 07:55] LABS: PHOSPHORUS 3.5 MG/DL (2.5-4.9)
[2018-11-16 08:00] VITALS: BP 109/66
[2018-11-16] MEDS: Theophylline ER 100mg ORAL SCH ×2 (08:36→21:45)
[2018-11-16] MEDS: Cefepime HCl 2 GM in D5W 110 ML IV SCH ×3 (08:37→22:09)
[2018-11-16] MEDS: Docusate 100mg cap ORAL SCH ×2 (08:37→17:25)
--- NOTE | 2018-11-16 08:40 | General Progress Note ---
Assessment/Plan Problem List: (1) Sepsis ICD Codes: A41.9 - Sepsis, unspecified organism SNOMED: 77995794 (2) Respiratory failure ICD Codes: J96.90 - Respiratory failure, unspecified, unspecified whether with hypoxia or hypercapnia SNOMED: 826791616 (3) Diabetes ICD Codes: E11.9 - Type 2 diabetes mellitus without complications SNOMED: 28701568 (4) Pneumonia ICD Codes: J18.9 - Pneumonia, unspecified organism SNOMED: 937474682 (5) Hyponatremia ICD Codes: E87.1 - Hypo-osmolality and hyponatremia SNOMED: 03648866 Status: stable, progressing Assessment/Plan o2 pulm tx abx neph f/u vasc sx f/u cbc bmp am Subjective Constitutional: Reports: weakness Allergies: Coded Allergies: No Known Allergies (Unverified , 11/04/18) All Systems: reviewed and negative except above Subjective o2nc sleepy Objective Last 24 Hour Vital Signs Date Time Temp Pulse Resp B/P (MAP) Pulse Ox O2 Delivery O2 Flow Rate FiO2 11/16/18 08:00 99.2 72 22 109/66 (80) 95 11/16/18 07:20 95 Nasal Cannula 2.0 28 11/16/18 07:20 Nasal Cannula 2.0 28 11/16/18 04:00 2.0 50 11/16/18 04:00 97.7 71 18 112/68 (83) 94 11/16/18 04:00 76 11/16/18 00:00 99.5 79 18 127/82 (97) 96 11/16/18 00:00 78 11/15/18 23:41 2.0 50 11/15/18 23:07 82 28 98 Full Face 40 11/15/18 22:00 98.5 85 22 135/70 (91) 95 11/15/18 21:00 98.5 85 22 127/63 (84) 95 11/15/18 21:00 Nasal Cannula 2.0 11/15/18 20:07 Nasal Cannula 2.0 28 11/15/18 20:07 94 Nasal Cannula 2.0 28 11/15/18 20:00 75 11/15/18 20:00 98.5 85 22 148/79 (102) 95 11/15/18 19:00 89 22 148/79 (102) 95 11/15/18 18:00 86 29 143/86 (105) 95 11/15/18 17:00 78 32 135/83 (100) 94 11/15/18 16:00 98.6 73 28 135/76 (95) 95 11/15/18 16:00 74 11/15/18 15:00 76 29 125/72 (89) 95 11/15/18 14:00 68 21 113/69 (84) 97 11/15/18 13:00 78 18 116/78 (91) 95 11/15/18 12:00 72 11/15/18 12:00 98.8 70 16 114/72 (86) 98 11/15/18 11:00 74 18 114/76 (89) 98 11/15/18 10:00 81 16 138/81 (100) 96 11/15/18 09:00 Nasal Cannula 2.0 11/15/18 09:00 86 22 128/74 (92) 97 Intake and Output 11/15/18 11/16/18 19:00 07:00 Intake Total 585 ml 200 ml Output Total 962 ml 590 ml Balance -377 ml -390 ml Intake Oral 400 ml 200 ml IV Total 185 ml Output Urine Total 905 ml 590 ml Chest Tube Drainage Total 57 ml # Voids 1 3 Laboratory Tests 11/16/18 05:30: White Blood Count 19.7H, Red Blood Count 3.74L, Hemoglobin 11.9L, Hematocrit 35.9L, Mean Corpuscular Volume 96, Mean Corpuscular Hemoglobin 31.9H, Mean Corpuscular Hemoglobin Concent 33.3, Red Cell Distribution Width 12.1, Platelet Count 570H, Mean Platelet Volume 4.9L, Neutrophils (%) (Auto) , Lymphocytes (%) (Auto) , Monocytes (%) (Auto) , Eosinophils (%) (Auto) , Basophils (%) (Auto) , Neutrophils % (Manual) [Pending], Lymphocytes % (Manual) [Pending], Platelet Estimate [Pending], Platelet Morphology [Pending], Sodium Level 132L, Potassium Level 4.7, Chloride Level 96L, Carbon Dioxide Level 27, Anion Gap 9, Blood Urea Nitrogen 15, Creatinine 0.9, Estimat Glomerular Filtration Rate > 60, Glucose Level 119#H, Osmolality 278L, Uric Acid 2.7, Calcium Level 8.5, Phosphorus Level 3.5, Magnesium Level 1.9, Total Bilirubin 0.8, Aspartate Amino Transf (AST /SGOT) 22, Alanine Aminotransferase (ALT/SGPT) 33, Alkaline Phosphatase 86, Total Protein 7.4, Albumin 2.5L, Globulin 4.9, Albumin/Globulin Ratio 0.5L Height (Feet): 5 Height (Inches): 6.00 Weight (Pounds): 184 General Appearance: lethargic EENT: normal ENT inspection Neck: normal alignment Cardiovascular: normal peripheral pulses, normal rate, regular rhythm Respiratory/Chest: chest wall non-tender, lungs clear, normal breath sounds Abdomen: normal bowel sounds, non tender, soft Extremities: normal inspection Edema: no edema noted Arm (L), no edema noted Arm (R), no edema noted Leg (L), no edema noted Leg (R), no edema noted Pedal (L), no edema noted Pedal (R), no edema noted Generalized Neurologic: responsive, motor weakness Skin: normal pigmentation, warm/dry Objective right chest tube Enmanuel Anderson DO Nov 16, 2018 08:39
--- NOTE | 2018-11-16 08:43 | NUR ---
RADIOLOGY DEPT., CHEST X-RAY DONE.-P.DYE
[2018-11-16] MEDS: Heparin 5000 units/ml inj SUBQ SCH ×2 (08:46→21:47)
[2018-11-16] MEDS: Levemir Flexpen SUBQ SCH ×2 (08:53→21:48)
[2018-11-16] MEDS ORDERED: Levemir Flexpen SUBQ SCH (09:00)
--- NOTE | 2018-11-16 09:37 | Infectious Diseases Prog Note ---
Assessment/Plan Assessment/Plan Abx: Cefepime 11/08- IV Vancomycin 11/08- Ceftriaxone x1 11/07 Assessment: Sepsis- 2ry to PNA -CXR: Increased right suprahilar and basilar consolidative changes, since prior study 11/04/2018. Suspect developing small right pleural effusion -11/04 influenza sc neg 11/09/18 - S/P Thora - 1000 WBCs Path - Mo malignant cell seen Cx - NEG 11/14/18 - Debridement and decortication of right lung Cx - MRSA Fever- resolved Leukocytosis - recurrent Acute respiratory failure Initially on bipap but now on NC Dm2 Plan: - Start Vancomcyin #1for MRSA empyema -Continue empiric Cefepime for PNA and abscess pending final Cx results -11/13/18 S/P Vancomycin #7 -11/07 SP Ceftriaxone x1 -f.u lung abscess Cx -Monitor CBC/CMP, temperatures -aspiration precautions Will continue to follow along with you. Subjective Allergies: Coded Allergies: No Known Allergies (Unverified , 11/04/18) Subjective On 2LNC Empyema Cx now growing MRSA Afebrile Leukocytosis increased a little Objective Vital Signs Last 24 Hour Vital Signs Date Time Temp Pulse Resp B/P (MAP) Pulse Ox O2 Delivery O2 Flow Rate FiO2 11/16/18 08:00 99.2 72 22 109/66 (80) 95 11/16/18 07:20 95 Nasal Cannula 2.0 28 11/16/18 07:20 Nasal Cannula 2.0 28 11/16/18 04:00 2.0 50 11/16/18 04:00 97.7 71 18 112/68 (83) 94 11/16/18 04:00 76 11/16/18 00:00 99.5 79 18 127/82 (97) 96 11/16/18 00:00 78 11/15/18 23:41 2.0 50 11/15/18 23:07 82 28 98 Full Face 40 11/15/18 22:00 98.5 85 22 135/70 (91) 95 11/15/18 21:00 98.5 85 22 127/63 (84) 95 11/15/18 21:00 Nasal Cannula 2.0 11/15/18 20:07 Nasal Cannula 2.0 28 11/15/18 20:07 94 Nasal Cannula 2.0 28 11/15/18 20:00 75 11/15/18 20:00 98.5 85 22 148/79 (102) 95 11/15/18 19:00 89 22 148/79 (102) 95 11/15/18 18:00 86 29 143/86 (105) 95 11/15/18 17:00 78 32 135/83 (100) 94 11/15/18 16:00 98.6 73 28 135/76 (95) 95 11/15/18 16:00 74 11/15/18 15:00 76 29 125/72 (89) 95 11/15/18 14:00 68 21 113/69 (84) 97 11/15/18 13:00 78 18 116/78 (91) 95 11/15/18 12:00 72 11/15/18 12:00 98.8 70 16 114/72 (86) 98 11/15/18 11:00 74 18 114/76 (89) 98 11/15/18 10:00 81 16 138/81 (100) 96 Height (Feet): 5 Height (Inches): 6.00 Weight (Pounds): 184 Objective Gen: NAD HEENT: NCAT MMM, EOMI Respiratory/Chest: CTAB, No W Cardiovascular, RRR, normal peripheral pulses Abdomen: normal bowel sounds, soft Microbiology Date/Time Source Procedure Growth Status 11/14/18 10:00 Lung Right AFB Specimen Processing Tissue - Final Resulted 11/14/18 10:00 Lung Right Acid Fast Bacilli Smear - Final Resulted 11/14/18 10:00 Lung Right Acid Fast Bacilli Culture Pending Resulted 11/14/18 10:00 Lung Right Gram Stain - Final Resulted 11/14/18 10:00 Aerobic Culture - Preliminary Staphylococcus Aureus - Mrsa Resulted 11/14/18 10:00 Lung Right Anaerobic Culture Pending Resulted 11/14/18 09:45 Lung Right Gram Stain - Final Resulted 11/14/18 09:45 Lung Right Aerobic Culture - Preliminary NO GROWTH AFTER 48 HOURS Resulted 11/14/18 09:45 Lung Right Anaerobic Culture - Preliminary NO GROWTH AFTER 48 HOURS Resulted Laboratory Tests Test 11/16/18 05:30 White Blood Count 19.7 K/UL (4.8-10.8) H Red Blood Count 3.74 M/UL (4.70-6.10) L Hemoglobin 11.9 G/DL (14.2-18.0) L Hematocrit 35.9 % (42.0-52.0) L Mean Corpuscular Volume 96 FL (80-99) Mean Corpuscular Hemoglobin 31.9 PG (27.0-31.0) H Mean Corpuscular Hemoglobin Concent 33.3 G/DL (32.0-36.0) Red Cell Distribution Width 12.1 % (11.6-14.8) Platelet Count 570 K/UL (150-450) H Mean Platelet Volume 4.9 FL (6.5-10.1) L Neutrophils (%) (Auto) % (45.0-75.0) Lymphocytes (%) (Auto) % (20.0-45.0) Monocytes (%) (Auto) % (1.0-10.0) Eosinophils (%) (Auto) % (0.0-3.0) Basophils (%) (Auto) % (0.0-2.0) Differential Total Cells Counted 100 Neutrophils % (Manual) 77 % (45-75) H Lymphocytes % (Manual) 14 % (20-45) L Monocytes % (Manual) 9 % (1-10) Eosinophils % (Manual) 0 % (0-3) Basophils % (Manual) 0 % (0-2) Band Neutrophils 0 % (0-8) Platelet Estimate Increased H Platelet Morphology Normal Red Blood Cell Morphology Normal Sodium Level 132 MMOL/L (136-145) L Potassium Level 4.7 MMOL/L (3.5-5.1) Chloride Level 96 MMOL/L (98-107) L Carbon Dioxide Level 27 MMOL/L (21-32) Anion Gap 9 mmol/L (5-15) Blood Urea Nitrogen 15 mg/dL (7-18) Creatinine 0.9 MG/DL (0.55-1.30) Estimat Glomerular Filtration Rate > 60 mL/min (>60) Glucose Level 119 MG/DL (74-106) #H Osmolality 278 mOsm/kg (297-317) L Uric Acid 2.7 MG/DL (2.6-7.2) Calcium Level 8.5 MG/DL (8.5-10.1) Phosphorus Level 3.5 MG/DL (2.5-4.9) Magnesium Level 1.9 MG/DL (1.8-2.4) Total Bilirubin 0.8 MG/DL (0.2-1.0) Aspartate Amino Transf (AST/SGOT) 22 U/L (15-37) Alanine Aminotransferase (ALT/SGPT) 33 U/L (12-78) Alkaline Phosphatase 86 U/L (46-116) Total Protein 7.4 G/DL (6.4-8.2) Albumin 2.5 G/DL (3.4-5.0) L Globulin 4.9 g/dL Albumin/Globulin Ratio 0.5 (1.0-2.7) L Current Medications Medications (Trade) Dose Ordered Sig/Des Route PRN Reason Start Time Stop Time Status Last Admin Dose Admin Acetaminophen (Tylenol) 650 mg Q4H PRN ORAL T>100.5 11/16/18 02:00 12/07/18 13:59 Acetaminophen/ Hydrocodone Bitart ([place] 10/325) 1 tab Q4H PRN ORAL Moderate Pain (Pain Scale 4-6) 11/16/18 02:00 11/21/18 13:59 Acetaminophen/ Hydrocodone Bitart ([place] 5/325) 1 tab Q4H PRN ORAL Mild Pain (Pain Scale 1-3) 11/15/18 22:30 11/21/18 14:29 Cefepime HCl 2 gm/ Dextrose 110 ml @ 220 mls/hr EVERY 12 HOURS IV 11/16/18 09:00 11/22/18 09:59 11/16/18 08:39 Dextrose (Dextrose 50%) 25 ml Q30M PRN IV Hypoglycemia 11/15/18 22:30 12/08/18 19:29 Dextrose (Dextrose 50%) 50 ml Q30M PRN IV Hypoglycemia 11/15/18 22:30 12/08/18 19:29 Docusate Sodium (Colace) 100 mg TWICE A DAY ORAL 11/16/18 09:00 12/14/18 17:59 11/16/18 08:37 Famotidine (Pepcid) 20 mg BID ORAL 11/16/18 09:00 12/09/18 08:59 11/16/18 08:36 Heparin Sodium (Porcine) (Heparin 5000 units/ml) 5,000 units EVERY 12 HOURS SUBQ 11/16/18 09:00 12/15/18 08:59 11/16/18 08:46 Insulin Aspart (NovoLOG) BEFORE MEALS AND HS SUBQ 11/16/18 06:30 12/08/18 06:29 Insulin Detemir (Levemir) 16 units Q12HR SUBQ 11/16/18 09:00 12/15/18 08:59 11/16/18 08:53 Morphine Sulfate (Morphine Sulfate) 3 mg Q4H PRN IVP Severe Pain (Pain Scale 7-10) 11/16/18 00:30 11/21/18 16:29 11/16/18 06:37 Nateglinide (Starlix) 120 mg TIAC ORAL 11/16/18 06:30 12/09/18 06:29 11/16/18 06:18 Nitroglycerin (Ntg) 0.4 mg Q5MIN X 3 DOSES PRN SL Prn Chest Pain 11/15/18 22:15 12/14/18 13:44 Ondansetron HCl (Zofran) 4 mg Q6H PRN IVP Nausea & Vomiting 11/16/18 02:00 12/14/18 13:59 Polyethylene Glycol (Miralax) 17 gm DAILYPRN PRN ORAL Constipation 11/16/18 14:00 12/07/18 13:59 Promethazine HCl/ Codeine (Phenergan with Codeine) 5 ml Q4H PRN ORAL For Cough 11/15/18 22:15 12/10/18 14:14 Theophylline ([place]-Dur) 100 mg EVERY 12 HOURS ORAL 11/16/18 09:00 12/10/18 20:59 11/16/18 08:36 Hamilton Del Cid MD Nov 16, 2018 09:37
[2018-11-16] MEDS: HYDROcodone/Acetamin 10/325 tab ORAL PRN ×2 (09:53→21:46)
--- NOTE | 2018-11-16 10:53 | NUR ---
NURSE NOTES: Dr. Nino(surgeon) came and made a round. Chest tube continuous suction can be held when walking with PT. Ordered not to use plastic tape and use only paper tape due to allergy. CBC/BMP/CXR for 11/17/2018 AM. All order noted and carried out.
[2018-11-16] MEDS ORDERED: Vancomycin 1.5gm Premix IVPB ONE (11:00)
--- NOTE | 2018-11-16 11:12 | Diagnostic Imaging Report ---
Indication: Shortness of breath Technique: One view of the chest Comparison: 11/15/2018 Findings: Right chest tube is again demonstrated. Right mid and lower lung infiltrate is probably unchanged. There is decreased right chest wall subcutaneous emphysema. Left lung pleural space remain clear. The heart size is upper limits of normal Impression: Decreased right chest wall subcutaneous emphysema. 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
--- NOTE | 2018-11-16 11:22 | Nephrology Progress Note ---
Assessment/Plan Problem List: (1) Hyponatremia Assessment: SIADH (2) Acute respiratory failure (3) Hyperglycemia (4) Pneumonia (5) Diabetes Assessment Pneumonia Low Na due to high BS Sepsis Respiratory failure Diabetes OOC with proteinuria Anemia Plan Chest tube care right side ha out on tele [place] [facility] uric acid indicates SIADH fluid restriction monitor lytes TSH Lipid per orders Subjective ROS Limited/Unobtainable: No Constitutional: Reports: malaise, weakness Objective Objective Last 24 Hour Vital Signs Date Time Temp Pulse Resp B/P (MAP) Pulse Ox O2 Delivery O2 Flow Rate FiO2 11/16/18 09:00 Nasal Cannula 2.0 11/16/18 08:00 2.0 11/16/18 08:00 66 11/16/18 08:00 99.2 72 22 109/66 (80) 95 11/16/18 07:20 95 Nasal Cannula 2.0 28 11/16/18 07:20 Nasal Cannula 2.0 28 11/16/18 04:00 2.0 50 11/16/18 04:00 97.7 71 18 112/68 (83) 94 11/16/18 04:00 76 11/16/18 00:00 99.5 79 18 127/82 (97) 96 11/16/18 00:00 78 11/15/18 23:41 2.0 50 11/15/18 23:07 82 28 98 Full Face 40 11/15/18 22:00 98.5 85 22 135/70 (91) 95 11/15/18 21:00 98.5 85 22 127/63 (84) 95 11/15/18 21:00 Nasal Cannula 2.0 11/15/18 20:07 Nasal Cannula 2.0 28 11/15/18 20:07 94 Nasal Cannula 2.0 28 11/15/18 20:00 75 11/15/18 20:00 98.5 85 22 148/79 (102) 95 11/15/18 19:00 89 22 148/79 (102) 95 11/15/18 18:00 86 29 143/86 (105) 95 11/15/18 17:00 78 32 135/83 (100) 94 11/15/18 16:00 98.6 73 28 135/76 (95) 95 11/15/18 16:00 74 11/15/18 15:00 76 29 125/72 (89) 95 11/15/18 14:00 68 21 113/69 (84) 97 11/15/18 13:00 78 18 116/78 (91) 95 11/15/18 12:00 72 11/15/18 12:00 98.8 70 16 114/72 (86) 98 Intake and Output 11/15/18 11/16/18 19:00 07:00 Intake Total 585 ml 200 ml Output Total 962 ml 590 ml Balance -377 ml -390 ml Intake Oral 400 ml 200 ml IV Total 185 ml Output Urine Total 905 ml 590 ml Chest Tube Drainage Total 57 ml # Voids 1 3 Laboratory Tests 11/16/18 05:30: White Blood Count 19.7H, Red Blood Count 3.74L, Hemoglobin 11.9L, Hematocrit 35.9L, Mean Corpuscular Volume 96, Mean Corpuscular Hemoglobin 31.9H, Mean Corpuscular Hemoglobin Concent 33.3, Red Cell Distribution Width 12.1, Platelet Count 570H, Mean Platelet Volume 4.9L, Neutrophils (%) (Auto) , Lymphocytes (%) (Auto) , Monocytes (%) (Auto) , Eosinophils (%) (Auto) , Basophils (%) (Auto) , Differential Total Cells Counted 100, Neutrophils % (Manual) 77H, Lymphocytes % (Manual) 14L, Monocytes % (Manual) 9, Eosinophils % (Manual) 0, Basophils % ( Manual) 0, Band Neutrophils 0, Platelet Estimate IncreasedH, Platelet Morphology Normal, Red Blood Cell Morphology Normal, Sodium Level 132L, Potassium Level 4.7, Chloride Level 96L, Carbon Dioxide Level 27, Anion Gap 9, Blood Urea Nitrogen 15, Creatinine 0.9, Estimat Glomerular Filtration Rate > 60 , Glucose Level 119#H, Osmolality 278L, Uric Acid 2.7, Calcium Level 8.5, Phosphorus Level 3.5, Magnesium Level 1.9, Total Bilirubin 0.8, Aspartate Amino Transf (AST/SGOT) 22, Alanine Aminotransferase (ALT/SGPT) 33, Alkaline Phosphatase 86, Total Protein 7.4, Albumin 2.5L, Globulin 4.9, Albumin/Globulin Ratio 0.5L Height (Feet): 5 Height (Inches): 6.00 Weight (Pounds): 184 Cardiovascular: normal rate Respiratory/Chest: decreased breath sounds Abdomen: distended Objective no other change Fouladian,Sedrick MD Nov 16, 2018 11:22
--- NOTE | 2018-11-16 11:29 | NUR ---
P.T Note: Order to resume P.T received. Pt cleared for mobilization S/P chest tube placement. P.T re evaluation completed and treatment initiated. Pt is alert, oriented x 4 and cooperative despite c/o pain where the chest tube insertion is aggravated by coughing, sneezing and movement initiation. Aside from pain, patient also reports generalized weakness and fatigue. Pt currently require CGA x 1 and extended time for bed mobility , transfers and gait/ambulation activities . Note that gait distance is also limited by chest tube connected to continuos suction unit. Pt is cooperative and highly motivated to get better. Pt will continue to benefit from skilled P.T service to increase strength , balance and activity tolerance to increase safety and functional mobility independence.
--- NOTE | 2018-11-16 11:45 | Pulmonology Progress Note ---
Assessment/Plan Problems: (1) Empyema pleura (2) Acute respiratory failure (3) Pneumonia (4) Sepsis (5) Hyperglycemia (6) Diabetes Assessment/Plan chest tube in place wbc higher today sliding scale iv abx MRSA in pleural cavity Subjective ROS Limited/Unobtainable: No Constitutional: Reports: no symptoms HEENT: Repors: no symptoms Allergies: Coded Allergies: No Known Allergies (Unverified , 11/04/18) Objective Last 24 Hour Vital Signs Date Time Temp Pulse Resp B/P (MAP) Pulse Ox O2 Delivery O2 Flow Rate FiO2 11/16/18 09:00 Nasal Cannula 2.0 11/16/18 08:00 2.0 11/16/18 08:00 66 11/16/18 08:00 99.2 72 22 109/66 (80) 95 11/16/18 07:20 95 Nasal Cannula 2.0 28 11/16/18 07:20 Nasal Cannula 2.0 28 11/16/18 04:00 2.0 50 11/16/18 04:00 97.7 71 18 112/68 (83) 94 11/16/18 04:00 76 11/16/18 00:00 99.5 79 18 127/82 (97) 96 11/16/18 00:00 78 11/15/18 23:41 2.0 50 11/15/18 23:07 82 28 98 Full Face 40 11/15/18 22:00 98.5 85 22 135/70 (91) 95 11/15/18 21:00 98.5 85 22 127/63 (84) 95 11/15/18 21:00 Nasal Cannula 2.0 11/15/18 20:07 Nasal Cannula 2.0 28 11/15/18 20:07 94 Nasal Cannula 2.0 28 11/15/18 20:00 75 11/15/18 20:00 98.5 85 22 148/79 (102) 95 11/15/18 19:00 89 22 148/79 (102) 95 11/15/18 18:00 86 29 143/86 (105) 95 11/15/18 17:00 78 32 135/83 (100) 94 11/15/18 16:00 98.6 73 28 135/76 (95) 95 11/15/18 16:00 74 11/15/18 15:00 76 29 125/72 (89) 95 11/15/18 14:00 68 21 113/69 (84) 97 11/15/18 13:00 78 18 116/78 (91) 95 11/15/18 12:00 72 11/15/18 12:00 98.8 70 16 114/72 (86) 98 Intake and Output 11/15/18 11/16/18 19:00 07:00 Intake Total 585 ml 200 ml Output Total 962 ml 590 ml Balance -377 ml -390 ml Intake Oral 400 ml 200 ml IV Total 185 ml Output Urine Total 905 ml 590 ml Chest Tube Drainage Total 57 ml # Voids 1 3 Objective General Appearance: WD/WN Lines, tubes and drains: peripheral HEENT: normocephalic, anicteric Neck: non-tender, normal alignment Respiratory/Chest: chest wall non-tender, lungs clear Breasts: no masses Cardiovascular/Chest: normal peripheral pulses Abdomen: normal bowel sounds Genitourinary/Rectal: normal genital Microbiology Date/Time Source Procedure Growth Status 11/14/18 10:00 Lung Right AFB Specimen Processing Tissue - Final Resulted 11/14/18 10:00 Lung Right Acid Fast Bacilli Smear - Final Resulted 11/14/18 10:00 Lung Right Acid Fast Bacilli Culture Pending Resulted 11/14/18 10:00 Lung Right Gram Stain - Final Resulted 11/14/18 10:00 Aerobic Culture - Preliminary Staphylococcus Aureus - Mrsa Resulted 11/14/18 10:00 Lung Right Anaerobic Culture Pending Resulted 11/14/18 09:45 Lung Right Gram Stain - Final Resulted 11/14/18 09:45 Lung Right Aerobic Culture - Preliminary NO GROWTH AFTER 48 HOURS Resulted 11/14/18 09:45 Lung Right Anaerobic Culture - Preliminary NO GROWTH AFTER 48 HOURS Resulted Laboratory Tests 11/16/18 05:30: White Blood Count 19.7H, Red Blood Count 3.74L, Hemoglobin 11.9L, Hematocrit 35.9L, Mean Corpuscular Volume 96, Mean Corpuscular Hemoglobin 31.9H, Mean Corpuscular Hemoglobin Concent 33.3, Red Cell Distribution Width 12.1, Platelet Count 570H, Mean Platelet Volume 4.9L, Neutrophils (%) (Auto) , Lymphocytes (%) (Auto) , Monocytes (%) (Auto) , Eosinophils (%) (Auto) , Basophils (%) (Auto) , Differential Total Cells Counted 100, Neutrophils % (Manual) 77H, Lymphocytes % (Manual) 14L, Monocytes % (Manual) 9, Eosinophils % (Manual) 0, Basophils % ( Manual) 0, Band Neutrophils 0, Platelet Estimate IncreasedH, Platelet Morphology Normal, Red Blood Cell Morphology Normal, Sodium Level 132L, Potassium Level 4.7, Chloride Level 96L, Carbon Dioxide Level 27, Anion Gap 9, Blood Urea Nitrogen 15, Creatinine 0.9, Estimat Glomerular Filtration Rate > 60 , Glucose Level 119#H, Osmolality 278L, Uric Acid 2.7, Calcium Level 8.5, Phosphorus Level 3.5, Magnesium Level 1.9, Total Bilirubin 0.8, Aspartate Amino Transf (AST/SGOT) 22, Alanine Aminotransferase (ALT/SGPT) 33, Alkaline Phosphatase 86, Total Protein 7.4, Albumin 2.5L, Globulin 4.9, Albumin/Globulin Ratio 0.5L Current Medications Medications (Trade) Dose Ordered Sig/Des Route PRN Reason Start Time Stop Time Status Last Admin Dose Admin Acetaminophen (Tylenol) 650 mg Q4H PRN ORAL T>100.5 11/16/18 02:00 12/07/18 13:59 Acetaminophen/ Hydrocodone Bitart ([place] 10/325) 1 tab Q4H PRN ORAL Moderate Pain (Pain Scale 4-6) 11/16/18 02:00 11/21/18 13:59 11/16/18 09:53 Acetaminophen/ Hydrocodone Bitart ([place] 5/325) 1 tab Q4H PRN ORAL Mild Pain (Pain Scale 1-3) 11/15/18 22:30 11/21/18 14:29 Cefepime HCl 2 gm/ Dextrose 110 ml @ 220 mls/hr EVERY 12 HOURS IV 11/16/18 09:00 11/22/18 09:59 11/16/18 08:39 Dextrose (Dextrose 50%) 25 ml Q30M PRN IV Hypoglycemia 11/15/18 22:30 12/08/18 19:29 Dextrose (Dextrose 50%) 50 ml Q30M PRN IV Hypoglycemia 11/15/18 22:30 12/08/18 19:29 Docusate Sodium (Colace) 100 mg TWICE A DAY ORAL 11/16/18 09:00 12/14/18 17:59 11/16/18 08:37 Famotidine (Pepcid) 20 mg BID ORAL 11/16/18 09:00 12/09/18 08:59 11/16/18 08:36 Heparin Sodium (Porcine) (Heparin 5000 units/ml) 5,000 units EVERY 12 HOURS SUBQ 11/16/18 09:00 12/15/18 08:59 11/16/18 08:46 Insulin Aspart (NovoLOG) BEFORE MEALS AND HS SUBQ 11/16/18 06:30 12/08/18 06:29 Insulin Detemir (Levemir) 16 units Q12HR SUBQ 11/16/18 09:00 12/15/18 08:59 11/16/18 08:53 Morphine Sulfate (Morphine Sulfate) 3 mg Q4H PRN IVP Severe Pain (Pain Scale 7-10) 11/16/18 00:30 11/21/18 16:29 11/16/18 06:37 Nateglinide (Starlix) 120 mg TIAC ORAL 11/16/18 06:30 12/09/18 06:29 11/16/18 06:18 Nitroglycerin (Ntg) 0.4 mg Q5MIN X 3 DOSES PRN SL Prn Chest Pain 11/15/18 22:15 12/14/18 13:44 Ondansetron HCl (Zofran) 4 mg Q6H PRN IVP Nausea & Vomiting 11/16/18 02:00 12/14/18 13:59 Polyethylene Glycol (Miralax) 17 gm DAILYPRN PRN ORAL Constipation 11/16/18 14:00 12/07/18 13:59 Promethazine HCl/ Codeine (Phenergan with Codeine) 5 ml Q4H PRN ORAL For Cough 11/15/18 22:15 12/10/18 14:14 Theophylline ([place]) 100 mg EVERY 12 HOURS ORAL 11/16/18 09:00 12/10/18 20:59 11/16/18 08:36 Vancomycin HCl (Vanco rx to dose) 1 ea DAILY PRN MISC Per rx protocol 11/16/18 09:45 12/16/18 09:44 Vancomycin HCl 750 mg/Sodium Chloride 275 ml @ 183.333 mls/hr Q8HR IVPB 11/16/18 20:00 11/21/18 19:59 Vancomycin HCl/ Dextrose 275 ml @ 137.5 mls/ hr ONCE ONCE IVPB 11/16/18 11:00 11/16/18 12:59 11/16/18 10:59 Yeimi Phelps MD Nov 16, 2018 11:45
[2018-11-16 12:00] VITALS: BP 105/62
[2018-11-16] MEDS ORDERED: Miralax 17gm pkt ORAL PRN (14:00)
[2018-11-16 16:00] VITALS: BP 119/79
--- NOTE | 2018-11-16 19:14 | NUR ---
HAND-OFF: Report given to Edu BERRY. Pt remains stable.
--- NOTE | 2018-11-16 19:20 | NUR ---
NURSE NOTES: Received report from Rogelio Shaffer RN. Patient is awake showing no signs of acute distress. HOB elevated on high lora. VS stable. Respiration even and non labored on 2L O2. No SOB. Chest tube patent, intact and draining well. AOx4. IV patent and intact. Bed in lowest position, bed alarm armed, and wheels locked. Call light within reach. All needs attended and met. Will continue plan of care.
[2018-11-16 20:00] VITALS: BP 131/97
[2018-11-16] MEDS: Vancomycin 750mg/NS 275ml IVPB SCH ×2 (21:25)
--- NOTE | 2018-11-16 22:00 | NUR ---
RESPIRATORY NOTE: Pt placed on BiPAP for nightly use. Pt now on BiPAP 07/14, backup rate 12, 30%. Pt on a Full Face mask, skin intact, no redness/breakdowns noted. Foam tape applied on pt's forehead/cheeks/chin to prevent irritations. B/S rod. diminished, nonproductive cough. BiPAP plugged into red outlet. Pt in no apparent distress at this time. Will continue plan of care.
[2018-11-17] VITALS: BP 119/73
[2018-11-17 04:00] VITALS: BP 126/79
[2018-11-17] MEDS: HYDROcodone/Acetamin 10/325 tab ORAL PRN ×2 (04:26→16:22)
[2018-11-17] MEDS: NovoLOG Insulin Flexpen SUBQ SCH ×4 (06:30→20:38)
[2018-11-17] MEDS: Vancomycin 750mg/NS 275ml IVPB SCH ×4 (06:57→13:23)
[2018-11-17 07:38] LABS: EOSINOPHILS % (AUTO) 2.1 % (0.0-3.0); HEMATOCRIT 36.6 % (42.0-52.0); HEMOGLOBIN 11.8 G/DL (14.2-18.0); LYMPHOCYTES % (AUTO) 25.2 % (20.0-45.0); MEAN CORPUSCULAR VOLUME 97 FL (80-99); MONOCYTES % (AUTO) 11.7 % (1.0-10.0); PLATELET COUNT 616 K/UL (150-450); RED BLOOD COUNT 3.77 M/UL (4.70-6.10); RED CELL DISTRIBUTION WIDTH 12.1 % (11.6-14.8); WHITE BLOOD COUNT 12.6 K/UL (4.8-10.8)
--- NOTE | 2018-11-17 07:46 | NUR ---
HAND-OFF: Report given to KRISTI Bradley. Chest tube suction output 1cc. chest tube patent and intact. Dressing dry. No SOB. Patient stable
--- NOTE | 2018-11-17 07:47 | NUR ---
NURSE NOTES: Received report from KRISTI Sorensen. Patient is eating breakfast and is in stable condition. No acute distress/SOB noted. Patient still complains of pain on chest tube site. But he said it is tolerable. Will continue plan of care.
[2018-11-17 07:48] LABS: ALANINE AMINOTRANSFERASE 35 U/L (12-78); ALBUMIN 2.3 G/DL (3.4-5.0); ALBUMIN/GLOBULIN RATIO 0.4 (1.0-2.7); ALKALINE PHOSPHATASE 84 U/L (46-116); ANION GAP 5 mmol/L (5-15); ASPARTATE AMINO TRANSFERASE 21 U/L (15-37); BILIRUBIN,TOTAL 0.5 MG/DL (0.2-1.0); BLOOD UREA NITROGEN 15 mg/dL (7-18); CALCIUM 9.4 MG/DL (8.5-10.1); CARBON DIOXIDE 30 MMOL/L (21-32); CHLORIDE 101 MMOL/L (98-107); POTASSIUM 5.3 MMOL/L (3.5-5.1); SODIUM 136 MMOL/L (136-145)
[2018-11-17 08:00] VITALS: BP 111/68
--- NOTE | 2018-11-17 08:41 | NUR ---
RADIOLOGY DEPT., CHEST X-RAY DONE.-P.DYE
--- NOTE | 2018-11-17 08:56 | Diagnostic Imaging Report ---
Indication: Shortness of breath Technique: One view of the chest Comparison: November 16, 2018 Findings: There is a right chest tube again demonstrated. Mild consolidative opacities in the right mid and lower lung persist, unchanged. Previously demonstrated right chest wall subcutaneous emphysema has largely resolved. Left lung and pleural space remain clear. The heart is borderline enlarged Impression: Resolved right chest wall subcutaneous emphysema. Otherwise, little twisting frame changer one day
[2018-11-17] MEDS: Docusate 100mg cap ORAL SCH ×2 (09:01→17:27)
[2018-11-17] MEDS: Theophylline ER 100mg ORAL SCH ×2 (09:01→20:37)
[2018-11-17] MEDS: Heparin 5000 units/ml inj SUBQ SCH ×2 (09:04→20:36)
[2018-11-17] MEDS: Levemir Flexpen SUBQ SCH ×2 (09:07→20:37)
[2018-11-17] MEDS: Cefepime HCl 2 GM in D5W 110 ML IV SCH (09:07)
--- NOTE | 2018-11-17 09:44 | Infectious Diseases Prog Note ---
Assessment/Plan Assessment/Plan Abx: Cefepime 11/08- IV Vancomycin 11/08- Ceftriaxone x1 11/07 Assessment: Sepsis- 2ry to PNA -CXR: Increased right suprahilar and basilar consolidative changes, since prior study 11/04/2018. Suspect developing small right pleural effusion -11/04 influenza sc neg 11/09/18 - S/P Thora - 1000 WBCs Path - Mo malignant cell seen Cx - NEG 11/14/18 - Debridement and decortication of right lung Cx - MRSA Fever- resolved Leukocytosis - recurrent Acute respiratory failure Initially on bipap but now on NC Dm2 Plan: - Continue Vancomycin #2/ for MRSA empyema Will need an extend course of vanocmcyin 2-4 week depending on when Chest Tube removed and clinical response. Further imaging may be helpful to help determine if abx could be extended - 11/17/18 S/P Cefepime -11/13/18 S/P Vancomycin #7 -11/07 SP Ceftriaxone x1 -f.u lung abscess Cx -Monitor CBC/CMP, temperatures -aspiration precautions Will continue to follow along with you. Subjective Allergies: Coded Allergies: No Known Allergies (Unverified , 11/04/18) Subjective On 3LNC Empyema Cx now growing MRSA Afebrile Leukocytosis resolving Objective Vital Signs Last 24 Hour Vital Signs Date Time Temp Pulse Resp B/P (MAP) Pulse Ox O2 Delivery O2 Flow Rate FiO2 11/17/18 07:44 93 Nasal Cannula 3.0 32 11/17/18 07:44 Nasal Cannula 3.0 32 11/17/18 04:00 97.0 58 18 126/79 (95) 98 11/17/18 04:00 2.0 11/17/18 04:00 61 11/17/18 03:18 58 17 97 Full Face 30 11/17/18 01:49 56 19 97 Full Face 30 11/17/18 00:00 66 11/17/18 00:00 2.0 50 11/17/18 00:00 97.9 62 16 119/73 (88) 94 11/16/18 21:58 75 37 95 Full Face 30 11/16/18 21:00 Nasal Cannula 2.0 11/16/18 20:00 98.7 71 18 131/97 (108) 94 11/16/18 20:00 72 11/16/18 19:44 97 Nasal Cannula 2.0 28 11/16/18 19:44 Nasal Cannula 2.0 28 11/16/18 16:00 98.0 64 20 119/79 (92) 100 11/16/18 16:00 2.0 11/16/18 15:44 61 11/16/18 12:00 2.0 11/16/18 12:00 68 11/16/18 12:00 98.9 67 20 105/62 (76) 97 Height (Feet): 5 Height (Inches): 6.00 Weight (Pounds): 184 Objective Gen: NAD, On NC HEENT: NCAT MMM, EOMI Respiratory/Chest: CTAB, No W, Chest tube in place Cardiovascular, RRR, normal peripheral pulses Abdomen: normal bowel sounds, soft Microbiology Date/Time Source Procedure Growth Status 11/14/18 10:00 Lung Right AFB Specimen Processing Tissue - Final Resulted 11/14/18 10:00 Lung Right Acid Fast Bacilli Smear - Final Resulted 11/14/18 10:00 Lung Right Acid Fast Bacilli Culture Pending Resulted 11/14/18 10:00 Lung Right Gram Stain - Final Resulted 11/14/18 10:00 Aerobic Culture - Preliminary Staphylococcus Aureus - Mrsa Resulted 11/14/18 10:00 Lung Right Anaerobic Culture Pending Resulted 11/14/18 09:45 Lung Right Gram Stain - Final Resulted 11/14/18 09:45 Lung Right Aerobic Culture - Preliminary NO GROWTH AFTER 48 HOURS Resulted 11/14/18 09:45 Lung Right Anaerobic Culture - Preliminary NO GROWTH AFTER 48 HOURS Resulted Laboratory Tests Test 11/17/18 05:32 11/17/18 08:35 White Blood Count 12.6 K/UL (4.8-10.8) H Red Blood Count 3.77 M/UL (4.70-6.10) L Hemoglobin 11.8 G/DL (14.2-18.0) L Hematocrit 36.6 % (42.0-52.0) L Mean Corpuscular Volume 97 FL (80-99) Mean Corpuscular Hemoglobin 31.3 PG (27.0-31.0) H Mean Corpuscular Hemoglobin Concent 32.2 G/DL (32.0-36.0) Red Cell Distribution Width 12.1 % (11.6-14.8) Platelet Count 616 K/UL (150-450) H Mean Platelet Volume 5.5 FL (6.5-10.1) L Neutrophils (%) (Auto) 60.0 % (45.0-75.0) Lymphocytes (%) (Auto) 25.2 % (20.0-45.0) Monocytes (%) (Auto) 11.7 % (1.0-10.0) H Eosinophils (%) (Auto) 2.1 % (0.0-3.0) Basophils (%) (Auto) 1.0 % (0.0-2.0) Sodium Level 136 MMOL/L (136-145) Potassium Level 5.3 MMOL/L (3.5-5.1) H 4.8 MMOL/L (3.5-5.1) Chloride Level 101 MMOL/L (98-107) Carbon Dioxide Level 30 MMOL/L (21-32) Anion Gap 5 mmol/L (5-15) Blood Urea Nitrogen 15 mg/dL (7-18) Creatinine 1.0 MG/DL (0.55-1.30) Estimat Glomerular Filtration Rate > 60 mL/min (>60) Glucose Level 108 MG/DL (74-106) H Calcium Level 9.4 MG/DL (8.5-10.1) Total Bilirubin 0.5 MG/DL (0.2-1.0) Aspartate Amino Transf (AST/SGOT) 21 U/L (15-37) Alanine Aminotransferase (ALT/SGPT) 35 U/L (12-78) Alkaline Phosphatase 84 U/L (46-116) Pro-B-Type Natriuretic Peptide 16 pg/mL (0-125) Total Protein 7.9 G/DL (6.4-8.2) Albumin 2.3 G/DL (3.4-5.0) L Globulin 5.6 g/dL Albumin/Globulin Ratio 0.4 (1.0-2.7) L Current Medications Medications (Trade) Dose Ordered Sig/Des Route PRN Reason Start Time Stop Time Status Last Admin Dose Admin Acetaminophen (Tylenol) 650 mg Q4H PRN ORAL T>100.5 11/16/18 02:00 12/07/18 13:59 Acetaminophen/ Hydrocodone Bitart ([place] 10) 1 tab Q4H PRN ORAL Moderate Pain (Pain Scale 4-6) 11/16/18 02:00 11/21/18 13:59 11/17/18 04:26 Acetaminophen/ Hydrocodone Bitart ([place] 5/325) 1 tab Q4H PRN ORAL Mild Pain (Pain Scale 1-3) 11/15/18 22:30 11/21/18 14:29 Cefepime HCl 2 gm/ Dextrose 110 ml @ 220 mls/hr EVERY 12 HOURS IV 11/16/18 09:00 11/22/18 09:59 11/17/18 09:07 Dextrose (Dextrose 50%) 25 ml Q30M PRN IV Hypoglycemia 11/15/18 22:30 12/08/18 19:29 Dextrose (Dextrose 50%) 50 ml Q30M PRN IV Hypoglycemia 11/15/18 22:30 12/08/18 19:29 Docusate Sodium (Colace) 100 mg TWICE A DAY ORAL 11/16/18 09:00 12/14/18 17:59 11/17/18 09:01 Famotidine (Pepcid) 20 mg BID ORAL 11/16/18 09:00 12/09/18 08:59 11/17/18 09:01 Heparin Sodium (Porcine) (Heparin 5000 units/ml) 5,000 units EVERY 12 HOURS SUBQ 11/16/18 09:00 12/15/18 08:59 11/17/18 09:04 Insulin Aspart (NovoLOG) BEFORE MEALS AND HS SUBQ 11/16/18 06:30 12/08/18 06:29 11/16/18 22:37 Insulin Detemir (Levemir) 16 units Q12HR SUBQ 11/16/18 09:00 12/15/18 08:59 11/17/18 09:07 Morphine Sulfate (Morphine Sulfate) 3 mg Q4H PRN IVP Severe Pain (Pain Scale 7-10) 11/16/18 00:30 11/21/18 16:29 11/16/18 06:37 Nateglinide (Starlix) 120 mg TIAC ORAL 11/16/18 06:30 12/09/18 06:29 11/17/18 06:57 Nitroglycerin (Ntg) 0.4 mg Q5MIN X 3 DOSES PRN SL Prn Chest Pain 11/15/18 22:15 12/14/18 13:44 Ondansetron HCl (Zofran) 4 mg Q6H PRN IVP Nausea & Vomiting 11/16/18 02:00 12/14/18 13:59 Polyethylene Glycol (Miralax) 17 gm DAILYPRN PRN ORAL Constipation 11/16/18 14:00 12/07/18 13:59 Promethazine HCl/ Codeine (Phenergan with Codeine) 5 ml Q4H PRN ORAL For Cough 11/15/18 22:15 12/10/18 14:14 Theophylline ([place]-Dur) 100 mg EVERY 12 HOURS ORAL 11/16/18 09:00 12/10/18 20:59 11/17/18 09:01 Vancomycin HCl (Vanco rx to dose) 1 ea DAILY PRN MISC Per rx protocol 11/16/18 09:45 12/16/18 09:44 Vancomycin HCl 750 mg/Sodium Chloride 275 ml @ 183.333 mls/hr Q8HR IVPB 11/16/18 20:00 11/21/18 19:59 11/17/18 06:57 Hamilton Del Cid MD Nov 17, 2018 09:44
--- NOTE | 2018-11-17 11:42 | Pulmonology Progress Note ---
Assessment/Plan Problems: (1) Empyema pleura (2) Acute respiratory failure (3) Pneumonia (4) Sepsis (5) Hyperglycemia (6) Diabetes Assessment/Plan chest tube in place and on suction wbc coming down sliding scale iv abx MRSA in pleural cavity Subjective ROS Limited/Unobtainable: No Constitutional: Reports: no symptoms HEENT: Repors: no symptoms Respiratory: Reports: no symptoms Allergies: Coded Allergies: No Known Allergies (Unverified , 11/04/18) Objective Last 24 Hour Vital Signs Date Time Temp Pulse Resp B/P (MAP) Pulse Ox O2 Delivery O2 Flow Rate FiO2 11/17/18 09:00 Nasal Cannula 2.0 11/17/18 08:00 97.7 66 18 111/68 (82) 94 11/17/18 08:00 76 11/17/18 08:00 2.0 11/17/18 07:44 93 Nasal Cannula 3.0 32 11/17/18 07:44 Nasal Cannula 3.0 32 11/17/18 04:00 97.0 58 18 126/79 (95) 98 11/17/18 04:00 2.0 11/17/18 04:00 61 11/17/18 03:18 58 17 97 Full Face 30 11/17/18 01:49 56 19 97 Full Face 30 11/17/18 00:00 66 11/17/18 00:00 2.0 50 11/17/18 00:00 97.9 62 16 119/73 (88) 94 11/16/18 21:58 75 37 95 Full Face 30 11/16/18 21:00 Nasal Cannula 2.0 11/16/18 20:00 98.7 71 18 131/97 (108) 94 11/16/18 20:00 72 11/16/18 19:44 97 Nasal Cannula 2.0 28 11/16/18 19:44 Nasal Cannula 2.0 28 11/16/18 16:00 98.0 64 20 119/79 (92) 100 11/16/18 16:00 2.0 11/16/18 15:44 61 11/16/18 12:00 2.0 11/16/18 12:00 68 11/16/18 12:00 98.9 67 20 105/62 (76) 97 Intake and Output 11/16/18 11/17/18 19:00 07:00 Intake Total 1065.0 ml Output Total 508 ml Balance 557.0 ml Intake Oral 680 ml IV Total 385.0 ml Output Urine Total 500 ml Chest Tube Drainage Total 8 ml Objective General Appearance: WD/WN Lines, tubes and drains: peripheral HEENT: normocephalic, anicteric Neck: non-tender, normal alignment Respiratory/Chest: chest wall non-tender, lungs clear Breasts: no masses Cardiovascular/Chest: normal peripheral pulses Abdomen: normal bowel sounds Genitourinary/Rectal: normal genital Laboratory Tests 11/17/18 05:32: White Blood Count 12.6H, Red Blood Count 3.77L, Hemoglobin 11.8L, Hematocrit 36.6L, Mean Corpuscular Volume 97, Mean Corpuscular Hemoglobin 31.3H, Mean Corpuscular Hemoglobin Concent 32.2, Red Cell Distribution Width 12.1, Platelet Count 616H, Mean Platelet Volume 5.5L, Neutrophils (%) (Auto) 60.0, Lymphocytes (%) (Auto) 25.2, Monocytes (%) (Auto) 11.7H, Eosinophils (%) (Auto) 2.1, Basophils (%) (Auto) 1.0, Sodium Level 136, Potassium Level 5.3H, Chloride Level 101, Carbon Dioxide Level 30, Anion Gap 5, Blood Urea Nitrogen 15, Creatinine 1.0, Estimat Glomerular Filtration Rate > 60, Glucose Level 108H, Calcium Level 9.4, Total Bilirubin 0.5, Aspartate Amino Transf (AST/SGOT) 21, Alanine Aminotransferase (ALT/SGPT) 35, Alkaline Phosphatase 84, Pro-B-Type Natriuretic Peptide 16, Total Protein 7.9, Albumin 2.3L, Globulin 5.6, Albumin/ Globulin Ratio 0.4L 11/17/18 08:35: Potassium Level 4.8 Current Medications Medications (Trade) Dose Ordered Sig/Des Route PRN Reason Start Time Stop Time Status Last Admin Dose Admin Acetaminophen (Tylenol) 650 mg Q4H PRN ORAL T>100.5 11/16/18 02:00 12/07/18 13:59 Acetaminophen/ Hydrocodone Bitart ([place] 10/325) 1 tab Q4H PRN ORAL Moderate Pain (Pain Scale 4-6) 11/16/18 02:00 11/21/18 13:59 11/17/18 04:26 Acetaminophen/ Hydrocodone Bitart ([place] 5/325) 1 tab Q4H PRN ORAL Mild Pain (Pain Scale 1-3) 11/15/18 22:30 11/21/18 14:29 Dextrose (Dextrose 50%) 25 ml Q30M PRN IV Hypoglycemia 11/15/18 22:30 12/08/18 19:29 Dextrose (Dextrose 50%) 50 ml Q30M PRN IV Hypoglycemia 11/15/18 22:30 12/08/18 19:29 Docusate Sodium (Colace) 100 mg TWICE A DAY ORAL 11/16/18 09:00 12/14/18 17:59 11/17/18 09:01 Famotidine (Pepcid) 20 mg BID ORAL 11/16/18 09:00 12/09/18 08:59 11/17/18 09:01 Heparin Sodium (Porcine) (Heparin 5000 units/ml) 5,000 units EVERY 12 HOURS SUBQ 11/16/18 09:00 12/15/18 08:59 11/17/18 09:04 Insulin Aspart (NovoLOG) BEFORE MEALS AND HS SUBQ 11/16/18 06:30 12/08/18 06:29 11/17/18 11:30 Insulin Detemir (Levemir) 16 units Q12HR SUBQ 11/16/18 09:00 12/15/18 08:59 11/17/18 09:07 Morphine Sulfate (Morphine Sulfate) 3 mg Q4H PRN IVP Severe Pain (Pain Scale 7-10) 11/16/18 00:30 11/21/18 16:29 11/16/18 06:37 Nateglinide (Starlix) 120 mg TIAC ORAL 11/16/18 06:30 12/09/18 06:29 11/17/18 11:21 Nitroglycerin (Ntg) 0.4 mg Q5MIN X 3 DOSES PRN SL Prn Chest Pain 11/15/18 22:15 12/14/18 13:44 Ondansetron HCl (Zofran) 4 mg Q6H PRN IVP Nausea & Vomiting 11/16/18 02:00 12/14/18 13:59 Polyethylene Glycol (Miralax) 17 gm DAILYPRN PRN ORAL Constipation 11/16/18 14:00 12/07/18 13:59 Promethazine HCl/ Codeine (Phenergan with Codeine) 5 ml Q4H PRN ORAL For Cough 11/15/18 22:15 12/10/18 14:14 Theophylline ([place]) 100 mg EVERY 12 HOURS ORAL 11/16/18 09:00 12/10/18 20:59 11/17/18 09:01 Vancomycin HCl (Vanco rx to dose) 1 ea DAILY PRN MISC Per rx protocol 11/16/18 09:45 12/16/18 09:44 Vancomycin HCl 750 mg/Sodium Chloride 275 ml @ 183.333 mls/hr Q8HR IVPB 11/16/18 20:00 11/21/18 19:59 11/17/18 06:57 Yeimi Phelps MD Nov 17, 2018 11:42
--- NOTE | 2018-11-17 11:52 | NUR ---
RD ASSESSMENT & RECOMMENDATIONS SEE CARE ACTIVITY FOR COMPLETE ASSESSMENT DAILY ESTIMATED NEEDS: Needs based on Pulmonary, DM 75kg adj 25-30 kcals/kg 0085-7907 total kcals 1-1.5 g protein/kg 75-113 g total protein Fluid per MD mL/kg 800ml/day total fluid mLs NUTRITION DIAGNOSIS: * Altered nutrition related lab values r/t new DM dx as evidenced by A1C 8.8, elev BG on adm (357), Uglu 4+. * Chewing difficulty R/T edentulous status as evidenced by pt on [facility] soft ground texture. CURRENT DIET:REGULAR, mech soft ground PO DIET RECOMMENDATIONS: CCHO MED / Texture as tolerated (pt is edentulous) ADDITIONAL RECOMMENDATIONS: 1) Obtain a standing scale 2) Diet change as above -> CCHO MED 3) Provided diet edu re DM diet 4) Monitor elev K and phos; need for dietary restriction
[2018-11-17 12:00] VITALS: BP 126/80
--- NOTE | 2018-11-17 14:42 | Nephrology Progress Note ---
Assessment/Plan Problem List: (1) Hyponatremia Assessment: SIADH (2) Acute respiratory failure (3) Hyperglycemia (4) Pneumonia (5) Diabetes Assessment Pneumonia Low Na due to high BS Sepsis Respiratory failure Diabetes OOC with proteinuria Anemia Plan repeat K wnl Chest tube care right side ha out on tele [place] [facility] uric acid indicates SIADH fluid restriction monitor lytes TSH Lipid per orders Subjective ROS Limited/Unobtainable: No Constitutional: Reports: malaise Objective Objective Last 24 Hour Vital Signs Date Time Temp Pulse Resp B/P (MAP) Pulse Ox O2 Delivery O2 Flow Rate FiO2 11/17/18 12:00 67 11/17/18 12:00 98.0 65 17 126/80 (95) 95 11/17/18 12:00 2.0 11/17/18 09:00 Nasal Cannula 2.0 11/17/18 08:00 97.7 66 18 111/68 (82) 94 11/17/18 08:00 76 11/17/18 08:00 2.0 11/17/18 07:44 93 Nasal Cannula 3.0 32 11/17/18 07:44 Nasal Cannula 3.0 32 11/17/18 04:00 97.0 58 18 126/79 (95) 98 11/17/18 04:00 2.0 11/17/18 04:00 61 11/17/18 03:18 58 17 97 Full Face 30 11/17/18 01:49 56 19 97 Full Face 30 11/17/18 00:00 66 11/17/18 00:00 2.0 50 11/17/18 00:00 97.9 62 16 119/73 (88) 94 11/16/18 21:58 75 37 95 Full Face 30 11/16/18 21:00 Nasal Cannula 2.0 11/16/18 20:00 98.7 71 18 131/97 (108) 94 11/16/18 20:00 72 11/16/18 19:44 97 Nasal Cannula 2.0 28 11/16/18 19:44 Nasal Cannula 2.0 28 11/16/18 16:00 98.0 64 20 119/79 (92) 100 11/16/18 16:00 2.0 11/16/18 15:44 61 Intake and Output 11/16/18 11/17/18 19:00 07:00 Intake Total 1065.0 ml Output Total 508 ml Balance 557.0 ml Intake Oral 680 ml IV Total 385.0 ml Output Urine Total 500 ml Chest Tube Drainage Total 8 ml Laboratory Tests 11/17/18 05:32: White Blood Count 12.6H, Red Blood Count 3.77L, Hemoglobin 11.8L, Hematocrit 36.6L, Mean Corpuscular Volume 97, Mean Corpuscular Hemoglobin 31.3H, Mean Corpuscular Hemoglobin Concent 32.2, Red Cell Distribution Width 12.1, Platelet Count 616H, Mean Platelet Volume 5.5L, Neutrophils (%) (Auto) 60.0, Lymphocytes (%) (Auto) 25.2, Monocytes (%) (Auto) 11.7H, Eosinophils (%) (Auto) 2.1, Basophils (%) (Auto) 1.0, Sodium Level 136, Potassium Level 5.3H, Chloride Level 101, Carbon Dioxide Level 30, Anion Gap 5, Blood Urea Nitrogen 15, Creatinine 1.0, Estimat Glomerular Filtration Rate > 60, Glucose Level 108H, Calcium Level 9.4, Total Bilirubin 0.5, Aspartate Amino Transf (AST/SGOT) 21, Alanine Aminotransferase (ALT/SGPT) 35, Alkaline Phosphatase 84, Pro-B-Type Natriuretic Peptide 16, Total Protein 7.9, Albumin 2.3L, Globulin 5.6, Albumin/ Globulin Ratio 0.4L 11/17/18 08:35: Potassium Level 4.8 11/17/18 12:50: Vancomycin Level Trough 8.9 Height (Feet): 5 Height (Inches): 6.00 Weight (Pounds): 184 General Appearance: no apparent distress Cardiovascular: normal rate Respiratory/Chest: decreased breath sounds Abdomen: soft Objective no other change Sedrick Cordova MD Nov 17, 2018 14:42
[2018-11-17 16:00] VITALS: BP 114/63
--- NOTE | 2018-11-17 19:15 | NUR ---
NURSE NOTES: Received report from Anthony RN/ Kirk RN- pt. is in bed awake, A/O x's3- able to make needs known, no signs or symptoms of acute cardiac or respiratory distress noted bed in lowest position and call light within easy reach, bed alarm on, side rails up x's3 and safety brakes engaged, pt. appears to be sating well on 2L NC - no distress noted, pt. appears to be comfortable watching television, urinal at bedside and within easy reach, Rt. side chest tube intact and set to continuous suction, RFA 22G IV intact and patent- TKO, safety measures continued, will continue with plan of care.
--- NOTE | 2018-11-17 19:28 | NUR ---
NURSE NOTES: Shift change report given to KRISTI Curtis. No acute distress or SOB noted. Chest tube intact and no leakage. Endorsed plan of care.
[2018-11-17 20:00] VITALS: BP 138/76
[2018-11-17] MEDS: Vancomycin 1.25gm Premix q24h IVPB SCH (21:19)
--- NOTE | 2018-11-17 21:47 | General Progress Note ---
Assessment/Plan Problem List: (1) Acute respiratory failure ICD Codes: J96.00 - Acute respiratory failure, unspecified whether with hypoxia or hypercapnia SNOMED: 22107525 (2) Diabetes ICD Codes: E11.9 - Type 2 diabetes mellitus without complications SNOMED: 42660880 (3) Hyperglycemia ICD Codes: R73.9 - Hyperglycemia, unspecified SNOMED: 01626077 (4) Respiratory failure ICD Codes: J96.90 - Respiratory failure, unspecified, unspecified whether with hypoxia or hypercapnia SNOMED: 479145476 (5) Sepsis ICD Codes: A41.9 - Sepsis, unspecified organism SNOMED: 47544607 (6) Pneumonia ICD Codes: J18.9 - Pneumonia, unspecified organism SNOMED: 485213355 Status: progressing Assessment/Plan afebrile niddm pna sepsis abx per id reviewed chart and labs Subjective ROS Limited/Unobtainable: Yes Allergies: Coded Allergies: No Known Allergies (Unverified , 11/04/18) Objective Last 24 Hour Vital Signs Date Time Temp Pulse Resp B/P (MAP) Pulse Ox O2 Delivery O2 Flow Rate FiO2 11/17/18 20:00 99.3 69 18 138/76 (96) 96 11/17/18 19:10 95 Nasal Cannula 2.0 28 11/17/18 19:10 Nasal Cannula 2.0 28 11/17/18 16:00 73 11/17/18 16:00 97.5 72 17 114/63 (80) 94 11/17/18 16:00 2.0 11/17/18 12:00 67 11/17/18 12:00 98.0 65 17 126/80 (95) 95 11/17/18 12:00 2.0 11/17/18 09:00 Nasal Cannula 2.0 11/17/18 08:00 97.7 66 18 111/68 (82) 94 11/17/18 08:00 76 11/17/18 08:00 2.0 11/17/18 07:44 93 Nasal Cannula 3.0 32 11/17/18 07:44 Nasal Cannula 3.0 32 11/17/18 04:00 97.0 58 18 126/79 (95) 98 11/17/18 04:00 2.0 11/17/18 04:00 61 11/17/18 03:18 58 17 97 Full Face 30 11/17/18 01:49 56 19 97 Full Face 30 11/17/18 00:00 66 11/17/18 00:00 2.0 50 11/17/18 00:00 97.9 62 16 119/73 (88) 94 11/16/18 21:58 75 37 95 Full Face 30 Intake and Output 11/16/18 11/17/18 19:00 07:00 Intake Total 1065.0 ml Output Total 508 ml Balance 557.0 ml Intake Oral 680 ml IV Total 385.0 ml Output Urine Total 500 ml Chest Tube Drainage Total 8 ml Laboratory Tests 11/17/18 05:32: White Blood Count 12.6H, Red Blood Count 3.77L, Hemoglobin 11.8L, Hematocrit 36.6L, Mean Corpuscular Volume 97, Mean Corpuscular Hemoglobin 31.3H, Mean Corpuscular Hemoglobin Concent 32.2, Red Cell Distribution Width 12.1, Platelet Count 616H, Mean Platelet Volume 5.5L, Neutrophils (%) (Auto) 60.0, Lymphocytes (%) (Auto) 25.2, Monocytes (%) (Auto) 11.7H, Eosinophils (%) (Auto) 2.1, Basophils (%) (Auto) 1.0, Sodium Level 136, Potassium Level 5.3H, Chloride Level 101, Carbon Dioxide Level 30, Anion Gap 5, Blood Urea Nitrogen 15, Creatinine 1.0, Estimat Glomerular Filtration Rate > 60, Glucose Level 108H, Calcium Level 9.4, Total Bilirubin 0.5, Aspartate Amino Transf (AST/SGOT) 21, Alanine Aminotransferase (ALT/SGPT) 35, Alkaline Phosphatase 84, Pro-B-Type Natriuretic Peptide 16, Total Protein 7.9, Albumin 2.3L, Globulin 5.6, Albumin/ Globulin Ratio 0.4L 11/17/18 08:35: Potassium Level 4.8 11/17/18 12:50: Vancomycin Level Trough 8.9 Height (Feet): 5 Height (Inches): 6.00 Weight (Pounds): 184 Cardiovascular: normal rate Respiratory/Chest: lungs clear Abdomen: soft Navin Myers MD Nov 17, 2018 21:47
--- NOTE | 2018-11-17 23:07 | NUR ---
RESPIRATORY NOTE: Alert/awake pt placed on BiPAP for nightly use. Pt now on BiPAP 07/14, backup rate 12, 30%. Pt on a Full Face mask, skin intact, no redness/breakdowns noted. Pt refused to put foam tape or gel under the mask. Explained benefits of tape, but pt still refused. RN aware. B/S rod. diminished, nonproductive cough. BiPAP plugged into red outlet. Pt comfortable on current settings, in no apparent distress at this time. Will continue plan of care.
[2018-11-18] VITALS: BP 121/75
[2018-11-18] MEDS: Morphine Sulfate 4mg/ml Inj (IV USE ONLY) IVP PRN ×4 (03:13→20:52)
[2018-11-18 04:00] VITALS: BP 119/68
[2018-11-18] MEDS: Vancomycin 1.25gm Premix q24h IVPB SCH ×2 (06:04→14:31)
[2018-11-18] MEDS: NovoLOG Insulin Flexpen SUBQ SCH ×4 (06:06→20:54)
[2018-11-18 06:33] LABS: BASOPHILS % (AUTO) 1.2 % (0.0-2.0); EOSINOPHILS % (AUTO) 2.2 % (0.0-3.0); HEMATOCRIT 33.1 % (42.0-52.0); HEMOGLOBIN 10.8 G/DL (14.2-18.0); LYMPHOCYTES % (AUTO) 24.5 % (20.0-45.0); MEAN CORPUSCULAR VOLUME 97 FL (80-99); MONOCYTES % (AUTO) 9.5 % (1.0-10.0); NEUTROPHILS % (AUTO) 62.6 % (45.0-75.0); PLATELET COUNT 615 K/UL (150-450); RED BLOOD COUNT 3.41 M/UL (4.70-6.10); RED CELL DISTRIBUTION WIDTH 12.1 % (11.6-14.8); WHITE BLOOD COUNT 10.1 K/UL (4.8-10.8)
--- NOTE | 2018-11-18 06:43 | General Progress Note ---
Assessment/Plan Problem List: (1) Hyperglycemia ICD Codes: R73.9 - Hyperglycemia, unspecified SNOMED: 44348291 (2) Diabetes ICD Codes: E11.9 - Type 2 diabetes mellitus without complications SNOMED: 12044426 (3) Pneumonia ICD Codes: J18.9 - Pneumonia, unspecified organism SNOMED: 879885728 Assessment/Plan change Levemir to 20 units bid continue Starlix 120 mg ac tid continue NISS ac / hs Subjective ROS Limited/Unobtainable: Yes Allergies: Coded Allergies: No Known Allergies (Unverified , 11/04/18) Subjective events noted fasting glucose elevated Item Value Date Time Bedside Blood Glucose 316 mg/dl H 11/18/18 0606 Bedside Blood Glucose 230 mg/dl H 11/17/18 2038 Bedside Blood Glucose 324 mg/dl H 11/17/18 1624 Bedside Blood Glucose 122 mg/dl H 11/17/18 1130 Bedside Blood Glucose 183 mg/dl H 11/17/18 0943 Bedside Blood Glucose 99 mg/dl 11/17/18 0630 Objective Last 24 Hour Vital Signs Date Time Temp Pulse Resp B/P (MAP) Pulse Ox O2 Delivery O2 Flow Rate FiO2 11/18/18 04:00 76 11/18/18 04:00 2.0 11/18/18 04:00 99.1 76 18 119/68 (85) 95 11/18/18 03:43 98.2 11/18/18 01:25 59 19 Bi-pap 30 11/18/18 01:24 59 19 97 Full Face 30 11/18/18 00:00 60 11/18/18 00:00 50 11/18/18 00:00 98.2 60 18 121/75 (90) 98 11/17/18 23:06 65 23 95 Full Face 30 11/17/18 23:00 50 11/17/18 21:00 Nasal Cannula 2.0 11/17/18 20:00 99.3 69 18 138/76 (96) 96 11/17/18 20:00 66 11/17/18 20:00 2.0 11/17/18 19:10 95 Nasal Cannula 2.0 28 11/17/18 19:10 Nasal Cannula 2.0 28 11/17/18 16:00 73 11/17/18 16:00 97.5 72 17 114/63 (80) 94 11/17/18 16:00 2.0 11/17/18 12:00 67 11/17/18 12:00 98.0 65 17 126/80 (95) 95 11/17/18 12:00 2.0 11/17/18 09:00 Nasal Cannula 2.0 11/17/18 08:00 97.7 66 18 111/68 (82) 94 11/17/18 08:00 76 11/17/18 08:00 2.0 11/17/18 07:44 93 Nasal Cannula 3.0 32 11/17/18 07:44 Nasal Cannula 3.0 32 Intake and Output 11/17/18 11/18/18 18:59 06:59 Intake Total 585.000 ml 766.6 ml Output Total 548 ml 2250 ml Balance 37.000 ml -1483.4 ml Intake Oral 200 ml IV Total 385.000 ml 366.6 ml Other 400 ml Output Urine Total 530 ml 2250 ml Chest Tube Drainage Total 18 ml # Voids 4 Laboratory Tests 11/17/18 08:35: Potassium Level 4.8 11/17/18 12:50: Vancomycin Level Trough 8.9 11/18/18 05:30: White Blood Count [Pending], Red Blood Count [Pending], Hemoglobin [Pending], Hematocrit [Pending], Mean Corpuscular Volume [Pending], Mean Corpuscular Hemoglobin [Pending], Mean Corpuscular Hemoglobin Concent [Pending], Red Cell Distribution Width [Pending], Platelet Count [Pending], Mean Platelet Volume [ Pending], Neutrophils (%) (Auto) [Pending], Lymphocytes (%) (Auto) [Pending], Monocytes (%) (Auto) [Pending], Eosinophils (%) (Auto) [Pending], Basophils (%) (Auto) [Pending] Height (Feet): 5 Height (Inches): 6.00 Weight (Pounds): 184 General Appearance: no apparent distress Neck: normal alignment Cardiovascular: normal rate Respiratory/Chest: lungs clear Abdomen: normal bowel sounds Objective Current Medications Medications (Trade) Dose Ordered Sig/Des Route PRN Reason Start Time Stop Time Status Last Admin Dose Admin Acetaminophen (Tylenol) 650 mg Q4H PRN ORAL T>100.5 11/16/18 02:00 12/07/18 13:59 Acetaminophen/ Hydrocodone Bitart ([place] 10/325) 1 tab Q4H PRN ORAL Moderate Pain (Pain Scale 4-6) 11/16/18 02:00 11/21/18 13:59 11/17/18 16:22 Acetaminophen/ Hydrocodone Bitart ([place] 5/325) 1 tab Q4H PRN ORAL Mild Pain (Pain Scale 1-3) 11/15/18 22:30 11/21/18 14:29 Dextrose (Dextrose 50%) 25 ml Q30M PRN IV Hypoglycemia 11/15/18 22:30 12/08/18 19:29 Dextrose (Dextrose 50%) 50 ml Q30M PRN IV Hypoglycemia 11/15/18 22:30 12/08/18 19:29 Docusate Sodium (Colace) 100 mg TWICE A DAY ORAL 11/16/18 09:00 12/14/18 17:59 11/17/18 17:27 Famotidine (Pepcid) 20 mg BID ORAL 11/16/18 09:00 12/09/18 08:59 11/17/18 17:27 Heparin Sodium (Porcine) (Heparin 5000 units/ml) 5,000 units EVERY 12 HOURS SUBQ 11/16/18 09:00 12/15/18 08:59 11/17/18 20:36 Insulin Aspart (NovoLOG) BEFORE MEALS AND HS SUBQ 11/16/18 06:30 12/08/18 06:29 11/18/18 06:06 Insulin Detemir (Levemir) 16 units Q12HR SUBQ 11/16/18 09:00 12/15/18 08:59 11/17/18 20:37 Morphine Sulfate (Morphine Sulfate) 3 mg Q4H PRN IVP Severe Pain (Pain Scale 7-10) 11/16/18 00:30 11/21/18 16:29 11/18/18 03:13 Nateglinide (Starlix) 120 mg TIAC ORAL 11/16/18 06:30 12/09/18 06:29 11/18/18 06:04 Nitroglycerin (Ntg) 0.4 mg Q5MIN X 3 DOSES PRN SL Prn Chest Pain 11/15/18 22:15 12/14/18 13:44 Ondansetron HCl (Zofran) 4 mg Q6H PRN IVP Nausea & Vomiting 11/16/18 02:00 12/14/18 13:59 Polyethylene Glycol (Miralax) 17 gm DAILYPRN PRN ORAL Constipation 11/16/18 14:00 12/07/18 13:59 Promethazine HCl/ Codeine (Phenergan with Codeine) 5 ml Q4H PRN ORAL For Cough 11/15/18 22:15 12/10/18 14:14 Theophylline ([place]Dur) 100 mg EVERY 12 HOURS ORAL 11/16/18 09:00 12/10/18 20:59 11/17/18 20:37 Vancomycin HCl (Vanco rx to dose) 1 ea DAILY PRN MISC Per rx protocol 11/16/18 09:45 12/16/18 09:44 Vancomycin HCl/ Dextrose 275 ml @ 183.333 mls/hr Q8HR IVPB 11/17/18 22:00 11/22/18 21:59 11/18/18 06:04 Sonido Styles MD Nov 18, 2018 06:43
--- NOTE | 2018-11-18 07:18 | NUR ---
HAND-OFF: Report given to Audrey RN, pt. remains stable and no signs of distress noted.
[2018-11-18 08:00] VITALS: BP 113/70
--- NOTE | 2018-11-18 08:02 | NUR ---
NURSE NOTES: Pt in bed in low position, bed alarm on, call light at bedside, pt restless, pt complaining of pain 02/15, chest tube in place and showing bubbles on machine, IV intact and patent asymptomatic, urinal at bedside, social work lecturer to be done, pt Ox3, breakfast at bedside, 2L NC on, no s/s of distress or sob noted at this time.
[2018-11-18] MEDS: Theophylline ER 100mg ORAL SCH ×2 (08:27→20:52)
[2018-11-18] MEDS: Docusate 100mg cap ORAL SCH ×2 (08:28→17:17)
[2018-11-18] MEDS: Heparin 5000 units/ml inj SUBQ SCH ×2 (08:29→20:52)
[2018-11-18] MEDS: Levemir Flexpen SUBQ SCH ×2 (08:30→20:55)
--- NOTE | 2018-11-18 08:40 | Infectious Diseases Prog Note ---
Assessment/Plan Assessment/Plan Abx: Cefepime 11/08- IV Vancomycin 11/08- Ceftriaxone x1 11/07 Assessment: Sepsis- 2ry to PNA -CXR: Increased right suprahilar and basilar consolidative changes, since prior study 11/04/2018. Suspect developing small right pleural effusion -11/04 influenza sc neg 11/09/18 - S/P Thora - 1000 WBCs Path - Mo malignant cell seen Cx - NEG 11/14/18 - Debridement and decortication of right lung Cx - MRSA Fever- resolved Leukocytosis - recurrent Acute respiratory failure Initially on bipap but now on NC Dm2 Plan: - Continue Vancomycin #10/20-28 for MRSA empyema Will need an extend course of vanocmcyin 2-4 week depending on when Chest Tube removed and clinical response. Further imaging may be helpful to help determine if abx could be extended - 11/17/18 S/P Cefepime -11/13/18 S/P Vancomycin #7 -11/07 SP Ceftriaxone x1 -f.u lung abscess Cx -Monitor CBC/CMP, temperatures -aspiration precautions Will continue to follow along with you. Subjective Allergies: Coded Allergies: No Known Allergies (Unverified , 11/04/18) Subjective On 2LNC Afebrile Leukocytosis resolved Objective Vital Signs Last 24 Hour Vital Signs Date Time Temp Pulse Resp B/P (MAP) Pulse Ox O2 Delivery O2 Flow Rate FiO2 11/18/18 08:12 2.0 11/18/18 08:08 Nasal Cannula 2.0 11/18/18 04:00 76 11/18/18 04:00 2.0 11/18/18 04:00 99.1 76 18 119/68 (85) 95 11/18/18 03:43 98.2 11/18/18 01:25 59 19 Bi-pap 30 11/18/18 01:24 59 19 97 Full Face 30 11/18/18 00:00 60 11/18/18 00:00 50 11/18/18 00:00 98.2 60 18 121/75 (90) 98 11/17/18 23:06 65 23 95 Full Face 30 11/17/18 23:00 50 11/17/18 21:00 Nasal Cannula 2.0 11/17/18 20:00 99.3 69 18 138/76 (96) 96 11/17/18 20:00 66 11/17/18 20:00 2.0 11/17/18 19:10 95 Nasal Cannula 2.0 28 11/17/18 19:10 Nasal Cannula 2.0 28 11/17/18 16:00 73 11/17/18 16:00 97.5 72 17 114/63 (80) 94 11/17/18 16:00 2.0 11/17/18 12:00 67 11/17/18 12:00 98.0 65 17 126/80 (95) 95 11/17/18 12:00 2.0 11/17/18 09:00 Nasal Cannula 2.0 Height (Feet): 5 Height (Inches): 6.00 Weight (Pounds): 184 Objective Gen: NAD, On NC 2L and satting well HEENT: NCAT MMM, EOMI Respiratory/Chest: CTAB, No W, Chest tube in place Cardiovascular, RRR, normal peripheral pulses Abdomen: normal bowel sounds, soft Laboratory Tests Test 11/17/18 12:50 11/18/18 05:30 Vancomycin Level Trough 8.9 ug/mL (5.0-12.0) White Blood Count 10.1 K/UL (4.8-10.8) Red Blood Count 3.41 M/UL (4.70-6.10) L Hemoglobin 10.8 G/DL (14.2-18.0) L Hematocrit 33.1 % (42.0-52.0) L Mean Corpuscular Volume 97 FL (80-99) Mean Corpuscular Hemoglobin 31.7 PG (27.0-31.0) H Mean Corpuscular Hemoglobin Concent 32.7 G/DL (32.0-36.0) Red Cell Distribution Width 12.1 % (11.6-14.8) Platelet Count 615 K/UL (150-450) H Mean Platelet Volume 5.6 FL (6.5-10.1) L Neutrophils (%) (Auto) 62.6 % (45.0-75.0) Lymphocytes (%) (Auto) 24.5 % (20.0-45.0) Monocytes (%) (Auto) 9.5 % (1.0-10.0) Eosinophils (%) (Auto) 2.2 % (0.0-3.0) Basophils (%) (Auto) 1.2 % (0.0-2.0) Current Medications Medications (Trade) Dose Ordered Sig/Des Route PRN Reason Start Time Stop Time Status Last Admin Dose Admin Acetaminophen (Tylenol) 650 mg Q4H PRN ORAL T>100.5 11/16/18 02:00 12/07/18 13:59 Acetaminophen/ Hydrocodone Bitart ([place] 10/325) 1 tab Q4H PRN ORAL Moderate Pain (Pain Scale 4-6) 11/16/18 02:00 11/21/18 13:59 11/17/18 16:22 Acetaminophen/ Hydrocodone Bitart ([place] 5/325) 1 tab Q4H PRN ORAL Mild Pain (Pain Scale 1-3) 11/15/18 22:30 11/21/18 14:29 Dextrose (Dextrose 50%) 25 ml Q30M PRN IV Hypoglycemia 11/15/18 22:30 12/08/18 19:29 Dextrose (Dextrose 50%) 50 ml Q30M PRN IV Hypoglycemia 11/15/18 22:30 12/08/18 19:29 Docusate Sodium (Colace) 100 mg TWICE A DAY ORAL 11/16/18 09:00 12/14/18 17:59 11/18/18 08:28 Famotidine (Pepcid) 20 mg BID ORAL 11/16/18 09:00 12/09/18 08:59 11/18/18 08:27 Heparin Sodium (Porcine) (Heparin 5000 units/ml) 5,000 units EVERY 12 HOURS SUBQ 11/16/18 09:00 12/15/18 08:59 11/18/18 08:29 Insulin Aspart (NovoLOG) BEFORE MEALS AND HS SUBQ 11/16/18 06:30 12/08/18 06:29 11/18/18 06:06 Insulin Detemir (Levemir) 20 units Q12HR SUBQ 11/18/18 09:00 12/15/18 08:59 11/18/18 08:30 Morphine Sulfate (Morphine Sulfate) 3 mg Q4H PRN IVP Severe Pain (Pain Scale 7-10) 11/16/18 00:30 11/21/18 16:29 11/18/18 08:28 Nateglinide (Starlix) 120 mg TIAC ORAL 11/16/18 06:30 12/09/18 06:29 11/18/18 06:04 Nitroglycerin (Ntg) 0.4 mg Q5MIN X 3 DOSES PRN SL Prn Chest Pain 11/15/18 22:15 12/14/18 13:44 Ondansetron HCl (Zofran) 4 mg Q6H PRN IVP Nausea & Vomiting 11/16/18 02:00 12/14/18 13:59 Polyethylene Glycol (Miralax) 17 gm DAILYPRN PRN ORAL Constipation 11/16/18 14:00 12/07/18 13:59 Promethazine HCl/ Codeine (Phenergan with Codeine) 5 ml Q4H PRN ORAL For Cough 11/15/18 22:15 12/10/18 14:14 Theophylline ([place]) 100 mg EVERY 12 HOURS ORAL 11/16/18 09:00 12/10/18 20:59 11/18/18 08:27 Vancomycin HCl (Vanco rx to dose) 1 ea DAILY PRN MISC Per rx protocol 11/16/18 09:45 12/16/18 09:44 Vancomycin HCl/ Dextrose 275 ml @ 183.333 mls/hr Q8HR IVPB 11/17/18 22:00 11/22/18 21:59 11/18/18 06:04 Hamilton Del Cid MD Nov 18, 2018 08:39
--- NOTE | 2018-11-18 09:23 | Nephrology Progress Note ---
Assessment/Plan Problem List: (1) Hyponatremia Assessment: SIADH (2) Acute respiratory failure (3) Hyperglycemia (4) Pneumonia (5) Diabetes Assessment Pneumonia Low Na due to high BS Sepsis Respiratory failure Diabetes OOC with proteinuria Anemia Plan no lab today repeat K wnl 11/07 Chest tube care right side ha out on tele [place] UOs uric acid indicates SIADH fluid restriction monitor lytes TSH Lipid per orders Subjective ROS Limited/Unobtainable: No Constitutional: Reports: malaise Objective Objective Last 24 Hour Vital Signs Date Time Temp Pulse Resp B/P (MAP) Pulse Ox O2 Delivery O2 Flow Rate FiO2 11/18/18 08:58 99.1 11/18/18 08:57 Nasal Cannula 2.0 28 11/18/18 08:57 97 Nasal Cannula 2.0 28 11/18/18 08:12 2.0 11/18/18 08:08 Nasal Cannula 2.0 11/18/18 08:00 98.2 73 20 113/70 (84) 95 11/18/18 04:00 76 11/18/18 04:00 2.0 11/18/18 04:00 99.1 76 18 119/68 (85) 95 11/18/18 01:25 59 19 Bi-pap 30 11/18/18 01:24 59 19 97 Full Face 30 11/18/18 00:00 60 11/18/18 00:00 50 11/18/18 00:00 98.2 60 18 121/75 (90) 98 11/17/18 23:06 65 23 95 Full Face 30 11/17/18 23:00 50 11/17/18 21:00 Nasal Cannula 2.0 11/17/18 20:00 99.3 69 18 138/76 (96) 96 11/17/18 20:00 66 11/17/18 20:00 2.0 11/17/18 19:10 95 Nasal Cannula 2.0 28 11/17/18 19:10 Nasal Cannula 2.0 28 11/17/18 16:00 73 11/17/18 16:00 97.5 72 17 114/63 (80) 94 11/17/18 16:00 2.0 11/17/18 12:00 67 11/17/18 12:00 98.0 65 17 126/80 (95) 95 11/17/18 12:00 2.0 Intake and Output 11/17/18 11/18/18 19:00 07:00 Intake Total 585.000 ml 766.6 ml Output Total 548 ml 2250 ml Balance 37.000 ml -1483.4 ml Intake Oral 200 ml IV Total 385.000 ml 366.6 ml Other 400 ml Output Urine Total 530 ml 2250 ml Chest Tube Drainage Total 18 ml # Voids 4 Laboratory Tests 11/17/18 12:50: Vancomycin Level Trough 8.9 11/18/18 05:30: White Blood Count 10.1, Red Blood Count 3.41L, Hemoglobin 10.8L, Hematocrit 33.1L, Mean Corpuscular Volume 97, Mean Corpuscular Hemoglobin 31.7H, Mean Corpuscular Hemoglobin Concent 32.7, Red Cell Distribution Width 12.1, Platelet Count 615H, Mean Platelet Volume 5.6L, Neutrophils (%) (Auto) 62.6, Lymphocytes (%) (Auto) 24.5, Monocytes (%) (Auto) 9.5, Eosinophils (%) (Auto) 2.2, Basophils (%) (Auto) 1.2 Height (Feet): 5 Height (Inches): 6.00 Weight (Pounds): 184 General Appearance: no apparent distress Cardiovascular: normal rate Respiratory/Chest: other - right chest tube Abdomen: distended Objective no other change Sedrick Cordova MD Nov 18, 2018 09:23
--- NOTE | 2018-11-18 09:26 | NUR ---
RADIOLOGY DEPT., CHEST X-RAY DONE.-P.DYE
--- NOTE | 2018-11-18 11:34 | Pulmonology Progress Note ---
Assessment/Plan Problems: (1) Empyema pleura (2) Acute respiratory failure (3) Pneumonia (4) Sepsis (5) Hyperglycemia (6) Diabetes Assessment/Plan chest tube in place and on suction wbc coming down sliding scale iv abx MRSA in pleural cavity Subjective Interval Events: chest tube still drainign Allergies: Coded Allergies: No Known Allergies (Unverified , 11/04/18) Objective Last 24 Hour Vital Signs Date Time Temp Pulse Resp B/P (MAP) Pulse Ox O2 Delivery O2 Flow Rate FiO2 11/18/18 08:58 99.1 11/18/18 08:57 Nasal Cannula 2.0 28 11/18/18 08:57 97 Nasal Cannula 2.0 28 11/18/18 08:12 2.0 11/18/18 08:08 Nasal Cannula 2.0 11/18/18 08:00 98.2 73 20 113/70 (84) 95 11/18/18 07:39 80 11/18/18 04:00 76 11/18/18 04:00 2.0 11/18/18 04:00 99.1 76 18 119/68 (85) 95 11/18/18 01:25 59 19 Bi-pap 30 11/18/18 01:24 59 19 97 Full Face 30 11/18/18 00:00 60 11/18/18 00:00 50 11/18/18 00:00 98.2 60 18 121/75 (90) 98 11/17/18 23:06 65 23 95 Full Face 30 11/17/18 23:00 50 11/17/18 21:00 Nasal Cannula 2.0 11/17/18 20:00 99.3 69 18 138/76 (96) 96 11/17/18 20:00 66 11/17/18 20:00 2.0 11/17/18 19:10 95 Nasal Cannula 2.0 28 11/17/18 19:10 Nasal Cannula 2.0 28 11/17/18 16:00 73 11/17/18 16:00 97.5 72 17 114/63 (80) 94 11/17/18 16:00 2.0 11/17/18 12:00 67 11/17/18 12:00 98.0 65 17 126/80 (95) 95 11/17/18 12:00 2.0 Intake and Output 11/17/18 11/18/18 19:00 07:00 Intake Total 585.000 ml 766.6 ml Output Total 548 ml 2250 ml Balance 37.000 ml -1483.4 ml Intake Oral 200 ml IV Total 385.000 ml 366.6 ml Other 400 ml Output Urine Total 530 ml 2250 ml Chest Tube Drainage Total 18 ml # Voids 4 Objective General Appearance: WD/WN Lines, tubes and drains: peripheral HEENT: normocephalic, anicteric Neck: non-tender, normal alignment Respiratory/Chest: chest wall non-tender, lungs clear Breasts: no masses Cardiovascular/Chest: normal peripheral pulses Abdomen: normal bowel sounds Genitourinary/Rectal: normal genital Laboratory Tests 11/17/18 12:50: Vancomycin Level Trough 8.9 11/18/18 05:30: White Blood Count 10.1, Red Blood Count 3.41L, Hemoglobin 10.8L, Hematocrit 33.1L, Mean Corpuscular Volume 97, Mean Corpuscular Hemoglobin 31.7H, Mean Corpuscular Hemoglobin Concent 32.7, Red Cell Distribution Width 12.1, Platelet Count 615H, Mean Platelet Volume 5.6L, Neutrophils (%) (Auto) 62.6, Lymphocytes (%) (Auto) 24.5, Monocytes (%) (Auto) 9.5, Eosinophils (%) (Auto) 2.2, Basophils (%) (Auto) 1.2 Current Medications Medications (Trade) Dose Ordered Sig/Des Route PRN Reason Start Time Stop Time Status Last Admin Dose Admin Acetaminophen (Tylenol) 650 mg Q4H PRN ORAL T>100.5 11/16/18 02:00 12/07/18 13:59 Acetaminophen/ Hydrocodone Bitart ([place] 10/325) 1 tab Q4H PRN ORAL Moderate Pain (Pain Scale 4-6) 11/16/18 02:00 11/21/18 13:59 11/17/18 16:22 Acetaminophen/ Hydrocodone Bitart ([place] 5/325) 1 tab Q4H PRN ORAL Mild Pain (Pain Scale 1-3) 11/15/18 22:30 11/21/18 14:29 Dextrose (Dextrose 50%) 25 ml Q30M PRN IV Hypoglycemia 11/15/18 22:30 12/08/18 19:29 Dextrose (Dextrose 50%) 50 ml Q30M PRN IV Hypoglycemia 11/15/18 22:30 12/08/18 19:29 Docusate Sodium (Colace) 100 mg TWICE A DAY ORAL 11/16/18 09:00 12/14/18 17:59 11/18/18 08:28 Famotidine (Pepcid) 20 mg BID ORAL 11/16/18 09:00 12/09/18 08:59 11/18/18 08:27 Heparin Sodium (Porcine) (Heparin 5000 units/ml) 5,000 units EVERY 12 HOURS SUBQ 11/16/18 09:00 12/15/18 08:59 11/18/18 08:29 Insulin Aspart (NovoLOG) BEFORE MEALS AND HS SUBQ 11/16/18 06:30 12/08/18 06:29 11/18/18 06:06 Insulin Detemir (Levemir) 20 units Q12HR SUBQ 11/18/18 09:00 12/15/18 08:59 11/18/18 08:30 Morphine Sulfate (Morphine Sulfate) 4 mg EVERY 3 HOURS PRN IVP Severe Pain (Pain Scale 7-10) 11/18/18 11:45 11/21/18 16:29 UNV Nateglinide (Starlix) 120 mg TIAC ORAL 11/16/18 06:30 12/09/18 06:29 11/18/18 06:04 Nitroglycerin (Ntg) 0.4 mg Q5MIN X 3 DOSES PRN SL Prn Chest Pain 11/15/18 22:15 12/14/18 13:44 Ondansetron HCl (Zofran) 4 mg Q6H PRN IVP Nausea & Vomiting 11/16/18 02:00 12/14/18 13:59 Polyethylene Glycol (Miralax) 17 gm DAILYPRN PRN ORAL Constipation 11/16/18 14:00 12/07/18 13:59 11/18/18 09:04 Promethazine HCl/ Codeine (Phenergan with Codeine) 5 ml Q4H PRN ORAL For Cough 11/15/18 22:15 12/10/18 14:14 Theophylline ([place]) 100 mg EVERY 12 HOURS ORAL 11/16/18 09:00 12/10/18 20:59 11/18/18 08:27 Vancomycin HCl (Vanco rx to dose) 1 ea DAILY PRN MISC Per rx protocol 11/16/18 09:45 12/16/18 09:44 Vancomycin HCl/ Dextrose 275 ml @ 183.333 mls/hr Q8HR IVPB 11/17/18 22:00 11/22/18 21:59 11/18/18 06:04 Yeimi Phelps MD Nov 18, 2018 11:34
[2018-11-18 12:00] VITALS: BP 114/70
--- NOTE | 2018-11-18 12:07 | Diagnostic Imaging Report ---
Indication: Shortness of breath Technique: One view of the chest Comparison: 11/17/2018 Findings: Interstitial and airspace disease throughout the right lung is unchanged. Right-sided pleural effusion and thickening is unchanged. Right chest tube remains. There is no pneumothorax. The heart is enlarged. The left lung is clear. There is equivocal slight blunting of left costophrenic sulcus, small effusion not excludable. Findings are otherwise unchanged Impression: Possible new small left pleural effusion. Otherwise, little filter changer one day, findings as noted
--- NOTE | 2018-11-18 13:06 | NUR ---
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 ACUTE RESP FAILURE . PNA . HYPONATREMIA VS: BP 114/70, P 70, T 99.1, RR 20, SpO2 95 on 2.0L O2 NC RBC 3.41, Hgb 10.8, Hct 33.1 CXR Impression: Possible new small left pleural effusion. IS:LEVEMIR SUBQ VANCOMYCIN 275ml IVPB PEPCID 20mg HEPARIN SUBQ ANANYA-DUR 100mg NOVOLOG SUBQ STARLIX 120mg MORPHINE 3mg IVP TELE STATUS
[2018-11-18] MEDS ORDERED: 1/2 NS 1000ml IV ONE (15:54)
[2018-11-18 16:00] VITALS: BP 105/63
[2018-11-18] MEDS ORDERED: Tubing IV Secondary IV ONE (16:00)
[2018-11-18] MEDS ORDERED: NS 275ml ONE (16:00)
[2018-11-18 20:00] VITALS: BP 113/66
--- NOTE | 2018-11-18 20:10 | NUR ---
NURSE NOTES: Received report from KRISTI Adkins. Patient is awake lying semi-lora's; resting comfortably. No signs of acute distress noted; denies pain at this time. On 2L nasal cannula. AOx4; able to make needs known. Primarily Pashto speaking. Patient able to reposition himself in the bed. Checked IV site; patent and flushed. No erythema, bleeding, or infiltration noted. No bleeding noted on right Pleur-Evac chest tube site. Bed at lowest position, brakes on, siderails up x3. Call light within reach. Will continue to monitor.
--- NOTE | 2018-11-18 21:15 | General Progress Note ---
Assessment/Plan Problem List: (1) Acute respiratory failure ICD Codes: J96.00 - Acute respiratory failure, unspecified whether with hypoxia or hypercapnia SNOMED: 52955045 (2) Diabetes ICD Codes: E11.9 - Type 2 diabetes mellitus without complications SNOMED: 45819696 (3) Hyperglycemia ICD Codes: R73.9 - Hyperglycemia, unspecified SNOMED: 65591528 (4) Respiratory failure ICD Codes: J96.90 - Respiratory failure, unspecified, unspecified whether with hypoxia or hypercapnia SNOMED: 355615647 (5) Sepsis ICD Codes: A41.9 - Sepsis, unspecified organism SNOMED: 13751199 (6) Pneumonia ICD Codes: J18.9 - Pneumonia, unspecified organism SNOMED: 485719327 Status: progressing Assessment/Plan check sugar vitals good niddm pna sepsis improving Subjective ROS Limited/Unobtainable: Yes Allergies: Coded Allergies: No Known Allergies (Unverified , 11/04/18) Objective Last 24 Hour Vital Signs Date Time Temp Pulse Resp B/P (MAP) Pulse Ox O2 Delivery O2 Flow Rate FiO2 11/18/18 16:00 2.0 11/18/18 16:00 98.1 62 18 105/63 (77) 96 11/18/18 15:34 61 11/18/18 15:03 99.0 11/18/18 12:00 2.0 11/18/18 12:00 99.0 70 20 114/70 (85) 95 11/18/18 11:46 67 11/18/18 08:58 99.1 11/18/18 08:57 Nasal Cannula 2.0 28 11/18/18 08:57 97 Nasal Cannula 2.0 28 11/18/18 08:12 2.0 11/18/18 08:08 Nasal Cannula 2.0 11/18/18 08:00 98.2 73 20 113/70 (84) 95 11/18/18 07:39 80 11/18/18 04:00 76 11/18/18 04:00 2.0 11/18/18 04:00 99.1 76 18 119/68 (85) 95 11/18/18 01:25 59 19 Bi-pap 30 11/18/18 01:24 59 19 97 Full Face 30 11/18/18 00:00 60 11/18/18 00:00 50 11/18/18 00:00 98.2 60 18 121/75 (90) 98 11/17/18 23:06 65 23 95 Full Face 30 11/17/18 23:00 50 Intake and Output 11/17/18 11/18/18 19:00 07:00 Intake Total 585.000 ml 766.6 ml Output Total 548 ml 2250 ml Balance 37.000 ml -1483.4 ml Intake Oral 200 ml IV Total 385.000 ml 366.6 ml Other 400 ml Output Urine Total 530 ml 2250 ml Chest Tube Drainage Total 18 ml # Voids 4 Laboratory Tests 11/18/18 05:30: White Blood Count 10.1, Red Blood Count 3.41L, Hemoglobin 10.8L, Hematocrit 33.1L, Mean Corpuscular Volume 97, Mean Corpuscular Hemoglobin 31.7H, Mean Corpuscular Hemoglobin Concent 32.7, Red Cell Distribution Width 12.1, Platelet Count 615H, Mean Platelet Volume 5.6L, Neutrophils (%) (Auto) 62.6, Lymphocytes (%) (Auto) 24.5, Monocytes (%) (Auto) 9.5, Eosinophils (%) (Auto) 2.2, Basophils (%) (Auto) 1.2 11/18/18 20:53: Vancomycin Level Trough [Pending] Height (Feet): 5 Height (Inches): 6.00 Weight (Pounds): 184 Cardiovascular: normal rate Respiratory/Chest: lungs clear Navin Myers MD Nov 18, 2018 21:15
[2018-11-19] VITALS: BP 112/65
[2018-11-19] MEDS: Vancomycin 1.25gm Premix q24h IVPB SCH ×2 (00:12→06:10)
[2018-11-19] MEDS: Morphine Sulfate 4mg/ml Inj (IV USE ONLY) IVP PRN ×3 (00:13→23:09)
[2018-11-19 04:00] VITALS: BP 96/56
--- NOTE | 2018-11-19 04:44 | NUR ---
NURSE NOTES: Patient is asleep lying semi-lora's; resting comfortably. No signs of acute distress or pain noted at this time. On 2L nasal cannula. Pleur-Evac chest tube still in place on water suction.
[2018-11-19] MEDS: NovoLOG Insulin Flexpen SUBQ SCH ×4 (06:15→21:02)
--- NOTE | 2018-11-19 07:49 | Infectious Diseases Prog Note ---
Assessment/Plan Assessment/Plan Abx: Cefepime 11/08- IV Vancomycin 11/08- Ceftriaxone x1 11/07 Assessment: Sepsis- 2ry to PNA -CXR: Increased right suprahilar and basilar consolidative changes, since prior study 11/04/2018. Suspect developing small right pleural effusion -11/04 influenza sc neg 11/09/18 - S/P Thora - 1000 WBCs Path - Mo malignant cell seen Cx - NEG 11/14/18 - Debridement and decortication of right lung Cx - MRSA Fever- resolved Leukocytosis - recurrent Acute respiratory failure Initially on bipap but now on NC Dm2 Plan: - Continue Vancomycin #11/20-28 for MRSA empyema Will need an extend course of vanocmcyin 2-4 week depending on when Chest Tube removed and clinical response. Further imaging may be helpful to help determine if abx could be extended - 11/17/18 S/P Cefepime -11/13/18 S/P Vancomycin #7 -11/07 SP Ceftriaxone x1 -f.u lung abscess Cx -Monitor CBC/CMP, temperatures -aspiration precautions Will continue to follow along with you. Subjective Allergies: Coded Allergies: No Known Allergies (Unverified , 11/04/18) Subjective Afebrile Leukocytosis resolved Objective Vital Signs Last 24 Hour Vital Signs Date Time Temp Pulse Resp B/P (MAP) Pulse Ox O2 Delivery O2 Flow Rate FiO2 11/19/18 07:19 Nasal Cannula 2.0 28 11/19/18 07:19 98 Nasal Cannula 2.0 28 11/19/18 04:00 2.0 11/19/18 04:00 62 11/19/18 04:00 97.2 59 18 96/56 (69) 97 11/19/18 01:05 60 16 93 Full Face 30 11/19/18 00:00 50 11/19/18 00:00 62 11/19/18 00:00 98.7 66 17 112/65 (81) 98 11/18/18 23:30 62 17 94 Full Face 30 11/18/18 21:00 Nasal Cannula 2.0 11/18/18 20:00 68 11/18/18 20:00 98.8 65 17 113/66 (82) 92 11/18/18 20:00 2.0 11/18/18 19:00 Nasal Cannula 2.0 28 11/18/18 19:00 93 Nasal Cannula 2.0 28 11/18/18 16:00 2.0 11/18/18 16:00 98.1 62 18 105/63 (77) 96 11/18/18 15:34 61 11/18/18 15:03 99.0 11/18/18 12:00 2.0 11/18/18 12:00 99.0 70 20 114/70 (85) 95 11/18/18 11:46 67 11/18/18 08:58 99.1 11/18/18 08:57 Nasal Cannula 2.0 28 11/18/18 08:57 97 Nasal Cannula 2.0 28 11/18/18 08:12 2.0 11/18/18 08:08 Nasal Cannula 2.0 11/18/18 08:00 98.2 73 20 113/70 (84) 95 Height (Feet): 5 Height (Inches): 6.00 Weight (Pounds): 184 Objective Gen: NAD, On NC 2L HEENT: NCAT MMM, EOMI Respiratory/Chest: CTAB, No W, Chest tube in place Cardiovascular, RRR, normal peripheral pulses Abdomen: normal bowel sounds, soft Laboratory Tests Test 11/18/18 20:53 Vancomycin Level Trough 15.2 ug/mL (5.0-12.0) H Current Medications Medications (Trade) Dose Ordered Sig/Des Route PRN Reason Start Time Stop Time Status Last Admin Dose Admin Acetaminophen (Tylenol) 650 mg Q4H PRN ORAL T>100.5 11/16/18 02:00 12/07/18 13:59 Acetaminophen/ Hydrocodone Bitart ([place] 10/325) 1 tab Q4H PRN ORAL Moderate Pain (Pain Scale 4-6) 11/16/18 02:00 11/21/18 13:59 11/17/18 16:22 Acetaminophen/ Hydrocodone Bitart ([place] 5/325) 1 tab Q4H PRN ORAL Mild Pain (Pain Scale 1-3) 11/15/18 22:30 11/21/18 14:29 Dextrose (Dextrose 50%) 25 ml Q30M PRN IV Hypoglycemia 11/15/18 22:30 12/08/18 19:29 Dextrose (Dextrose 50%) 50 ml Q30M PRN IV Hypoglycemia 11/15/18 22:30 12/08/18 19:29 Docusate Sodium (Colace) 100 mg TWICE A DAY ORAL 11/16/18 09:00 12/14/18 17:59 11/18/18 17:17 Famotidine (Pepcid) 20 mg BID ORAL 11/16/18 09:00 12/09/18 08:59 11/18/18 17:17 Heparin Sodium (Porcine) (Heparin 5000 units/ml) 5,000 units EVERY 12 HOURS SUBQ 11/16/18 09:00 12/15/18 08:59 11/18/18 20:52 Insulin Aspart (NovoLOG) BEFORE MEALS AND HS SUBQ 11/16/18 06:30 12/08/18 06:29 11/19/18 06:15 Insulin Detemir (Levemir) 20 units Q12HR SUBQ 11/18/18 09:00 12/15/18 08:59 11/18/18 20:55 Morphine Sulfate (Morphine Sulfate) 4 mg Q3H PRN IVP Severe Pain (Pain Scale 7-10) 11/18/18 11:45 11/25/18 11:44 11/19/18 03:56 Nateglinide (Starlix) 120 mg TIAC ORAL 11/16/18 06:30 12/09/18 06:29 11/19/18 06:10 Nitroglycerin (Ntg) 0.4 mg Q5MIN X 3 DOSES PRN SL Prn Chest Pain 11/15/18 22:15 12/14/18 13:44 Ondansetron HCl (Zofran) 4 mg Q6H PRN IVP Nausea & Vomiting 11/16/18 02:00 12/14/18 13:59 Polyethylene Glycol (Miralax) 17 gm DAILYPRN PRN ORAL Constipation 11/16/18 14:00 12/07/18 13:59 11/18/18 09:04 Promethazine HCl/ Codeine (Phenergan with Codeine) 5 ml Q4H PRN ORAL For Cough 11/15/18 22:15 12/10/18 14:14 Theophylline ([place]Dur) 100 mg EVERY 12 HOURS ORAL 11/16/18 09:00 12/10/18 20:59 11/18/18 20:52 Vancomycin HCl (Vanco rx to dose) 1 ea DAILY PRN MISC Per rx protocol 11/16/18 09:45 12/16/18 09:44 Vancomycin HCl/ Dextrose 275 ml @ 183.333 mls/hr Q8HR IVPB 11/17/18 22:00 11/22/18 21:59 11/19/18 06:10 Hamilton Del Cid MD Nov 19, 2018 07:49
--- NOTE | 2018-11-19 07:51 | NUR ---
HAND-OFF: Report given to KRISTI Joyner. Patient is awake lying high-lora's eating breakfast. Chest tube in place on water suction. In stable condition.
--- NOTE | 2018-11-19 07:54 | General Progress Note ---
Assessment/Plan Problem List: (1) Hyperglycemia ICD Codes: R73.9 - Hyperglycemia, unspecified SNOMED: 58749552 (2) Diabetes ICD Codes: E11.9 - Type 2 diabetes mellitus without complications SNOMED: 13174464 (3) Pneumonia ICD Codes: J18.9 - Pneumonia, unspecified organism SNOMED: 070238036 Assessment/Plan add Metformin 500 mg tid continue Levemir to 20 units bid continue Starlix 120 mg ac tid continue NISS ac / hs Subjective Allergies: Coded Allergies: No Known Allergies (Unverified , 11/04/18) All Systems: reviewed and negative except above Subjective events noted having breakfast on his phone fasting glucose controlled meal time glucose elevated Item Value Date Time Bedside Blood Glucose 172 mg/dl H 11/19/18 0630 Bedside Blood Glucose 244 mg/dl H 11/18/18 2100 Bedside Blood Glucose 236 mg/dl H 11/18/18 1713 Bedside Blood Glucose 204 mg/dl H 11/18/18 1206 Coma Scale Total 15 Points 11/18/18 0808 Objective Last 24 Hour Vital Signs Date Time Temp Pulse Resp B/P (MAP) Pulse Ox O2 Delivery O2 Flow Rate FiO2 11/19/18 07:19 Nasal Cannula 2.0 28 11/19/18 07:19 98 Nasal Cannula 2.0 28 11/19/18 04:00 2.0 11/19/18 04:00 62 11/19/18 04:00 97.2 59 18 96/56 (69) 97 11/19/18 01:05 60 16 93 Full Face 30 11/19/18 00:00 50 11/19/18 00:00 62 11/19/18 00:00 98.7 66 17 112/65 (81) 98 11/18/18 23:30 62 17 94 Full Face 30 11/18/18 21:00 Nasal Cannula 2.0 11/18/18 20:00 68 11/18/18 20:00 98.8 65 17 113/66 (82) 92 11/18/18 20:00 2.0 11/18/18 19:00 Nasal Cannula 2.0 28 11/18/18 19:00 93 Nasal Cannula 2.0 28 11/18/18 16:00 2.0 11/18/18 16:00 98.1 62 18 105/63 (77) 96 11/18/18 15:34 61 4/12/19 15:03 99.0 11/18/18 12:00 2.0 11/18/18 12:00 99.0 70 20 114/70 (85) 95 11/18/18 11:46 67 11/18/18 08:58 99.1 11/18/18 08:57 Nasal Cannula 2.0 28 11/18/18 08:57 97 Nasal Cannula 2.0 28 11/18/18 08:12 2.0 11/18/18 08:08 Nasal Cannula 2.0 11/18/18 08:00 98.2 73 20 113/70 (84) 95 Intake and Output 11/18/18 11/19/18 18:59 06:59 Intake Total 903.3 ml 250 ml Output Total 1800 ml 1000 ml Balance -896.7 ml -750 ml Intake Oral 720 ml IV Total 183.3 ml Other 250 ml Output Urine Total 1800 ml 1000 ml # Voids 4 Laboratory Tests 11/18/18 20:53: Vancomycin Level Trough 15.2H Height (Feet): 5 Height (Inches): 6.00 Weight (Pounds): 184 Neck: normal alignment Cardiovascular: normal rate Respiratory/Chest: lungs clear Abdomen: normal bowel sounds Pelvis: normal external exam Edema: 1+ Arm (L), 1+ Arm (R), 1+ Leg (L), 1+ Leg (R), 1+ Pedal (L), 1+ Pedal ( R), 1+ Generalized Objective Current Medications Medications (Trade) Dose Ordered Sig/Des Route PRN Reason Start Time Stop Time Status Last Admin Dose Admin Acetaminophen (Tylenol) 650 mg Q4H PRN ORAL T>100.5 11/16/18 02:00 12/07/18 13:59 Acetaminophen/ Hydrocodone Bitart ([place] 10/325) 1 tab Q4H PRN ORAL Moderate Pain (Pain Scale 4-6) 11/16/18 02:00 11/21/18 13:59 11/17/18 16:22 Acetaminophen/ Hydrocodone Bitart ([place] 5/325) 1 tab Q4H PRN ORAL Mild Pain (Pain Scale 1-3) 11/15/18 22:30 11/21/18 14:29 Dextrose (Dextrose 50%) 25 ml Q30M PRN IV Hypoglycemia 11/15/18 22:30 5//19 19:29 Dextrose (Dextrose 50%) 50 ml Q30M PRN IV Hypoglycemia 11/15/18 22:30 12/08/18 19:29 Docusate Sodium (Colace) 100 mg TWICE A DAY ORAL 11/16/18 09:00 12/14/18 17:59 11/18/18 17:17 Famotidine (Pepcid) 20 mg BID ORAL 11/16/18 09:00 12/09/18 08:59 11/18/18 17:17 Heparin Sodium (Porcine) (Heparin 5000 units/ml) 5,000 units EVERY 12 HOURS SUBQ 11/16/18 09:00 12/15/18 08:59 11/18/18 20:52 Insulin Aspart (NovoLOG) BEFORE MEALS AND HS SUBQ 11/16/18 06:30 12/08/18 06:29 11/19/18 06:15 Insulin Detemir (Levemir) 20 units Q12HR SUBQ 11/18/18 09:00 12/15/18 08:59 11/18/18 20:55 Morphine Sulfate (Morphine Sulfate) 4 mg Q3H PRN IVP Severe Pain (Pain Scale 7-10) 11/18/18 11:45 11/25/18 11:44 11/19/18 03:56 Nateglinide (Starlix) 120 mg TIAC ORAL 11/16/18 06:30 12/09/18 06:29 11/19/18 06:10 Nitroglycerin (Ntg) 0.4 mg Q5MIN X 3 DOSES PRN SL Prn Chest Pain 11/15/18 22:15 12/14/18 13:44 Ondansetron HCl (Zofran) 4 mg Q6H PRN IVP Nausea & Vomiting 11/16/18 02:00 12/14/18 13:59 Polyethylene Glycol (Miralax) 17 gm DAILYPRN PRN ORAL Constipation 11/16/18 14:00 12/07/18 13:59 11/18/18 09:04 Promethazine HCl/ Codeine (Phenergan with Codeine) 5 ml Q4H PRN ORAL For Cough 11/15/18 22:15 12/10/18 14:14 Theophylline ([place]-Dur) 100 mg EVERY 12 HOURS ORAL 11/16/18 09:00 12/10/18 20:59 11/18/18 20:52 Vancomycin HCl (Vanco rx to dose) 1 ea DAILY PRN MISC Per rx protocol 11/16/18 09:45 12/16/18 09:44 Vancomycin HCl/ Dextrose 275 ml @ 183.333 mls/hr Q8HR IVPB 11/17/18 22:00 11/22/18 21:59 11/19/18 06:10 Sonido Styles MD Nov 19, 2018 07:54
[2018-11-19 08:00] VITALS: BP 124/71
--- NOTE | 2018-11-19 08:00 | NUR ---
NURSE NOTES: Pt in bed in low position, call light at bedside with bed alarm on, pt sitting in bed, pt Ox4 Sami speaking with limited Tongan, IV site LT W 20 placed 11/18, chest xray done, Md Nino stated he is coming in today to remove chest tube pending xray results, pt has breakfast at bedside, pt reports pain level of 5/10, no s/s of distress or sob noted, chest tube in place and machine bubbling.
[2018-11-19] MEDS: Heparin 5000 units/ml inj SUBQ SCH ×3 (09:00→21:01)
--- NOTE | 2018-11-19 09:02 | Diagnostic Imaging Report ---
EXAM: XR Chest, 1 View. CLINICAL HISTORY: Chest pain TECHNIQUE: Frontal view of the chest. COMPARISON: 11/18/18 at 0754 hrs. FINDINGS: Lungs: Again seen is a left-sided chest tube with the tip at the right apex. Slightly improved aeration within the right lung. Residual atelectasis or airspace consolidation is seen in the right lower and middle lobes. Left lung is well aerated. Pleural spaces: Unremarkable. No pneumothorax. Heart: Unremarkable. No cardiomegaly. Mediastinum: No mediastinal widening or shift. Bones: Unremarkable. No acute fracture. IMPRESSION: Slight improved aeration of the right lung. Otherwise no interval change since the prior study.
[2018-11-19] MEDS: Theophylline ER 100mg ORAL SCH ×2 (09:05→21:00)
[2018-11-19] MEDS: Docusate 100mg cap ORAL SCH ×2 (09:05→17:19)
[2018-11-19] MEDS: Levemir Flexpen SUBQ SCH ×2 (09:10→21:02)
[2018-11-19] MEDS: HYDROcodone/Acetamin 10/325 tab ORAL PRN (09:39)
--- NOTE | 2018-11-19 11:03 | NUR ---
NURSE NOTES: Chest tube removed by Dr Nino, chest xray taken right after and results given to , states pt is clear from his stand point, left prescription of norco 5/325 which is in chart. He said he was going to contact Dr Phelps about removal and results
--- NOTE | 2018-11-19 11:14 | Diagnostic Imaging Report ---
EXAM: XR Chest, 1 View CLINICAL HISTORY: PREOP TECHNIQUE: Frontal view of the chest. COMPARISON: Chest x-ray dated 11/19/18. FINDINGS: Lungs: Residual atelectasis versus consolidation in the right mid and lower lung, not significantly changed. Pleural space: Small right pleural effusion. Heart: Unremarkable. No cardiomegaly. Mediastinum: Unremarkable. Bones/joints: Unremarkable. Tubes, lines and devices: Telemetry leads overlie the thorax. Tract from the right-sided chest tube noted in the right thorax. IMPRESSION: 1. Residual atelectasis versus consolidation in the right mid and lower lung, not significantly changed. 2. Small right pleural effusion.
[2018-11-19] MEDS ORDERED: metFORMIN 500mg tab ORAL SCH (11:30)
[2018-11-19 12:00] VITALS: BP 139/69
[2018-11-19] MEDS ORDERED: Nitroglycerin Subl 0.4mg tab SL PRN (13:30)
--- NOTE | 2018-11-19 13:33 | NUR ---
NURSE NOTES: Transfer order in, pt aware, FANCY STITCHER Matilde aware of transfer, will be transferring pt at 1430
[2018-11-19] MEDS ORDERED: Miralax 17gm pkt ORAL PRN (14:00)
[2018-11-19] MEDS ORDERED: Promethazine/Codeine 5ml UD ORAL PRN (14:15)
[2018-11-19] MEDS ORDERED: HYDROcodone/Acetamin 5/325 tab ORAL PRN (14:30)
--- NOTE | 2018-11-19 14:32 | NUR ---
CASE MANAGEMENT: REVIEW SI: PLEURAL EFFUSION . PNA RIGHT VATS , DRAINING OF ABSCESS 11/14 RIGHT THORACENTESIS 11/09 T 96.9 HR 64 RR 20 BP 124/71 SAT 93% BIPAP FIO2 30 H/H10.8/33.1 K 5.3 IS: THEOPHYLLINE PO Q12HR VANCO IV Q8HR MED/SURG STATUS DCP: PATIENT REPORTS HOMELESSNESS
--- NOTE | 2018-11-19 15:15 | NUR ---
NURSE NOTES: RECEIVED PATIENT A/A/OX4. VERBALLY RESPONSIVE. NO ACUTE RESP DISTRESS NOTED. DRSG ON RIGHT FLANK IS DRY AND INTACT. PATIENT PRESENT BLISTERS ON CHEST AND ABDOMEN. PATIENT IS ON SCD'S AND AMBULATES WITH A STEADY GAIT. PERSONAL BELONGINGS NOTED. BED IN LOWEST POSITION. SIDERAILS ARE UP X3. CALL LIGHT IS WITHIN REACH. BED IN ALARM AND LOCKED MODE. WILL CONT TO MONITOR.
--- NOTE | 2018-11-19 15:18 | NUR ---
NURSE NOTES: patient transfered
[2018-11-19 16:00] VITALS: BP 113/64
[2018-11-19] MEDS: Vancomycin 1.25gm Premix 275 ML IVPB SCH ×2 (16:21→21:15)
--- NOTE | 2018-11-19 16:25 | Nephrology Progress Note ---
Assessment/Plan Problem List: (1) Hyponatremia Assessment: SIADH (2) Acute respiratory failure (3) Hyperglycemia (4) Pneumonia (5) Diabetes Assessment Pneumonia Low Na due to high BS Sepsis Respiratory failure Diabetes OOC with proteinuria Anemia Plan no lab today repeat K wnl 11/07 Chest tube care right side ha out on tele [place] UOs uric acid indicates SIADH fluid restriction monitor lytes TSH Lipid per orders Subjective ROS Limited/Unobtainable: No Constitutional: Reports: malaise Objective Objective Last 24 Hour Vital Signs Date Time Temp Pulse Resp B/P (MAP) Pulse Ox O2 Delivery O2 Flow Rate FiO2 11/19/18 16:00 2.0 11/19/18 12:00 2.0 11/19/18 12:00 98.5 68 20 139/69 (92) 99 11/19/18 11:48 61 11/19/18 10:09 96.9 11/19/18 08:25 Nasal Cannula 2.0 11/19/18 08:00 2.0 11/19/18 08:00 96.9 78 20 124/71 (88) 99 11/19/18 07:58 64 11/19/18 07:19 Nasal Cannula 2.0 28 11/19/18 07:19 98 Nasal Cannula 2.0 28 11/19/18 04:00 2.0 11/19/18 04:00 62 11/19/18 04:00 97.2 59 18 96/56 (69) 97 11/19/18 01:05 60 16 93 Full Face 30 11/19/18 00:00 50 11/19/18 00:00 62 11/19/18 00:00 98.7 66 17 112/65 (81) 98 11/18/18 23:30 62 17 94 Full Face 30 11/18/18 21:00 Nasal Cannula 2.0 11/18/18 20:00 68 11/18/18 20:00 98.8 65 17 113/66 (82) 92 11/18/18 20:00 2.0 11/18/18 19:00 Nasal Cannula 2.0 28 11/18/18 19:00 93 Nasal Cannula 2.0 28 Intake and Output 11/18/18 11/19/18 19:00 07:00 Intake Total 903.3 ml 525 ml Output Total 1800 ml 1000 ml Balance -896.7 ml -475 ml Intake Oral 720 ml IV Total 183.3 ml 275 ml Other 250 ml Output Urine Total 1800 ml 1000 ml # Voids 4 Laboratory Tests 11/18/18 20:53: Vancomycin Level Trough 15.2H Height (Feet): 5 Height (Inches): 6.00 Weight (Pounds): 184 General Appearance: no apparent distress Cardiovascular: normal rate Respiratory/Chest: decreased breath sounds, other - chest tube out Objective no other change Sedrick Cordova MD Nov 19, 2018 16:25
--- NOTE | 2018-11-19 17:11 | Pulmonology Progress Note ---
Assessment/Plan Problems: (1) Empyema pleura (2) Acute respiratory failure (3) Pneumonia (4) Sepsis (5) Hyperglycemia (6) Diabetes Assessment/Plan chest tube in place and on suction wbc coming down sliding scale iv abx MRSA in pleural cavity Subjective ROS Limited/Unobtainable: No Constitutional: Reports: no symptoms HEENT: Repors: no symptoms Allergies: Coded Allergies: No Known Allergies (Unverified , 11/04/18) Objective Last 24 Hour Vital Signs Date Time Temp Pulse Resp B/P (MAP) Pulse Ox O2 Delivery O2 Flow Rate FiO2 11/19/18 16:00 2.0 11/19/18 16:00 98.7 70 20 113/64 (80) 93 11/19/18 12:00 2.0 11/19/18 12:00 98.5 68 20 139/69 (92) 99 11/19/18 11:48 61 11/19/18 10:09 96.9 11/19/18 08:25 Nasal Cannula 2.0 11/19/18 08:00 2.0 11/19/18 08:00 96.9 78 20 124/71 (88) 99 11/19/18 07:58 64 11/19/18 07:19 Nasal Cannula 2.0 28 11/19/18 07:19 98 Nasal Cannula 2.0 28 11/19/18 04:00 2.0 11/19/18 04:00 62 11/19/18 04:00 97.2 59 18 96/56 (69) 97 11/19/18 01:05 60 16 93 Full Face 30 11/19/18 00:00 50 11/19/18 00:00 62 11/19/18 00:00 98.7 66 17 112/65 (81) 98 11/18/18 23:30 62 17 94 Full Face 30 11/18/18 21:00 Nasal Cannula 2.0 11/18/18 20:00 68 11/18/18 20:00 98.8 65 17 113/66 (82) 92 11/18/18 20:00 2.0 11/18/18 19:00 Nasal Cannula 2.0 28 11/18/18 19:00 93 Nasal Cannula 2.0 28 Intake and Output 11/18/18 11/19/18 19:00 07:00 Intake Total 903.3 ml 525 ml Output Total 1800 ml 1000 ml Balance -896.7 ml -475 ml Intake Oral 720 ml IV Total 183.3 ml 275 ml Other 250 ml Output Urine Total 1800 ml 1000 ml # Voids 4 Objective General Appearance: WD/WN Lines, tubes and drains: peripheral HEENT: normocephalic, anicteric Neck: non-tender, normal alignment Respiratory/Chest: chest wall non-tender, lungs clear Breasts: no masses Cardiovascular/Chest: normal peripheral pulses Abdomen: normal bowel sounds Genitourinary/Rectal: normal genital Laboratory Tests 11/18/18 20:53: Vancomycin Level Trough 15.2H Current Medications Medications (Trade) Dose Ordered Sig/Des Route PRN Reason Start Time Stop Time Status Last Admin Dose Admin Acetaminophen (Tylenol) 650 mg Q4H PRN ORAL T>100.5 11/19/18 14:00 12/07/18 13:59 Acetaminophen/ Hydrocodone Bitart ([place] 10/325) 1 tab Q4H PRN ORAL Moderate Pain (Pain Scale 4-6) 11/19/18 14:00 11/21/18 13:59 Acetaminophen/ Hydrocodone Bitart ([place] 5/325) 1 tab Q4H PRN ORAL Mild Pain (Pain Scale 1-3) 11/19/18 14:30 11/21/18 14:29 Dextrose (Dextrose 50%) 25 ml Q30M PRN IV Hypoglycemia 11/19/18 13:30 12/08/18 19:29 Dextrose (Dextrose 50%) 50 ml Q30M PRN IV Hypoglycemia 11/19/18 13:30 12/08/18 19:29 Docusate Sodium (Colace) 100 mg TWICE A DAY ORAL 11/19/18 18:00 12/14/18 17:59 Famotidine (Pepcid) 20 mg BID ORAL 11/19/18 18:00 12/09/18 08:59 Heparin Sodium (Porcine) (Heparin 5000 units/ml) 5,000 units EVERY 12 HOURS SUBQ 11/19/18 21:00 12/15/18 08:59 Insulin Aspart (NovoLOG) BEFORE MEALS AND HS SUBQ 11/19/18 16:30 12/08/18 06:29 Insulin Detemir (Levemir) 20 units Q12HR SUBQ 11/19/18 21:00 12/15/18 08:59 Metformin HCl (Glucophage) 500 mg TIAC ORAL 11/19/18 16:30 12/19/18 11:29 Morphine Sulfate (Morphine Sulfate) 4 mg Q3H PRN IVP Severe Pain (Pain Scale 7-10) 11/19/18 14:00 11/25/18 13:59 Nateglinide (Starlix) 120 mg TIAC ORAL 11/19/18 16:30 12/09/18 06:29 Nitroglycerin (Ntg) 0.4 mg Q5MIN X 3 DOSES PRN SL Prn Chest Pain 11/19/18 13:30 12/14/18 13:44 Ondansetron HCl (Zofran) 4 mg Q6H PRN IVP Nausea & Vomiting 11/19/18 14:00 12/14/18 13:59 Polyethylene Glycol (Miralax) 17 gm DAILYPRN PRN ORAL Constipation 11/19/18 14:00 12/07/18 13:59 Promethazine HCl/ Codeine (Phenergan with Codeine) 5 ml Q4H PRN ORAL For Cough 11/19/18 14:15 12/10/18 14:14 Theophylline ([place]) 100 mg EVERY 12 HOURS ORAL 11/19/18 21:00 12/10/18 20:59 Vancomycin HCl (Vanco rx to dose) 1 ea DAILY PRN MISC Per rx protocol 11/20/18 09:00 12/16/18 09:44 Vancomycin HCl/ Dextrose 275 ml @ 183.333 mls/hr Q8HR IVPB 11/19/18 14:00 11/22/18 21:59 11/19/18 16:21 Yeimi Phelps MD Nov 19, 2018 17:11
[2018-11-19] MEDS: metFORMIN 500mg tab ORAL SCH (17:19)
--- NOTE | 2018-11-19 19:17 | NUR ---
HAND-OFF: Report given to luis.
--- NOTE | 2018-11-19 19:30 | NUR ---
NURSE NOTES: A/A/OX4. VERBALLY RESPONSIVE. NO ACUTE RESP DISTRESS NOTED. DRSG ON RIGHT FLANK IS DRY AND INTACT. PATIENT PRESENT BLISTERS ON CHEST AND ABDOMEN. PATIENT has oN SCD'S AND AMBULATES WITH A STEADY GAIT. . BED IN LOWEST POSITION. SIDERAILS ARE UP X3. CALL LIGHT IS WITHIN REACH. BED ALARM on AND LOCKED MODE. WILL CONT TO MONITOR.
[2018-11-19 20:00] VITALS: BP 115/65
[2018-11-19] MEDS ORDERED: Tubing IV Secondary IV ONE (20:41)
--- NOTE | 2018-11-19 21:23 | General Progress Note ---
Assessment/Plan Problem List: (1) Acute respiratory failure ICD Codes: J96.00 - Acute respiratory failure, unspecified whether with hypoxia or hypercapnia SNOMED: 95508078 (2) Diabetes ICD Codes: E11.9 - Type 2 diabetes mellitus without complications SNOMED: 85725766 (3) Hyperglycemia ICD Codes: R73.9 - Hyperglycemia, unspecified SNOMED: 51956405 (4) Respiratory failure ICD Codes: J96.90 - Respiratory failure, unspecified, unspecified whether with hypoxia or hypercapnia SNOMED: 417949753 (5) Sepsis ICD Codes: A41.9 - Sepsis, unspecified organism SNOMED: 05716333 (6) Pneumonia ICD Codes: J18.9 - Pneumonia, unspecified organism SNOMED: 321446825 Status: progressing Assessment/Plan sugar is improving niddm pna sepsis vitals stable reveiwed chart and meds Subjective ROS Limited/Unobtainable: Yes Allergies: Coded Allergies: No Known Allergies (Unverified , 11/04/18) Objective Last 24 Hour Vital Signs Date Time Temp Pulse Resp B/P (MAP) Pulse Ox O2 Delivery O2 Flow Rate FiO2 11/19/18 20:01 Nasal Cannula 2.0 28 11/19/18 20:01 97 Nasal Cannula 2.0 28 11/19/18 16:00 2.0 11/19/18 16:00 98.7 70 20 113/64 (80) 93 11/19/18 12:00 2.0 11/19/18 12:00 98.5 68 20 139/69 (92) 99 11/19/18 11:48 61 11/19/18 10:09 96.9 11/19/18 08:25 Nasal Cannula 2.0 11/19/18 08:00 2.0 11/19/18 08:00 96.9 78 20 124/71 (88) 99 11/19/18 07:58 64 11/19/18 07:19 Nasal Cannula 2.0 28 11/19/18 07:19 98 Nasal Cannula 2.0 28 11/19/18 04:00 2.0 11/19/18 04:00 62 11/19/18 04:00 97.2 59 18 96/56 (69) 97 11/19/18 01:05 60 16 93 Full Face 30 11/19/18 00:00 50 11/19/18 00:00 62 11/19/18 00:00 98.7 66 17 112/65 (81) 98 11/18/18 23:30 62 17 94 Full Face 30 Intake and Output 11/18/18 11/19/18 19:00 07:00 Intake Total 903.3 ml 525 ml Output Total 1800 ml 1000 ml Balance -896.7 ml -475 ml Intake Oral 720 ml IV Total 183.3 ml 275 ml Other 250 ml Output Urine Total 1800 ml 1000 ml # Voids 4 Height (Feet): 5 Height (Inches): 6.00 Weight (Pounds): 184 Neck: supple Cardiovascular: normal rate Respiratory/Chest: lungs clear Abdomen: soft Navin Myers MD Nov 19, 2018 21:23
--- NOTE | 2018-11-19 23:26 | NUR ---
RESPIRATORY NOTE: Placed pt on current bipap settings. Pt refused foam tape underneath the mask. Plugged into red outlet. Will continue to monitor pt's progress.
[2018-11-20] VITALS: BP 118/70
[2018-11-20 04:00] VITALS: BP 101/59
[2018-11-20] MEDS: Vancomycin 1.25gm Premix 275 ML IVPB SCH ×3 (05:08→21:00)
[2018-11-20] MEDS: Morphine Sulfate 4mg/ml Inj (IV USE ONLY) IVP PRN (05:17)
[2018-11-20] MEDS: metFORMIN 500mg tab ORAL SCH ×3 (05:45→17:11)
[2018-11-20] MEDS: NovoLOG Insulin Flexpen SUBQ SCH ×4 (05:48→20:58)
[2018-11-20 08:00] VITALS: BP 114/72
[2018-11-20] MEDS: Docusate 100mg cap ORAL SCH ×2 (08:56→17:11)
[2018-11-20] MEDS: Theophylline ER 100mg ORAL SCH ×2 (08:56→20:44)
[2018-11-20] MEDS: Levemir Flexpen SUBQ SCH ×2 (08:59→20:59)
[2018-11-20] MEDS: Heparin 5000 units/ml inj SUBQ SCH ×2 (09:00→20:49)
--- NOTE | 2018-11-20 10:56 | General Progress Note ---
Assessment/Plan Problem List: (1) Hyperglycemia ICD Codes: R73.9 - Hyperglycemia, unspecified SNOMED: 78148491 (2) Diabetes ICD Codes: E11.9 - Type 2 diabetes mellitus without complications SNOMED: 82409207 (3) Pneumonia ICD Codes: J18.9 - Pneumonia, unspecified organism SNOMED: 437780167 Assessment/Plan continue Metformin 500 mg tid continue Levemir to 20 units bid continue Starlix 120 mg ac tid continue NISS ac / hs Subjective Allergies: Coded Allergies: No Known Allergies (Unverified , 11/04/18) All Systems: reviewed and negative except above Subjective events glycemic control improved Item Value Date Time Bedside Blood Glucose 156 mg/dl H 11/20/18 0859 Bedside Blood Glucose 218 mg/dl H 11/20/18 0630 Bedside Blood Glucose 232 mg/dl H 11/19/18 2102 Bedside Blood Glucose 166 mg/dl H 11/19/18 1722 Objective Last 24 Hour Vital Signs Date Time Temp Pulse Resp B/P (MAP) Pulse Ox O2 Delivery O2 Flow Rate FiO2 11/20/18 09:00 Nasal Cannula 2.0 11/20/18 08:00 98.6 55 19 114/72 (86) 93 11/20/18 06:56 Nasal Cannula 2.0 28 11/20/18 06:56 99 Nasal Cannula 2.0 28 11/20/18 04:00 98.6 65 19 101/59 (73) 100 11/20/18 04:00 3.0 11/20/18 01:51 71 21 97 Full Face 30 11/20/18 00:00 98.8 67 17 118/70 (86) 97 11/20/18 00:00 50 11/19/18 23:23 73 24 95 Full Face 30 11/19/18 21:00 Nasal Cannula 2.0 11/19/18 20:01 Nasal Cannula 2.0 28 11/19/18 20:01 97 Nasal Cannula 2.0 28 11/19/18 20:00 98.4 68 18 115/65 (82) 92 11/19/18 20:00 2.0 11/19/18 16:00 2.0 11/19/18 16:00 98.7 70 20 113/64 (80) 93 11/19/18 12:00 2.0 11/19/18 12:00 98.5 68 20 139/69 (92) 99 11/19/18 11:48 61 Intake and Output 11/19/18 11/20/18 18:59 06:59 Intake Total 783.333 ml 275.000 ml Output Total 400 ml 550 ml Balance 383.333 ml -275.000 ml Intake Oral 600 ml IV Total 183.333 ml 275.000 ml Output Urine Total 400 ml 550 ml # Voids 2 2 # Bowel Movements 1 Height (Feet): 5 Height (Inches): 6.00 Weight (Pounds): 184 General Appearance: no apparent distress Neck: normal alignment Cardiovascular: normal rate Respiratory/Chest: lungs clear Abdomen: normal bowel sounds Objective Current Medications Medications (Trade) Dose Ordered Sig/Des Route PRN Reason Start Time Stop Time Status Last Admin Dose Admin Acetaminophen (Tylenol) 650 mg Q4H PRN ORAL T>100.5 11/19/18 14:00 12/07/18 13:59 Acetaminophen/ Hydrocodone Bitart ([place] 10/325) 1 tab Q4H PRN ORAL Moderate Pain (Pain Scale 4-6) 11/19/18 14:00 11/21/18 13:59 Acetaminophen/ Hydrocodone Bitart ([place] 5/325) 1 tab Q4H PRN ORAL Mild Pain (Pain Scale 1-3) 11/19/18 14:30 11/21/18 14:29 Dextrose (Dextrose 50%) 25 ml Q30M PRN IV Hypoglycemia 11/19/18 13:30 12/08/18 19:29 Dextrose (Dextrose 50%) 50 ml Q30M PRN IV Hypoglycemia 11/19/18 13:30 12/08/18 19:29 Docusate Sodium (Colace) 100 mg TWICE A DAY ORAL 11/19/18 18:00 12/14/18 17:59 11/20/18 08:56 Famotidine (Pepcid) 20 mg BID ORAL 11/19/18 18:00 12/09/18 08:59 11/20/18 08:56 Heparin Sodium (Porcine) (Heparin 5000 units/ml) 5,000 units EVERY 12 HOURS SUBQ 11/19/18 21:00 12/15/18 08:59 11/20/18 09:00 Insulin Aspart (NovoLOG) BEFORE MEALS AND HS SUBQ 11/19/18 16:30 12/08/18 06:29 11/20/18 05:48 Insulin Detemir (Levemir) 20 units Q12HR SUBQ 11/19/18 21:00 12/15/18 08:59 11/20/18 08:59 Metformin HCl (Glucophage) 500 mg TIAC ORAL 11/19/18 16:30 12/19/18 11:29 11/20/18 05:45 Morphine Sulfate (Morphine Sulfate) 4 mg Q3H PRN IVP Severe Pain (Pain Scale 7-10) 11/19/18 14:00 11/25/18 13:59 11/20/18 05:17 Nateglinide (Starlix) 120 mg TIAC ORAL 11/19/18 16:30 12/09/18 06:29 11/20/18 05:45 Nitroglycerin (Ntg) 0.4 mg Q5MIN X 3 DOSES PRN SL Prn Chest Pain 11/19/18 13:30 12/14/18 13:44 Ondansetron HCl (Zofran) 4 mg Q6H PRN IVP Nausea & Vomiting 11/19/18 14:00 12/14/18 13:59 Polyethylene Glycol (Miralax) 17 gm DAILYPRN PRN ORAL Constipation 11/19/18 14:00 12/07/18 13:59 Promethazine HCl/ Codeine (Phenergan with Codeine) 5 ml Q4H PRN ORAL For Cough 11/19/18 14:15 12/10/18 14:14 Theophylline ([place]-Dur) 100 mg EVERY 12 HOURS ORAL 11/19/18 21:00 12/10/18 20:59 11/20/18 08:56 Vancomycin HCl (Vanco rx to dose) 1 ea DAILY PRN MISC Per rx protocol 11/20/18 09:00 12/16/18 09:44 Vancomycin HCl/ Dextrose 275 ml @ 183.333 mls/hr Q8HR IVPB 11/19/18 14:00 11/22/18 21:59 11/20/18 05:08 Sonido Styles MD Nov 20, 2018 10:56
--- NOTE | 2018-11-20 11:31 | Nephrology Progress Note ---
Assessment/Plan Problem List: (1) Hyponatremia Assessment: SIADH (2) Acute respiratory failure (3) Hyperglycemia (4) Pneumonia (5) Diabetes Assessment Pneumonia Low Na due to high BS Sepsis Respiratory failure Diabetes OOC with proteinuria Anemia Plan no lab today repeat K wnl 11/07 Chest tube care right side ha out on tele [place] UOs uric acid indicates SIADH fluid restriction monitor lytes TSH Lipid per orders Subjective ROS Limited/Unobtainable: No Objective Objective Last 24 Hour Vital Signs Date Time Temp Pulse Resp B/P (MAP) Pulse Ox O2 Delivery O2 Flow Rate FiO2 11/20/18 09:00 Nasal Cannula 2.0 11/20/18 08:00 98.6 55 19 114/72 (86) 93 11/20/18 06:56 Nasal Cannula 2.0 28 11/20/18 06:56 99 Nasal Cannula 2.0 28 11/20/18 04:00 98.6 65 19 101/59 (73) 100 11/20/18 04:00 3.0 11/20/18 01:51 71 21 97 Full Face 30 11/20/18 00:00 98.8 67 17 118/70 (86) 97 11/20/18 00:00 50 11/19/18 23:23 73 24 95 Full Face 30 11/19/18 21:00 Nasal Cannula 2.0 11/19/18 20:01 Nasal Cannula 2.0 28 11/19/18 20:01 97 Nasal Cannula 2.0 28 11/19/18 20:00 98.4 68 18 115/65 (82) 92 11/19/18 20:00 2.0 11/19/18 16:00 2.0 11/19/18 16:00 98.7 70 20 113/64 (80) 93 11/19/18 12:00 2.0 11/19/18 12:00 98.5 68 20 139/69 (92) 99 11/19/18 11:48 61 Intake and Output 11/19/18 11/20/18 18:59 06:59 Intake Total 783.333 ml 275.000 ml Output Total 400 ml 550 ml Balance 383.333 ml -275.000 ml Intake Oral 600 ml IV Total 183.333 ml 275.000 ml Output Urine Total 400 ml 550 ml # Voids 2 2 # Bowel Movements 1 Height (Feet): 5 Height (Inches): 6.00 Weight (Pounds): 184 General Appearance: no apparent distress Cardiovascular: normal rate Respiratory/Chest: decreased breath sounds Objective no other change Sedrick Cordova MD Nov 20, 2018 11:31
[2018-11-20 12:00] VITALS: BP 123/78
--- NOTE | 2018-11-20 15:22 | NUR ---
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 PNA VS: BP 123/78, P 55, RR 19, T 97.5, SpO2 97 IS:HEPARIN SUBQ LEVEMIR 20units SUBQ ANANYA-DUR 100mg PEPCID 20mg NOVOLOG SUBQ METFORMIN 500mg STARLIX 120mg MED/SURG STATUS
[2018-11-20 16:00] VITALS: BP 117/65
[2018-11-20] MEDS ORDERED: NS 275ml ONE (16:47)
[2018-11-20] MEDS: HYDROcodone/Acetamin 10/325 tab ORAL PRN (17:12)
--- NOTE | 2018-11-20 19:00 | NUR ---
HAND-OFF: Report given to SRI.
[2018-11-20 20:00] VITALS: BP 104/68
--- NOTE | 2018-11-20 21:44 | General Progress Note ---
Assessment/Plan Problem List: (1) Acute respiratory failure ICD Codes: J96.00 - Acute respiratory failure, unspecified whether with hypoxia or hypercapnia SNOMED: 02035030 (2) Diabetes ICD Codes: E11.9 - Type 2 diabetes mellitus without complications SNOMED: 32329362 (3) Hyperglycemia ICD Codes: R73.9 - Hyperglycemia, unspecified SNOMED: 15675189 (4) Respiratory failure ICD Codes: J96.90 - Respiratory failure, unspecified, unspecified whether with hypoxia or hypercapnia SNOMED: 432974533 (5) Sepsis ICD Codes: A41.9 - Sepsis, unspecified organism SNOMED: 47189192 (6) Pneumonia ICD Codes: J18.9 - Pneumonia, unspecified organism SNOMED: 846396988 Status: progressing Assessment/Plan afebrile niddm check sugar pna sepsis improved reveiwed chart and meds and labs Subjective ROS Limited/Unobtainable: Yes Allergies: Coded Allergies: No Known Allergies (Unverified , 11/04/18) Objective Last 24 Hour Vital Signs Date Time Temp Pulse Resp B/P (MAP) Pulse Ox O2 Delivery O2 Flow Rate FiO2 11/20/18 21:36 62 23 97 Full Face 30 11/20/18 19:37 97 Nasal Cannula 2.0 28 11/20/18 19:37 Nasal Cannula 2.0 28 11/20/18 17:42 97.5 11/20/18 16:00 2.0 11/20/18 16:00 97.5 81 18 117/65 (82) 98 11/20/18 12:00 98.6 68 18 123/78 (93) 94 11/20/18 12:00 2.0 11/20/18 09:00 Nasal Cannula 2.0 11/20/18 08:00 2.0 11/20/18 08:00 98.6 55 19 114/72 (86) 93 11/20/18 06:56 Nasal Cannula 2.0 28 11/20/18 06:56 99 Nasal Cannula 2.0 28 11/20/18 04:00 98.6 65 19 101/59 (73) 100 11/20/18 04:00 3.0 11/20/18 01:51 71 21 97 Full Face 30 11/20/18 00:00 98.8 67 17 118/70 (86) 97 11/20/18 00:00 50 11/19/18 23:23 73 24 95 Full Face 30 Intake and Output 11/19/18 11/20/18 19:00 07:00 Intake Total 783.333 ml 275.000 ml Output Total 400 ml 550 ml Balance 383.333 ml -275.000 ml Intake Oral 600 ml IV Total 183.333 ml 275.000 ml Output Urine Total 400 ml 550 ml # Voids 2 2 # Bowel Movements 1 Height (Feet): 5 Height (Inches): 6.00 Weight (Pounds): 184 Neck: supple Cardiovascular: normal rate Respiratory/Chest: lungs clear Navin Myers MD Nov 20, 2018 21:44
[2018-11-21] VITALS: BP 118/75
[2018-11-21] MEDS: HYDROcodone/Acetamin 10/325 tab ORAL PRN ×2 (03:35→14:48)
[2018-11-21 04:06] VITALS: BP 123/71
[2018-11-21] MEDS: Vancomycin 1.25gm Premix 275 ML IVPB SCH ×3 (05:05→22:00)
[2018-11-21] MEDS: metFORMIN 500mg tab ORAL SCH ×3 (05:40→17:38)
[2018-11-21] MEDS: NovoLOG Insulin Flexpen SUBQ SCH ×4 (05:40→20:27)
[2018-11-21 06:22] LABS: BASOPHILS % (AUTO) 1.8 % (0.0-2.0); EOSINOPHILS % (AUTO) 2.9 % (0.0-3.0); HEMATOCRIT 34.4 % (42.0-52.0); HEMOGLOBIN 11.3 G/DL (14.2-18.0); LYMPHOCYTES % (AUTO) 24.3 % (20.0-45.0); MEAN CORPUSCULAR VOLUME 95 FL (80-99); MONOCYTES % (AUTO) 11.9 % (1.0-10.0); NEUTROPHILS % (AUTO) 59.2 % (45.0-75.0); PLATELET COUNT 637 K/UL (150-450); RED BLOOD COUNT 3.63 M/UL (4.70-6.10); RED CELL DISTRIBUTION WIDTH 11.9 % (11.6-14.8)
--- NOTE | 2018-11-21 06:38 | General Progress Note ---
Assessment/Plan Problem List: (1) Hyperglycemia ICD Codes: R73.9 - Hyperglycemia, unspecified SNOMED: 58689845 (2) Diabetes ICD Codes: E11.9 - Type 2 diabetes mellitus without complications SNOMED: 16644743 (3) Pneumonia ICD Codes: J18.9 - Pneumonia, unspecified organism SNOMED: 970204170 Assessment/Plan continue Metformin 500 mg tid continue Levemir to 20 units bid continue Starlix 120 mg ac tid continue NISS ac / hs Subjective Allergies: Coded Allergies: No Known Allergies (Unverified , 11/04/18) All Systems: reviewed and negative except above Subjective events noted Item Value Date Time Bedside Blood Glucose 229 mg/dl H 11/21/18 0618 Bedside Blood Glucose 120 mg/dl 11/20/18 2130 Bedside Blood Glucose 138 mg/dl H 11/20/18 1711 Bedside Blood Glucose 145 mg/dl H 11/20/18 1242 Bedside Blood Glucose 156 mg/dl H 11/20/18 0859 Bedside Blood Glucose 218 mg/dl H 11/20/18 0630 Objective Last 24 Hour Vital Signs Date Time Temp Pulse Resp B/P (MAP) Pulse Ox O2 Delivery O2 Flow Rate FiO2 11/21/18 04:06 98.0 64 18 123/71 (88) 97 11/21/18 04:03 2.0 11/21/18 00:00 98.3 63 18 118/75 (89) 98 11/20/18 23:27 68 20 98 Full Face 30 11/20/18 22:50 2.0 11/20/18 21:36 62 23 97 Full Face 30 11/20/18 21:00 Nasal Cannula 2.0 11/20/18 20:00 98.2 60 18 104/68 (80) 97 11/20/18 19:37 97 Nasal Cannula 2.0 28 11/20/18 19:37 Nasal Cannula 2.0 28 11/20/18 17:42 97.5 11/20/18 16:00 2.0 11/20/18 16:00 97.5 81 18 117/65 (82) 98 11/20/18 12:00 98.6 68 18 123/78 (93) 94 11/20/18 12:00 2.0 11/20/18 09:00 Nasal Cannula 2.0 4/14/19 08:00 2.0 11/20/18 08:00 98.6 55 19 114/72 (86) 93 11/20/18 06:56 Nasal Cannula 2.0 28 11/20/18 06:56 99 Nasal Cannula 2.0 28 Intake and Output 11/20/18 11/21/18 19:00 07:00 Intake Total 875.000 ml 458.333 ml Output Total 400 ml Balance 875.000 ml 58.333 ml IV Total 275.000 ml 458.333 ml Other 600 ml Output Urine Total 400 ml Laboratory Tests 11/21/18 04:45: White Blood Count [Pending], Red Blood Count [Pending], Hemoglobin [Pending], Hematocrit [Pending], Mean Corpuscular Volume [Pending], Mean Corpuscular Hemoglobin [Pending], Mean Corpuscular Hemoglobin Concent [Pending], Red Cell Distribution Width [Pending], Platelet Count [Pending], Mean Platelet Volume [ Pending], Neutrophils (%) (Auto) [Pending], Lymphocytes (%) (Auto) [Pending], Monocytes (%) (Auto) [Pending], Eosinophils (%) (Auto) [Pending], Basophils (%) (Auto) [Pending], Sodium Level [Pending], Potassium Level [Pending], Chloride Level [Pending], Carbon Dioxide Level [Pending], Blood Urea Nitrogen [Pending], Creatinine [Pending], Estimat Glomerular Filtration Rate [Pending], Glucose Level [Pending], Uric Acid [Pending], Calcium Level [Pending], Phosphorus Level [Pending], Magnesium Level [Pending], Total Bilirubin [Pending], Gamma Glutamyl Transpeptidase [Pending], Aspartate Amino Transf (AST/SGOT) [Pending], Alanine Aminotransferase (ALT/SGPT) [Pending], Alkaline Phosphatase [Pending], C- Reactive Protein, Quantitative [Pending], Pro-B-Type Natriuretic Peptide [ Pending], Total Protein [Pending], Albumin [Pending], Globulin [Pending] Height (Feet): 5 Height (Inches): 6.00 Weight (Pounds): 184 General Appearance: no apparent distress Neck: normal alignment Cardiovascular: normal rate Respiratory/Chest: lungs clear Abdomen: normal bowel sounds Pelvis: normal external exam Objective Current Medications Medications (Trade) Dose Ordered Sig/Des Route PRN Reason Start Time Stop Time Status Last Admin Dose Admin Acetaminophen (Tylenol) 650 mg Q4H PRN ORAL T>100.5 11/19/18 14:00 12/07/18 13:59 Acetaminophen/ Hydrocodone Bitart ([place] 10/325) 1 tab Q4H PRN ORAL Moderate Pain (Pain Scale 4-6) 11/19/18 14:00 11/21/18 13:59 11/21/18 03:35 Acetaminophen/ Hydrocodone Bitart ([place] 5/325) 1 tab Q4H PRN ORAL Mild Pain (Pain Scale 1-3) 11/19/18 14:30 11/21/18 14:29 Dextrose (Dextrose 50%) 25 ml Q30M PRN IV Hypoglycemia 11/19/18 13:30 12/08/18 19:29 Dextrose (Dextrose 50%) 50 ml Q30M PRN IV Hypoglycemia 11/19/18 13:30 12/08/18 19:29 Docusate Sodium (Colace) 100 mg TWICE A DAY ORAL 11/19/18 18:00 12/14/18 17:59 11/20/18 17:11 Famotidine (Pepcid) 20 mg BID ORAL 11/19/18 18:00 12/09/18 08:59 11/20/18 17:11 Heparin Sodium (Porcine) (Heparin 5000 units/ml) 5,000 units EVERY 12 HOURS SUBQ 11/19/18 21:00 12/15/18 08:59 11/20/18 20:49 Insulin Aspart (NovoLOG) BEFORE MEALS AND HS SUBQ 11/19/18 16:30 12/08/18 06:29 11/21/18 05:40 Insulin Detemir (Levemir) 20 units Q12HR SUBQ 11/19/18 21:00 12/15/18 08:59 11/20/18 20:59 Metformin HCl (Glucophage) 500 mg TIAC ORAL 11/19/18 16:30 12/19/18 11:29 11/21/18 05:40 Morphine Sulfate (Morphine Sulfate) 4 mg Q3H PRN IVP Severe Pain (Pain Scale 7-10) 11/19/18 14:00 11/25/18 13:59 11/20/18 05:17 Nateglinide (Starlix) 120 mg TIAC ORAL 11/19/18 16:30 12/09/18 06:29 11/21/18 05:40 Nitroglycerin (Ntg) 0.4 mg Q5MIN X 3 DOSES PRN SL Prn Chest Pain 11/19/18 13:30 12/14/18 13:44 Ondansetron HCl (Zofran) 4 mg Q6H PRN IVP Nausea & Vomiting 11/19/18 14:00 12/14/18 13:59 Polyethylene Glycol (Miralax) 17 gm DAILYPRN PRN ORAL Constipation 11/19/18 14:00 12/07/18 13:59 Promethazine HCl/ Codeine (Phenergan with Codeine) 5 ml Q4H PRN ORAL For Cough 11/19/18 14:15 12/10/18 14:14 Theophylline ([place]-Dur) 100 mg EVERY 12 HOURS ORAL 11/19/18 21:00 12/10/18 20:59 11/20/18 20:44 Vancomycin HCl (Vanco rx to dose) 1 ea DAILY PRN MISC Per rx protocol 11/20/18 09:00 12/16/18 09:44 Vancomycin HCl/ Dextrose 275 ml @ 183.333 mls/hr Q8HR IVPB 11/19/18 14:00 11/22/18 21:59 11/21/18 05:05 Sonido Styles MD Nov 21, 2018 06:38
[2018-11-21 06:53] LABS: ALANINE AMINOTRANSFERASE 58 U/L (12-78); ALBUMIN 2.5 G/DL (3.4-5.0); ALBUMIN/GLOBULIN RATIO 0.4 (1.0-2.7); ALKALINE PHOSPHATASE 116 U/L (46-116); ANION GAP 10 mmol/L (5-15); ASPARTATE AMINO TRANSFERASE 27 U/L (15-37); BILIRUBIN,TOTAL 0.3 MG/DL (0.2-1.0); BLOOD UREA NITROGEN 15 mg/dL (7-18); CALCIUM 9.6 MG/DL (8.5-10.1); CARBON DIOXIDE 29 MMOL/L (21-32); CHLORIDE 95 MMOL/L (98-107); CREATININE 0.9 MG/DL (0.55-1.30); GAMMA GLUTAMYL TRANSPEPTIDASE 126 U/L (5-85); PHOSPHORUS 5.1 MG/DL (2.5-4.9); POTASSIUM 4.1 MMOL/L (3.5-5.1); SODIUM 133 MMOL/L (136-145)
--- NOTE | 2018-11-21 07:16 | NUR ---
HAND-OFF: Report given to KRISTI Benson.
[2018-11-21 08:00] VITALS: BP 128/73
[2018-11-21] MEDS: Docusate 100mg cap ORAL SCH ×2 (08:04→17:38)
[2018-11-21] MEDS: Theophylline ER 100mg ORAL SCH ×2 (08:04→20:25)
[2018-11-21] MEDS: Heparin 5000 units/ml inj SUBQ SCH ×2 (08:05→20:26)
[2018-11-21] MEDS: Levemir Flexpen SUBQ SCH ×2 (08:07→20:26)
--- NOTE | 2018-11-21 09:52 | Infectious Diseases Prog Note ---
Assessment/Plan Assessment/Plan Abx: Cefepime 11/08- IV Vancomycin 11/08- Ceftriaxone x1 11/07 Assessment: Sepsis- 2ry to PNA -CXR: Increased right suprahilar and basilar consolidative changes, since prior study 11/04/2018. Suspect developing small right pleural effusion -11/04 influenza sc neg 11/09/18 - S/P Thora - 1000 WBCs Path - Mo malignant cell seen Cx - NEG 11/14/18 - Debridement and decortication of right lung Cx - MRSA Fever- resolved Leukocytosis - recurrent Acute respiratory failure Initially on bipap but now on NC Dm2 Plan: - Continue Vancomycin #6/-28 for MRSA empyema Will need an extend course of vanocmcyin 3-4 week depending on when Chest Tube removed and clinical response. As is responding well would treat at least until 12/06/18 and for at least one week s/p Chest tube removal - 11/17/18 S/P Cefepime -11/13/18 S/P Vancomycin #7 -11/07 SP Ceftriaxone x1 -f.u lung abscess Cx -Monitor CBC/CMP, temperatures -aspiration precautions Will continue to follow along with you. Subjective Allergies: Coded Allergies: No Known Allergies (Unverified , 11/04/18) Subjective ULYSSES Afebrile Leukocytosis resolved Objective Vital Signs Last 24 Hour Vital Signs Date Time Temp Pulse Resp B/P (MAP) Pulse Ox O2 Delivery O2 Flow Rate FiO2 11/21/18 08:00 98.3 68 18 128/73 (91) 98 11/21/18 04:06 98.0 64 18 123/71 (88) 97 11/21/18 04:03 2.0 11/21/18 00:00 98.3 63 18 118/75 (89) 98 11/20/18 23:27 68 20 98 Full Face 30 11/20/18 22:50 2.0 11/20/18 21:36 62 23 97 Full Face 30 11/20/18 21:00 Nasal Cannula 2.0 11/20/18 20:00 98.2 60 18 104/68 (80) 97 11/20/18 19:37 97 Nasal Cannula 2.0 28 11/20/18 19:37 Nasal Cannula 2.0 28 11/20/18 17:42 97.5 11/20/18 16:00 2.0 11/20/18 16:00 97.5 81 18 117/65 (82) 98 11/20/18 12:00 98.6 68 18 123/78 (93) 94 11/20/18 12:00 2.0 Height (Feet): 5 Height (Inches): 6.00 Weight (Pounds): 184 Objective Gen: NAD, On NC 2L and satting well HEENT: NCAT MMM, EOMI Respiratory/Chest: CTAB, No W, Chest tube in place Cardiovascular, RRR, normal peripheral pulses Abdomen: normal bowel sounds, soft Laboratory Tests Test 11/21/18 04:45 White Blood Count 10.0 K/UL (4.8-10.8) Red Blood Count 3.63 M/UL (4.70-6.10) L Hemoglobin 11.3 G/DL (14.2-18.0) L Hematocrit 34.4 % (42.0-52.0) L Mean Corpuscular Volume 95 FL (80-99) Mean Corpuscular Hemoglobin 31.2 PG (27.0-31.0) H Mean Corpuscular Hemoglobin Concent 32.9 G/DL (32.0-36.0) Red Cell Distribution Width 11.9 % (11.6-14.8) Platelet Count 637 K/UL (150-450) H Mean Platelet Volume 4.9 FL (6.5-10.1) L Neutrophils (%) (Auto) 59.2 % (45.0-75.0) Lymphocytes (%) (Auto) 24.3 % (20.0-45.0) Monocytes (%) (Auto) 11.9 % (1.0-10.0) H Eosinophils (%) (Auto) 2.9 % (0.0-3.0) Basophils (%) (Auto) 1.8 % (0.0-2.0) Sodium Level 133 MMOL/L (136-145) L Potassium Level 4.1 MMOL/L (3.5-5.1) Chloride Level 95 MMOL/L (98-107) L Carbon Dioxide Level 29 MMOL/L (21-32) Anion Gap 10 mmol/L (5-15) Blood Urea Nitrogen 15 mg/dL (7-18) Creatinine 0.9 MG/DL (0.55-1.30) Estimat Glomerular Filtration Rate > 60 mL/min (>60) Glucose Level 164 MG/DL (74-106) H Uric Acid 4.3 MG/DL (2.6-7.2) Calcium Level 9.6 MG/DL (8.5-10.1) Phosphorus Level 5.1 MG/DL (2.5-4.9) H Magnesium Level 1.8 MG/DL (1.8-2.4) Total Bilirubin 0.3 MG/DL (0.2-1.0) Gamma Glutamyl Transpeptidase 126 U/L (5-85) H Aspartate Amino Transf (AST/SGOT) 27 U/L (15-37) Alanine Aminotransferase (ALT/SGPT) 58 U/L (12-78) Alkaline Phosphatase 116 U/L (46-116) C-Reactive Protein, Quantitative 8.2 mg/dL (0.00-0.90) H Pro-B-Type Natriuretic Peptide 13 pg/mL (0-125) Total Protein 8.6 G/DL (6.4-8.2) H Albumin 2.5 G/DL (3.4-5.0) L Globulin 6.1 g/dL Albumin/Globulin Ratio 0.4 (1.0-2.7) L Current Medications Medications (Trade) Dose Ordered Sig/Des Route PRN Reason Start Time Stop Time Status Last Admin Dose Admin Acetaminophen (Tylenol) 650 mg Q4H PRN ORAL T>100.5 11/19/18 14:00 12/07/18 13:59 Acetaminophen/ Hydrocodone Bitart ([place] 10/325) 1 tab Q4H PRN ORAL Moderate Pain (Pain Scale 4-6) 11/19/18 14:00 11/21/18 13:59 11/21/18 03:35 Acetaminophen/ Hydrocodone Bitart ([place] 5/325) 1 tab Q4H PRN ORAL Mild Pain (Pain Scale 1-3) 11/19/18 14:30 11/21/18 14:29 Dextrose (Dextrose 50%) 25 ml Q30M PRN IV Hypoglycemia 11/19/18 13:30 12/08/18 19:29 Dextrose (Dextrose 50%) 50 ml Q30M PRN IV Hypoglycemia 11/19/18 13:30 12/08/18 19:29 Docusate Sodium (Colace) 100 mg TWICE A DAY ORAL 11/19/18 18:00 12/14/18 17:59 11/21/18 08:04 Famotidine (Pepcid) 20 mg BID ORAL 11/19/18 18:00 12/09/18 08:59 11/21/18 08:04 Heparin Sodium (Porcine) (Heparin 5000 units/ml) 5,000 units EVERY 12 HOURS SUBQ 11/19/18 21:00 12/15/18 08:59 11/21/18 08:05 Insulin Aspart (NovoLOG) BEFORE MEALS AND HS SUBQ 11/19/18 16:30 12/08/18 06:29 11/21/18 05:40 Insulin Detemir (Levemir) 20 units Q12HR SUBQ 11/19/18 21:00 12/15/18 08:59 11/21/18 08:07 Metformin HCl (Glucophage) 500 mg TIAC ORAL 11/19/18 16:30 12/19/18 11:29 11/21/18 05:40 Morphine Sulfate (Morphine Sulfate) 4 mg Q3H PRN IVP Severe Pain (Pain Scale 7-10) 11/19/18 14:00 11/25/18 13:59 11/20/18 05:17 Nateglinide (Starlix) 120 mg TIAC ORAL 11/19/18 16:30 12/09/18 06:29 11/21/18 05:40 Nitroglycerin (Ntg) 0.4 mg Q5MIN X 3 DOSES PRN SL Prn Chest Pain 11/19/18 13:30 12/14/18 13:44 Ondansetron HCl (Zofran) 4 mg Q6H PRN IVP Nausea & Vomiting 11/19/18 14:00 12/14/18 13:59 Polyethylene Glycol (Miralax) 17 gm DAILYPRN PRN ORAL Constipation 11/19/18 14:00 12/07/18 13:59 Promethazine HCl/ Codeine (Phenergan with Codeine) 5 ml Q4H PRN ORAL For Cough 11/19/18 14:15 12/10/18 14:14 Theophylline ([place]) 100 mg EVERY 12 HOURS ORAL 11/19/18 21:00 12/10/18 20:59 11/21/18 08:04 Vancomycin HCl (Vanco rx to dose) 1 ea DAILY PRN MISC Per rx protocol 11/20/18 09:00 12/16/18 09:44 Vancomycin HCl/ Dextrose 275 ml @ 183.333 mls/hr Q8HR IVPB 11/19/18 14:00 11/22/18 21:59 11/21/18 05:05 Hamilton Del Cid MD Nov 21, 2018 09:52
--- NOTE | 2018-11-21 10:01 | NUR ---
NURSE NOTES: pt in bed with no sob nor in any form of distress noted. all due meds given as ordered. denies pain at this time. call light within reach at all time. will continue to monitor
[2018-11-21 12:00] VITALS: BP 116/77
--- NOTE | 2018-11-21 13:02 | Pulmonology Progress Note ---
Assessment/Plan Problems: (1) Empyema pleura (2) Acute respiratory failure (3) Pneumonia (4) Sepsis (5) Hyperglycemia (6) Diabetes Assessment/Plan chest tube removed wbc coming down sliding scale iv abx MRSA in pleural cavity Subjective ROS Limited/Unobtainable: No Interval Events: doing better Constitutional: Reports: no symptoms HEENT: Repors: no symptoms Allergies: Coded Allergies: No Known Allergies (Unverified , 11/04/18) Objective Last 24 Hour Vital Signs Date Time Temp Pulse Resp B/P (MAP) Pulse Ox O2 Delivery O2 Flow Rate FiO2 11/21/18 12:00 2.0 11/21/18 12:00 97.2 74 18 116/77 (90) 97 11/21/18 09:51 Nasal Cannula 2.0 11/21/18 08:00 98.3 68 18 128/73 (91) 98 11/21/18 08:00 2.0 11/21/18 07:37 Nasal Cannula 3.0 32 11/21/18 07:37 95 Nasal Cannula 3.0 32 11/21/18 04:06 98.0 64 18 123/71 (88) 97 11/21/18 04:03 2.0 11/21/18 00:00 98.3 63 18 118/75 (89) 98 11/20/18 23:27 68 20 98 Full Face 30 11/20/18 22:50 2.0 11/20/18 21:36 62 23 97 Full Face 30 11/20/18 21:00 Nasal Cannula 2.0 11/20/18 20:00 98.2 60 18 104/68 (80) 97 11/20/18 19:37 97 Nasal Cannula 2.0 28 11/20/18 19:37 Nasal Cannula 2.0 28 11/20/18 17:42 97.5 11/20/18 16:00 2.0 11/20/18 16:00 97.5 81 18 117/65 (82) 98 Intake and Output 11/20/18 11/21/18 18:59 06:59 Intake Total 875.000 ml 458.333 ml Output Total 400 ml Balance 875.000 ml 58.333 ml IV Total 275.000 ml 458.333 ml Other 600 ml Output Urine Total 400 ml Objective General Appearance: WD/WN Lines, tubes and drains: peripheral HEENT: normocephalic, anicteric Neck: non-tender, normal alignment Respiratory/Chest: chest wall non-tender, lungs clear Breasts: no masses Cardiovascular/Chest: normal peripheral pulses Abdomen: normal bowel sounds Genitourinary/Rectal: normal genital Laboratory Tests 11/21/18 04:45: White Blood Count 10.0, Red Blood Count 3.63L, Hemoglobin 11.3L, Hematocrit 34.4L, Mean Corpuscular Volume 95, Mean Corpuscular Hemoglobin 31.2H, Mean Corpuscular Hemoglobin Concent 32.9, Red Cell Distribution Width 11.9, Platelet Count 637H, Mean Platelet Volume 4.9L, Neutrophils (%) (Auto) 59.2, Lymphocytes (%) (Auto) 24.3, Monocytes (%) (Auto) 11.9H, Eosinophils (%) (Auto) 2.9, Basophils (%) (Auto) 1.8, Sodium Level 133L, Potassium Level 4.1, Chloride Level 95L, Carbon Dioxide Level 29, Anion Gap 10, Blood Urea Nitrogen 15, Creatinine 0.9, Estimat Glomerular Filtration Rate > 60, Glucose Level 164H, Uric Acid 4.3, Calcium Level 9.6, Phosphorus Level 5.1H, Magnesium Level 1.8, Total Bilirubin 0.3, Gamma Glutamyl Transpeptidase 126H, Aspartate Amino Transf (AST/SGOT) 27, Alanine Aminotransferase (ALT/SGPT) 58, Alkaline Phosphatase 116 , C-Reactive Protein, Quantitative 8.2H, Pro-B-Type Natriuretic Peptide 13, Total Protein 8.6H, Albumin 2.5L, Globulin 6.1, Albumin/Globulin Ratio 0.4L Current Medications Medications (Trade) Dose Ordered Sig/Des Route PRN Reason Start Time Stop Time Status Last Admin Dose Admin Acetaminophen (Tylenol) 650 mg Q4H PRN ORAL T>100.5 11/19/18 14:00 12/07/18 13:59 Acetaminophen/ Hydrocodone Bitart ([place] 10/325) 1 tab Q4H PRN ORAL Moderate Pain (Pain Scale 4-6) 11/19/18 14:00 11/21/18 13:59 11/21/18 03:35 Acetaminophen/ Hydrocodone Bitart ([place] 5/325) 1 tab Q4H PRN ORAL Mild Pain (Pain Scale 1-3) 11/19/18 14:30 11/21/18 14:29 Dextrose (Dextrose 50%) 25 ml Q30M PRN IV Hypoglycemia 11/19/18 13:30 12/08/18 19:29 Dextrose (Dextrose 50%) 50 ml Q30M PRN IV Hypoglycemia 11/19/18 13:30 12/08/18 19:29 Docusate Sodium (Colace) 100 mg TWICE A DAY ORAL 11/19/18 18:00 12/14/18 17:59 11/21/18 08:04 Famotidine (Pepcid) 20 mg BID ORAL 11/19/18 18:00 12/09/18 08:59 11/21/18 08:04 Heparin Sodium (Porcine) (Heparin 5000 units/ml) 5,000 units EVERY 12 HOURS SUBQ 11/19/18 21:00 12/15/18 08:59 11/21/18 08:05 Insulin Aspart (NovoLOG) BEFORE MEALS AND HS SUBQ 11/19/18 16:30 12/08/18 06:29 11/21/18 11:26 Insulin Detemir (Levemir) 20 units Q12HR SUBQ 11/19/18 21:00 12/15/18 08:59 11/21/18 08:07 Metformin HCl (Glucophage) 500 mg TIAC ORAL 11/19/18 16:30 12/19/18 11:29 11/21/18 11:25 Morphine Sulfate (Morphine Sulfate) 4 mg Q3H PRN IVP Severe Pain (Pain Scale 7-10) 11/19/18 14:00 11/25/18 13:59 11/20/18 05:17 Nateglinide (Starlix) 120 mg TIAC ORAL 11/19/18 16:30 12/09/18 06:29 11/21/18 11:25 Nitroglycerin (Ntg) 0.4 mg Q5MIN X 3 DOSES PRN SL Prn Chest Pain 11/19/18 13:30 12/14/18 13:44 Ondansetron HCl (Zofran) 4 mg Q6H PRN IVP Nausea & Vomiting 11/19/18 14:00 12/14/18 13:59 Polyethylene Glycol (Miralax) 17 gm DAILYPRN PRN ORAL Constipation 11/19/18 14:00 12/07/18 13:59 Promethazine HCl/ Codeine (Phenergan with Codeine) 5 ml Q4H PRN ORAL For Cough 11/19/18 14:15 12/10/18 14:14 Theophylline ([place]-Dur) 100 mg EVERY 12 HOURS ORAL 11/19/18 21:00 12/10/18 20:59 11/21/18 08:04 Vancomycin HCl (Vanco rx to dose) 1 ea DAILY PRN MISC Per rx protocol 11/20/18 09:00 12/16/18 09:44 Vancomycin HCl/ Dextrose 275 ml @ 183.333 mls/hr Q8HR IVPB 11/19/18 14:00 11/26/18 13:59 11/21/18 05:05 Yeimi Phelps MD Nov 21, 2018 13:02
--- NOTE | 2018-11-21 14:38 | Nephrology Progress Note ---
Assessment/Plan Problem List: (1) Hyponatremia Assessment: SIADH (2) Acute respiratory failure (3) Hyperglycemia (4) Pneumonia (5) Diabetes Assessment Pneumonia Low Na due to high BS Sepsis Respiratory failure Diabetes OOC with proteinuria Anemia Plan Chest tube care right side ha out on tele [place] UOs uric acid indicates SIADH fluid restriction monitor lytes TSH Lipid per orders Subjective ROS Limited/Unobtainable: No Constitutional: Reports: malaise Objective Objective Last 24 Hour Vital Signs Date Time Temp Pulse Resp B/P (MAP) Pulse Ox O2 Delivery O2 Flow Rate FiO2 11/21/18 12:00 2.0 11/21/18 12:00 97.2 74 18 116/77 (90) 97 11/21/18 09:51 Nasal Cannula 2.0 11/21/18 08:00 98.3 68 18 128/73 (91) 98 11/21/18 08:00 2.0 11/21/18 07:37 Nasal Cannula 3.0 32 11/21/18 07:37 95 Nasal Cannula 3.0 32 11/21/18 04:06 98.0 64 18 123/71 (88) 97 11/21/18 04:03 2.0 11/21/18 00:00 98.3 63 18 118/75 (89) 98 11/20/18 23:27 68 20 98 Full Face 30 11/20/18 22:50 2.0 11/20/18 21:36 62 23 97 Full Face 30 11/20/18 21:00 Nasal Cannula 2.0 11/20/18 20:00 98.2 60 18 104/68 (80) 97 11/20/18 19:37 97 Nasal Cannula 2.0 28 11/20/18 19:37 Nasal Cannula 2.0 28 11/20/18 17:42 97.5 11/20/18 16:00 2.0 11/20/18 16:00 97.5 81 18 117/65 (82) 98 Intake and Output 11/20/18 11/21/18 18:59 06:59 Intake Total 875.000 ml 458.333 ml Output Total 400 ml Balance 875.000 ml 58.333 ml IV Total 275.000 ml 458.333 ml Other 600 ml Output Urine Total 400 ml Laboratory Tests 11/21/18 04:45: White Blood Count 10.0, Red Blood Count 3.63L, Hemoglobin 11.3L, Hematocrit 34.4L, Mean Corpuscular Volume 95, Mean Corpuscular Hemoglobin 31.2H, Mean Corpuscular Hemoglobin Concent 32.9, Red Cell Distribution Width 11.9, Platelet Count 637H, Mean Platelet Volume 4.9L, Neutrophils (%) (Auto) 59.2, Lymphocytes (%) (Auto) 24.3, Monocytes (%) (Auto) 11.9H, Eosinophils (%) (Auto) 2.9, Basophils (%) (Auto) 1.8, Sodium Level 133L, Potassium Level 4.1, Chloride Level 95L, Carbon Dioxide Level 29, Anion Gap 10, Blood Urea Nitrogen 15, Creatinine 0.9, Estimat Glomerular Filtration Rate > 60, Glucose Level 164H, Uric Acid 4.3, Calcium Level 9.6, Phosphorus Level 5.1H, Magnesium Level 1.8, Total Bilirubin 0.3, Gamma Glutamyl Transpeptidase 126H, Aspartate Amino Transf (AST/SGOT) 27, Alanine Aminotransferase (ALT/SGPT) 58, Alkaline Phosphatase 116 , C-Reactive Protein, Quantitative 8.2H, Pro-B-Type Natriuretic Peptide 13, Total Protein 8.6H, Albumin 2.5L, Globulin 6.1, Albumin/Globulin Ratio 0.4L Height (Feet): 5 Height (Inches): 6.00 Weight (Pounds): 184 General Appearance: no apparent distress Cardiovascular: normal rate Respiratory/Chest: decreased breath sounds Abdomen: soft Objective no other change Sedrick Cordova MD Nov 21, 2018 14:38
[2018-11-21] MEDS ORDERED: HYDROcodone/Acetamin 5/325 tab ORAL PRN (14:45)
--- NOTE | 2018-11-21 15:34 | NUR ---
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 PNA VS: BP 116/77, P 74, T 97.2, RR 18, SpO2 95 on 3.0L O2 NC RBC 3.63, Hgb 11.3, Hct 34.4, Na 133, IS:[place] 10/325 1tab HEPARIN SUBQ LEVEMIR 20unitS SUBQ ANANYA-DUR 100mg PEPCID 20mg NOVOLOG SUBQ METFORMIN 500mg STARLIX 129mg VANCOMYCIN 275ml IVPB MED/SURG STATUS
[2018-11-21 16:00] VITALS: BP 125/61
--- NOTE | 2018-11-21 19:21 | NUR ---
HAND-OFF: Report given to Ariana.
--- NOTE | 2018-11-21 19:22 | NUR ---
NURSE NOTES: A/A/OX4. VERBALLY RESPONSIVE. NO ACUTE RESP DISTRESS NOTED. DRSG ON RIGHT FLANK IS DRY AND INTACT. PATIENT PRESENTs with small BLISTERS (pustule) ON CHEST AND ABDOMEN. PATIENT AMBULATES WITH A STEADY GAIT. . BED IN LOWEST POSITION. SIDERAILS ARE UP X2. CALL LIGHT IS WITHIN REACH. BED ALARM on AND LOCKED MODE. WILL CONT TO MONITOR.
[2018-11-21 20:00] VITALS: BP 101/65
--- NOTE | 2018-11-21 21:48 | General Progress Note ---
Assessment/Plan Problem List: (1) Acute respiratory failure ICD Codes: J96.00 - Acute respiratory failure, unspecified whether with hypoxia or hypercapnia SNOMED: 41838727 (2) Diabetes ICD Codes: E11.9 - Type 2 diabetes mellitus without complications SNOMED: 72972908 (3) Hyperglycemia ICD Codes: R73.9 - Hyperglycemia, unspecified SNOMED: 39299046 (4) Respiratory failure ICD Codes: J96.90 - Respiratory failure, unspecified, unspecified whether with hypoxia or hypercapnia SNOMED: 108599462 (5) Sepsis ICD Codes: A41.9 - Sepsis, unspecified organism SNOMED: 77826040 (6) Pneumonia ICD Codes: J18.9 - Pneumonia, unspecified organism SNOMED: 812918530 Status: progressing Assessment: afebrile niddm check sugar pna sepsis improved reveiwed chart and meds and labs Plan: afebrile resp insuff\ abx per id no acute events reviewed chart and labs r/o sepsis Subjective ROS Limited/Unobtainable: Yes Constitutional: Reports: no symptoms Allergies: Coded Allergies: No Known Allergies (Unverified , 11/04/18) Objective Last 24 Hour Vital Signs Date Time Temp Pulse Resp B/P (MAP) Pulse Ox O2 Delivery O2 Flow Rate FiO2 11/21/18 20:16 Nasal Cannula 3.0 32 11/21/18 20:15 96 Nasal Cannula 3.0 32 11/21/18 20:00 2.0 11/21/18 20:00 97.8 60 20 101/65 (77) 95 11/21/18 16:00 2.0 11/21/18 16:00 98.0 76 18 125/61 (82) 98 11/21/18 15:18 97.2 11/21/18 12:00 2.0 11/21/18 12:00 97.2 74 18 116/77 (90) 97 11/21/18 09:51 Nasal Cannula 2.0 11/21/18 08:00 98.3 68 18 128/73 (91) 98 11/21/18 08:00 2.0 11/21/18 07:37 Nasal Cannula 3.0 32 11/21/18 07:37 95 Nasal Cannula 3.0 32 11/21/18 04:06 98.0 64 18 123/71 (88) 97 11/21/18 04:03 2.0 11/21/18 00:00 98.3 63 18 118/75 (89) 98 11/20/18 23:27 68 20 98 Full Face 30 11/20/18 22:50 2.0 Intake and Output 11/20/18 11/21/18 19:00 07:00 Intake Total 875.000 ml 458.333 ml Output Total 400 ml Balance 875.000 ml 58.333 ml IV Total 275.000 ml 458.333 ml Other 600 ml Output Urine Total 400 ml Laboratory Tests 11/21/18 04:45: White Blood Count 10.0, Red Blood Count 3.63L, Hemoglobin 11.3L, Hematocrit 34.4L, Mean Corpuscular Volume 95, Mean Corpuscular Hemoglobin 31.2H, Mean Corpuscular Hemoglobin Concent 32.9, Red Cell Distribution Width 11.9, Platelet Count 637H, Mean Platelet Volume 4.9L, Neutrophils (%) (Auto) 59.2, Lymphocytes (%) (Auto) 24.3, Monocytes (%) (Auto) 11.9H, Eosinophils (%) (Auto) 2.9, Basophils (%) (Auto) 1.8, Sodium Level 133L, Potassium Level 4.1, Chloride Level 95L, Carbon Dioxide Level 29, Anion Gap 10, Blood Urea Nitrogen 15, Creatinine 0.9, Estimat Glomerular Filtration Rate > 60, Glucose Level 164H, Uric Acid 4.3, Calcium Level 9.6, Phosphorus Level 5.1H, Magnesium Level 1.8, Total Bilirubin 0.3, Gamma Glutamyl Transpeptidase 126H, Aspartate Amino Transf (AST/SGOT) 27, Alanine Aminotransferase (ALT/SGPT) 58, Alkaline Phosphatase 116 , C-Reactive Protein, Quantitative 8.2H, Pro-B-Type Natriuretic Peptide 13, Total Protein 8.6H, Albumin 2.5L, Globulin 6.1, Albumin/Globulin Ratio 0.4L Height (Feet): 5 Height (Inches): 6.00 Weight (Pounds): 184 Neck: supple Cardiovascular: normal rate Respiratory/Chest: lungs clear Abdomen: soft Navin Myers MD Nov 21, 2018 21:48
[2018-11-21] MEDS: Vancomycin 1.25mg/D5W 275ml IVPB SCH ×2 (22:31)
[2018-11-22] VITALS: BP 122/70
[2018-11-22 04:00] VITALS: BP 107/62
[2018-11-22] MEDS: NovoLOG Insulin Flexpen SUBQ SCH ×4 (06:10→20:37)
[2018-11-22] MEDS: metFORMIN 500mg tab ORAL SCH ×3 (06:10→16:55)
[2018-11-22] MEDS: Vancomycin 1.25mg/D5W 275ml IVPB SCH ×6 (06:11→21:37)
--- NOTE | 2018-11-22 07:42 | NUR ---
HAND-OFF: Report given to KRISTI Benson.
--- NOTE | 2018-11-22 07:45 | NUR ---
NURSE NOTES: pt in bed with no sob nor in any form of distress noted. Breathing regular and unlabored. denies pain at this time. call light within reach at all time. will continue to monitor
[2018-11-22 08:00] VITALS: BP 107/68
[2018-11-22] MEDS: Heparin 5000 units/ml inj SUBQ SCH ×2 (08:17→20:32)
[2018-11-22] MEDS: Docusate 100mg cap ORAL SCH ×2 (08:17→16:55)
[2018-11-22] MEDS: Theophylline ER 100mg ORAL SCH ×2 (08:17→20:30)
[2018-11-22] MEDS: Levemir Flexpen SUBQ SCH ×2 (08:18→20:35)
--- NOTE | 2018-11-22 10:07 | NUR ---
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 PNA VS: BP 107/62, P 87, T 98.6, RR 18, SpO2 94 on 2.0L O2 NC IS:VANCOMYCIN 275ml IVPB HEPARIN SUBQ LEVEMIR 20units SUBQ ANANYA-DUR 100mg PEPCID 20mg NOVOLOG SUBQ METFORMIN 500mg STARLIX 129mg MED/SURG STATUS
--- NOTE | 2018-11-22 10:14 | Pulmonology Progress Note ---
Assessment/Plan Problems: (1) Empyema pleura (2) Acute respiratory failure (3) Pneumonia (4) Sepsis (5) Hyperglycemia (6) Diabetes Assessment/Plan chest tube removed doing better wbc coming down sliding scale iv abx MRSA in pleural cavity Subjective ROS Limited/Unobtainable: No Constitutional: Reports: no symptoms HEENT: Repors: no symptoms Allergies: Coded Allergies: No Known Allergies (Unverified , 11/04/18) Objective Last 24 Hour Vital Signs Date Time Temp Pulse Resp B/P (MAP) Pulse Ox O2 Delivery O2 Flow Rate FiO2 11/22/18 09:06 Nasal Cannula 2.0 11/22/18 08:00 2.0 11/22/18 08:00 97.7 65 18 107/68 (81) 96 11/22/18 06:57 97 Nasal Cannula 3.0 32 11/22/18 06:57 Nasal Cannula 3.0 32 11/22/18 04:26 2.0 30 11/22/18 04:00 98.6 87 18 107/62 (77) 94 11/22/18 03:20 70 17 98 Full Face 30 11/22/18 01:28 65 20 97 Full Face 30 11/22/18 00:00 97.3 67 21 122/70 (87) 94 11/21/18 23:37 67 23 95 Full Face 30 11/21/18 21:51 Nasal Cannula 2.0 11/21/18 20:16 Nasal Cannula 3.0 32 11/21/18 20:15 96 Nasal Cannula 3.0 32 11/21/18 20:00 2.0 11/21/18 20:00 97.8 60 20 101/65 (77) 95 11/21/18 16:00 2.0 11/21/18 16:00 98.0 76 18 125/61 (82) 98 11/21/18 15:18 97.2 11/21/18 12:00 2.0 11/21/18 12:00 97.2 74 18 116/77 (90) 97 Intake and Output 11/21/18 11/22/18 19:00 07:00 Intake Total 1395.000 ml 275.000 ml Output Total 625 ml Balance 1395.000 ml -350.000 ml Intake Oral 1120 ml IV Total 275.000 ml 275.000 ml Output Urine Total 625 ml # Voids 6 # Bowel Movements 1 Objective General Appearance: WD/WN Lines, tubes and drains: peripheral HEENT: normocephalic, anicteric Neck: non-tender, normal alignment Respiratory/Chest: chest wall non-tender, lungs clear Breasts: no masses Cardiovascular/Chest: normal peripheral pulses Abdomen: normal bowel sounds Genitourinary/Rectal: normal genital Current Medications Medications (Trade) Dose Ordered Sig/Des Route PRN Reason Start Time Stop Time Status Last Admin Dose Admin Acetaminophen (Tylenol) 650 mg Q4H PRN ORAL T>100.5 11/19/18 14:00 12/07/18 13:59 Acetaminophen/ Hydrocodone Bitart ([place] 10/325) 1 tab Q4H PRN ORAL Moderate Pain (Pain Scale 4-6) 11/21/18 14:45 11/28/18 14:44 11/21/18 14:48 Acetaminophen/ Hydrocodone Bitart ([place] 5/325) 1 tab Q4H PRN ORAL Mild Pain (Pain Scale 1-3) 11/21/18 14:45 11/28/18 14:44 Dextrose (Dextrose 50%) 25 ml Q30M PRN IV Hypoglycemia 11/19/18 13:30 12/08/18 19:29 Dextrose (Dextrose 50%) 50 ml Q30M PRN IV Hypoglycemia 11/19/18 13:30 12/08/18 19:29 Docusate Sodium (Colace) 100 mg TWICE A DAY ORAL 11/19/18 18:00 12/14/18 17:59 11/22/18 08:17 Famotidine (Pepcid) 20 mg BID ORAL 11/19/18 18:00 12/09/18 08:59 11/22/18 08:17 Heparin Sodium (Porcine) (Heparin 5000 units/ml) 5,000 units EVERY 12 HOURS SUBQ 11/19/18 21:00 12/15/18 08:59 11/22/18 08:17 Insulin Aspart (NovoLOG) BEFORE MEALS AND HS SUBQ 11/19/18 16:30 12/08/18 06:29 11/22/18 06:10 Insulin Detemir (Levemir) 20 units Q12HR SUBQ 11/19/18 21:00 12/15/18 08:59 11/22/18 08:18 Metformin HCl (Glucophage) 500 mg TIAC ORAL 11/19/18 16:30 12/19/18 11:29 11/22/18 06:10 Morphine Sulfate (Morphine Sulfate) 4 mg Q3H PRN IVP Severe Pain (Pain Scale 7-10) 11/19/18 14:00 11/25/18 13:59 11/20/18 05:17 Nateglinide (Starlix) 120 mg TIAC ORAL 11/19/18 16:30 12/09/18 06:29 11/22/18 06:10 Nitroglycerin (Ntg) 0.4 mg Q5MIN X 3 DOSES PRN SL Prn Chest Pain 11/19/18 13:30 12/14/18 13:44 Ondansetron HCl (Zofran) 4 mg Q6H PRN IVP Nausea & Vomiting 11/19/18 14:00 12/14/18 13:59 Polyethylene Glycol (Miralax) 17 gm DAILYPRN PRN ORAL Constipation 11/19/18 14:00 12/07/18 13:59 Promethazine HCl/ Codeine (Phenergan with Codeine) 5 ml Q4H PRN ORAL For Cough 11/19/18 14:15 12/10/18 14:14 Theophylline ([place]-Dur) 100 mg EVERY 12 HOURS ORAL 11/19/18 21:00 12/10/18 20:59 11/22/18 08:17 Vancomycin HCl (Vanco rx to dose) 1 ea DAILY PRN MISC Per rx protocol 11/20/18 09:00 12/16/18 09:44 Vancomycin HCl 1.25 gm/Dextrose 275 ml @ 183.333 mls/hr Q8HR IVPB 11/21/18 22:00 11/26/18 21:59 11/22/18 06:11 Yeimi Phleps MD Nov 22, 2018 10:14
[2018-11-22] MEDS ORDERED: LEVEMIR FL100 UNIT/1 SUBQ (10:18)
[2018-11-22] MEDS ORDERED: GLUCOPHAGE500 MG ORAL (10:18)
[2018-11-22] MEDS ORDERED: STARLIX120 MG ORAL (10:18)
[2018-11-22] MEDS ORDERED: HYDROCODON-ACE1 EA13 ORAL (10:18)
[2018-11-22] MEDS ORDERED: vancomycin INJ (10:18)
[2018-11-22] MEDS ORDERED: NOVOLOG100 UNITS1 SUBQ (10:18)
--- NOTE | 2018-11-22 10:52 | NUR ---
RD ASSESSMENT & RECOMMENDATIONS SEE CARE ACTIVITY FOR COMPLETE ASSESSMENT DAILY ESTIMATED NEEDS: Needs based on Pulmonary, DM 75kg adj 25-30 kcals/kg 4164-9965 total kcals 1-1.5 g protein/kg 75-113 g total protein Fluid per MD mL/kg 800ml/day total fluid mLs NUTRITION DIAGNOSIS: * Altered nutrition related lab values r/t new DM dx as evidenced by A1C 8.8, elev BG on adm (357, now improved), Uglu 4+. * Chewing difficulty R/T edentulous status as evidenced by pt on soft easy chew texture diet. CURRENT DIET:CCHO MED, soft easy chew PO DIET RECOMMENDATIONS: CCHO MED / Texture as tolerated (pt is edentulous) ADDITIONAL RECOMMENDATIONS: 1) Obtain a standing scale 2) Provided diet edu re DM diet 3) Monitor elev K and phos; need for dietary restriction .
--- NOTE | 2018-11-22 11:25 | Nephrology Progress Note ---
Assessment/Plan Problem List: (1) Hyponatremia Assessment: SIADH (2) Acute respiratory failure (3) Hyperglycemia (4) Pneumonia (5) Diabetes Assessment Pneumonia Low Na due to high BS Sepsis Respiratory failure Diabetes OOC with proteinuria Anemia Plan Chest tube care right side ha out on tele [place] UOs uric acid indicates SIADH fluid restriction monitor lytes TSH Lipid per orders Subjective ROS Limited/Unobtainable: No Constitutional: Reports: malaise Objective Objective Last 24 Hour Vital Signs Date Time Temp Pulse Resp B/P (MAP) Pulse Ox O2 Delivery O2 Flow Rate FiO2 11/22/18 09:06 Nasal Cannula 2.0 11/22/18 08:00 2.0 11/22/18 08:00 97.7 65 18 107/68 (81) 96 11/22/18 06:57 97 Nasal Cannula 3.0 32 11/22/18 06:57 Nasal Cannula 3.0 32 11/22/18 04:26 2.0 30 11/22/18 04:00 98.6 87 18 107/62 (77) 94 11/22/18 03:20 70 17 98 Full Face 30 11/22/18 01:28 65 20 97 Full Face 30 11/22/18 00:00 97.3 67 21 122/70 (87) 94 11/21/18 23:37 67 23 95 Full Face 30 11/21/18 21:51 Nasal Cannula 2.0 11/21/18 20:16 Nasal Cannula 3.0 32 11/21/18 20:15 96 Nasal Cannula 3.0 32 11/21/18 20:00 2.0 11/21/18 20:00 97.8 60 20 101/65 (77) 95 11/21/18 16:00 2.0 11/21/18 16:00 98.0 76 18 125/61 (82) 98 11/21/18 15:18 97.2 11/21/18 12:00 2.0 11/21/18 12:00 97.2 74 18 116/77 (90) 97 Intake and Output 11/21/18 11/22/18 19:00 07:00 Intake Total 1395.000 ml 275.000 ml Output Total 625 ml Balance 1395.000 ml -350.000 ml Intake Oral 1120 ml IV Total 275.000 ml 275.000 ml Output Urine Total 625 ml # Voids 6 # Bowel Movements 1 Height (Feet): 5 Height (Inches): 6.00 Weight (Pounds): 184 General Appearance: no apparent distress Respiratory/Chest: decreased breath sounds Objective no other change Sedrick Cordova MD Nov 22, 2018 11:25
[2018-11-22 12:00] VITALS: BP 112/75
[2018-11-22] MEDS ORDERED: Loperamide 2mg cap ORAL PRN (13:00)
--- NOTE | 2018-11-22 13:10 | Infectious Diseases Prog Note ---
Assessment/Plan Assessment/Plan Abx: Cefepime 11/08- IV Vancomycin 11/08- Ceftriaxone x1 11/07 Assessment: Sepsis- 2ry to PNA -CXR: Increased right suprahilar and basilar consolidative changes, since prior study 11/04/2018. Suspect developing small right pleural effusion -11/04 influenza sc neg 11/09/18 - S/P Thora - 1000 WBCs Path - Mo malignant cell seen Cx - NEG 11/14/18 - Debridement and decortication of right lung Cx - MRSA Fever- resolved Leukocytosis - recurrent Acute respiratory failure Initially on bipap but now on NC Dm2 Plan: - Continue Vancomycin #7/-28 for MRSA empyema Will need an extend course of vanocmcyin 3-4 week depending on when Chest Tube removed and clinical response. As is responding well would treat at least until 12/06/18 and for at least one week s/p Chest tube removal - 11/17/18 S/P Cefepime -11/13/18 S/P Vancomycin #7 -11/07 SP Ceftriaxone x1 -f.u lung abscess Cx -Monitor CBC/CMP, temperatures -aspiration precautions Will continue to follow along with you. Subjective Allergies: Coded Allergies: No Known Allergies (Unverified , 11/04/18) Subjective afebrile at 2L NC Objective Vital Signs Last 24 Hour Vital Signs Date Time Temp Pulse Resp B/P (MAP) Pulse Ox O2 Delivery O2 Flow Rate FiO2 11/22/18 09:06 Nasal Cannula 2.0 11/22/18 08:00 2.0 11/22/18 08:00 97.7 65 18 107/68 (81) 96 11/22/18 06:57 97 Nasal Cannula 3.0 32 11/22/18 06:57 Nasal Cannula 3.0 32 11/22/18 04:26 2.0 30 11/22/18 04:00 98.6 87 18 107/62 (77) 94 11/22/18 03:20 70 17 98 Full Face 30 11/22/18 01:28 65 20 97 Full Face 30 11/22/18 00:00 97.3 67 21 122/70 (87) 94 11/21/18 23:37 67 23 95 Full Face 30 11/21/18 21:51 Nasal Cannula 2.0 11/21/18 20:16 Nasal Cannula 3.0 32 11/21/18 20:15 96 Nasal Cannula 3.0 32 11/21/18 20:00 2.0 11/21/18 20:00 97.8 60 20 101/65 (77) 95 11/21/18 16:00 2.0 11/21/18 16:00 98.0 76 18 125/61 (82) 98 11/21/18 15:18 97.2 Height (Feet): 5 Height (Inches): 6.00 Weight (Pounds): 184 Objective Gen: NAD on NC HEENT: NCAT MMM, EOMI Respiratory/Chest: chest wall non-tender, lungs clear Cardiovascular/Chest: normal peripheral pulses Abdomen: normal bowel sounds, soft Current Medications Medications (Trade) Dose Ordered Sig/Des Route PRN Reason Start Time Stop Time Status Last Admin Dose Admin Acetaminophen (Tylenol) 650 mg Q4H PRN ORAL T>100.5 11/19/18 14:00 12/07/18 13:59 Acetaminophen/ Hydrocodone Bitart ([place] 10/325) 1 tab Q4H PRN ORAL Moderate Pain (Pain Scale 4-6) 11/21/18 14:45 11/28/18 14:44 11/21/18 14:48 Acetaminophen/ Hydrocodone Bitart ([place] 5/325) 1 tab Q4H PRN ORAL Mild Pain (Pain Scale 1-3) 11/21/18 14:45 11/28/18 14:44 Dextrose (Dextrose 50%) 25 ml Q30M PRN IV Hypoglycemia 11/19/18 13:30 12/08/18 19:29 Dextrose (Dextrose 50%) 50 ml Q30M PRN IV Hypoglycemia 11/19/18 13:30 12/08/18 19:29 Docusate Sodium (Colace) 100 mg TWICE A DAY ORAL 11/19/18 18:00 12/14/18 17:59 11/22/18 08:17 Famotidine (Pepcid) 20 mg BID ORAL 11/19/18 18:00 12/09/18 08:59 11/22/18 08:17 Heparin Sodium (Porcine) (Heparin 5000 units/ml) 5,000 units EVERY 12 HOURS SUBQ 11/19/18 21:00 12/15/18 08:59 11/22/18 08:17 Insulin Aspart (NovoLOG) BEFORE MEALS AND HS SUBQ 11/19/18 16:30 12/08/18 06:29 11/22/18 12:09 Insulin Detemir (Levemir) 20 units Q12HR SUBQ 11/19/18 21:00 12/15/18 08:59 11/22/18 08:18 Metformin HCl (Glucophage) 500 mg TIAC ORAL 11/19/18 16:30 12/19/18 11:29 11/22/18 12:07 Morphine Sulfate (Morphine Sulfate) 4 mg Q3H PRN IVP Severe Pain (Pain Scale 7-10) 11/19/18 14:00 11/25/18 13:59 11/20/18 05:17 Nateglinide (Starlix) 120 mg TIAC ORAL 11/19/18 16:30 12/09/18 06:29 11/22/18 12:07 Nitroglycerin (Ntg) 0.4 mg Q5MIN X 3 DOSES PRN SL Prn Chest Pain 11/19/18 13:30 12/14/18 13:44 Ondansetron HCl (Zofran) 4 mg Q6H PRN IVP Nausea & Vomiting 11/19/18 14:00 12/14/18 13:59 Polyethylene Glycol (Miralax) 17 gm DAILYPRN PRN ORAL Constipation 11/19/18 14:00 12/07/18 13:59 Promethazine HCl/ Codeine (Phenergan with Codeine) 5 ml Q4H PRN ORAL For Cough 11/19/18 14:15 12/10/18 14:14 Theophylline (Trem[place]ne-Dur) 100 mg EVERY 12 HOURS ORAL 11/19/18 21:00 12/10/18 20:59 11/22/18 08:17 Vancomycin HCl (Vanco rx to dose) 1 ea DAILY PRN MISC Per rx protocol 11/20/18 09:00 12/16/18 09:44 Vancomycin HCl 1.25 gm/Dextrose 275 ml @ 183.333 mls/hr Q8HR IVPB 11/21/18 22:00 11/26/18 21:59 11/22/18 06:11 Alfreda Thomas M.D. Nov 22, 2018 13:10
[2018-11-22] MEDS: HYDROcodone/Acetamin 10/325 tab ORAL PRN (13:17)
--- NOTE | 2018-11-22 15:58 | NUR ---
DISCHARGE PLANNED PT. DC TO [facility] ROOM 18B SKILLED T- FOR NURSE TO NURSE REPORT [facility] WILL FINANCIAL ENGINEER AT 1700 Addendum: 11/23/18 at 1140 by Teresa Herr LVN [facility] WILL FIN[facility]CIAL ENGINEER [id number]
[2018-11-22 16:00] VITALS: BP 124/73
[2018-11-22] MEDS ORDERED: PROMETHAZINE-C118 M1 ORAL (16:21)
--- NOTE | 2018-11-22 17:48 | NUR ---
NURSE NOTES: Called [facility] to give report and informed the receiving nurse that pt would need isolation room for MRSA in lung. per nurse (Susie,) they don't have isolation room at this time and cannot accept the pt. Called [facility] and informed her that they cannot accept the pt at this time.
--- NOTE | 2018-11-22 19:02 | NUR ---
HAND-OFF: Report given to Lacey Gutierres.
[2018-11-22 20:00] VITALS: BP 111/73
--- NOTE | 2018-11-22 21:35 | NUR ---
NURSE NOTES: Received patient from KRISTI Benson. Patient is sitting in bed, awake, watching TV, alert and oriented x2. Patient is on NS 2ml O2 at 96%. No s/s of distress or SOB at the moment. No complaint of pain. Dressing on left chest is dry and intact. Started a new IV 22G on patient's left forearm. Bed is at the lowest position, bed alarms active, side rails are up x2, call light is within reach. Will continue to monitor.
--- NOTE | 2018-11-22 21:45 | General Progress Note ---
Assessment/Plan Problem List: (1) Acute respiratory failure ICD Codes: J96.00 - Acute respiratory failure, unspecified whether with hypoxia or hypercapnia SNOMED: 96572645 (2) Diabetes ICD Codes: E11.9 - Type 2 diabetes mellitus without complications SNOMED: 42351613 (3) Hyperglycemia ICD Codes: R73.9 - Hyperglycemia, unspecified SNOMED: 69798357 (4) Respiratory failure ICD Codes: J96.90 - Respiratory failure, unspecified, unspecified whether with hypoxia or hypercapnia SNOMED: 802777450 (5) Sepsis ICD Codes: A41.9 - Sepsis, unspecified organism SNOMED: 82538924 (6) Pneumonia ICD Codes: J18.9 - Pneumonia, unspecified organism SNOMED: 609248191 Status: progressing Assessment: abx per id vitals stable afebrile niddm check sugar pna improved sepsis improved reveiwed chart and meds and labs Subjective ROS Limited/Unobtainable: Yes Allergies: Coded Allergies: No Known Allergies (Unverified , 11/04/18) Objective Last 24 Hour Vital Signs Date Time Temp Pulse Resp B/P (MAP) Pulse Ox O2 Delivery O2 Flow Rate FiO2 11/22/18 20:00 95 Nasal Cannula 2.0 28 11/22/18 20:00 Nasal Cannula 2.0 28 11/22/18 16:00 2.0 11/22/18 16:00 97.6 60 18 124/73 (90) 95 11/22/18 13:47 97.7 11/22/18 12:00 2.0 11/22/18 12:00 96.8 60 18 112/75 (87) 97 11/22/18 09:06 Nasal Cannula 2.0 11/22/18 08:00 2.0 11/22/18 08:00 97.7 65 18 107/68 (81) 96 11/22/18 06:57 97 Nasal Cannula 3.0 32 11/22/18 06:57 Nasal Cannula 3.0 32 11/22/18 04:26 2.0 30 11/22/18 04:00 98.6 87 18 107/62 (77) 94 11/22/18 03:20 70 17 98 Full Face 30 11/22/18 01:28 65 20 97 Full Face 30 11/22/18 00:00 97.3 67 21 122/70 (87) 94 4/15/19 23:37 67 23 95 Full Face 30 11/21/18 21:51 Nasal Cannula 2.0 Intake and Output 11/21/18 11/22/18 18:59 06:59 Intake Total 1395.000 ml 275.000 ml Output Total 625 ml Balance 1395.000 ml -350.000 ml Intake Oral 1120 ml IV Total 275.000 ml 275.000 ml Output Urine Total 625 ml # Voids 6 # Bowel Movements 1 Height (Feet): 5 Height (Inches): 6.00 Weight (Pounds): 184 Cardiovascular: normal rate Respiratory/Chest: lungs clear Navin Myers MD Nov 22, 2018 21:45
[2018-11-23] VITALS: BP 125/74
[2018-11-23 04:00] VITALS: BP 113/72
[2018-11-23] MEDS: Vancomycin 1.25mg/D5W 275ml IVPB SCH ×2 (05:27)
[2018-11-23] MEDS: metFORMIN 500mg tab ORAL SCH ×2 (05:32→11:30)
[2018-11-23] MEDS: NovoLOG Insulin Flexpen SUBQ SCH ×2 (05:37→11:30)
[2018-11-23 05:42] VITALS: BP 113/72
[2018-11-23 05:59] LABS: EOSINOPHILS % (AUTO) 3.8 % (0.0-3.0); HEMATOCRIT 33.1 % (42.0-52.0); HEMOGLOBIN 10.7 G/DL (14.2-18.0); LYMPHOCYTES % (AUTO) 30.4 % (20.0-45.0); MEAN CORPUSCULAR VOLUME 95 FL (80-99); MONOCYTES % (AUTO) 8.6 % (1.0-10.0); NEUTROPHILS % (AUTO) 56.2 % (45.0-75.0); PLATELET COUNT 630 K/UL (150-450); RED BLOOD COUNT 3.48 M/UL (4.70-6.10); RED CELL DISTRIBUTION WIDTH 11.5 % (11.6-14.8); WHITE BLOOD COUNT 9.2 K/UL (4.8-10.8)
--- NOTE | 2018-11-23 06:30 | General Progress Note ---
Assessment/Plan Problem List: (1) Hyperglycemia ICD Codes: R73.9 - Hyperglycemia, unspecified SNOMED: 24367308 (2) Diabetes ICD Codes: E11.9 - Type 2 diabetes mellitus without complications SNOMED: 93476618 (3) Pneumonia ICD Codes: J18.9 - Pneumonia, unspecified organism SNOMED: 112712840 Assessment: continue Metformin 500 mg tid reduce Levemir to 18 units bid continue Starlix 120 mg ac tid continue NISS ac / hs Subjective Allergies: Coded Allergies: No Known Allergies (Unverified , 11/04/18) All Systems: reviewed and negative except above Subjective events noted Item Value Date Time Bedside Blood Glucose 108 mg/dl 11/23/18 0537 Bedside Blood Glucose 129 mg/dl H 11/22/18 2100 Bedside Blood Glucose 98 mg/dl 11/22/18 1652 Bedside Blood Glucose 128 mg/dl H 11/22/18 1209 Bedside Blood Glucose 171 mg/dl H 11/22/18 0818 Bedside Blood Glucose 171 mg/dl H 11/22/18 0626 Objective Last 24 Hour Vital Signs Date Time Temp Pulse Resp B/P (MAP) Pulse Ox O2 Delivery O2 Flow Rate FiO2 11/23/18 05:42 97.3 62 20 113/72 (86) 95 62 11/23/18 04:12 2.0 30 11/23/18 04:00 97.3 62 20 113/72 (86) 95 62 11/23/18 01:10 70 17 Bi-pap 30 11/23/18 01:07 70 17 96 Full Face 30 11/23/18 00:46 2.0 30 11/23/18 00:00 97.7 62 16 125/74 (91) 99 62 11/22/18 23:55 72 17 97 Full Face 30 11/22/18 21:00 Nasal Cannula 2.0 11/22/18 20:00 98.2 78 20 111/73 (86) 96 78 11/22/18 20:00 95 Nasal Cannula 2.0 28 11/22/18 20:00 Nasal Cannula 2.0 28 11/22/18 16:00 2.0 11/22/18 16:00 97.6 60 18 124/73 (90) 95 11/22/18 13:47 97.7 11/22/18 12:00 2.0 11/22/18 12:00 96.8 60 18 112/75 (87) 97 11/22/18 09:06 Nasal Cannula 2.0 11/22/18 08:00 2.0 11/22/18 08:00 97.7 65 18 107/68 (81) 96 11/22/18 06:57 97 Nasal Cannula 3.0 32 11/22/18 06:57 Nasal Cannula 3.0 32 Intake and Output 11/22/18 11/23/18 19:00 07:00 Intake Total 995.000 ml 275.000 ml Output Total 1600 ml Balance -605.000 ml 275.000 ml Intake Oral 720 ml IV Total 275.000 ml 275.000 ml Output Urine Total 1600 ml Laboratory Tests 11/23/18 04:43: White Blood Count 9.2, Red Blood Count 3.48L, Hemoglobin 10.7L, Hematocrit 33.1L , Mean Corpuscular Volume 95, Mean Corpuscular Hemoglobin 30.7, Mean Corpuscular Hemoglobin Concent 32.3, Red Cell Distribution Width 11.5L, Platelet Count 630H, Mean Platelet Volume 5.2L, Neutrophils (%) (Auto) 56.2, Lymphocytes (%) (Auto) 30.4, Monocytes (%) (Auto) 8.6, Eosinophils (%) (Auto) 3.8H, Basophils (%) (Auto) 1.0, Erythrocyte Sedimentation Rate [Pending], Sodium Level [Pending], Potassium Level [Pending], Chloride Level [Pending], Carbon Dioxide Level [Pending], Blood Urea Nitrogen [Pending], Creatinine [ Pending], Estimat Glomerular Filtration Rate [Pending], Glucose Level [Pending] , Calcium Level [Pending], Phosphorus Level [Pending], Magnesium Level [Pending] , Total Bilirubin [Pending], Aspartate Amino Transf (AST/SGOT) [Pending], Alanine Aminotransferase (ALT/SGPT) [Pending], Alkaline Phosphatase [Pending], C -Reactive Protein, Quantitative [Pending], Total Protein [Pending], Albumin [ Pending], Globulin [Pending] Height (Feet): 5 Height (Inches): 6.00 Weight (Pounds): 184 General Appearance: no apparent distress Neck: normal alignment Cardiovascular: normal rate Respiratory/Chest: lungs clear Abdomen: normal bowel sounds Edema: no edema noted Arm (L), no edema noted Arm (R), no edema noted Leg (L), no edema noted Leg (R), no edema noted Pedal (L), no edema noted Pedal (R), no edema noted Generalized Objective Current Medications Medications (Trade) Dose Ordered Sig/Des Route PRN Reason Start Time Stop Time Status Last Admin Dose Admin Acetaminophen (Tylenol) 650 mg Q4H PRN ORAL T>100.5 11/19/18 14:00 12/07/18 13:59 Acetaminophen/ Hydrocodone Bitart ([place] 10/325) 1 tab Q4H PRN ORAL Moderate Pain (Pain Scale 4-6) 11/21/18 14:45 11/28/18 14:44 11/22/18 13:17 Acetaminophen/ Hydrocodone Bitart ([place] 5/325) 1 tab Q4H PRN ORAL Mild Pain (Pain Scale 1-3) 11/21/18 14:45 11/28/18 14:44 Dextrose (Dextrose 50%) 25 ml Q30M PRN IV Hypoglycemia 11/19/18 13:30 12/08/18 19:29 Dextrose (Dextrose 50%) 50 ml Q30M PRN IV Hypoglycemia 11/19/18 13:30 12/08/18 19:29 Docusate Sodium (Colace) 100 mg TWICE A DAY ORAL 11/19/18 18:00 12/14/18 17:59 11/22/18 16:55 Famotidine (Pepcid) 20 mg BID ORAL 11/19/18 18:00 12/09/18 08:59 11/22/18 16:55 Heparin Sodium (Porcine) (Heparin 5000 units/ml) 5,000 units EVERY 12 HOURS SUBQ 11/19/18 21:00 12/15/18 08:59 11/22/18 20:32 Insulin Aspart (NovoLOG) BEFORE MEALS AND HS SUBQ 11/19/18 16:30 12/08/18 06:29 11/22/18 20:37 Insulin Detemir (Levemir) 20 units Q12HR SUBQ 11/19/18 21:00 12/15/18 08:59 11/22/18 20:35 Loperamide HCl (Imodium) 2 mg Q4H PRN ORAL Diarrhea 11/22/18 13:00 12/22/18 12:59 11/22/18 13:07 Metformin HCl (Glucophage) 500 mg TIAC ORAL 11/19/18 16:30 12/19/18 11:29 11/23/18 05:32 Morphine Sulfate (Morphine Sulfate) 4 mg Q3H PRN IVP Severe Pain (Pain Scale 7-10) 11/19/18 14:00 11/25/18 13:59 11/20/18 05:17 Nateglinide (Starlix) 120 mg TIAC ORAL 11/19/18 16:30 12/09/18 06:29 11/23/18 05:32 Nitroglycerin (Ntg) 0.4 mg Q5MIN X 3 DOSES PRN SL Prn Chest Pain 11/19/18 13:30 12/14/18 13:44 Ondansetron HCl (Zofran) 4 mg Q6H PRN IVP Nausea & Vomiting 11/19/18 14:00 12/14/18 13:59 Polyethylene Glycol (Miralax) 17 gm DAILYPRN PRN ORAL Constipation 11/19/18 14:00 12/07/18 13:59 Promethazine HCl/ Codeine (Phenergan with Codeine) 5 ml Q4H PRN ORAL For Cough 11/19/18 14:15 12/10/18 14:14 Theophylline ([place]-Dur) 100 mg EVERY 12 HOURS ORAL 11/19/18 21:00 12/10/18 20:59 11/22/18 20:30 Vancomycin HCl (Vanco rx to dose) 1 ea DAILY PRN MISC Per rx protocol 11/20/18 09:00 12/16/18 09:44 Vancomycin HCl 1.25 gm/Dextrose 275 ml @ 183.333 mls/hr Q8HR IVPB 11/21/18 22:00 11/26/18 21:59 11/23/18 05:27 Sonido Styles MD Nov 23, 2018 06:30
[2018-11-23 06:44] LABS: ALANINE AMINOTRANSFERASE 43 U/L (12-78); ALBUMIN 2.5 G/DL (3.4-5.0); ALBUMIN/GLOBULIN RATIO 0.4 (1.0-2.7); ALKALINE PHOSPHATASE 126 U/L (46-116); ANION GAP 7 mmol/L (5-15); ASPARTATE AMINO TRANSFERASE 15 U/L (15-37); BILIRUBIN,TOTAL 0.2 MG/DL (0.2-1.0); BLOOD UREA NITROGEN 19 mg/dL (7-18); CALCIUM 9.6 MG/DL (8.5-10.1); CARBON DIOXIDE 30 MMOL/L (21-32); CHLORIDE 99 MMOL/L (98-107); PHOSPHORUS 5.2 MG/DL (2.5-4.9); SODIUM 136 MMOL/L (136-145)
--- NOTE | 2018-11-23 07:36 | NUR ---
HAND-OFF: Report given to KRISTI Tovar.
--- NOTE | 2018-11-23 07:37 | NUR ---
NURSE NOTES: Received patient from Waldo BERRY, patient is up in bed eating breakfast, no distress noted, bed is locked and in lowest position, call light within reach, will continue to monitor.
[2018-11-23 08:00] VITALS: BP 115/73
[2018-11-23] MEDS: Heparin 5000 units/ml inj SUBQ SCH (08:47)
[2018-11-23] MEDS: Docusate 100mg cap ORAL SCH (08:48)
[2018-11-23] MEDS: Theophylline ER 100mg ORAL SCH (08:48)
[2018-11-23] MEDS ORDERED: Levemir Flexpen SUBQ SCH (09:00)
--- NOTE | 2018-11-23 11:04 | Infectious Diseases Prog Note ---
Assessment/Plan Assessment/Plan Abx: Cefepime 11/08- IV Vancomycin 11/08- Ceftriaxone x1 11/07 Assessment: Sepsis- 2ry to PNA -CXR: Increased right suprahilar and basilar consolidative changes, since prior study 11/04/2018. Suspect developing small right pleural effusion -11/04 influenza sc neg 11/09/18 - S/P Thora - 1000 WBCs Path - Mo malignant cell seen Cx - NEG 11/14/18 - Debridement and decortication of right lung Cx - MRSA Fever- resolved Leukocytosis - recurrent Acute respiratory failure Initially on bipap but now on NC Dm2 Plan: - Continue Vancomycin #/-28 for MRSA empyema Will need an extend course of vanocmcyin 3-4 week depending on when Chest Tube removed and clinical response. As is responding well would treat at least until 12/06/18 and for at least one week s/p Chest tube removal - 11/17/18 S/P Cefepime -11/13/18 S/P Vancomycin #7 -11/07 SP Ceftriaxone x1 -f.u lung abscess Cx -Monitor CBC/CMP, temperatures -aspiration precautions Will continue to follow along with you. Subjective Allergies: Coded Allergies: No Known Allergies (Unverified , 11/04/18) Subjective afebrile at 2L NC Objective Vital Signs Last 24 Hour Vital Signs Date Time Temp Pulse Resp B/P (MAP) Pulse Ox O2 Delivery O2 Flow Rate FiO2 11/23/18 10:03 97.3 11/23/18 08:22 96 Nasal Cannula 2.0 28 11/23/18 08:22 Nasal Cannula 2.0 28 11/23/18 08:00 Nasal Cannula 2.0 11/23/18 08:00 97.3 62 18 115/73 (87) 95 11/23/18 08:00 2.0 11/23/18 05:42 97.3 62 20 113/72 (86) 95 62 11/23/18 04:12 2.0 30 11/23/18 04:00 97.3 62 20 113/72 (86) 95 62 11/23/18 01:10 70 17 Bi-pap 30 11/23/18 01:07 70 17 96 Full Face 30 11/23/18 00:46 2.0 30 11/23/18 00:00 97.7 62 16 125/74 (91) 99 62 11/22/18 23:55 72 17 97 Full Face 30 11/22/18 21:00 Nasal Cannula 2.0 11/22/18 20:00 98.2 78 20 111/73 (86) 96 78 11/22/18 20:00 95 Nasal Cannula 2.0 28 11/22/18 20:00 Nasal Cannula 2.0 28 11/22/18 16:00 2.0 11/22/18 16:00 97.6 60 18 124/73 (90) 95 11/22/18 13:47 97.7 11/22/18 12:00 2.0 11/22/18 12:00 96.8 60 18 112/75 (87) 97 Height (Feet): 5 Height (Inches): 6.00 Weight (Pounds): 187 Objective Gen: NAD on NC HEENT: NCAT MMM, EOMI Respiratory/Chest: chest wall non-tender, lungs clear Cardiovascular/Chest: normal peripheral pulses Abdomen: normal bowel sounds, soft Laboratory Tests Test 11/23/18 04:43 White Blood Count 9.2 K/UL (4.8-10.8) Red Blood Count 3.48 M/UL (4.70-6.10) L Hemoglobin 10.7 G/DL (14.2-18.0) L Hematocrit 33.1 % (42.0-52.0) L Mean Corpuscular Volume 95 FL (80-99) Mean Corpuscular Hemoglobin 30.7 PG (27.0-31.0) Mean Corpuscular Hemoglobin Concent 32.3 G/DL (32.0-36.0) Red Cell Distribution Width 11.5 % (11.6-14.8) L Platelet Count 630 K/UL (150-450) H Mean Platelet Volume 5.2 FL (6.5-10.1) L Neutrophils (%) (Auto) 56.2 % (45.0-75.0) Lymphocytes (%) (Auto) 30.4 % (20.0-45.0) Monocytes (%) (Auto) 8.6 % (1.0-10.0) Eosinophils (%) (Auto) 3.8 % (0.0-3.0) H Basophils (%) (Auto) 1.0 % (0.0-2.0) Erythrocyte Sedimentation Rate 101 MM/HR (0-20) H Sodium Level 136 MMOL/L (136-145) Potassium Level 4.0 MMOL/L (3.5-5.1) Chloride Level 99 MMOL/L (98-107) Carbon Dioxide Level 30 MMOL/L (21-32) Anion Gap 7 mmol/L (5-15) Blood Urea Nitrogen 19 mg/dL (7-18) H Creatinine 1.0 MG/DL (0.55-1.30) Estimat Glomerular Filtration Rate > 60 mL/min (>60) Glucose Level 108 MG/DL (74-106) H Calcium Level 9.6 MG/DL (8.5-10.1) Phosphorus Level 5.2 MG/DL (2.5-4.9) H Magnesium Level 1.8 MG/DL (1.8-2.4) Total Bilirubin 0.2 MG/DL (0.2-1.0) Aspartate Amino Transf (AST/SGOT) 15 U/L (15-37) Alanine Aminotransferase (ALT/SGPT) 43 U/L (12-78) Alkaline Phosphatase 126 U/L (46-116) H C-Reactive Protein, Quantitative 4.6 mg/dL (0.00-0.90) H Total Protein 8.5 G/DL (6.4-8.2) H Albumin 2.5 G/DL (3.4-5.0) L Globulin 6.0 g/dL Albumin/Globulin Ratio 0.4 (1.0-2.7) L Current Medications Medications (Trade) Dose Ordered Sig/Des Route PRN Reason Start Time Stop Time Status Last Admin Dose Admin Acetaminophen (Tylenol) 650 mg Q4H PRN ORAL T>100.5 11/19/18 14:00 12/07/18 13:59 11/23/18 09:33 Acetaminophen/ Hydrocodone Bitart ([place] 10/325) 1 tab Q4H PRN ORAL Moderate Pain (Pain Scale 4-6) 11/21/18 14:45 11/28/18 14:44 11/22/18 13:17 Acetaminophen/ Hydrocodone Bitart ([place] 5/325) 1 tab Q4H PRN ORAL Mild Pain (Pain Scale 1-3) 11/21/18 14:45 11/28/18 14:44 Dextrose (Dextrose 50%) 25 ml Q30M PRN IV Hypoglycemia 11/19/18 13:30 12/08/18 19:29 Dextrose (Dextrose 50%) 50 ml Q30M PRN IV Hypoglycemia 11/19/18 13:30 12/08/18 19:29 Docusate Sodium (Colace) 100 mg TWICE A DAY ORAL 11/19/18 18:00 12/14/18 17:59 11/23/18 08:48 Famotidine (Pepcid) 20 mg BID ORAL 11/19/18 18:00 12/09/18 08:59 11/23/18 08:48 Heparin Sodium (Porcine) (Heparin 5000 units/ml) 5,000 units EVERY 12 HOURS SUBQ 11/19/18 21:00 12/15/18 08:59 11/23/18 08:47 Insulin Aspart (NovoLOG) BEFORE MEALS AND HS SUBQ 11/19/18 16:30 12/08/18 06:29 11/22/18 20:37 Insulin Detemir (Levemir) 18 units Q12HR SUBQ 11/23/18 09:00 12/15/18 08:59 Loperamide HCl (Imodium) 2 mg Q4H PRN ORAL Diarrhea 11/22/18 13:00 12/22/18 12:59 11/22/18 13:07 Metformin HCl (Glucophage) 500 mg TIAC ORAL 11/19/18 16:30 12/19/18 11:29 11/23/18 05:32 Morphine Sulfate (Morphine Sulfate) 4 mg Q3H PRN IVP Severe Pain (Pain Scale 7-10) 11/19/18 14:00 11/25/18 13:59 11/20/18 05:17 Nateglinide (Starlix) 120 mg TIAC ORAL 11/19/18 16:30 12/09/18 06:29 11/23/18 05:32 Nitroglycerin (Ntg) 0.4 mg Q5MIN X 3 DOSES PRN SL Prn Chest Pain 11/19/18 13:30 12/14/18 13:44 Ondansetron HCl (Zofran) 4 mg Q6H PRN IVP Nausea & Vomiting 11/19/18 14:00 12/14/18 13:59 Polyethylene Glycol (Miralax) 17 gm DAILYPRN PRN ORAL Constipation 11/19/18 14:00 12/07/18 13:59 Promethazine HCl/ Codeine (Phenergan with Codeine) 5 ml Q4H PRN ORAL For Cough 11/19/18 14:15 12/10/18 14:14 Theophylline ([place]-Dur) 100 mg EVERY 12 HOURS ORAL 11/19/18 21:00 12/10/18 20:59 11/23/18 08:48 Vancomycin HCl (Vanco rx to dose) 1 ea DAILY PRN MISC Per rx protocol 11/20/18 09:00 12/16/18 09:44 Vancomycin HCl 1.25 gm/Dextrose 275 ml @ 183.333 mls/hr Q8HR IVPB 11/21/18 22:00 11/26/18 21:59 11/23/18 05:27 Alfreda Thomas M.D. Nov 23, 2018 11:04
--- NOTE | 2018-11-23 11:32 | Nephrology Progress Note ---
Assessment/Plan Problem List: (1) Hyponatremia Assessment: SIADH (2) Acute respiratory failure (3) Hyperglycemia (4) Pneumonia (5) Diabetes Assessment Pneumonia Low Na due to high BS Sepsis Respiratory failure Diabetes OOC with proteinuria Anemia Plan Chest tube care right side ha out on tele [place] UOs uric acid indicates SIADH fluid restriction monitor lytes TSH Lipid per orders Subjective ROS Limited/Unobtainable: No Objective Objective Last 24 Hour Vital Signs Date Time Temp Pulse Resp B/P (MAP) Pulse Ox O2 Delivery O2 Flow Rate FiO2 11/23/18 10:03 97.3 11/23/18 08:22 96 Nasal Cannula 2.0 28 11/23/18 08:22 Nasal Cannula 2.0 28 11/23/18 08:00 Nasal Cannula 2.0 11/23/18 08:00 97.3 62 18 115/73 (87) 95 11/23/18 08:00 2.0 11/23/18 05:42 97.3 62 20 113/72 (86) 95 62 11/23/18 04:12 2.0 30 11/23/18 04:00 97.3 62 20 113/72 (86) 95 62 11/23/18 01:10 70 17 Bi-pap 30 11/23/18 01:07 70 17 96 Full Face 30 11/23/18 00:46 2.0 30 11/23/18 00:00 97.7 62 16 125/74 (91) 99 62 11/22/18 23:55 72 17 97 Full Face 30 11/22/18 21:00 Nasal Cannula 2.0 11/22/18 20:00 98.2 78 20 111/73 (86) 96 78 11/22/18 20:00 95 Nasal Cannula 2.0 28 11/22/18 20:00 Nasal Cannula 2.0 28 11/22/18 16:00 2.0 11/22/18 16:00 97.6 60 18 124/73 (90) 95 11/22/18 13:47 97.7 11/22/18 12:00 2.0 11/22/18 12:00 96.8 60 18 112/75 (87) 97 Intake and Output 11/22/18 11/23/18 19:00 07:00 Intake Total 995.000 ml 275.000 ml Output Total 1600 ml 1000 ml Balance -605.000 ml -725.000 ml Intake Oral 720 ml IV Total 275.000 ml 275.000 ml Output Urine Total 1600 ml 1000 ml # Voids 4 Laboratory Tests 11/23/18 04:43: White Blood Count 9.2, Red Blood Count 3.48L, Hemoglobin 10.7L, Hematocrit 33.1L , Mean Corpuscular Volume 95, Mean Corpuscular Hemoglobin 30.7, Mean Corpuscular Hemoglobin Concent 32.3, Red Cell Distribution Width 11.5L, Platelet Count 630H, Mean Platelet Volume 5.2L, Neutrophils (%) (Auto) 56.2, Lymphocytes (%) (Auto) 30.4, Monocytes (%) (Auto) 8.6, Eosinophils (%) (Auto) 3.8H, Basophils (%) (Auto) 1.0, Erythrocyte Sedimentation Rate 101H, Sodium Level 136, Potassium Level 4.0, Chloride Level 99, Carbon Dioxide Level 30, Anion Gap 7, Blood Urea Nitrogen 19H, Creatinine 1.0, Estimat Glomerular Filtration Rate > 60, Glucose Level 108H, Calcium Level 9.6, Phosphorus Level 5.2H, Magnesium Level 1.8, Total Bilirubin 0.2, Aspartate Amino Transf (AST/SGOT ) 15, Alanine Aminotransferase (ALT/SGPT) 43, Alkaline Phosphatase 126H, C- Reactive Protein, Quantitative 4.6H, Total Protein 8.5H, Albumin 2.5L, Globulin 6.0, Albumin/Globulin Ratio 0.4L Height (Feet): 5 Height (Inches): 6.00 Weight (Pounds): 187 General Appearance: no apparent distress Objective no other change Sedrick Cordova MD Nov 23, 2018 11:32
[2018-11-23] MEDS ORDERED: NS 275ml ONE (13:35)
--- NOTE | 2018-11-23 13:40 | NUR ---
NURSE NOTES: Patient discharged per doctor order, IV to remain in place, belongings reviewed and no discrepancies noted, patient has no distress noted, patient transported to SNF via ambulance.
--- NOTE | 2018-11-24 14:17 | Discharge Summary ---
Discharge Summary Discharge Summary _ DATE OF ADMISSION: 11/07/2018 DATE OF DISCHARGE: 11/23/2018 ADMITTING MD: Dr. Enmanuel Anderson DISCHARGED BY: Dr. Yeimi Phelps CONSULTANTS: Dr. Sedrick Nino [facility] HOSPITAL COURSE: Patient is a 58-year-old homeless male, who presented to [facility] ER due to increased shortness of breath. Patient had been feeling short of breath for the past few days. He felt pressure on his chest. He also tripped and fell. He hit his head. He was complaining of headache. He denied recent illness. He denied cough or congestion. Denied fever or chills. He denied history of medical problems. On evaluation at the ED, blood pressure was 170/97, pulse rate 88, respiratory rate 38. Blood work showed WBC of 19. Hemoglobin and hematocrit were stable. Sodium level was low at 132. Chloride 96. Urinalysis showed 2+ protein, 4+ glucose, 1+ blood, negative nitrite, 0-2 RBC, 0-2 WBC. Chest x-ray read by ED physician showed right middle lobe and right lower lobe opacities. Head CT did not show any acute findings. On arrival to ED, he was dyspneic and tachypneic. He was placed on BiPAP and had significant improvement in work of breathing. ABG showed respiratory failure. Repeat ABG showed significant improvement with BiPAP. He was given IV fluids and broad-spectrum antibiotics. He was then admitted to ICU for further evaluation and treatment. Data Management Manager was consulted. He was given respiratory treatment. ID was consulted. He was given empiric IV vancomycin and cefepime pending culture results. Influenza screen was negative. Glucose levels were noted to be elevated. [employer] Operator was consulted. Glucose was monitored. He was started on basal Levemir and Starlix 120 mg ac meals tid. Insulin dose was adjusted. Angiogram showed ejection fraction 55-60%, mild mitral regurgitation, mild tricuspid regurgitation, right ventricular systolic pressure of 51 mmHg, consistent with moderate pulmonary hypertension. He was weaned off BiPAP. Chest CT showed extensive infiltrates, likely pneumonia involving right lung. There was moderate right pleural effusion. Loculated appearing pleural fluid collection in the anterior medial right pleural space with rim enhancement, possibility of empyema. On 11/09/2018, he underwent ultrasound-guided thoracentesis of the right chest yielding 650 mL of cloudy dark yellow fluid. Kidney function was monitored. Reflesher was consulted. Patient had hyponatremia. Urine sodium and osmolality indicates SIADH. He was placed on fluid restrictions. Cardiothoracic surgeon was consulted due to loculated pleural effusion suspicious for empyema. On 11/14/2018, he underwent flexible bronchoscopy with right sided video-assisted thoracoscopic surgery. He underwent intrapleural pneumolysis, drainage of chest wall abscess, decortication and right lower lobe wedge resection. Postprocedure, right chest tube was left in place. HIV screen was negative. Urine Legionella antigen negative. Thoracentesis fluid did not show any malignant cells. Thoracentesis fluid culture was negative. Right lung abscess grew MRSA. He was restarted on IV vancomycin. Patient will need extended course of vancomycin for approximately 2-4 weeks depending on clinical response. He continued to have elevated blood glucose. Mealtime glucose was elevated. Metformin was added to his regimen. Serial chest x-rays were done. WBC down trended. On 11/21/2018, chest tube was removed. Per ID, recommended continue treatment at least until 12/06/2018, for at least 1 week post chest tube removal. Patient was breathing well and was saturating well in 2 L nasal cannula. Patient was then discharged to [facility] to continue antibiotic treatment. FINAL DIAGNOSES: Sepsis secondary to pneumonia Acute respiratory failure, requiring BiPAP, resolved Empyema Hyponatremia due to SIADH Diabetes mellitus, out of control, with proteinuria Anemia Status post bronchoscopy, right video-assisted thoracoscopic surgery, intrapleural pneumolysis, drainage of chest wall abscess, decortication, right lower lobe wedge resection on 11/14/2018 DISPOSITION: Patient was discharged to a SNF. DISCHARGE MEDICATIONS: Refer to Discharge Medication List. I have been assigned to complete a discharge summary on this account, I was not involved with the patient's management. Loretta Eden NP Nov 24, 2018 14:17
== END 2018-11-23 13:36 | DRG 710 ==
LOC: EMR 20:30 → ICU 21:38 → EDBEDREQ 22:16 → 4E 11-08 15:00 → ICU 11-14 13:00 → 2E 11-15 22:07 → 4E 11-19 13:19
PROC: 0W993ZZ Drainage of Right Pleural Cavity, Percutaneous Approach (ICD-10-PCS; 2018-11-09)
PROC: 0B978ZZ Drainage of Left Main Bronchus, Via Natural or Artificial Opening Endoscopic (ICD-10-PCS; 2018-11-14)
PROC: 0B5N4ZZ Destruction of Right Pleura, Percutaneous Endoscopic Approach (ICD-10-PCS; 2018-11-14)
PROC: 0BCC4ZZ Extirpation of Matter from Right Upper Lung Lobe, Percutaneous Endoscopic Approach (ICD-10-PCS; 2018-11-14)
PROC: 0BBF4ZZ Excision of Right Lower Lung Lobe, Percutaneous Endoscopic Approach (ICD-10-PCS; 2018-11-14)
PROC: 0BNF4ZZ Release Right Lower Lung Lobe, Percutaneous Endoscopic Approach (ICD-10-PCS; principal; 2018-11-14 07:30)
DX: A41.9 Sepsis, unspecified organism (principal); J96.00 Acute respiratory failure, unspecified whether with hypoxia or hypercapnia; J86.9 Pyothorax without fistula; J18.9 Pneumonia, unspecified organism; J90 Pleural effusion, not elsewhere classified; J94.8 Other specified pleural conditions; E22.2 Syndrome of inappropriate secretion of antidiuretic hormone; E11.65 Type 2 diabetes mellitus with hyperglycemia; D64.9 Anemia, unspecified; R51 Headache; Z59.0 Homelessness; B95.62 Methicillin resistant Staphylococcus aureus infection as the cause of diseases classified elsewhere; R80.9 Proteinuria, unspecified; L02.213 Cutaneous abscess of chest wall
CPT/HCPCS: 36415; 36600; 70450; 71045; 71260; 76942; 80048; 80053; 80061; 80069; 80202; 81003; 82164; 82248; 82330; 82378; 82550; 82553; 82607; 82728; 82746; 82803; 82962; 82977; 83036; 83540; 83550; 83735; 83880; 83930; 83935; 84100; 84132; 84300; 84443; 84484; 84550; 85007; 85025; 85610; 85651; 85730; 86140; 86703; 86710; 86850; 86900; 86901; 86920; 87040; 87070; 87075; 87081; 87116; 87181; 87205; 88104; 89050; 93005; 93306; 94003; 94150; 94640; 94660; 94664; 94760; 96365; 96372; 99291; J1815; J2250; J2405; J2710; J7620; J8499; S5561

== ENCOUNTER 2019-01-01 21:43 | Emergency (ER) | payer MEDICAID ==
[~2019-01-01] VITALS: Ht 167.6 cm; Wt 74.8 kg
[~2019-01-01 21:43] MED LIST changes: +GLUCOPHAGE500 MG ORAL; +HYDROCODON-ACE1 EA13 ORAL; +LEVEMIR FL100 UNIT/1 SUBQ; +NOVOLOG100 UNITS1 SUBQ; +PROMETHAZINE-C118 M1 ORAL; +STARLIX120 MG ORAL; +vancomycin INJ
--- NOTE | 2019-01-01 21:52 | NUR ---
ED Nurse Note: Patient BIBA from [facility] with complaints of back pain radiating to legs ETOH intox. Pt is AO x 3 times, VSS, onroom air no distress. ERMD seen Pt at bedside.
[2019-01-01 21:58] VITALS: BP 112/70
--- NOTE | 2019-01-01 23:19 | NUR ---
ED Nurse Note: Snack and water offered.
--- NOTE | 2019-01-02 02:26 | Emergency Room Report ---
History of Present Illness General Chief Complaint: Alcohol Intoxication Source: Medical Record, EMS Present Illness HPI This is a 58-year-old [place] male presents with chief complaint of alcohol intoxication. He was admitted here last month and sent to rehabilitation facility for pneumonia and empyema. Was discharged from the couple weeks ago. Patient was at a [facility] set up by the intermediate. He was discharged from there because he went out and bought alcohol and brought her back to the place and was drinking. He was intoxicated so staff called 911. Patient complaining of back pain. This is a chronic issue. No trauma. No incontinence of bowel or urine. He said he drank cause of the pain. Allergies: Coded Allergies: No Known Allergies (Unverified , 11/04/18) Patient History Past Medical History: see triage record, old chart reviewed Past Surgical History: other Pertinent Family History: none Social History: Denies: smoking Immunizations: other Reviewed Nursing Documentation: PMH: Agreed; PSxH: Agreed Nursing Documentation-PMH Hx COPD: Yes - h/o respiratory failure Hx Diabetes: Yes Hx Gastrointestinal Problems: Yes - acute phryngitis Review of Systems Musculoskeletal: Reports: back pain All Other Systems: limited - Intoxicated Physical Exam Vital Signs Date Time Temp Pulse Resp B/P (MAP) Pulse Ox O2 Delivery O2 Flow Rate FiO2 01/01/19 21:45 96.3 91 16 94/63 (73) 94 Room Air vitals unremarkable Sp02 EP Interpretation: reviewed, normal General Appearance: well appearing, no apparent distress, alert, other - Intoxicated Head: normocephalic, atraumatic Eyes: bilateral eye PERRL, bilateral eye EOMI ENT: hearing grossly normal, normal pharynx Neck: full range of motion, supple, no meningismus Respiratory: chest non-tender, lungs clear, normal breath sounds Cardiovascular #1: regular rate, rhythm, no murmur Gastrointestinal: normal bowel sounds, non tender, no mass, no organomegaly, no bruit, non-distended Musculoskeletal: back normal, normal range of motion Psychiatric: mood/affect normal Skin: warm/dry Medical Decision Making Diagnostic Impression: Primary Impression: Acute alcoholic intoxication Qualified Codes: F10.920 - Alcohol use, unspecified with intoxication, uncomplicated Additional Impression: Low back pain Qualified Codes: M54.5 - Low back pain ER Course Patient with alcohol intoxication. No trauma to warrant x-ray or CT scan. No red flags indicate cauda equina syndrome, spinal epidural abscess or neoplastic process. We'll observe until clinical sobriety and discharge in the morning. Last Vital Signs Date Time Temp Pulse Resp B/P (MAP) Pulse Ox O2 Delivery O2 Flow Rate FiO2 01/01/19 21:58 97.2 78 18 112/70 96 Room Air Status: improved Disposition: HOME, SELF-CARE Condition: Stable Referrals: NOT CHOSEN IPA/MD,REFERRING (PCP) Patient Instructions: Alcohol Intoxication, [id number] Additional Instructions: Follow-up with your doctor in 7 days. Return if symptom worsen. Kulwant Rodriguez MD January 02, 2019 02:26
[2019-01-02 04:30] VITALS: BP 122/80
[2019-01-02 05:48] VITALS: BP 132/87
--- NOTE | 2019-01-02 05:48 | NUR ---
Homeless Discharge: Patient is being discharged from medical care. Awake, alert and oriented x3. After care instructions, including referral to community resources were given. Patient verbalized understanding of After care instructions; at this time patient does not request medications, equipment or placement. Patient signed patient consent in the medical record for patient destination upon discharge. All medical devices such ID band were removed. Patient ambulated out with all personal belongings with steady gait.
[2019-01-02 05:49] VITALS: BP 132/87
== END 2019-01-02 05:50 | disposition home or self-care (01) ==
LOC: EDBD 21:43 → EMR 22:29
DX: F10.920 Alcohol use, unspecified with intoxication, uncomplicated (principal); M54.5 Low back pain; E11.9 Type 2 diabetes mellitus without complications
CPT/HCPCS: 82962; 99283